=== PATIENT | female | born 1980 | race Caucasian/White ===

== ENCOUNTER 2017-12-20 20:19 | Emergency (ER) | payer OTHER ==
[2017-12-20 21:41] LABS: Bilirubin Negative (Negative); Blood, Urine Negative (Negative); Clarity CLEAR (Clear); Glucose, Urine (Dipstick) Negative (Negative); Leukocyte Negative (Negative); Nitrite Negative (Negative); Protein, Urine (Dipstick) Negative (Neg-Trace); Specific Gravity, Urine 1.005 (1.002-1.036); Urobilinogen 0.2 mg/dL (0.2-1.0)
[2017-12-20 21:52] LABS: Hemoglobin 9.7 g/dL (12.0-16.0); Mean Corpuscular HGB CONC 31.7 g/dL (32.0-36.0); Mean Corpuscular Hemoglobin 26.1 pg (27.0-31.0); Mean Corpuscular Volume 82.2 fL (78.0-98.0); Mean Platelet Volume 6.1 fL (7.4-10.4); Platelet Count 704 thou/uL (130-400); RBC Distribution Width 16.1 % (11.5-14.5); Red Blood Cell (RBC) Count 3.73 mill/uL (4.20-5.40); White Blood Cell (WBC) Count 13.7 thou/uL (4.8-10.8)
[2017-12-20 22:11] LABS: Band 1 % (5-11); Eosinophils 2 % (0-10); Lymphocytes 17 % (21-51); MDiff Complete? YES; Monocytes 7 % (0-10); Neutrophil 73 % (42-75); PLT Morphology Comment Appears Increased
[2017-12-20 22:12] LABS: ALT (SGPT) Less than 7 U/L (8-55); AST (SGOT) 10 U/L (5-34); Albumin 3.2 g/dL (3.5-5.0); Alkaline Phosphatase 140 U/L (40-150); Anion Gap 12 mmol/L (10-20); BUN (Urea Nitrogen) Less than 4 mg/dL (7.0-18.7); Bilirubin, Total 0.2 mg/dL (0.2-1.2); Calc. Creatinine Clearance 0 mL/min (70-130); Calcium 8.7 mg/dL (7.8-10.44); Carbon Dioxide 22 mmol/L (22-29); Chloride 103 mmol/L (98-107); Estimated GFR-MDRD Greater than 90; Globulin 3.9 g/dL (2.4-3.5); Glucose 92 mg/dL (70-105); Lipase 101 U/L (8-78); Potassium 4.2 mmol/L (3.5-5.1); Protein, Total 7.1 g/dL (6.0-8.3); Sodium 133 mmol/L (136-145)
--- NOTE | 2017-12-21 00:07 | PDOC.FPRHP ---
- History of Present Illness Chief Complaint: abdominal pain - Allergies/Adverse Reactions Allergies Allergy/AdvReac Type Severity Reaction Status Date / Time buspirone HCl [From BuSpar] Allergy Verified 01/05/14 00:31 lorazepam [From Ativan] Allergy Verified 08/04/14 13:52 Penicillins Allergy Verified 01/05/14 00:31 ATI Allergy Unknown Anxiety Uncoded 08/04/14 13:54 - Home Medications Medication Instructions Recorded Confirmed Type Sertraline HCl [Zoloft] 200 mg PO QAM 12/05/12 01/05/14 History Albuterol Sulfate [Albuterol 1 puff IH Q4HR PRN 01/05/14 01/05/14 History Sulfate HFA] Cyclobenzaprine HCl 1 tab PO PRN PRN 01/05/14 01/05/14 History Fluticasone/Salmeterol [Advair 1 inh IH BID 01/05/14 01/05/14 History Diskus 250/50] HYDROcodone Bit/APAP 5/325 [[place] 1 tab PO Q6HR PRN 01/05/14 01/05/14 History 5-325] Iloperidone [Fanapt] 6 mg PO BID 01/05/14 01/05/14 History Temazepam [Restoril] 15 mg PO HS 01/05/14 01/05/14 History traMADol HCl [Tramadol HCl] 50 mg PO TID PRN 01/05/14 01/05/14 History - History PMHx: Prolapsed Rectum, HTN, COPD, bipolar, depression, schizoaffective PSHx: Hernia repair x 2, colostomy, appendectomy, FHx: Social: Smokin pack per day, EtOH: socially, drugs: denies - Vital signs BP: [] HR: [] RR: [] Tmax: [] Pox: []% on [] Wt: [] FMR H&P: Results - Labs Result Diagrams: 12/20/17 21:42 12/20/17 21:42 Lab results: WBC 13.7 thou/uL (4.8-10.8) H 12/20/17 21:42 Hgb 9.7 g/dL (12.0-16.0) L 12/20/17 21:42 Hct 30.7 % (36.0-47.0) L 12/20/17 21:42 MCV 82.2 fL (78.0-98.0) 12/20/17 21:42 Plt Count 704 thou/uL (130-400) H 12/20/17 21:42 Band Neuts % (Manual) 1 % (5-11) L 12/20/17 21:42 Sodium 133 mmol/L (136-145) L 12/20/17 21:42 Potassium 4.2 mmol/L (3.5-5.1) 12/20/17 21:42 Chloride 103 mmol/L (98-107) 12/20/17 21:42 Carbon Dioxide 22 mmol/L (22-29) 12/20/17 21:42 BUN Less than 4 mg/dL (7.0-18.7) L 12/20/17 21:42 Creatinine 0.64 mg/dL (0.6-1.1) 12/20/17 21:42 Glucose 92 mg/dL (70-105) 12/20/17 21:42 Calcium 8.7 mg/dL (7.8-10.44) 12/20/17 21:42 Total Bilirubin 0.2 mg/dL (0.2-1.2) 12/20/17 21:42 AST 10 U/L (5-34) 12/20/17 21:42 ALT Less than 7 U/L (8-55) L 12/20/17 21:42 Alkaline Phosphatase 140 U/L (40-150) 12/20/17 21:42 Serum Total Protein 7.1 g/dL (6.0-8.3) 12/20/17 21:42 Albumin 3.2 g/dL (3.5-5.0) L 12/20/17 21:42 Lipase 101 U/L (8-78) H 12/20/17 21:42 Urine Ketones Negative mg/dL (Negative) 12/20/17 20:40 Urine Blood Negative (Negative) 12/20/17 20:40 Urine Nitrite Negative (Negative) 12/20/17 20:40 Ur Leukocyte Esterase Negative (Negative) 12/20/17 20:40 FMR H&P: Upper Level - Plan Date/Time: 12/21/17 Sebastián I, [], have evaluated this patient and agree with findings/plan as outlined by internet marketing strategist resident. Pertinent changes/additions are listed here.
[2017-12-21] MEDS ORDERED: Acetaminophen 325 MG TAB ONE (00:41)
== END 2017-12-21 02:30 | disposition home or self-care (01) ==
LOC: ERS 20:19
DX: S31.109A Unspecified open wound of abdominal wall, unspecified quadrant without penetration into peritoneal cavity, initial encounter (principal); Z93.3 Colostomy status; I10 Essential (primary) hypertension; J44.9 Chronic obstructive pulmonary disease, unspecified; F31.9 Bipolar disorder, unspecified; F25.9 Schizoaffective disorder, unspecified; F17.210 Nicotine dependence, cigarettes, uncomplicated
CPT/HCPCS: 36415; 80053; 81003; 83690; 85025; 99284

== ENCOUNTER 2018-01-29 17:57 | Inpatient (IN) | payer OTHER ==
[2018-01-29 19:57] LABS: #Basophils 0.1 thou/uL (0.0-0.2); #Eosinphils 0.3 thou/uL (0.0-0.7); #Neutrophils 7.8 thou/uL (1.40-6.50); %Basophils 0.4 % (0.0-1.0); %Eosinophils 2.6 % (0.0-10.0); %Lymphocytes 24.9 % (21.0-51.0); %Monocytes 7.8 % (0.0-10.0); %Neutrophils 64.2 % (42.0-75.0); Hemoglobin 9.6 g/dL (12.0-16.0); Mean Corpuscular HGB CONC 32.6 g/dL (32.0-36.0); Mean Corpuscular Hemoglobin 26.1 pg (27.0-31.0); Mean Corpuscular Volume 79.9 fL (78.0-98.0); Mean Platelet Volume 6.5 fL (7.4-10.4); Platelet Count 465 thou/uL (130-400); RBC Distribution Width 15.5 % (11.5-14.5); Red Blood Cell (RBC) Count 3.66 mill/uL (4.20-5.40); White Blood Cell (WBC) Count 12.1 thou/uL (4.8-10.8)
[2018-01-29 20:00] LABS: Bilirubin Negative (Negative); Blood, Urine Negative (Negative); Clarity CLEAR (Clear); Glucose, Urine (Dipstick) Negative (Negative); Leukocyte Trace (Negative); Nitrite Negative (Negative); Protein, Urine (Dipstick) Negative (Neg-Trace); Urobilinogen 0.2 mg/dL (0.2-1.0)
[2018-01-29] MEDS ORDERED: Haloperidol Lactate 5 MG/ML VIAL ONE (20:00)
[2018-01-29 20:02] LABS: Pathc Cast-AUWi Flag 0.14 (0-2.49)
[2018-01-29 20:12] LABS: Amphetamine Not Detected (NotDetected); Barbiturates Screen Not Detected (NotDetected); Benzodiazepine Screen Detected (NotDetected); Cocaine Metabolite Screen Not Detected (NotDetected); Medtox Control Line Valid? VALID (VALID); Medtox Reader # READER 4; Methadone Not Detected (NotDetected); Methamphetamine Not Detected (NotDetected); Opiate Screen Not Detected (NotDetected); Oxycodone Screen Not Detected (NotDetected); Phencyclidine (PCP) Not Detected (NotDetected); THC/Cannabinoid Screen Not Detected (NotDetected); Tricyclic Screen Not Detected (NotDetected)
[2018-01-29 20:13] LABS: Specific Gravity, Urine 1.002 (1.002-1.036)
[2018-01-29 20:14] LABS: Bacteria/HPF None Seen HPF (None Seen); Hyaline Casts/LPF NONE SEEN LPF (0-3 Hyaline); RBC/HPF None Seen HPF (0-3); WBC/HPF None Seen HPF (0-3)
[2018-01-29 20:23] LABS: Acetaminophen Less than 6.0 mcg/mL (10.0-30.0); Alcohol Less than 10 mg/dL (Less than 10); BHCG - Serum Negative (NEGATIVE); Pregs Control Background? CLEAR/WHITE (CLR/WHITE); Pregs Control Bar Appear? YES (CONTROL BAR); Salicylate Less than 8.0 mg/dL (15.0-30.0)
[2018-01-29 20:24] LABS: ALT (SGPT) 8 U/L (8-55); AST (SGOT) 12 U/L (5-34); Albumin 3.1 g/dL (3.5-5.0); Alkaline Phosphatase 95 U/L (40-150); Anion Gap 11 mmol/L (10-20); BUN (Urea Nitrogen) 5 mg/dL (7.0-18.7); Bilirubin, Total Less than 0.2 mg/dL (0.2-1.2); Calc. Creatinine Clearance 0 mL/min (70-130); Carbon Dioxide 29 mmol/L (22-29); Chloride 96 mmol/L (98-107); Estimated GFR-MDRD Greater than 90; Globulin 3.3 g/dL (2.4-3.5); Glucose 80 mg/dL (70-105); Potassium 3.2 mmol/L (3.5-5.1); Protein, Total 6.4 g/dL (6.0-8.3); Sodium 133 mmol/L (136-145)
--- NOTE | 2018-01-29 20:54 | PDOC.FPRHP ---
- History of Present Illness Chief Complaint: clonazepam OD History of Present Illness: 37yo F with pmh of MDD presents as transfer from [facility] for reportedly taking 20 clonazepam 0.5 tablets and for Tx of abdominal cellulitis. Pt is agitated and restrained. Limited history was able to be obtained due to mental status and difficulty understanding enunciation of speech. Pt reported active desire to hurt herself but refused to answer many other questions regarding history. Also complains of 1 month hx of worsening abdominal skin redness and associated pain. Pain 10/17 with associated f/c. redness originated at site of colostomy bag. Pt has two bags and reports hx of rectal prolapse s/p surgery. ED Course: Levaquin 750mg, ketamin 90mg x2, Haldol 5mg - Allergies/Adverse Reactions Allergies Allergy/AdvReac Type Severity Reaction Status Date / Time adhesive tape Allergy Verified 01/29/18 23:19 buspirone HCl [From BuSpar] Allergy Verified 01/29/18 23:19 lorazepam [From Ativan] Allergy Verified 01/29/18 23:19 Penicillins Allergy Verified 01/29/18 23:19 - Home Medications Medication Instructions Recorded Confirmed Type Sertraline HCl [Zoloft] 200 mg PO QAM 12/05/12 01/05/14 History Albuterol Sulfate [Albuterol 1 puff IH Q4HR PRN 01/05/14 01/29/18 History Sulfate HFA] Cyclobenzaprine HCl 1 tab PO PRN PRN 01/05/14 01/05/14 History Fluticasone/Salmeterol [Advair 1 inh IH BID 01/05/14 01/05/14 History Diskus 250/50] HYDROcodone Bit/APAP 5/325 [[place] 1 tab PO Q6HR PRN 01/05/14 01/05/14 History 5-325] Iloperidone [Fanapt] 6 mg PO BID 01/05/14 01/05/14 History Temazepam [Restoril] 15 mg PO HS 01/05/14 01/05/14 History traMADol HCl [Tramadol HCl] 50 mg PO TID PRN 01/05/14 01/29/18 History clonazePAM [Clonazepam] 0.5 mg PO BID 01/29/18 01/29/18 History - History PMHx: MDD, COPD, Rectal prolapse PSHx: Unspecified abdominal surgery resulting in 2 colostomies, 1 other unspecified surgery FHx: none reported Social: active smoker 20 pack years, denies EtOH/drugs - Review of Systems ROS unobtainable: due to mental status General: reports: fever/chills. denies: fatigue Eyes: denies: eye pain, vision changes Respiratory: reports: cough. denies: shortness of breath Cardiovascular: denies: chest pain Gastrointestinal: denies: nausea, vomiting Musculoskeletal: reports: pain Psychological: reports: depression - Vital signs BP: [114/76] HR: [99] RR: [18] Tmax: [98.6] Pox: [100]% on [RA] Wt: [45kg] - Physical Exam Constitutional: NAD, awake, alert and oriented HEENT: normocephalic and atraumatic, EOMI, grossly normal hearing -HEENT: dry and chapped lips Neck: supple, trachea midline Chest: no-tender to palpation Heart: RRR, normal S1/S2 Lungs: CTAB, no respiratory distress Abdomen: soft, bowel sounds present, other ([address]) Musculoskeletal: normal structure, normal tone -Skin: Erythema measuring approximately [id number] with surrounding petechia. cellulitis is centered around colostomy sites. Moderate tenderness to palpation, warmth to touch. -Psychiatric: poor eye contact. poor grooming and attire with feces leaking from colostomy bags. increased volume of speech with decreased rate. Thought content centered on being released from restraints. "not so good" mood. Pt refused to answer SI/ HI/AVH questions but stated desire to hurt herself. FMR H&P: Results - Labs Result Diagrams: 01/30/18 04:49 01/30/18 04:49 Lab results: WBC 12.1 thou/uL (4.8-10.8) H 01/29/18 19:30 Hgb 9.6 g/dL (12.0-16.0) L 01/29/18 19:30 Hct 29.3 % (36.0-47.0) L 01/29/18 19:30 MCV 79.9 fL (78.0-98.0) 01/29/18 19:30 Plt Count 465 thou/uL (130-400) H 01/29/18 19:30 Neutrophils % 64.2 % (42.0-75.0) 01/29/18 19:30 Sodium 133 mmol/L (136-145) L 01/29/18 19:30 Potassium 3.2 mmol/L (3.5-5.1) L 01/29/18 19:30 Chloride 96 mmol/L (98-107) L 01/29/18 19:30 Carbon Dioxide 29 mmol/L (22-29) 01/29/18 19:30 BUN 5 mg/dL (7.0-18.7) L 01/29/18 19:30 Creatinine 0.67 mg/dL (0.6-1.1) 01/29/18 19:30 Glucose 80 mg/dL (70-105) 01/29/18 19:30 Lactic Acid 1.5 mmol/L (0.5-2.2) 01/29/18 19:30 Calcium 9.0 mg/dL (7.8-10.44) 01/29/18:30 Total Bilirubin Less than 0.2 mg/dL (0.2-1.2) L 01/29/18 19:30 AST 12 U/L (5-34) 01/29/18 19:30 ALT 8 U/L (8-55) 01/29/18 19:30 Alkaline Phosphatase 95 U/L (40-150) 01/29/18 19:30 Serum Total Protein 6.4 g/dL (6.0-8.3) 01/29/18 19:30 Albumin 3.1 g/dL (3.5-5.0) L 01/29/18 19:30 Urine Ketones Negative mg/dL (Negative) 01/29/18 19:39 Urine Blood Negative (Negative) 01/29/18 19:39 Urine Nitrite Negative (Negative) 01/29/18 19:39 Ur Leukocyte Esterase Trace (Negative) H 01/29/18 19:39 Urine RBC None Seen HPF (0-3) 01/29/18 19:39 Urine WBC None Seen HPF (0-3) 01/29/18 19:39 Ur Squamous Epith Cells 4-6 HPF (0-3) H 01/29/18 19:39 Urine Bacteria None Seen HPF (None Seen) 01/29/18 19:39 FMR H&P: A/P - Problem List (1) Suicidal overdose Current Visit: No Status: Acute Code(s): T50.902A - POISONING BY UNSP DRUG/ MEDS/BIOL SUBST, SELF-HARM, INIT (2) Cellulitis Current Visit: Yes Status: Acute Code(s): L03.90 - CELLULITIS, UNSPECIFIED (3) COPD (chronic obstructive pulmonary disease) Current Visit: Yes Status: Chronic - Plan 37yo F with suicide attempt via benzo OD Depression with suicide attempt, benzodiazepine OD A- Pt is combative and agitated s/p 20 reported 0.5mg clonazepam tablets, 180mg ketamine, 5mg haldol. Airway is patent and O2 sats well on RA. Agitated P- monitor respiratory status, O2 sat continuous monitoring -continue home zoloft -hold home clonazepam -maintenance IVF until pt establishes PO Cellulitis A- Possibly secondary to contact dermatitis 2/2 chronic fecal contact from colostomy leakage. Pt is moderately tender to palpation. SIRS - P- clindamycin and rocephin -monitor vitals COPD -continue home albuterol prn hypokalemia -will replete and recheck in AM. -stable. Tobacco abuse -nicotine patch. Code status: FULL Diet: Regular FMR H&P: Upper Level - Pertinent history 37 year old female with PMH of severe major depressive disorder with suicidal ideations presents today from [facility] after an attempted suicide by klonopin overdose. Notes being suicidal for some time. She also notes hx of rectal prolapse for which she has a colostomy and complication of enterocutaneous fistula. She has redness and pain around colostomy and fistula for at least the last month. - Pertinent findings Lungs: BLL crackles, good air movement bilaterally and vague end expiratory wheeze Abd- LLQ colostomy. Mid abdominal fistula with bright erythema and yellow colored exudate. - Plan Date/Time: 01/29/182052 I, [Ida Nassar], have evaluated this patient and agree with findings/plan as outlined by international flight attendant resident. Pertinent changes/additions are listed here. 37 yr old female with suicide attempt MDD with klonopin overdose suicide attempt - s/p ketamine in ER. - she is far from sedated and is rather agitated. - likely can be cleared for MR in the AM. - will give geodon overnight for agitation - no respiratory compromise at this time abdominal wall cellulitis - concern for cellulitis vs contact dermatitis. - will start clindamycin and rocephin - need outpatient f/u for with surgery for ongoing cutaneous fistula hypokalemia -will replete and recheck in AM. -stable. COPD -will give duoneb PRN. Tobacco abuse -nicotine patch. Code status: FULL Diet: Regular Attending Addendum - Attending Addendum Date/Time: 01/30/18 8148 I personally evaluated the patient and discussed the management with Dr. Linn at time of admission last night. I agree with the History, Examination, Assessment and Plan documented above with any addition or exceptions noted below. Patient was alert and oriented to herself place and why she was at the hospital. However she was agitated, fighting her restraints at times. With a clonazepam overdose I was concerned for sedation but she had none but was disinhibited. In fact we will resort to geodon for agitation control as haldol given in the ER was not effective. We will also treat her cellulitis. No evidence of peritonitis. Dr Nassar and Temitope discussed antibiotic strategies with the pharmacist, due to her PCN allergy.
[2018-01-29] MEDS ORDERED: PROVENTIL INHALER 6.7 G (200 INHALATIONS) INH PRN (22:33)
[2018-01-29] MEDS ORDERED: Acetaminophen 325 MG TAB PO PRN (22:33)
[2018-01-29] MEDS ORDERED: Ziprasidone 20 MG VIAL IM SCH (22:35)
[2018-01-29] MEDS ORDERED: Potassium Chloride 20 MEQ TAB PO SCH (23:15)
[2018-01-29] MEDS ORDERED: Nicotine 14 MG PATCH ONE (23:25)
[2018-01-29] MEDS ORDERED: Ziprasidone 20 MG VIAL ONE (23:26)
[2018-01-29] MEDS ORDERED: Sterile Water 10 ML VIAL FS SCH (23:30)
[2018-01-29] MEDS ORDERED: Potassium Chloride 20 MEQ TAB ONE (23:33)
[2018-01-29 23:45] VITALS: BMI 17.0
[2018-01-30] MEDS ORDERED: Clindamycin/D5W 600 mg/50 ml Premix Bag ONE (00:02)
[2018-01-30] MEDS: Sodium Chloride 0.9% 1,000 ML IV SCH ×2 (00:09→15:26)
[2018-01-30] MEDS: Clindamycin/D5W 600 MG in Premix Bag 1 BAG IVPB SCH ×3 (00:10→15:28)
[2018-01-30] MEDS ORDERED: Nicotine 14 MG PATCH ONE (04:20)
[2018-01-30] MEDS ORDERED: cefTRIAXone\\ROCEPHIN 1 GM VIAL ONE (04:25)
[2018-01-30] MEDS: cefTRIAXone\\ROCEPHIN 1 GM in Sodium Chloride 0.9% 100 ML IVPB SCH (05:22)
[2018-01-30] MEDS: Nicotine 14 MG PATCH TD SCH (05:22)
[2018-01-30 05:45] LABS: #Basophils 0.1 thou/uL (0.0-0.2); #Eosinphils 0.4 thou/uL (0.0-0.7); #Lymphocytes 2.6 thou/uL (1.20-3.40); #Monocytes 0.8 thou/uL (0.11-0.59); #Neutrophils 5.9 thou/uL (1.40-6.50); %Basophils 1.2 % (0.0-1.0); %Eosinophils 3.9 % (0.0-10.0); %Lymphocytes 26.9 % (21.0-51.0); %Monocytes 8.2 % (0.0-10.0); %Neutrophils 59.9 % (42.0-75.0); Hemoglobin 9.7 g/dL (12.0-16.0); Mean Corpuscular Hemoglobin 24.8 pg (27.0-31.0); Mean Corpuscular Volume 80.1 fL (78.0-98.0); Mean Platelet Volume 6.4 fL (7.4-10.4); Platelet Count 477 thou/uL (130-400); RBC Distribution Width 15.6 % (11.5-14.5); Red Blood Cell (RBC) Count 3.89 mill/uL (4.20-5.40); White Blood Cell (WBC) Count 9.8 thou/uL (4.8-10.8)
[2018-01-30 06:12] LABS: Anion Gap 12 mmol/L (10-20); BUN (Urea Nitrogen) 4 mg/dL (7.0-18.7); Calc. Creatinine Clearance 85 mL/min (70-130); Calcium 8.8 mg/dL (7.8-10.44); Carbon Dioxide 27 mmol/L (22-29); Chloride 102 mmol/L (98-107); Estimated GFR-MDRD Greater than 90; Glucose 79 mg/dL (70-105); Potassium 3.7 mmol/L (3.5-5.1); Sodium 137 mmol/L (136-145)
--- NOTE | 2018-01-30 06:25 | PDOC.FM ---
- Subjective Subjective: NAEO. Patient endorses some nausea and decreased appetite as well as abdominal and left leg pain. Denies any chest pain or SOB. Also denies any persistent SI. Says she cannot recall why she tried to kill herself. Had had mutiple intentional OD episodes in the past. Denies any stress at home or in personal life that could have triggered this SI. Just says it was her medicine. Was requesting pain medicine for her leg and wanted to get her restraints off. - Objective MAR Reviewed: Yes Vital Signs & Weight: Vital Signs (12 hours) Temp Pulse Resp BP Pulse Ox 01/30/18 03:38 97.4 F L 88 20 124/74 98 01/30/18 01:48 99 01/29/18 23:42 97.6 F 78 16 122/80 99 01/29/18 22:45 97 01/29/18 22:30 99 01/29/18 22:25 98.0 F 91 16 131/75 98 Weight Weight 45.042 kg I&O: 01/28/18 01/29/18 01/30/18 06:59 06:59 06:59 Intake Total 760 Output Total 150 Balance 610 Result Diagrams: 01/30/18 04:49 01/30/18 04:49 <Ivonne Celeste - Last Filed: 01/30/18 08:56> - Objective Vital Signs & Weight: Vital Signs (12 hours) Temp Pulse Resp BP Pulse Ox 01/30/18 06:31 98 01/30/18 03:38 97.4 F L 88 20 124/74 98 01/30/18 01:48 99 Weight Weight 45.042 kg I&O: 01/29/18 01/30/18 01/31/18 06:59 06:59 06:59 Intake Total 760 Output Total 150 Balance 610 Result Diagrams: 01/30/18 04:49 01/30/18 04:49 <Jack Fink - Last Filed: 01/30/18 12:22> Phys Exam - Physical Examination Constitutional: NAD malnourished and unkept female appearing older than stated age HEENT: moist MMs Neck: supple, full ROM Respiratory: no wheezing, no rales coarse breath sounds in L upper lobe Cardiovascular: RRR, no significant murmur Gastrointestinal: soft, no distention, positive bowel sounds Musculoskeletal: no edema, pulses present Neurological: non-focal, normal sensation, moves all 4 limbs Deviation from normal: Patient not very open to talking and only periodically answered questions with words as opposed to head nodding Skin: normal turgor, cap refill <2 seconds Deviation from normal: ~[id number] area of bright red erythema over center of abdomen w/ ~5x2cm -: area of central erosion w/ mucopurulent vs. fecal discharge <Ivonne Celeste - Last Filed: 01/30/18 08:56> Dx/Plan (1) COPD (chronic obstructive pulmonary disease) Status: Chronic (2) Cellulitis Code(s): L03.90 - CELLULITIS, UNSPECIFIED Status: Acute (3) Bipolar 1 disorder with moderate george Status: Chronic (4) Poisoning by benzodiazepine-based tranquilizers Code(s): T42.4X4A - POISONING BY BENZODIAZEPINES, UNDETERMINED, INIT ENCNTR Status: Acute (5) Suicidal overdose Code(s): T50.902A - POISONING BY UNSP DRUG/MEDS/BIOL SUBST, SELF-HARM, INIT Status: Acute - Plan Plan: 37YOF with PMH significant for Bipolar 1 w/ depression who was admitted after a suicide attempt via benzo OD and for evaluation and treatment of abdominal wall cellulitis vs. contact dermatitis. Depression with suicide attempt, benzodiazepine OD - No respiratory support required overnight. Will continue to monitor respiratory status closely. - Will continue home zoloft but hold home clonazepam. - Will consider d/c IVFs if patient tolerates PO today. Will add PRN zofran for reported nausea. Abodminal Wall Cellulitis - Patient remained afebrile and WBC WNLs this AM. - Will continue IV clindamycin and rocephin and consider switching to PO abx regimen vs. antifungal for possible dermatitis once patient tolerates PO. - Will continue to monitor vitals and WBC w/ QD CBCs. - Will continue PO tylenol for pain. hypokalemia - Resolved as K is up to 3.7 this AM. - Will continue to monitor w/ QD BMPs. COPD - Will continue home albuterol PRN. Tobacco abuse -nicotine patch. Code status: FULL Diet: Regular IVFs: NS @ 65mL/hr Abx: IV clindamycin & Rocephin <Ivonne Celeste - Last Filed: 01/30/18 08:56> Attending Addendum - Attending Addendum Date/Time: 01/30/18 1221 I personally evaluated the patient and discussed the management with Dr. Celeste. I agree with the History, Examination, Assessment and Plan documented above with any addition or exceptions noted below. Patient here after apparent suicide attempt with benzos. She has also been very agitated which may suggest she has other substances in her system. She is currently stable. She has this erythema near her ostomy site that could be a mild cellulitis versus chronic ostomy irritation. PCT pending and Wound care on board. Will await their findings to make further decision on need to treat with IV therapy. Once this has been determined, can likely consult [facility] for placement due to her suicidal ideation. <Jack Fink R - Last Filed: 01/30/18 12:22>
[2018-01-30] MEDS: Enoxaparin Sodium 40 MG/0.4 ML SYRINGE SC SCH (11:22)
[2018-01-30 13:33] LABS: HIV (1/2) Antibody/Antigen Non-Reactive (NonReactive); HIV 1/2 INDEX 0.17 S/CO (<1.00); Hep C IgG Ab Non-Reactive (NonReactive); Hep C Index 0.23 S/CO (0-0.79)
[2018-01-30 14:06] LABS: Syphilis Antibody Nonreactive (Nonreactive); Syphilis Antibody Index 0.05 S/CO (<1.00 Non-Reactive)
[2018-01-30] MEDS ORDERED: Sterile Water 10 ML VIAL FS SCH (15:15)
[2018-01-30] MEDS ORDERED: Ziprasidone 20 MG VIAL IM SCH (15:15)
[2018-01-31] MEDS: Clindamycin/D5W 600 MG in Premix Bag 1 BAG IVPB SCH ×2 (00:38→09:43)
[2018-01-31] MEDS: Nicotine 14 MG PATCH TD SCH (06:02)
[2018-01-31] MEDS: cefTRIAXone\\ROCEPHIN 1 GM in Sodium Chloride 0.9% 100 ML IVPB SCH (06:02)
[2018-01-31] MEDS: Sodium Chloride 0.9% 1,000 ML IV SCH (06:02)
--- NOTE | 2018-01-31 06:31 | PDOC.FM ---
- Subjective Subjective: NAEO. Patient still denies any SI or HI this AM. Is tearful and complaining of pain from the restraints. Also endorses a headache and persistent pain in her left leg from her IV. Says she got tylenol #3 in the [facility] hospital and that it helped a lot. Would also like something to drink but per nurse failed a bedside swallow study. Awaiting clearance from speech. Patient stated "the nurse misunderstood" and that she "was holding the water in her mouth waiting for the pills to be placed in there." - Objective Vital Signs & Weight: Vital Signs (12 hours) Temp Pulse Resp BP Pulse Ox 01/30/18 20:00 98.7 F 77 16 125/90 100 Weight Admit Weight 45 kg Weight 45 kg I&O: 01/29/18 01/30/18 01/31/18 06:59 06:59 06:59 Intake Total 760 780 Output Total 150 Balance 610 780 Result Diagrams: 01/30/18 04:49 01/30/18 04:49 <Ivonne Celeste - Last Filed: 01/31/18 08:52> - Objective Vital Signs & Weight: Vital Signs (12 hours) Temp Pulse Resp BP Pulse Ox 01/31/18 07:55 96.8 F L 97 14 120/78 96 Weight Admit Weight 45 kg Weight 45 kg I&O: 01/30/18 01/31/18 02/01/18 06:59 06:59 06:59 Intake Total 760 780 Output Total 150 Balance 610 780 Result Diagrams: 01/30/18 04:49 01/30/18 04:49 <Jack Fink - Last Filed: 01/31/18 11:37> Phys Exam - Physical Examination Constitutional: NAD HEENT: moist MMs Neck: supple, full ROM Respiratory: no wheezing, no rales, no rhonchi Cardiovascular: RRR, no significant murmur Gastrointestinal: soft, non-tender, positive bowel sounds Abdominal wound covered with binder with new ostomy dressings in place Musculoskeletal: no edema Neurological: non-focal, normal sensation, moves all 4 limbs Psychiatric: A&O x 3 Deviation from normal: tearful at times on exam Skin: no rash, normal turgor, cap refill <2 seconds <Ivonne Celeste - Last Filed: 01/31/18 08:52> Dx/Plan (1) COPD (chronic obstructive pulmonary disease) Status: Chronic (2) Cellulitis Code(s): L03.90 - CELLULITIS, UNSPECIFIED Status: Acute (3) Bipolar 1 disorder with moderate george Status: Chronic (4) Poisoning by benzodiazepine-based tranquilizers Code(s): T42.4X4A - POISONING BY BENZODIAZEPINES, UNDETERMINED, INIT ENCNTR Status: Acute (5) Suicidal overdose Code(s): T50.902A - POISONING BY UNSP DRUG/MEDS/BIOL SUBST, SELF-HARM, INIT Status: Acute - Plan Plan: 37YOF with PMH significant for major depression who was admitted after a suicide attempt via benzo OD and for evaluation and treatment of abdominal wall cellulitis vs. contact dermatitis. Depression with suicide attempt, benzodiazepine OD - No respiratory support required since admission. Will continue to monitor closely. - Will continue home zoloft and consider restarting home clonazepam dose. - Will consult [facility] today pending clearance to tolerate PO by speech therapy. Dysphagia - Patient failed nursing bedside swallow yesterday. Awaiting speech eval to clear her for PO intake. - Will consider d/c IVFs if patient is cooperative while being unrestrained & tolerates PO. Abodminal Wall Cellulitis vs. contact dermatitis - Patient has remained afebrile & labs have normalized since admission. WC treated with barrier cream and called wound a non-pressure ulcer. - Will consider d/c abx as procal was 0.03 and patient has no signs or symptoms of infection. Will benefit most from improved wound and ostomy care. - Will continue to monitor vitals and WBC w/ QD CBCs. - Will continue PO tylenol and add PRN ibuprofen for pain. - Will continue PRN zofran for nausea. COPD - Will continue home albuterol PRN. Tobacco abuse -nicotine patch. Hypokalemia - Resolved. Code status: FULL Diet: Regular IVFs: NS @ 65mL/hr Abx: IV clindamycin & Rocephin Dispo: Likely d/c to inpatient psych late today or tomorrow pending [facility] evaluation. <Ivonne Celeste - Last Filed: 01/31/18 08:52> Attending Addendum - Attending Addendum Date/Time: 01/31/18 3894 I personally evaluated the patient and discussed the management with Dr. Celeste. I agree with the History, Examination, Assessment and Plan documented above with any addition or exceptions noted below. Patient here and does not exhibit any signs of major infection or cellulitis. Her skin changes are likely chronic from the ostomy due to poor care. She is currently A&Ox4. Will consult [facility] as medically clear for discharge. She is now on modified diet due to her poor chew function since she does not have dentures in. <Jack Fink R - Last Filed: 01/31/18 11:37>
[2018-01-31] MEDS: Enoxaparin Sodium 40 MG/0.4 ML SYRINGE SC SCH (10:32)
[2018-01-31] MEDS ORDERED: Ibuprofen 600 MG TAB PO SCH (14:30)
[2018-01-31] MEDS: traMADol HCl 50 MG TAB PO PRN (19:47)
[2018-01-31] MEDS: Ziprasidone 20 MG CAP PO PRN (20:21)
[2018-01-31] MEDS: Ibuprofen 600 MG TAB PO PRN (22:33)
--- NOTE | 2018-02-01 05:37 | PDOC.FM ---
- Subjective Subjective: Patient had a fall in the bathroom earlier this AM and had a red alfreda on her back. Was instructed not to get out of bed without assistance. Patient denies any chest pain, SOB, N/V/D or constipation. Says her abdominal pain is not well controlled with tramadol. Also endorses SI but denies having a specific plan. Says she started having theses thoughts again yesterday afternoon. - Objective MAR Reviewed: Yes Vital Signs & Weight: Vital Signs (12 hours) Temp Pulse Resp BP BP Pulse Ox 01/31/18 20:00 97.4 F L 101 H 20 122/79 98 01/31/18 17:39 96.9 F L 104 H 16 126/88 98 Weight Admit Weight 45 kg Weight 45 kg I&O: 01/30/18 01/31/18 02/01/18 06:59 06:59 06:59 Intake Total 760 780 Output Total 150 Balance 610 780 Result Diagrams: 01/30/18 04:49 01/30/18 04:49 Phys Exam - Physical Examination Constitutional: NAD HEENT: moist MMs Neck: supple, full ROM Respiratory: no wheezing, no rales, no rhonchi, clear to auscultation bilateral Cardiovascular: RRR, no significant murmur Gastrointestinal: soft, non-tender, no distention, positive bowel sounds ostomy bags in place over ostomy and fistula openings Musculoskeletal: no edema Neurological: non-focal, normal sensation, moves all 4 limbs Psychiatric: A&O x 3 Deviation from normal: depressed affect Skin: no rash, normal turgor, cap refill <2 seconds Dx/Plan (1) COPD (chronic obstructive pulmonary disease) Status: Chronic (2) Cellulitis Code(s): L03.90 - CELLULITIS, UNSPECIFIED Status: Acute (3) Bipolar 1 disorder with moderate george Status: Chronic (4) Poisoning by benzodiazepine-based tranquilizers Code(s): T42.4X4A - POISONING BY BENZODIAZEPINES, UNDETERMINED, INIT ENCNTR Status: Acute (5) Suicidal overdose Code(s): T50.902A - POISONING BY UNSP DRUG/MEDS/BIOL SUBST, SELF-HARM, INIT Status: Acute - Plan Plan: 37YOF with PMH significant for major depression who was admitted after a suicide attempt via benzo OD and for evaluation and treatment of abdominal wall cellulitis vs. contact dermatitis. Depression with suicide attempt, benzodiazepine OD - No respiratory support required since admission. Will continue to monitor closely with sitter and suicide precautions since restraints were removed yesterday. - Will continue home zoloft dose and geodon PRN and consider restarting home clonazepam dose. - Patient was recommended to be transferred to inpatient psych by [facility] yesterday. Awaiting an open bed for transfer. Abodminal Wall contact dermatitis - Patient has remained afebrile & labs have normalized since admission. WC treated with barrier cream and called wound a non-pressure ulcer. - Stopped all Abx yesterday. Patient will benefit most from improved wound and ostomy care. - Will continue PO tylenol, ibuprofen, and tramadol PRN for pain. - Will continue PRN zofran for nausea. COPD - Will continue home albuterol PRN. Tobacco abuse -nicotine patch. Hypokalemia - Resolved. Dysphagia - Resolved. Patient cleared to take PO by speech yesterday. Difficulty swallowing and chewing 2/2 patient having no teeth. - Patient tolerated a mechanical soft diet well yesterday, will continue today and advance as recommended by speech therapy. External hemorrhoid - Will initiate sitz baths and add topical hydrocortisone and/or preparation H PRN. Code status: FULL Diet: Regular IVFs: None Abx: None Dispo: Awaiting opening at inpatient psych as patient was recommended to be transferred there by [facility] yesterday.
[2018-02-01] MEDS: Nicotine 14 MG PATCH TD SCH (06:05)
[2018-02-01] MEDS: traMADol HCl 50 MG TAB PO PRN ×4 (08:13→23:29)
[2018-02-01] MEDS: Enoxaparin Sodium 40 MG/0.4 ML SYRINGE SC SCH (08:14)
[2018-02-01] MEDS: Ziprasidone 20 MG CAP PO PRN ×3 (08:14→20:25)
[2018-02-01] MEDS ORDERED: Nystatin Powder 15 GM BOT TOP PRN (09:51)
[2018-02-01] MEDS ORDERED: Preparation H Ointment 28 GM TUBE TOP PRN (11:41)
--- NOTE | 2018-02-01 11:54 | PDOC.EVN ---
Attending Addendum - Attending Addendum Date/Time: 02/01/18 4016 I personally evaluated the patient and discussed the management with Dr. Celeste. I agree with the History, Examination, Assessment and Plan documented in her progress note with any addition or exceptions noted below. Patient stable medically. Awaiting placement at inpatient psych. Continue current meds and therapy while here.
[2018-02-01] MEDS: Ibuprofen 600 MG TAB PO PRN ×2 (12:11→18:00)
[2018-02-01 16:46] LABS: Hep C PCR-Quant HCV Not Detected IU/mL (.)
[2018-02-01] MEDS ORDERED: Ziprasidone 20 MG VIAL IM PRN (20:11)
[2018-02-01] MEDS: Melatonin 3 MG TAB PO PRN (20:25)
[2018-02-01] MEDS ORDERED: Preparation H HC 1% Cream 26 GM TUBE TOP PRN (21:00)
[2018-02-02] MEDS: traMADol HCl 50 MG TAB PO PRN ×3 (06:17→16:07)
[2018-02-02] MEDS: Nicotine 14 MG PATCH TD SCH (06:18)
--- NOTE | 2018-02-02 06:22 | PDOC.FM ---
- Subjective Subjective: Patient sitting on edge of bed actively vomiting upon walking into room this AM. Vomited once and gagged a second time but was completely back to baseline by the time I left the room. Was able to walk to the bathroom to empty her ostomy bag without any issues. Reported her abdominal pain to be 7/10 in severity initally but was comfortably walking to the bathroom by end of visit. - Objective MAR Reviewed: Yes Vital Signs & Weight: Vital Signs (12 hours) Temp Pulse Resp BP Pulse Ox 02/02/18 06:02 99 02/01/18 20:00 99 02/01/18 19:46 96.5 F L 85 20 158/93 H 99 Weight Admit Weight 45 kg Weight 45 kg I&O: 01/31/18 02/01/18 02/02/18 06:59 06:59 06:59 Intake Total 780 3500 Balance 780 3500 Result Diagrams: 01/30/18 04:49 01/30/18 04:49 <Ivonne Celeste - Last Filed: 02/02/18 10:39> - Objective Vital Signs & Weight: Vital Signs (12 hours) Pulse Resp BP Pulse Ox 02/02/18 08:00 99 02/02/18 07:49 83 16 118/82 99 02/02/18 06:02 99 Weight Admit Weight 45 kg Weight 45 kg I&O: 02/01/18 02/02/18 02/03/18 06:59 06:59 06:59 Intake Total 3500 360 Balance 3500 360 Result Diagrams: 01/30/18 04:49 01/30/18 04:49 <Jack Fink - Last Filed: 02/02/18 11:12> Phys Exam - Physical Examination Constitutional: NAD HEENT: moist MMs, sclera anicteric Neck: supple, full ROM Respiratory: no wheezing, no rales, no rhonchi, clear to auscultation bilateral Cardiovascular: RRR, no significant murmur Gastrointestinal: soft, non-tender, no distention No ostomy bag over ostomy opeing only over fistula. Musculoskeletal: no edema Neurological: non-focal, normal sensation, moves all 4 limbs Psychiatric: normal affect, A&O x 3 Skin: no rash, normal turgor, cap refill <2 seconds <Ivonne Celeste - Last Filed: 02/02/18 10:39> Dx/Plan (1) COPD (chronic obstructive pulmonary disease) Status: Chronic (2) Cellulitis Code(s): L03.90 - CELLULITIS, UNSPECIFIED Status: Acute (3) Bipolar 1 disorder with moderate george Status: Chronic (4) Poisoning by benzodiazepine-based tranquilizers Code(s): T42.4X4A - POISONING BY BENZODIAZEPINES, UNDETERMINED, INIT ENCNTR Status: Acute (5) Suicidal overdose Code(s): T50.902A - POISONING BY UNSP DRUG/MEDS/BIOL SUBST, SELF-HARM, INIT Status: Acute - Plan Plan: 37YOF with PMH significant for major depression who was admitted after a suicide attempt via benzo OD and for evaluation and treatment of abdominal wall cellulitis vs. contact dermatitis. Depression with suicide attempt, benzodiazepine OD - No respiratory support required since admission. Will continue to monitor closely with sitter and suicide precautions since patient is no longer in restraints. - Will continue home zoloft dose and geodon PRN and consider restarting home clonazepam dose. - Patient was recommended to be transferred to inpatient psych by [facility] yesterday. Awaiting an open bed for transfer. Paperwork signed overnight. Abodminal Wall contact dermatitis - WC on board, will ensure patient has appropriate ostomy care supplies before transfer as it was noted that she did not have a bag over her ostomy this morning. Patient will benefit most from improved wound and ostomy care. - Will continue PO tylenol, ibuprofen, and tramadol PRN for pain. - Will continue PRN zofran for nausea. COPD - Will continue home albuterol PRN. Tobacco abuse -nicotine patch. Hypokalemia - Resolved. Dysphagia - Resolved. - Speech therapy on board and has continued to advance patient's diet as tolerated. - Patient continues to tolerate PO. External hemorrhoid - Will continue sitz baths as well as topical hydrocortisone and/or preparation H PRN. Code status: FULL Diet: Regular IVFs: None Abx: None Dispo: Awaiting opening at inpatient psych. Paperwork signed. <Ivonne Celeste - Last Filed: 02/02/18 10:39> Attending Addendum - Attending Addendum Date/Time: 02/02/18 1112 I personally evaluated the patient and discussed the management with Dr. Celeste. I agree with the History, Examination, Assessment and Plan documented above with any addition or exceptions noted below. Patient was ambulating and feeling well at the time of my exam. She is medically stable for [facility] <Jack Fink - Last Filed: 02/02/18 11:12>
[2018-02-02] MEDS: Enoxaparin Sodium 40 MG/0.4 ML SYRINGE SC SCH (07:49)
[2018-02-02] MEDS: Ziprasidone 20 MG CAP PO PRN ×2 (07:50→13:44)
[2018-02-02] MEDS: Ondansetron ODT 8 MG TAB SL PRN (11:39)
[2018-02-03] MEDS: Melatonin 3 MG TAB PO PRN ×2 (02:01→20:15)
[2018-02-03] MEDS: Ibuprofen 600 MG TAB PO PRN ×2 (02:02→12:08)
[2018-02-03] MEDS: Nicotine 14 MG PATCH TD SCH (05:05)
--- NOTE | 2018-02-03 06:22 | PDOC.FM ---
- Subjective Subjective: Ms. Velasquez is uncomfortable in bed. She reports pain around her ostomy site and her back. This pain is not new or worsening. she has no other symptoms or complaints - Objective MAR Reviewed: Yes Vital Signs & Weight: Vital Signs (12 hours) Temp Pulse Resp BP Pulse Ox 02/03/18 05:12 98.1 F 68 14 115/68 94 L 02/02/18 20:00 98 F 71 14 99/70 97 Weight Admit Weight 45 kg Weight 45 kg I&O: 02/01/18 02/02/18 02/03/18 06:59 06:59 06:59 Intake Total 3500 2400 Balance 3500 2400 Result Diagrams: 01/30/18 04:49 01/30/18 04:49 <Tera Marks - Last Filed: 02/03/18 09:29> - Objective Vital Signs & Weight: Vital Signs (12 hours) Temp Pulse Resp BP BP Pulse Ox 02/03/18 08:30 97.1 F L 85 80 H 129/85 97 02/03/18 08:00 97 02/03/18 05:12 98.1 F 68 14 115/68 94 L Weight Admit Weight 45 kg Weight 45 kg I&O: 02/02/18 02/03/18 02/04/18 06:59 06:59 06:59 Intake Total 3500 2400 500 Balance 3500 2400 500 Result Diagrams: 01/30/18 04:49 01/30/18 04:49 <Jack Fink - Last Filed: 02/03/18 10:16> Phys Exam - Physical Examination Constitutional: NAD HEENT: moist MMs Respiratory: no wheezing, no rales, no rhonchi, clear to auscultation bilateral Cardiovascular: RRR, no significant murmur, no rub Gastrointestinal: soft, non-tender, no distention Musculoskeletal: no edema, pulses present Neurological: non-focal, moves all 4 limbs Skin: no rash <Tera Marks - Last Filed: 02/03/18 09:29> Dx/Plan (1) Cellulitis Code(s): L03.90 - CELLULITIS, UNSPECIFIED Status: Acute (2) COPD (chronic obstructive pulmonary disease) Status: Chronic (3) Suicidal overdose Code(s): T50.902A - POISONING BY UNSP DRUG/MEDS/BIOL SUBST, SELF-HARM, INIT Status: Acute (4) Bipolar 1 disorder with moderate george Status: Chronic - Plan Plan: Depression with suicide attempt, benzodiazepine OD - No respiratory support required since admission. Will continue to monitor closely with sitter and suicide precautions - Will continue home zoloft dose and geodon PRN . - Patient was recommended to be transferred to inpatient psych by [facility] yesterday. Awaiting an open bed for transfer. Paperwork signed overnight. Abodminal Wall contact dermatitis - WC on board, will ensure patient has appropriate ostomy care supplies before transfer as it was noted that she did not have a bag over her ostomy this morning. Patient will benefit most from improved wound and ostomy care. - Will continue PO tylenol, ibuprofen, and tramadol PRN for pain. - Will continue PRN zofran for nausea. COPD - Will continue home albuterol PRN. Tobacco abuse -nicotine patch. Hypokalemia - Resolved. Dysphagia - Resolved. - Speech therapy on board and has continued to advance patient's diet as tolerated. - Patient continues to tolerate PO. External hemorrhoid - Will continue sitz baths as well as topical hydrocortisone and/or preparation H PRN. Code status: FULL Diet: Regular IVFs: None Abx: None Dispo: Awaiting opening at inpatient psych. Paperwork signed. <Tera Marks - Last Filed: 02/03/18 09:29> Attending Addendum - Attending Addendum Date/Time: 02/03/18 1015 I personally evaluated the patient and discussed the management with Dr. Marks. I agree with the History, Examination, Assessment and Plan documented above with any addition or exceptions noted below. Stable for discharge to inpatient psych unit. Had some agitation overnight that required restraints and Geodon. Improved this morning. <Jack Fink - Last Filed: 02/03/18 10:16>
[2018-02-03] MEDS: traMADol HCl 50 MG TAB PO PRN ×4 (08:47→20:15)
[2018-02-03] MEDS: Enoxaparin Sodium 40 MG/0.4 ML SYRINGE SC SCH (08:48)
[2018-02-03] MEDS: Ziprasidone 20 MG CAP PO PRN ×3 (08:48→20:16)
--- NOTE | 2018-02-03 11:59 | EKG ---
Test Reason : Blood Pressure : / mmHG Vent. Rate : 084 BPM Atrial Rate : 084 BPM P-R Int : 102 ms QRS Dur : 088 ms QT Int : 392 ms P-R-T Axes : 027 048 078 degrees QTc Int : 463 ms Sinus rhythm with short DC Otherwise normal ECG Confirmed by SHWETA MORA ([id number]), publications editor ASA MORGAN ([id number]) on 02/03/2018 11:59:12 AM Referred By: Confirmed By:SHWETA MORA
[2018-02-03] MEDS ORDERED: Melatonin 3 MG TAB PO SCH (23:30)
[2018-02-04] MEDS: traMADol HCl 50 MG TAB PO PRN ×6 (00:20→22:25)
[2018-02-04] MEDS: Ibuprofen 600 MG TAB PO PRN ×3 (02:12→19:33)
[2018-02-04] MEDS: Ziprasidone 20 MG CAP PO PRN ×5 (02:13→23:30)
[2018-02-04] MEDS ORDERED: Acetaminophen 650 MG/20.3 ML UDCUP PO SCH (03:00)
[2018-02-04] MEDS: Nicotine 14 MG PATCH TD SCH (06:17)
--- NOTE | 2018-02-04 06:19 | PDOC.FM ---
- Subjective Subjective: Ms. Velasquez is sleeping comfortably in bed, she has no complaints at this time. - Objective Vital Signs & Weight: Vital Signs (12 hours) Pulse Resp BP Pulse Ox 02/03/18 19:43 100 02/03/18 19:40 83 16 140/84 100 Weight Admit Weight 45 kg Weight 45 kg I&O: 02/02/18 02/03/18 02/04/18 06:59 06:59 06:59 Intake Total 3500 2400 2100 Balance 3500 2400 2100 Result Diagrams: 01/30/18 04:49 01/30/18 04:49 <Tera Marks - Last Filed: 02/04/18 09:51> - Objective Vital Signs & Weight: Vital Signs (12 hours) Temp Pulse Resp BP Pulse Ox 02/04/18 08:00 97.8 F 77 16 128/86 99 02/04/18 07:36 98.3 F 75 18 136/70 94 L Weight Admit Weight 45 kg Weight 45 kg I&O: 02/03/18 02/04/18 02/05/18 06:59 06:59 06:59 Intake Total 2400 3060 Balance 2400 3060 Result Diagrams: 01/30/18 04:49 01/30/18 04:49 <Jack Fink - Last Filed: 02/04/18 10:17> Phys Exam - Physical Examination Constitutional: NAD Respiratory: no wheezing, no rales, no rhonchi, clear to auscultation bilateral Cardiovascular: RRR, no significant murmur Gastrointestinal: non-tender, no distention <Tera Marks - Last Filed: 02/04/18 09:51> Dx/Plan (1) Cellulitis Code(s): L03.90 - CELLULITIS, UNSPECIFIED Status: Acute (2) COPD (chronic obstructive pulmonary disease) Status: Chronic (3) Suicidal overdose Code(s): T50.902A - POISONING BY UNSP DRUG/MEDS/BIOL SUBST, SELF-HARM, INIT Status: Acute (4) Bipolar 1 disorder with moderate george Status: Chronic - Plan Plan: Depression with suicide attempt, benzodiazepine OD - No respiratory support required since admission. Will continue to monitor closely with sitter and suicide precautions - Will continue home zoloft dose and geodon SERGE/PRN . - Patient was recommended to be transferred to inpatient psych by [facility] yesterday. Awaiting an open bed for transfer. Paperwork signed overnight. Abodminal Wall contact dermatitis - WC on board, will ensure patient has appropriate ostomy care supplies before transfer as it was noted that she did not have a bag over her ostomy this morning. Patient will benefit most from improved wound and ostomy care. - Will continue PO tylenol, ibuprofen, and tramadol PRN for pain. - Will continue PRN zofran for nausea. COPD - Will continue home albuterol PRN. Tobacco abuse -nicotine patch. Hypokalemia - Resolved. Dysphagia - Resolved. - Speech therapy on board and has continued to advance patient's diet as tolerated. - Patient continues to tolerate PO. External hemorrhoid - Will continue sitz baths as well as topical hydrocortisone and/or preparation H PRN. Code status: FULL Diet: Regular IVFs: None Abx: None Dispo: Awaiting opening at inpatient psych. Paperwork signed. <Tera Marks - Last Filed: 02/04/18 09:51> Attending Addendum - Attending Addendum Date/Time: 02/04/18 1016 I personally evaluated the patient and discussed the management with Dr. Marks. I agree with the History, Examination, Assessment and Plan documented above with any addition or exceptions noted below. Patient stable and awaiting acceptance to in psych facility. She is having some wound issues with her fistula site, but this is chronic and not contributing to hospitalization. Will continue wound care while here and defer further interventions or workup of this fistula to the outpatient environment. <Jack Fink - Last Filed: 02/04/18 10:17>
[2018-02-04] MEDS: Enoxaparin Sodium 40 MG/0.4 ML SYRINGE SC SCH (08:11)
[2018-02-04] MEDS: Ondansetron ODT 8 MG TAB SL PRN (17:30)
[2018-02-04] MEDS: Melatonin 3 MG TAB PO PRN (19:33)
[2018-02-04] MEDS ORDERED: Calcium Carbonate 500 MG ChewTAB PO PRN (22:20)
[2018-02-04] MEDS ORDERED: Melatonin 3 MG TAB PO SCH (22:30)
[2018-02-05] MEDS: Ibuprofen 600 MG TAB PO PRN ×3 (01:21→21:19)
[2018-02-05] MEDS: traMADol HCl 50 MG TAB PO PRN ×6 (02:31→23:31)
[2018-02-05] MEDS: Nicotine 14 MG PATCH TD SCH (04:30)
[2018-02-05] MEDS: Ziprasidone 20 MG CAP PO PRN (04:30)
--- NOTE | 2018-02-05 05:42 | PDOC.FM ---
- Subjective Subjective: Patient required an extra dose of melatonin last night for sleep. States she is normally on trazadone for sleep. Patient was up and walking around in her room on exam in NAD. States she wants her tramadol more frequently due to pain in her abdominal wound. - Objective MAR Reviewed: Yes Vital Signs & Weight: Vital Signs (12 hours) Temp Pulse Resp BP Pulse Ox 02/04/18 19:50 97.6 F 78 16 152/101 H 100 02/04/18 19:40 100 Weight Admit Weight 45 kg Weight 45 kg I&O: 02/03/18 02/04/18 02/05/18 06:59 06:59 06:59 Intake Total 2400 3060 1300 Output Total 150 Balance 2400 3060 1150 Result Diagrams: 01/30/18 04:49 01/30/18 04:49 <Ivonne Celeste - Last Filed: 02/05/18 08:38> - Objective Vital Signs & Weight: Vital Signs (12 hours) Temp Pulse Resp BP Pulse Ox 02/06/18 07:35 98.2 F 89 16 124/83 97 Weight Admit Weight 45 kg Weight 45 kg I&O: 02/05/18 02/06/18 02/07/18 06:59 06:59 06:59 Intake Total 2700 2400 Output Total 150 Balance 2550 2400 Result Diagrams: 01/30/18 04:49 01/30/18 04:49 <Sami Kim - Last Filed: 02/06/18 08:02> Phys Exam - Physical Examination Constitutional: NAD HEENT: moist MMs Neck: supple, full ROM Respiratory: no wheezing, no rales, no rhonchi, clear to auscultation bilateral Cardiovascular: RRR, no significant murmur Gastrointestinal: soft, no distention, positive bowel sounds Musculoskeletal: no edema Neurological: non-focal, normal sensation, moves all 4 limbs Psychiatric: normal affect, A&O x 3 Skin: no rash, normal turgor <Ivonne Celeste - Last Filed: 02/05/18 08:38> Dx/Plan (1) COPD (chronic obstructive pulmonary disease) Status: Chronic (2) Cellulitis Code(s): L03.90 - CELLULITIS, UNSPECIFIED Status: Acute (3) Bipolar 1 disorder with moderate george Status: Chronic (4) Poisoning by benzodiazepine-based tranquilizers Code(s): T42.4X4A - POISONING BY BENZODIAZEPINES, UNDETERMINED, INIT ENCNTR Status: Acute (5) Suicidal overdose Code(s): T50.902A - POISONING BY UNSP DRUG/MEDS/BIOL SUBST, SELF-HARM, INIT Status: Acute - Plan Plan: Depression with suicide attempt, benzodiazepine OD - No respiratory support required since admission. Will continue to monitor closely with sitter and suicide precautions. - Will continue home zoloft dose and geodon SERGE/PRN. Requesting [facility] med list today to ensure patient is getting appropriate meds. - Patient was recommended to be transferred to inpatient psych by [facility] early last week. Awaiting an open bed for transfer. Paperwork signed. Abodminal Wall contact dermatitis - WC on board, will ensure patient has appropriate ostomy care supplies before transfer as she will benefit most from improved wound and ostomy care. - Will continue PO tylenol, ibuprofen, and tramadol PRN for pain. - Will continue PRN zofran for nausea. Insomnia - Patient currently getting SERGE melatonin. States she normally takes trazadone. - Will request [facility] records for med list before starting trazadone. COPD - Will continue home albuterol PRN. Tobacco abuse - Nicotine patch. Hypokalemia - Resolved. Dysphagia - Resolved. - Patient continues to tolerate PO. - Speech therapy & dieticians on board and have continued to advance patient's diet as tolerated. Advanced to regular diet on 02/04. External hemorrhoid - Will continue sitz baths as well as topical hydrocortisone and/or preparation H PRN. Code status: FULL Diet: Regular IVFs: None Abx: None Dispo: Awaiting opening at inpatient psych. Paperwork signed. <Ivonne Celeste - Last Filed: 02/05/18 08:38> (1) Suicidal overdose Code(s): T50.902A - POISONING BY UNSP DRUG/MEDS/BIOL SUBST, SELF-HARM, INIT Status: Acute (2) Cellulitis Code(s): L03.90 - CELLULITIS, UNSPECIFIED Status: Acute (3) COPD (chronic obstructive pulmonary disease) Status: Chronic <Sami Kim - Last Filed: 02/06/18 08:02> Attending Addendum - Attending Addendum Date/Time: 02/06/18 0802 I personally evaluated the patient and discussed the management with Dr. Celeste yesterday morning. I agree with the History, Examination, Assessment and Plan documented above with any addition or exceptions noted below. <Sami Kim - Last Filed: 02/06/18 08:02>
[2018-02-05] MEDS: Ziprasidone 20 MG VIAL IM SCH (08:44)
[2018-02-05] MEDS: Enoxaparin Sodium 40 MG/0.4 ML SYRINGE SC SCH (08:44)
[2018-02-05] MEDS: Ondansetron ODT 8 MG TAB SL PRN (14:09)
[2018-02-05] MEDS: Melatonin 3 MG TAB PO PRN (21:22)
[2018-02-06] MEDS: Melatonin 3 MG TAB PO PRN (02:33)
[2018-02-06] MEDS: traMADol HCl 50 MG TAB PO PRN ×5 (03:32→19:55)
--- NOTE | 2018-02-06 06:06 | PDOC.FM ---
- Subjective Subjective: Per chart review, 2 pairs of scissors were found in patient's room earlier this AM and were confiscated. Patient initially pleasant on exam and requesting that Dr. Dhillon see her about her fistula since it is taking so long to have her transferred. Stated her abdominal wound pain was 8/10 in severity and became tearful when I tried to leave the room. Stated she could ask for her pain medicine and that we would return on rounds to check on her. Endorsed understanding. - Objective MAR Reviewed: Yes Vital Signs & Weight: Vital Signs (12 hours) Temp Pulse Resp BP Pulse Ox 02/05/18 19:48 98.7 F 57 L 20 93/52 L 93 L 02/05/18 19:40 93 L Weight Admit Weight 45 kg Weight 45 kg I&O: 02/04/18 02/05/18 02/06/18 06:59 06:59 06:59 Intake Total 3060 2700 1200 Output Total 150 Balance 3060 2550 1200 Result Diagrams: 01/30/18 04:49 01/30/18 04:49 <Ivonne Celeste - Last Filed: 02/06/18 08:41> - Objective Vital Signs & Weight: Vital Signs (12 hours) Temp Pulse Resp BP Pulse Ox 02/06/18 07:35 98.2 F 89 16 124/83 97 Weight Admit Weight 45 kg Weight 45 kg I&O: 02/05/18 02/06/18 02/07/18 06:59 06:59 06:59 Intake Total 2700 2400 Output Total 150 Balance 2550 2400 Result Diagrams: 01/30/18 04:49 01/30/18 04:49 <Sami Kim - Last Filed: 02/06/18 12:37> Phys Exam - Physical Examination Constitutional: NAD HEENT: moist MMs Neck: supple, full ROM Respiratory: no wheezing, no rales, no rhonchi, clear to auscultation bilateral Cardiovascular: RRR, no significant murmur Gastrointestinal: soft, no distention, positive bowel sounds Musculoskeletal: no edema Neurological: non-focal, normal sensation, moves all 4 limbs Psychiatric: normal affect, A&O x 3 Skin: no rash, normal turgor, cap refill <2 seconds <Ivonne Celeste - Last Filed: 02/06/18 08:41> Dx/Plan (1) Suicidal overdose Code(s): T50.902A - POISONING BY UNSP DRUG/MEDS/BIOL SUBST, SELF-HARM, INIT Status: Acute (2) Contact dermatitis Code(s): L25.9 - UNSPECIFIED CONTACT DERMATITIS, UNSPECIFIED CAUSE Status: Acute Qualifiers: Contact dermatitis type: irritant (3) Cellulitis Code(s): L03.90 - CELLULITIS, UNSPECIFIED Status: Ruled-out (4) COPD (chronic obstructive pulmonary disease) Status: Chronic (5) Bipolar 1 disorder with moderate george Status: Chronic (6) Poisoning by benzodiazepine-based tranquilizers Code(s): T42.4X4A - POISONING BY BENZODIAZEPINES, UNDETERMINED, INIT ENCNTR Status: Acute (7) Depression Code(s): F32.9 - MAJOR DEPRESSIVE DISORDER, SINGLE EPISODE, UNSPECIFIED Status : Chronic - Plan Plan: Depression with suicide attempt, benzodiazepine OD - No respiratory support required since admission. Will continue to monitor closely with sitter and suicide precautions. - Will continue home zoloft dose and geodon SERGE/PRN. Requested [facility] med list yesterday but never got a response. Will attempt to contact them again today. - Patient was recommended to be transferred to inpatient psych by [facility] early last week. Awaiting an open bed for transfer. Paperwork signed. Abodminal Wall contact dermatitis - on board, will ensure patient has appropriate ostomy care supplies before transfer as she will benefit most from improved wound and ostomy care. - Will continue topical nystatin powder and barrier cream. - Will continue PO tylenol, ibuprofen, and tramadol PRN for pain. - Will continue PRN zofran for nausea. Insomnia - Patient currently getting [facility] melatonin. States she normally takes trazadone. - Will request [facility] records records again today before starting trazadone. - Will consider adding ambien PRN is since patient reports melatonin is not working. COPD - Will continue home albuterol PRN. Tobacco abuse - Nicotine patch. Hypokalemia - Resolved. Dysphagia - Resolved. - Patient has been tolerating a regular diet well. External hemorrhoid - Will continue sitz baths as well as topical hydrocortisone and/or preparation H PRN. Code status: FULL Diet: Regular IVFs: None Abx: None Dispo: Awaiting opening at inpatient psych. Paperwork signed. <Celeste,Ivonne - Last Filed: 02/06/18 08:41> (1) Suicidal overdose Code(s): T50.902A - POISONING BY UNSP DRUG/MEDS/BIOL SUBST, SELF-HARM, INIT Status: Acute (2) Cellulitis Code(s): L03.90 - CELLULITIS, UNSPECIFIED Status: Ruled-out (3) COPD (chronic obstructive pulmonary disease) Status: Chronic <Sami Kim - Last Filed: 02/06/18 12:37> Attending Addendum - Attending Addendum Date/Time: 02/06/18 8063 I personally evaluated the patient and discussed the management with Dr. Celeste. I agree with the History, Examination, Assessment and Plan documented above with any addition or exceptions noted below. During my exam, today, Ms Velasquez was up walking around the room and in no pain. She really wants to walk around more. Awaiting psych inpt placement. <Sami Kim - Last Filed: 02/06/18 12:37>
[2018-02-06] MEDS: Nicotine 14 MG PATCH TD SCH (06:40)
[2018-02-06] MEDS: Ibuprofen 600 MG TAB PO PRN ×2 (06:41→21:17)
[2018-02-06] MEDS: Enoxaparin Sodium 40 MG/0.4 ML SYRINGE SC SCH (07:39)
[2018-02-06] MEDS: Ziprasidone 20 MG VIAL IM SCH (07:39)
[2018-02-06] MEDS: traZODone HCl 50 MG TAB PO PRN (19:56)
[2018-02-07] MEDS: Melatonin 3 MG TAB PO PRN ×2 (00:01→21:41)
[2018-02-07] MEDS: traMADol HCl 50 MG TAB PO PRN ×6 (00:02→21:25)
--- NOTE | 2018-02-07 06:13 | PDOC.FM ---
- Subjective Subjective: Patient states she feels well this AM. Was resting comfortably in bed in NAD. Says she slept better last night with addition of tramadol but is requesting a higher dose or her regular dose. Otherwise, no complaints on exam. - Objective MAR Reviewed: Yes Vital Signs & Weight: Vital Signs (12 hours) Temp Pulse Resp BP Pulse Ox 02/06/18 20:00 97.8 F 87 17 137/87 100 Weight Admit Weight 45 kg Weight 45 kg I&O: 02/05/18 02/06/18 02/07/18 06:59 06:59 06:59 Intake Total 2700 2400 1300 Output Total 150 Balance 2550 2400 1300 Result Diagrams: 01/30/18 04:49 01/30/18 04:49 <Ivonne Celeste - Last Filed: 02/07/18 09:05> - Objective Vital Signs & Weight: Vital Signs (12 hours) Temp Pulse Resp BP Pulse Ox 02/07/18 08:30 97.5 F L 96 21 H 113/74 96 02/07/18 08:16 96 Weight Admit Weight 45 kg Weight 45 kg I&O: 02/06/18 02/07/18 02/08/18 06:59 06:59 06:59 Intake Total 2400 2300 Output Total 150 200 Balance 2250 2100 Result Diagrams: 01/30/18 04:49 01/30/18 04:49 <Sami Kim - Last Filed: 02/07/18 16:03> Phys Exam - Physical Examination Constitutional: NAD HEENT: moist MMs, sclera anicteric Neck: supple, full ROM Respiratory: no wheezing, no rales, no rhonchi, clear to auscultation bilateral Cardiovascular: RRR, no significant murmur Gastrointestinal: soft, no distention, positive bowel sounds Neurological: non-focal, normal sensation, moves all 4 limbs Psychiatric: normal affect, A&O x 3 Skin: normal turgor, cap refill <2 seconds Deviation from normal: abdominal wound and ostomy covered with cotton pad and ostomy bag -: respectively <Ivonne Celeste - Last Filed: 02/07/18 09:05> Dx/Plan (1) Suicidal overdose Code(s): T50.902A - POISONING BY UNSP DRUG/MEDS/BIOL SUBST, SELF-HARM, INIT Status: Acute (2) Contact dermatitis Code(s): L25.9 - UNSPECIFIED CONTACT DERMATITIS, UNSPECIFIED CAUSE Status: Acute Qualifiers: Contact dermatitis type: irritant (3) Cellulitis Code(s): L03.90 - CELLULITIS, UNSPECIFIED Status: Ruled-out (4) COPD (chronic obstructive pulmonary disease) Status: Chronic (5) Bipolar 1 disorder with moderate george Status: Chronic (6) Poisoning by benzodiazepine-based tranquilizers Code(s): T42.4X4A - POISONING BY BENZODIAZEPINES, UNDETERMINED, INIT ENCNTR Status: Acute (7) Depression Code(s): F32.9 - MAJOR DEPRESSIVE DISORDER, SINGLE EPISODE, UNSPECIFIED Status : Chronic - Plan Plan: Depression with suicide attempt, benzodiazepine OD - No respiratory support required since admission. Will continue to monitor closely with sitter and suicide precautions. - Will continue home zoloft dose and geodon SERGE/PRN. Requested [facility] med list 2 days ago but never got a response. Will attempt to contact them again today. - Patient was recommended to be transferred to inpatient psych by [facility] early last week. Awaiting an open bed for transfer. Paperwork signed. Abodminal Wall contact dermatitis - WC on board, will ensure patient has appropriate ostomy care supplies before transfer as she will benefit most from improved wound and ostomy care. - Will continue topical nystatin powder and barrier cream. - Will continue PO tylenol, ibuprofen, and tramadol PRN for pain. - Will continue PRN zofran for nausea. Insomnia - Patient currently getting [facility] melatonin. States she normally takes trazadone. - Will continue low dose trazadone for now and try to get med list from [facility] again today before increasing her dose. COPD - Will continue home albuterol PRN. Tobacco abuse - Nicotine patch. Hypokalemia - Resolved. Dysphagia - Resolved. - Patient has been tolerating a regular diet well. External hemorrhoid - Will continue sitz baths as well as topical hydrocortisone and/or preparation H PRN. Code status: FULL Diet: Regular IVFs: None Abx: None Dispo: Anticipate discharge to inpatient psych later today or tomorrow per CM. Paperwork signed. <Ivonne Celeste - Last Filed: 02/07/18 09:05> (1) Suicidal overdose Code(s): T50.902A - POISONING BY UNSP DRUG/MEDS/BIOL SUBST, SELF-HARM, INIT Status: Acute (2) Cellulitis Code(s): L03.90 - CELLULITIS, UNSPECIFIED Status: Ruled-out (3) COPD (chronic obstructive pulmonary disease) Status: Chronic <Sami Kim - Last Filed: 02/07/18 16:03> Attending Addendum - Attending Addendum Date/Time: 02/07/18 1602 I personally evaluated the patient and discussed the management with Dr. Celeste. I agree with the History, Examination, Assessment and Plan documented above with any addition or exceptions noted below. Medically stable. Awaiting inpt psych bed. <Sami Kim - Last Filed: 02/07/18 16:03>
[2018-02-07] MEDS: Nicotine 14 MG PATCH TD SCH (06:33)
[2018-02-07] MEDS: Enoxaparin Sodium 40 MG/0.4 ML SYRINGE SC SCH (08:40)
[2018-02-07] MEDS: Ziprasidone 20 MG VIAL IM SCH (08:41)
[2018-02-07] MEDS: traZODone HCl 50 MG TAB PO PRN (20:34)
[2018-02-08] MEDS: traMADol HCl 50 MG TAB PO PRN ×6 (01:38→23:36)
[2018-02-08] MEDS: Nicotine 14 MG PATCH TD SCH (05:44)
--- NOTE | 2018-02-08 06:07 | PDOC.FM ---
- Subjective Subjective: NAEO. Patient states she feels fine this AM. Would like to resume her home psych meds and actually assisted me with getting in touch with [facility] at the time of exam. Was also requesting to be able to go outside and sit in a van with her dad when he comes to visit today. Stated she needed to stay in the hospital for her own safety and that her sitter alone would not be enough supervision. - Objective MAR Reviewed: Yes Vital Signs & Weight: Vital Signs (12 hours) Temp Pulse Resp BP Pulse Ox 02/07/18 20:10 99 02/07/18 20:06 98.1 F 80 18 132/85 99 Weight Admit Weight 45 kg Weight 45 kg I&O: 02/06/18 02/07/18 02/08/18 06:59 06:59 06:59 Intake Total 2400 2300 800 Output Total 150 200 Balance 2250 2100 800 Result Diagrams: 01/30/18 04:49 01/30/18 04:49 <Ivonne Celeste - Last Filed: 02/08/18 11:16> - Objective Vital Signs & Weight: Vital Signs (12 hours) Temp Pulse Resp BP Pulse Ox 02/08/18 08:33 98 02/08/18 08:06 96.9 F L 79 20 108/69 98 Weight Admit Weight 45 kg Weight 45 kg I&O: 02/07/18 02/08/18 02/09/18 06:59 06:59 06:59 Intake Total 2300 1550 Output Total 200 Balance 2100 1550 Result Diagrams: 01/30/18 04:49 01/30/18 04:49 <Sami Kim - Last Filed: 02/08/18 11:36> Phys Exam - Physical Examination Constitutional: NAD HEENT: moist MMs, sclera anicteric Neck: supple, full ROM Respiratory: no wheezing, no rales, no rhonchi, clear to auscultation bilateral Cardiovascular: RRR, no significant murmur Neurological: non-focal, normal sensation, moves all 4 limbs Psychiatric: normal affect, A&O x 3 Skin: normal turgor <Ivonne Celeste - Last Filed: 02/08/18 11:16> Dx/Plan (1) Suicidal overdose Code(s): T50.902A - POISONING BY UNSP DRUG/MEDS/BIOL SUBST, SELF-HARM, INIT Status: Acute (2) Contact dermatitis Code(s): L25.9 - UNSPECIFIED CONTACT DERMATITIS, UNSPECIFIED CAUSE Status: Acute Qualifiers: Contact dermatitis type: irritant (3) Cellulitis Code(s): L03.90 - CELLULITIS, UNSPECIFIED Status: Ruled-out (4) COPD (chronic obstructive pulmonary disease) Status: Chronic (5) Bipolar 1 disorder with moderate george Status: Chronic (6) Poisoning by benzodiazepine-based tranquilizers Code(s): T42.4X4A - POISONING BY BENZODIAZEPINES, UNDETERMINED, INIT ENCNTR Status: Acute (7) Depression Code(s): F32.9 - MAJOR DEPRESSIVE DISORDER, SINGLE EPISODE, UNSPECIFIED Status : Chronic - Plan Plan: Depression with suicide attempt, benzodiazepine OD - No respiratory support required since admission. Will continue to monitor closely with sitter and suicide precautions. - Will continue home zoloft dose since we finally confirmed her [facility] med today. - Patient was recommended to be transferred to inpatient psych by [facility] early last week. Awaiting an open bed for transfer. Paperwork signed. Abodminal Wall contact dermatitis - on board, will ensure patient has appropriate ostomy care supplies before transfer as she will benefit most from improved wound and ostomy care. - Will continue topical nystatin powder and barrier cream. - Will continue PO tylenol, ibuprofen, and tramadol PRN for pain. - Will continue PRN zofran for nausea. Insomnia - Will resume [facility] trazadone dosing per her records at 300mg PO HS. COPD - Will continue home albuterol PRN. Tobacco abuse - Nicotine patch. Hypokalemia - Resolved. Dysphagia - Resolved. - Patient has been tolerating a regular diet well. External hemorrhoid - Will continue sitz baths as well as topical hydrocortisone and/or preparation H PRN. Code status: FULL Diet: Regular IVFs: None Abx: None Dispo: Anticipate discharge to inpatient psych possibly today per CM. Paperwork signed. <Ivonne Celeste - Last Filed: 02/08/18 11:16> (1) Suicidal overdose Code(s): T50.902A - POISONING BY UNSP DRUG/MEDS/BIOL SUBST, SELF-HARM, INIT Status: Acute (2) Cellulitis Code(s): L03.90 - CELLULITIS, UNSPECIFIED Status: Ruled-out (3) COPD (chronic obstructive pulmonary disease) Status: Chronic <Sami Kim - Last Filed: 02/08/18 11:36> Attending Addendum - Attending Addendum Date/Time: 02/08/18 1136 I personally evaluated the patient and discussed the management with Dr. Celeste. I agree with the History, Examination, Assessment and Plan documented above with any addition or exceptions noted below. We welcome a visit with her family with supervision. <Sami Kim - Last Filed: 02/08/18 11:36>
[2018-02-08] MEDS: Ziprasidone 20 MG VIAL IM SCH (08:37)
[2018-02-08] MEDS: Enoxaparin Sodium 40 MG/0.4 ML SYRINGE SC SCH (08:38)
[2018-02-08] MEDS ORDERED: Ziprasidone 20 MG CAP PO PRN (18:04)
[2018-02-08] MEDS: Ziprasidone 20 MG VIAL IM PRN (18:11)
[2018-02-08] MEDS ORDERED: Lorazepam 2 MG/ML VIAL ONE (18:30)
[2018-02-08] MEDS ORDERED: Lorazepam 2 MG/ML VIAL SLOW IVP SCH (18:45)
[2018-02-08] MEDS ORDERED: Ziprasidone 20 MG VIAL IM SCH (18:45)
[2018-02-08] MEDS: traZODone HCl 150 MG TAB PO SCH (23:34)
[2018-02-08] MEDS: OLANZapine 5 MG TAB PO SCH (23:35)
[2018-02-08] MEDS: Melatonin 3 MG TAB PO PRN (23:40)
[2018-02-09] MEDS: Ibuprofen 600 MG TAB PO PRN (01:09)
[2018-02-09] MEDS: Nicotine 14 MG PATCH TD SCH (05:40)
[2018-02-09] MEDS: traMADol HCl 50 MG TAB PO PRN ×5 (05:41→22:43)
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
[2018-02-09] MEDS: Bupropion 150 MG XL TAB PO SCH (09:13)
[2018-02-09] MEDS: Enoxaparin Sodium 40 MG/0.4 ML SYRINGE SC SCH (09:14)
[2018-02-09] MEDS: Polyethylene Glycol 3350 17 GM Packet PO SCH (10:23)
[2018-02-09] MEDS: Docusate 100 MG CAP PO SCH ×2 (10:24→20:22)
[2018-02-09] MEDS ORDERED: Metoclopramide HCl 10 MG/2 ML VIAL IVP PRN (11:05)
[2018-02-09] MEDS: diphenhydrAMINE 25 MG CAP PO PRN ×2 (14:25→22:43)
[2018-02-09] MEDS ORDERED: Metoclopramide HCl 10 MG TAB PO PRN (17:47)
[2018-02-09] MEDS: traZODone HCl 150 MG TAB PO SCH (20:23)
[2018-02-09] MEDS: OLANZapine 5 MG TAB PO SCH (20:23)
[2018-02-09] MEDS: Melatonin 3 MG TAB PO PRN (22:43)
[2018-02-10] MEDS: traMADol HCl 50 MG TAB PO PRN ×4 (03:08→20:11)
[2018-02-10] MEDS: Nicotine 14 MG PATCH TD SCH (06:31)
[2018-02-10] MEDS ORDERED: Dicyclomine 10 MG CAP PO SCH ×2 (07:58→08:15)
[2018-02-10] MEDS: Bupropion 150 MG XL TAB PO SCH (08:38)
[2018-02-10] MEDS: Docusate 100 MG CAP PO SCH ×2 (08:40→20:12)
[2018-02-10] MEDS: Polyethylene Glycol 3350 17 GM Packet PO SCH (08:40)
[2018-02-10] MEDS: Enoxaparin Sodium 40 MG/0.4 ML SYRINGE SC SCH (08:40)
[2018-02-10] MEDS: Dicyclomine 10 MG CAP PO SCH ×4 (08:41→20:12)
[2018-02-10] MEDS: Ziprasidone 20 MG VIAL IM PRN (12:16)
[2018-02-10] MEDS ORDERED: diphenhydrAMINE 50 MG/ML VIAL IM SCH (12:45)
[2018-02-10] MEDS ORDERED: diphenhydrAMINE 50 MG/ML VIAL IVP SCH (13:50)
[2018-02-10] MEDS ORDERED: Midazolam HCl 5 mg/ml Vial ONE (14:11)
[2018-02-10] MEDS ORDERED: OLANZapine ODT 5 MG TAB SL PRN (14:15)
[2018-02-10] MEDS ORDERED: Diazepam 10 MG/2 ML SYRINGE IVP SCH (14:30)
[2018-02-10] MEDS: diphenhydrAMINE 25 MG CAP PO SCH (15:02)
[2018-02-10] MEDS: clonazePAM 1 MG TAB PO SCH (20:12)
[2018-02-10] MEDS: Temazepam 15 MG CAP PO PRN (20:19)
[2018-02-10] MEDS ORDERED: OLANZapine 5 MG TAB PO SCH (21:00)
[2018-02-10] MEDS ORDERED: OLANZapine ODT 5 MG TAB PO SCH (21:00)
[2018-02-10] MEDS ORDERED: diphenhydrAMINE 50 MG/ML VIAL IVP PRN (21:34)
[2018-02-11] MEDS: traMADol HCl 50 MG TAB PO PRN ×3 (01:56→20:50)
[2018-02-11] MEDS: diphenhydrAMINE 25 MG CAP PO SCH (01:57)
[2018-02-11 05:02] LABS: Anion Gap 10 mmol/L (10-20); BUN (Urea Nitrogen) 8 mg/dL (7.0-18.7); Calc. Creatinine Clearance 82 mL/min (70-130); Calcium 8.9 mg/dL (7.8-10.44); Carbon Dioxide 25 mmol/L (22-29); Chloride 105 mmol/L (98-107); Estimated GFR-MDRD Greater than 90; Glucose 68 mg/dL (70-105); Magnesium 1.9 mg/dL (1.6-2.6); Sodium 136 mmol/L (136-145)
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
[2018-02-11] MEDS: Nicotine 14 MG PATCH TD SCH (06:01)
[2018-02-11] MEDS: Docusate 100 MG CAP PO SCH ×3 (08:49→20:51)
[2018-02-11] MEDS: Dicyclomine 10 MG CAP PO SCH ×4 (08:49→20:51)
[2018-02-11] MEDS: Enoxaparin Sodium 40 MG/0.4 ML SYRINGE SC SCH (08:50)
[2018-02-11] MEDS: clonazePAM 1 MG TAB PO SCH ×2 (08:51→20:50)
[2018-02-11] MEDS: Polyethylene Glycol 3350 17 GM Packet PO SCH (08:52)
[2018-02-11] MEDS ORDERED: diphenhydrAMINE 25 MG CAP PO SCH (09:00)
[2018-02-11] MEDS ORDERED: diphenhydrAMINE 50 MG/ML VIAL IVP SCH (10:30)
--- NOTE | 2018-02-11 11:47 | PDOC.FM ---
- Subjective Subjective: Patient states she felt well this AM. Was not super open to talking and wanted to sleep. Was resting comfortably in bed in NAD. Only complaint was decreased ostomy output for the last 3-4 days. - Objective MAR Reviewed: Yes Vital Signs & Weight: Vital Signs (12 hours) Temp Pulse Resp BP BP Pulse Ox 02/11/18 07:52 100 02/11/18 07:35 98.6 F 61 102/63 97 02/11/18 04:08 98.2 F 62 16 102/66 96 Weight Admit Weight 45 kg Weight 45 kg I&O: 02/10/18 02/11/18 02/12/18 07:59 06:59 06:59 Intake Total Balance Result Diagrams: 01/30/18 04:49 02/11/18 03:43 <Ivonne Celeste - Last Filed: 02/11/18 11:48> - Objective Vital Signs & Weight: Vital Signs (12 hours) Temp Pulse BP BP Pulse Ox 02/11/18 11:55 97.5 F L 93 140/89 100 02/11/18 07:52 100 02/11/18 07:35 98.6 F 61 102/63 97 Weight Admit Weight 45 kg Weight 45 kg I&O: 02/10/18 02/11/18 02/12/18 07:59 06:59 06:59 Intake Total 620 Balance 620 Result Diagrams: 01/30/18 04:49 02/11/18 03:43 <Anum Medina - Last Filed: 02/11/18 18:49> Phys Exam - Physical Examination Constitutional: NAD HEENT: moist MMs Neck: supple, full ROM Respiratory: no wheezing, no rales, no rhonchi, clear to auscultation bilateral Cardiovascular: RRR, no significant murmur Gastrointestinal: non-tender, no distention Neurological: non-focal, moves all 4 limbs Psychiatric: normal affect, A&O x 3 Skin: no rash, normal turgor <Ivonne Celeste - Last Filed: 02/11/18 11:48> Dx/Plan (1) Suicidal overdose Code(s): T50.902A - POISONING BY UNSP DRUG/MEDS/BIOL SUBST, SELF-HARM, INIT Status: Acute (2) Contact dermatitis Code(s): L25.9 - UNSPECIFIED CONTACT DERMATITIS, UNSPECIFIED CAUSE Status: Acute Qualifiers: Contact dermatitis type: irritant (3) Cellulitis Code(s): L03.90 - CELLULITIS, UNSPECIFIED Status: Ruled-out (4) COPD (chronic obstructive pulmonary disease) Status: Chronic (5) Poisoning by benzodiazepine-based tranquilizers Code(s): T42.4X4A - POISONING BY BENZODIAZEPINES, UNDETERMINED, INIT ENCNTR Status: Acute (6) Depression Code(s): F32.9 - MAJOR DEPRESSIVE DISORDER, SINGLE EPISODE, UNSPECIFIED Status : Chronic (7) Borderline personality disorder in adult Code(s): F60.3 - BORDERLINE PERSONALITY DISORDER Status: Chronic (8) Schizoaffective disorder Code(s): F25.9 - SCHIZOAFFECTIVE DISORDER, UNSPECIFIED Status: Chronic (9) PTSD (post-traumatic stress disorder) Code(s): F43.10 - POST-TRAUMATIC STRESS DISORDER, UNSPECIFIED Status: Chronic - Plan Plan: Depression with PTSD and suicide attempt, benzodiazepine OD - No respiratory support required since admission. Will continue to monitor closely with sitter and suicide precautions. - Will continue home zoloft & wellbutrin dose per [facility] records. - Patient was recommended to be transferred to inpatient psych by [facility] early last week. Was rejected from only facility that was willing to accept her yesterday after being deemed to not need a higher level of acute psychiatric care. Will follow-up with CM and [facility] today to see what d/c plans will be moving forward as patient remains medically stable. Schizoaffective disorder - Will continue home zyprexa dose. Borderline Personality Disorder - Aware, will resume home psych meds. Abodminal Wall contact dermatitis - WC on board, will ensure patient has appropriate ostomy care supplies before transfer as she will benefit most from improved wound and ostomy care. - Will continue topical nystatin powder and barrier cream. - Will continue PO tylenol, ibuprofen, and tramadol PRN for pain. - Will continue PRN zofran for nausea. Constipation - Will continue bowel regimen and add bentyl for abdominal cramping. - No concern for obstruction. Insomnia - Will resume home trazadone, zyprexa, and PRN restoril dosing per [facility] records. - Will d/c melatonin as patient needs stronger medication for sleep. COPD - Will continue home albuterol PRN. Tobacco abuse - Nicotine patch. Hypokalemia - Resolved. Dysphagia - Resolved. - Patient has been tolerating a regular diet well. External hemorrhoid - Will continue sitz baths as well as topical hydrocortisone and/or preparation H PRN. Code status: FULL Diet: Regular IVFs: None Abx: None Dispo: Will follow-up w/ CM and MR today regarding d/c planning as patient was rejected from a [facility] in [place] last night. <Ivonne Celeste - Last Filed: 02/11/18 11:48> Attending Addendum - Attending Addendum Date/Time: 02/10/18 1043 I personally evaluated the patient and discussed the management with Dr. Celeste I agree with the History, Examination, Assessment and Plan documented above with any addition or exceptions noted below. 37 yo female with severe psychiatric disorder admitted for suicide attempt HD#12 Stable mood overnight. Remains cooperative at moment. VS reviewed. 1. Suicide attempt with underlying MMD, Schizoaffective d/o, borderline personality: [facility] eval q 3 days. Awaiting inpatient psych treatment. Patient currently denying SI/HI/hallucinations. 2. EC fistula: Slowing resolving. Stable. No s/sx of infection. Continue to discuss patient's state with [facility]. Medically stable/cleared. Star <Anum Medina - Last Filed: 02/11/18 18:49>
[2018-02-11] MEDS ORDERED: Polyethylene Glycol 3350 17 GM Packet PO PRN (11:52)
[2018-02-11] MEDS: diphenhydrAMINE 50 MG CAP PO SCH (12:16)
[2018-02-11] MEDS: Diazepam 5 MG TAB PO SCH ×2 (17:51→18:07)
[2018-02-11] MEDS ORDERED: Diazepam 5 MG TAB PO SCH (18:30)
[2018-02-11] MEDS: OLANZapine 5 MG TAB PO SCH (20:51)
[2018-02-11] MEDS: Temazepam 15 MG CAP PO PRN (20:53)
[2018-02-12] MEDS: diphenhydrAMINE 50 MG CAP PO SCH ×3 (00:13→23:47)
--- NOTE | 2018-02-12 05:47 | PDOC.FM ---
- Subjective Subjective: Yesterday patient required one time dose of 10mg Valium to calm down. She continues to have outbursts and is not able to calm down without medications. She was monitored overnight in IMCU due to Valium. Today, is very upset she cannot go home. She is somewhat agitated and fixates on small issues. She is not able to be calmed down or reasoned with. Will attempt [facility] today. - Objective MAR Reviewed: Yes Vital Signs & Weight: Vital Signs (12 hours) Temp Pulse Resp BP Pulse Ox 02/12/18 04:27 96.4 F L 63 16 92/60 96 02/11/18 19:15 97.5 F L 64 16 139/87 100 Weight Admit Weight 45 kg Weight 45 kg I&O: 02/10/18 02/11/18 02/12/18 07:59 06:59 06:59 Intake Total 620 Balance 620 Result Diagrams: 01/30/18 04:49 02/11/18 03:43 Phys Exam - Physical Examination Constitutional: NAD HEENT: PERRLA, moist MMs Respiratory: no wheezing, no rales, clear to auscultation bilateral Cardiovascular: RRR, no significant murmur Gastrointestinal: soft, non-tender ostomy bag in place, dressing in place over fistula, draining white/brown discharge, with some mild surrounding erythema, improved from admission Musculoskeletal: no edema Neurological: moves all 4 limbs Deviation from normal: flat affect, labile mood Dx/Plan (1) Suicidal overdose Code(s): T50.902A - POISONING BY UNSP DRUG/MEDS/BIOL SUBST, SELF-HARM, INIT Status: Acute (2) Depression Code(s): F32.9 - MAJOR DEPRESSIVE DISORDER, SINGLE EPISODE, UNSPECIFIED Status : Chronic (3) Borderline personality disorder in adult Code(s): F60.3 - BORDERLINE PERSONALITY DISORDER Status: Chronic (4) PTSD (post-traumatic stress disorder) Code(s): F43.10 - POST-TRAUMATIC STRESS DISORDER, UNSPECIFIED Status: Chronic (5) Schizoaffective disorder Code(s): F25.9 - SCHIZOAFFECTIVE DISORDER, UNSPECIFIED Status: Chronic (6) Contact dermatitis Code(s): L25.9 - UNSPECIFIED CONTACT DERMATITIS, UNSPECIFIED CAUSE Status: Acute Qualifiers: Contact dermatitis type: irritant (7) Constipation Code(s): K59.00 - CONSTIPATION, UNSPECIFIED Status: Acute (8) COPD (chronic obstructive pulmonary disease) Status: Chronic - Plan Plan: Depression with PTSD and suicide attempt, benzodiazepine OD - No respiratory support required since admission. Will continue to monitor closely with sitter and suicide precautions. - Continue to hold home zoloft & wellbutrin per recs from psychiatrist while inpatient. - Awaiting placement at either inpatient psych facility or reevaluation by [facility]. Schizoaffective disorder w/ periodic agitation and aggression - Will continue zyprexa at 20mg ODT HS. - Will continue zyprexa 5mg ODT PRN Q6H and SERGE benadryl and Klonopin BID to prevent any further aggressive episodes per recs from psych. Borderline Personality Disorder - Meds as above Abodminal Wall contact dermatitis, improving - WC on board, will ensure patient has appropriate ostomy care supplies before transfer as she will benefit most from improved wound and ostomy care- patient has been performing her own wound care during hospitalization. This should not limit her in treatment facility options. - Will continue topical nystatin powder and barrier cream. - Will continue PO tylenol, ibuprofen, and tramadol PRN for pain. - Will continue PRN zofran for nausea. Constipation - Will continue [facility] bowel regimen and bentyl QID. Insomnia - Will continue zyprexa at new dose of 20mg HS. COPD - Will continue home albuterol PRN. Tobacco abuse - Nicotine patch. External hemorrhoid - Will continue sitz baths as well as topical hydrocortisone and/or preparation H PRN. Code status: FULL Diet: Regular IVFs: None Abx: None Dispo: Will attempt to call [facility] today for reevaluation. Date of d/c unknown at this point in time.
[2018-02-12] MEDS: Nicotine 14 MG PATCH TD SCH (06:18)
[2018-02-12] MEDS: Enoxaparin Sodium 40 MG/0.4 ML SYRINGE SC SCH (08:54)
[2018-02-12] MEDS: Dicyclomine 10 MG CAP PO SCH ×4 (08:55→20:15)
[2018-02-12] MEDS: clonazePAM 1 MG TAB PO SCH ×2 (08:55→20:15)
[2018-02-12] MEDS: traMADol HCl 50 MG TAB PO PRN ×4 (08:55→23:48)
[2018-02-12] MEDS: Docusate 100 MG CAP PO SCH ×2 (08:56→20:15)
[2018-02-12] MEDS ORDERED: OLANZapine ODT 5 MG TAB PO PRN (10:58)
--- NOTE | 2018-02-12 12:00 | EKG ---
Test Reason : Blood Pressure : / mmHG Vent. Rate : 065 BPM Atrial Rate : 065 BPM P-R Int : 096 ms QRS Dur : 092 ms QT Int : 414 ms P-R-T Axes : 047 043 055 degrees QTc Int : 430 ms Sinus rhythm with short WA Otherwise normal ECG Confirmed by EPHRAIM HAAS ([id number]) on 02/12/2018 12:00:05 PM Referred By: Confirmed By:EPHRAIM HAAS
[2018-02-12] MEDS: Temazepam 15 MG CAP PO PRN (20:15)
[2018-02-12] MEDS: OLANZapine 5 MG TAB PO SCH (20:20)
[2018-02-12] MEDS ORDERED: Clopidogrel Bisulfate 75 MG TAB ONE (23:26)
[2018-02-13] MEDS: traMADol HCl 50 MG TAB PO PRN ×2 (04:23→09:07)
[2018-02-13] MEDS: Ondansetron ODT 8 MG TAB SL PRN (04:24)
--- NOTE | 2018-02-13 05:47 | PDOC.FM ---
- Subjective Subjective: Patient is doing well this morning after knowing that she will be able to go home today. She is in and out of her room and continues to fixate on items or problems. She is worried she will not get released in time but otherwise is doing well. She has a new ostomy bag in place and new dressing on her fistula site. Denies problems with diet, urination. Has not required prn agitation medications overnight. - Objective MAR Reviewed: Yes Vital Signs & Weight: Vital Signs (12 hours) Temp Pulse Resp BP Pulse Ox 02/12/18 20:00 97.7 F 79 16 120/71 97 Weight Admit Weight 45 kg Weight 45 kg I&O: 02/11/18 02/12/18 02/13/18 06:59 06:59 06:59 Intake Total 1220 500 Balance 1220 500 Result Diagrams: 01/30/18 04:49 02/11/18 03:43 Phys Exam - Physical Examination Constitutional: NAD HEENT: moist MMs no respiratory distress, equal chest rise. Cardiovascular: RRR ostomy bag clean and intact, clean dressing with minimal drainage from fistula site. Musculoskeletal: no edema Neurological: non-focal, moves all 4 limbs Psychiatric: A&O x 3 Deviation from normal: labile mood, schizoaffective behavior Dx/Plan (1) Suicidal overdose Code(s): T50.902A - POISONING BY UNSP DRUG/MEDS/BIOL SUBST, SELF-HARM, INIT Status: Acute (2) Depression Code(s): F32.9 - MAJOR DEPRESSIVE DISORDER, SINGLE EPISODE, UNSPECIFIED Status : Chronic (3) Borderline personality disorder in adult Code(s): F60.3 - BORDERLINE PERSONALITY DISORDER Status: Chronic (4) PTSD (post-traumatic stress disorder) Code(s): F43.10 - POST-TRAUMATIC STRESS DISORDER, UNSPECIFIED Status: Chronic (5) Schizoaffective disorder Code(s): F25.9 - SCHIZOAFFECTIVE DISORDER, UNSPECIFIED Status: Chronic (6) Contact dermatitis Code(s): L25.9 - UNSPECIFIED CONTACT DERMATITIS, UNSPECIFIED CAUSE Status: Acute Qualifiers: Contact dermatitis type: irritant (7) Constipation Code(s): K59.00 - CONSTIPATION, UNSPECIFIED Status: Acute (8) COPD (chronic obstructive pulmonary disease) Status: Chronic - Plan Plan: Depression with PTSD and suicide attempt, benzodiazepine OD - No respiratory support required since admission. Will continue to monitor closely with sitter and suicide precautions. - Continue to hold home zoloft & wellbutrin per recs from psychiatrist while inpatient. Restart going home. - Reevaluation yesterday by [facility] deems patient safe to d/c home with safety plan in place. Schizoaffective disorder w/ periodic agitation and aggression - Will increase to zyprexa 25mg HS based off need for additional zyprexa yesterday - Will continue zyprexa 5mg PO PRN Q6H and SERGE benadryl and Klonopin BID to prevent any further aggressive episodes per recs from psych. Borderline Personality Disorder - Meds as above Abodminal Wall contact dermatitis, improving - WC on board, will ensure patient has appropriate ostomy care supplies before transfer as she will benefit most from improved wound and ostomy care- patient has been performing her own wound care during hospitalization. - Will continue topical nystatin powder and barrier cream. - Will continue PO tylenol, ibuprofen, and tramadol PRN for pain. - Will continue PRN zofran for nausea. Constipation - Will continue [facility] bowel regimen and bentyl QID. Insomnia - Will continue zyprexa at new dose of 20mg HS. COPD - Will continue home albuterol PRN. Tobacco abuse - Nicotine patch. External hemorrhoid - Will continue sitz baths as well as topical hydrocortisone and/or preparation H PRN. Code status: FULL Diet: Regular IVFs: None Abx: None Dispo: D/c home today with HH for wound care and medication management. Safety plan discussed with patient and f/u with [facility] within 1-2 weeks.
[2018-02-13] MEDS: Nicotine 14 MG PATCH TD SCH (07:26)
[2018-02-13] MEDS: Dicyclomine 10 MG CAP PO SCH (09:07)
[2018-02-13] MEDS: clonazePAM 1 MG TAB PO SCH (09:07)
[2018-02-13] MEDS: Enoxaparin Sodium 40 MG/0.4 ML SYRINGE SC SCH (09:08)
[2018-02-13] MEDS: Docusate 100 MG CAP PO SCH (09:08)
[2018-02-13 09:15] VITALS: BP 121/73; TEMP 98.5
--- NOTE | 2018-02-13 12:16 | PRG ---
DATE OF SERVICE: 02/13/2018 Ms. Velasquez has been seen by [facility] and cleared for discharge from a psychiatric standpoint. We are aw aiting some home health issues to be resolved after which she can be discharged. This morning she is a little bit agitated about her chronic fistula drainage. Otherwise, no changes in her medical stat us. I have reviewed the note of Dr. Juana Curry and agree with her assessment and plan.
== END 2018-02-13 12:23 | disposition home health service (06) | DRG 918 ==
LOC: ERS 17:57 → T4-A 22:31 → IMCU/EMU 02-10 13:35 → T4-A 02-12 12:29
PROVIDERS: ADMIT Family Medicine; ATTEND Family Medicine
DX: T42.4X2A Poisoning by benzodiazepines, intentional self-harm, initial encounter (principal); L03.311 Cellulitis of abdominal wall; K63.2 Fistula of intestine; K94.03 Colostomy malfunction; E46 Unspecified protein-calorie malnutrition; Z68.1 Body mass index [BMI] 19.9 or less, adult; J44.9 Chronic obstructive pulmonary disease, unspecified; E87.6 Hypokalemia; R13.10 Dysphagia, unspecified; L25.9 Unspecified contact dermatitis, unspecified cause; K64.4 Residual hemorrhoidal skin tags; F31.9 Bipolar disorder, unspecified; K59.00 Constipation, unspecified; F17.210 Nicotine dependence, cigarettes, uncomplicated; F25.9 Schizoaffective disorder, unspecified; F43.10 Post-traumatic stress disorder, unspecified; F60.3 Borderline personality disorder; G47.00 Insomnia, unspecified; Z78.1 Physical restraint status
CPT/HCPCS: 36415; 51701; 80048; 80053; 80306; 80307; 81003; 81015; 83605; 83735; 84145; 84703; 85025; 86780; 86803; 87389; 87522; 87902; 93005; 93010; 94760; 96365; 96372; 96375; A4216; A4353; G8996-GN-CJ; G8997-GN-CI; J0696; J1200; J1630; J1650; J1956; J2060; J2250; J3486; J3490; J7050

== ENCOUNTER 2018-02-15 19:13 | Inpatient (IN) | payer OTHER ==
[2018-02-15] MEDS ORDERED: KETAMINE 100 MG/ML (5ML VIAL) ONE (19:18)
[2018-02-15] MEDS ORDERED: Ziprasidone 20 MG VIAL ONE (20:31)
[2018-02-15] MEDS ORDERED: Water For Inject, Bacteriostat 30 ML ONE (20:31)
[2018-02-15 21:12] LABS: #Basophils 0.1 thou/uL (0.0-0.2); #Eosinphils 0.4 thou/uL (0.0-0.7); #Lymphocytes 3.2 thou/uL (1.20-3.40); #Neutrophils 9.6 thou/uL (1.40-6.50); %Basophils 0.7 % (0.0-1.0); %Eosinophils 2.5 % (0.0-10.0); %Lymphocytes 22.6 % (21.0-51.0); %Monocytes 6.8 % (0.0-10.0); %Neutrophils 67.4 % (42.0-75.0); Hemoglobin 9.6 g/dL (12.0-16.0); Mean Corpuscular HGB CONC 31.4 g/dL (32.0-36.0); Mean Corpuscular Hemoglobin 25.7 pg (27.0-31.0); Platelet Count 396 thou/uL (130-400); RBC Distribution Width 15.2 % (11.5-14.5); Red Blood Cell (RBC) Count 3.74 mill/uL (4.20-5.40); White Blood Cell (WBC) Count 14.3 thou/uL (4.8-10.8)
[2018-02-15] MEDS ORDERED: Propofol 1,000 MG/100 ML VIAL IV ONE (21:16)
[2018-02-15 21:36] LABS: Analyzer IN Cardio ER; Base Excess (BEa) 0.2 mEq/L (-2.0 to +3.0); CO2 Tension 55.7 mmHg (35.0-45.0); Calcium, Ionized 1.17 mmol/L (1.12-1.30); Carboxyhemoglobin (COHb) 1.7 gm% (0.0-3.0); Hemoglobin (Hb) 9.6 g/dL (12.0-16.0); O2 Tension (PaO2) 65.9 mmHg (80.0-100.0); Potassium - ABG Lab 3.33 mmol/L (3.70-5.30)
[2018-02-15 21:36] LABS: ALT (SGPT) 11 U/L (8-55); AST (SGOT) 18 U/L (5-34); Acetaminophen Less than 6.0 mcg/mL (10.0-30.0); Albumin 3.7 g/dL (3.5-5.0); Alcohol Less than 10 mg/dL (Less than 10); Alkaline Phosphatase 72 U/L (40-150); Anion Gap 14 mmol/L (10-20); BUN (Urea Nitrogen) 10 mg/dL (7.0-18.7); Bilirubin, Total 0.2 mg/dL (0.2-1.2); Calc. Creatinine Clearance 0 mL/min (70-130); Calcium 9.3 mg/dL (7.8-10.44); Carbon Dioxide 22 mmol/L (22-29); Chloride 105 mmol/L (98-107); Estimated GFR-MDRD 89; Globulin 3.7 g/dL (2.4-3.5); Glucose 97 mg/dL (70-105); Potassium 4.2 mmol/L (3.5-5.1); Protein, Total 7.4 g/dL (6.0-8.3); Salicylate Less than 8.0 mg/dL (15.0-30.0); Sodium 137 mmol/L (136-145)
[2018-02-15] MEDS ORDERED: Fentanyl 100 MCG/2 ML VIAL ONE (21:53)
[2018-02-15] MEDS ORDERED: fentaNYL Citrate/PF 2,000 MCG in Sodium Chloride 0.9% 60 ML IV SCH ×2 (21:58→23:28)
[2018-02-15 22:00] LABS: Puncture Site R RADIAL
[2018-02-15 22:01] LABS: ALV-art Gradient 78.375 (0-20)
--- NOTE | 2018-02-15 22:03 | RAD ---
KUB: 02/15/18 INDICATION: Gastric catheter placement and intubation. IMPRESSION: Gastric catheter projects in the region of the gastric body. Lung bases are clear. POS: [facility]
--- NOTE | 2018-02-15 22:28 | RAD ---
CHEST ONE VIEW 02/15/18 INDICATION: History of intubation. COMPARISON: Prior exam dated 06/25/16. FINDINGS/IMPRESSION: The patient is intubated. ET tube tip is seen at the level of the thoracic inlet. There is a gastric catheter projecting below the left hemidiaphragm. There is stable bullous changes involving the right lung. No pneumothorax is evident. Osseous structures are unchanged. POS: [facility]
[2018-02-15] MEDS ORDERED: Midazolam HCl 5 mg/ml Vial ONE (22:48)
[2018-02-15] MEDS ORDERED: Propofol 1,000 MG/100 ML VIAL IV PRN (23:28)
[2018-02-15] MEDS ORDERED: Fentanyl BOLUS 250 ML IVPB PRN (23:28)
[2018-02-15] MEDS ORDERED: DISCONTINUE PREVIOUS NARCOTIC PAIN MEDICATIONS AND BENZODIAZEPINES FS SCH (23:28)
[2018-02-15] MEDS ORDERED: Lorazepam 2 MG/ML VIAL SLOW IVP PRN (23:28)
[2018-02-15] MEDS ORDERED: Propofol BOLUS 1,000 MG/100 ML VIAL IV PRN (23:28)
[2018-02-15] MEDS ORDERED: Ondansetron ODT 4 MG TAB SL PRN (23:29)
[2018-02-15] MEDS ORDERED: Ondansetron PF 4 MG/2 ML Vial IVP PRN (23:29)
[2018-02-15] MEDS ORDERED: Sodium Chloride 0.9% 1,000 ML IV SCH (23:29)
--- NOTE | 2018-02-15 23:30 | CT ---
CT OF THE BRAIN WITHOUT CONTRAST: 02/15/18 INDICATION: History of altered mental status, combativeness and suicidal. COMPARISON: Prior exam dated 08/25/17. FINDINGS: No acute infarct, hemorrhage or hydrocephalus is present. The cerebellum is slightly small but stable in size to the comparison examination. No hydrocephalus is evident. Mastoid air cells are clear. The skull is intact. IMPRESSION: No acute intracranial abnormality. POS: [facility]
[2018-02-16 00:10] VITALS: BMI 16.4
[2018-02-16] MEDS ORDERED: Ventilator Sedation Protocol 1 EACH FS SCH (00:11)
[2018-02-16] MEDS ORDERED: CCU Electrolyte Replacement 1 EACH FS SCH (00:11)
[2018-02-16] MEDS ORDERED: Ondansetron PF 4 MG/2 ML Vial IVP PRN (00:11)
[2018-02-16] MEDS ORDERED: Potassium Phosphate 12 MMOL in Sodium Chloride 0.9% 250 ML 250 ML IV PRN (00:16)
[2018-02-16] MEDS ORDERED: Magnesium Oxide 400 MG TAB PO PRN ×2 (00:16)
[2018-02-16] MEDS ORDERED: Potassium Chloride 40 MEQ in Premix Bag 1 BAG IVPB PRN (00:16)
[2018-02-16] MEDS ORDERED: Potassium Phosphate 9 MMOL in Sodium Chloride 0.9% 100 ML IVPB PRN (00:16)
[2018-02-16] MEDS ORDERED: Potassium Chloride 20 MEQ TAB PO PRN (00:16)
[2018-02-16] MEDS ORDERED: Potassium Chloride 40 MEQ in Sodium Chloride 0.9% 250 ML 250 ML IVPB PRN (00:16)
[2018-02-16] MEDS ORDERED: Magnesium 2 GM/NS 0.9% 100 ML 2 GM in Premix Bag 1 BAG IVPB PRN (00:16)
[2018-02-16] MEDS ORDERED: Potassium Phosphate 15 MMOL in Sodium Chloride 0.9% 250 ML 250 ML IV PRN (00:16)
[2018-02-16] MEDS ORDERED: CCU ELECTROLYTE REPLACEMENT PROTOCOL FS PRN (00:16)
[2018-02-16] MEDS ORDERED: fentaNYL Citrate/PF 2,000 MCG in Sodium Chloride 0.9% 60 ML IV SCH (00:17)
[2018-02-16] MEDS ORDERED: Propofol 1,000 MG/100 ML VIAL IV PRN (00:17)
[2018-02-16] MEDS ORDERED: Fentanyl BOLUS 250 ML IVPB PRN (00:17)
[2018-02-16] MEDS ORDERED: Lorazepam 2 MG/ML VIAL SLOW IVP PRN ×3 (00:17→00:33)
[2018-02-16] MEDS ORDERED: DISCONTINUE PREVIOUS NARCOTIC PAIN MEDICATIONS AND BENZODIAZEPINES FS SCH (00:17)
[2018-02-16] MEDS ORDERED: Propofol BOLUS 1,000 MG/100 ML VIAL IV PRN (00:17)
[2018-02-16] MEDS ORDERED: Morphine 2 MG/ML SYRINGE SLOW IVP PRN (00:30)
[2018-02-16] MEDS: Sodium Chloride 0.9% 1,000 ML IV SCH ×2 (00:38→12:38)
--- NOTE | 2018-02-16 01:49 | PDOC.FPRHP ---
- History of Present Illness Chief Complaint: Suicidal Ideation History of Present Illness: This is a 37 yo female who was recently discharged from the hospital following the treatment of a clonazepam overdose and cellulitis vs. contact dermatitis. She presents to the ED today via EMS following her stating a desire to harm her self. Pt. was combative on the way to the ED and continued acting in this manner upon arrival. Pt. was intubated in order to protect herself and the ER staff. Prior to intubation, her condition rendered obtaining H&P impossible. ED Course: 30 mg ketamine x2, geodon 20mg x 1, etomidate 20mg, rocuronium 60 mg, propofol 5mcg/kg/min, fentanyl 1mcg/kg/hr - Allergies/Adverse Reactions Allergies Allergy/AdvReac Type Severity Reaction Status Date / Time adhesive tape Allergy Verified 01/29/18 23:19 buspirone HCl [From BuSpar] Allergy Verified 01/29/18 23:19 Penicillins Allergy Verified 01/29/18 23:19 lorazepam [From Ativan] AdvReac Verified 02/08/18 19:10 - Home Medications Medication Instructions Recorded Confirmed Type Albuterol Sulfate [Albuterol 1 puff IH Q4HR PRN 01/05/14 02/16/18 History Sulfate HFA] Fluticasone/Salmeterol [Advair 1 inh IH BID 01/05/14 02/16/18 History Diskus 250/50] Temazepam 15 mg PO HS PRN 02/08/18 02/16/18 History BuPROPion XL [Wellbutrin XL] 150 mg PO DAILY #30 tab 02/13/18 02/16/18 Rx Gabapentin 600 mg PO BID #60 tablet 02/13/18 02/16/18 Rx OLANZapine [Olanzapine] 20 mg PO HS #30 tab 02/13/18 02/16/18 Rx Sertraline HCl 100 mg PO DAILY #30 tablet 02/13/18 02/16/18 Rx clonazePAM [Klonopin] 1 mg PO BID #60 tab 02/13/18 02/16/18 Rx traZODone HCl [Trazodone HCl] 300 mg PO HS #60 tablet 02/13/18 02/16/18 Rx - History PMHx: Depression with PTSD, Schizoaffective disorder, borderline personality disorder, abdominal wall cellulitis PSHx: Unspecified abdominal surgery resulting in 2 colostomies FHx: none reported Social: active smoker 20 pack years, denies D/A - Review of Systems ROS unobtainable: due to endotracheal tube - Vital signs BP: HR: 77 RR: 20 Tmax: 98.2 Pox: 100% on Ventilator Wt: 49.9 - Physical Exam Constitutional: other (Intubated and restrianed. Appears to have poor hygeine, room smells of feces, appears older than stated age) HEENT: normocephalic and atraumatic Neck: trachea midline, other (prominent JVD) Heart: RRR, normal S1/S2, pulses present Lungs: CTAB, good air movement Abdomen: other (Erythematous midline ulcer from prevous surgery. left lower quadrant ostomy. Feces covering large portion of abdomin,) Musculoskeletal: normal structure Skin: good turgor, capillary refill <2 seconds, other (pt. has multiple circular , erythematous lesions on left arm consistent with ring worm) FMR H&P: Results - Labs Result Diagrams: 02/16/18 04:02 02/16/18 04:02 Lab results: WBC 14.3 thou/uL (4.8-10.8) H 02/15/18 20:54 Hgb 9.6 g/dL (12.0-16.0) L 02/15/18 20:54 Hct 30.6 % (36.0-47.0) L 02/15/18 20:54 MCV 82.0 fL (78.0-98.0) 02/15/18 20:54 Plt Count 396 thou/uL (130-400) 02/15/18 20:54 Neutrophils % 67.4 % (42.0-75.0) 02/15/18 20:54 ABG pH 7.30 (7.35-7.45) L 02/15/18 21:30 ABG pCO2 55.7 mmHg (35.0-45.0) H 02/15/18 21:30 ABG pO2 65.9 mmHg (80.0-100.0) L 02/15/18 21:30 Sodium 137 mmol/L (136-145) 02/15/18 20:54 Potassium 4.2 mmol/L (3.5-5.1) 02/15/18 20:54 Chloride 105 mmol/L (98-107) 02/15/18 20:54 Carbon Dioxide 22 mmol/L (22-29) 02/15/18 20:54 BUN 10 mg/dL (7.0-18.7) 02/15/18 20:54 Creatinine 0.74 mg/dL (0.6-1.1) 02/15/18 20:54 Glucose 97 mg/dL (70-105) 02/15/18 20:54 Calcium 9.3 mg/dL (7.8-10.44) 02/15/18 20:54 Total Bilirubin 0.2 mg/dL (0.2-1.2) 02/15/18 20:54 AST 18 U/L (5-34) 02/15/18 20:54 ALT 11 U/L (8-55) 02/15/18 20:54 Alkaline Phosphatase 72 U/L (40-150) 02/15/18 20:54 Creatine Kinase 223 U/L (29-168) H 02/15/18 20:54 Serum Total Protein 7.4 g/dL (6.0-8.3) 02/15/18 20:54 Albumin 3.7 g/dL (3.5-5.0) 02/15/18 20:54 ABG pH 7.3 CO2 55..7 O2 65.9 HCO3 27 Vent settings at time Rate 12 TV 400 FIO2 30% PEEP 5 Pressure support 10 Blood drug screen Negative for acetaminophen, aspirin, and alcohol - Radiology Interpretation Chest x-ray Status: report reviewed by me (ET tub at level of thoracic inlet, there is a gastric catheter projecting below the left hemidiaphragm. THere is a stable bullous change involving the right lung. No pneumothorax) Abdominal x-ray Status: report reviewed by me (Gastric catheter prjects in the region of the gastic body) FMR H&P: A/P - Problem List (1) Suicidal ideation Current Visit: Yes Status: Acute Code(s): R45.851 - SUICIDAL IDEATIONS (2) Agitation requiring sedation protocol Current Visit: Yes Status: Acute Code(s): R45.1 - RESTLESSNESS AND AGITATION (3) Borderline personality disorder in adult Current Visit: No Status: Chronic Code(s): F60.3 - BORDERLINE PERSONALITY DISORDER (4) PTSD (post-traumatic stress disorder) Current Visit: No Status: Chronic Code(s): F43.10 - POST-TRAUMATIC STRESS DISORDER, UNSPECIFIED (5) Schizoaffective disorder Current Visit: No Status: Chronic Code(s): F25.9 - SCHIZOAFFECTIVE DISORDER , UNSPECIFIED (6) Cellulitis Current Visit: Yes Status: Ruled-out Code(s): L03.90 - CELLULITIS, UNSPECIFIED - Plan This is a 37 yo female Severe agitation requiring sedation likely 2/2 drug ingestion vs. psychotic episode -Admit to CCU. VSS prior to intubation and will likely be able to come off ventilator tomorrow. Pending UDS. BDS is negative for acetaminophen, aspirin, and alcohol. We will be able to obtain more information once pt. is able to answer questions. Suicidal ideation -Pt. has pmh of psychologic disease. Unsure of chemical suicide attempt at this time. Will consult [facility] when medically stable Respiratory acidosis -Likely transient as pt. is now satting 100 on ventilator. Ostomy 2/2 rectal prolaps in August 2017 -monitor output Tinea corporis -Treat effected area with ketoconazole Cellulitis 2/2 fecal contamination -We will provide coverage for E coli and MRSA with rocephin and clindamycin respectively Depression with PTSD -Continue home meds when pt. can tolerate PO Schizoaffective disorder -Continue home meds when pt. can tolerate PO Borderline personality disorder -Continue home meds when pt. can tolerate PO Code: full Prophylaxis: SCDs, pepcid Family: none at bedside Disposition: DC in 3-4 days FMR H&P: Upper Level - Pertinent history 37 yo female here for agitation. Patient has long history of calling 911 and coming to the ER for SI. Today she reported to 911 that she was going to hurt herself. They brought her to the ER via EMS, where she became agitated. Received ketamine 30mg x2, geodon 20mg, but was still banging her head against the rails and threatening ED staff so the decision was made to intubate. Patient was recently hospitalized 01/29-02/13/2018 for suicide attempt with 20 pills of klonipin 0.5mg. She was medically stabliized soon after admission, evaluation by [facility] recommended inpatient hospitalization at [facility]. However, after about 10 days, she was evaluated by the accepting facility and they said she was not acute enough for acceptance. Therefore, she was d/c home with close follow up. Meds on d/c included temazepam, gabapentin, olanzapine, trazadone, buproprion XL. Also during that hospitalization, she was treated for the first 2-3 days with antibiotics (rocephin, clinda), but this was stopped as it was determined that it was a chronic problem, part of her chronic abdominal history. Was treated with wound care and nystatin. Review of records reveals limited history of abdominal surgeries, seem to be done in [place] [facility] on October 09, 2017. LLQ colostomy for rectal prolapse (10/24/17 ER visit note). Also noted that patient has been banned from that [facility] for trespassing. Patient has 2 ostomy bags in LLQ abdomen. Erythema of skin around a midline incision which is healing by secondary intention. Also has an EC fistula at the top of the incision. Wound difficult to fully visualize today as she has feces mostly covering much of the incision. - Pertinent findings 119/77 HR: 85 100% on ventilator Temp: 99.7 GEN: intubated with tube 22cm at the lip PULM: CTA CARD: RRR, no mgr ABD: ostomy bag in LLQ largely filled with stool, midline incision healing by secondary intention with erythema to surrounding tissue; stool covering much of this area ABG 30 min after intubation: 7.30/55.7/65.9 Abdomen xray, chest xray, Brain CT reviewed by me. Abdomen xray shows gastric tube below left hemidiaphragm; chest xray shows ET tube in appropriate location - Plan Date/Time: 02/16/18 0146 Kobe Olmos DO, have evaluated this patient and agree with findings/plan as outlined by compensation intern resident. Pertinent changes/additions are listed here. Agitation with SI -patient has diagnoses of borderline personality disorder and schizoaffective -multiple ER visits with SI, >20 over the past year -intubated at this time; admit to CCU -attempt to wean down tomorrow -UDS pending; blood drug negative for EtOH, salicylates Rectal prolapse s/p LLQ colostomy -concern for cellulitis at this time -will start on rocephin and clinda -Wound care -day team saw patient earlier in the week on last admission so we will defer to them for stopping abx Borderline personality, schizoaffective, MDD -continue home meds
[2018-02-16] MEDS ORDERED: cefTRIAXone\\ROCEPHIN 1 GM in Sodium Chloride 0.9% 100 ML IVPB SCH (04:00)
[2018-02-16 04:12] LABS: #Basophils 0.1 thou/uL (0.0-0.2); #Eosinphils 0.3 thou/uL (0.0-0.7); #Lymphocytes 2.6 thou/uL (1.20-3.40); #Monocytes 0.6 thou/uL (0.11-0.59); %Basophils 0.9 % (0.0-1.0); %Eosinophils 3.3 % (0.0-10.0); %Lymphocytes 27.1 % (21.0-51.0); %Monocytes 6.6 % (0.0-10.0); %Neutrophils 62.1 % (42.0-75.0); Hemoglobin 8.3 g/dL (12.0-16.0); Mean Corpuscular HGB CONC 31.1 g/dL (32.0-36.0); Mean Corpuscular Hemoglobin 25.3 pg (27.0-31.0); Mean Corpuscular Volume 81.4 fL (78.0-98.0); Mean Platelet Volume 6.7 fL (7.4-10.4); Platelet Count 400 thou/uL (130-400); Red Blood Cell (RBC) Count 3.29 mill/uL (4.20-5.40); White Blood Cell (WBC) Count 9.6 thou/uL (4.8-10.8)
[2018-02-16 04:44] LABS: ALT (SGPT) 9 U/L (8-55); AST (SGOT) 18 U/L (5-34); Albumin 3.3 g/dL (3.5-5.0); Alkaline Phosphatase 60 U/L (40-150); Anion Gap 10 mmol/L (10-20); BUN (Urea Nitrogen) 9 mg/dL (7.0-18.7); Bilirubin, Total Less than 0.2 mg/dL (0.2-1.2); Calc. Creatinine Clearance 94 mL/min (70-130); Calcium 8.6 mg/dL (7.8-10.44); Carbon Dioxide 23 mmol/L (22-29); Chloride 109 mmol/L (98-107); Estimated GFR-MDRD Greater than 90; Globulin 3.1 g/dL (2.4-3.5); Glucose 95 mg/dL (70-105); Potassium 3.8 mmol/L (3.5-5.1); Protein, Total 6.4 g/dL (6.0-8.3); Sodium 138 mmol/L (136-145)
[2018-02-16] MEDS ORDERED: Clindamycin/D5W 600 MG in Premix Bag 1 BAG IVPB SCH (05:00)
[2018-02-16] MEDS ORDERED: Midazolam HCl 2 mg/2 ml Vial SLOW IVP PRN (05:17)
--- NOTE | 2018-02-16 05:29 | PDOC.FM ---
- Subjective Subjective: Patient is 37yo F returning after recent discharge for continued SI. She was cleared by [facility] at last visit with safety plan in place. She is currently intubated and sedated but easily arousable. She shakes her head yes and no appropriately and has full motor function. Moon in place with clear urine and colostomy in place with open fistula medially. It is currently difficult to communicate with her due to intubation but reports she was taking her medications after discharge. - Objective MAR Reviewed: Yes Vital Signs & Weight: Vital Signs (12 hours) Temp Pulse Resp BP Pulse Ox 02/16/18 05:21 14 02/16/18 04:22 98.5 F 02/16/18 03:57 14 02/16/18 03:27 62 02/16/18 01:30 14 02/16/18 01:19 54 L 14 02/16/18 00:51 100 02/16/18 00:42 97.8 F 02/16/18 00:25 97.8 F 57 L 14 110/76 99 Weight Admit Weight 47.6 kg Weight 47.6 kg Most Recent Monitor Data Heart Rate from ECG 71 NIBP 91/59 NIBP BP-Mean 69 Respiration from ECG 19 SpO2 100 I&O: 02/14/18 02/15/18 02/16/18 06:59 06:59 06:59 Intake Total 601.4 Output Total 340 Balance 261.4 Result Diagrams: 02/16/18 04:02 02/16/18 04:02 Phys Exam - Physical Examination intubated, sedated, arousable HEENT: PERRLA Respiratory: no wheezing, no rales, clear to auscultation bilateral Cardiovascular: RRR, no significant murmur Gastrointestinal: soft, positive bowel sounds colostomy in place in LLQ and open fistula medially with moderate output Musculoskeletal: no edema Neurological: moves all 4 limbs Deviation from normal: fungal appearing lesions along L arm and neck Dx/Plan (1) Acute respiratory failure Code(s): J96.00 - ACUTE RESPIRATORY FAILURE, UNSP W HYPOXIA OR HYPERCAPNIA Status: Acute (2) Agitation requiring sedation protocol Code(s): R45.1 - RESTLESSNESS AND AGITATION Status: Acute (3) Suicidal ideation Code(s): R45.851 - SUICIDAL IDEATIONS Status: Acute (4) Enterocutaneous fistula Code(s): K63.2 - FISTULA OF INTESTINE Status: Acute (5) Borderline personality disorder in adult Code(s): F60.3 - BORDERLINE PERSONALITY DISORDER Status: Chronic (6) COPD (chronic obstructive pulmonary disease) Status: Chronic (7) Depression Code(s): F32.9 - MAJOR DEPRESSIVE DISORDER, SINGLE EPISODE, UNSPECIFIED Status : Chronic (8) PTSD (post-traumatic stress disorder) Code(s): F43.10 - POST-TRAUMATIC STRESS DISORDER, UNSPECIFIED Status: Chronic (9) Schizoaffective disorder Code(s): F25.9 - SCHIZOAFFECTIVE DISORDER, UNSPECIFIED Status: Chronic - Plan Plan: Acute Respiratory Failure- Induced - currently intubated and minimally sedated on propofol 35mcg - SIMV, TV- 450, Ps-10, FiO2 40%, PEEP-5 - plan to extubate this morning - Pulm consulted, appreciate recs Suicidal Ideations - Will likely need inpatient hospitalization with failure of safety plan discussed 2 days prior - Consult [facility] once medically stable Multiple Psych Disorders: Schizoaffective DO, Borderline Personality DO, MDD, and PTSD - will initiate zyprexa 25mg HS and 5mg q8h prn for agitation - apparently allergic to Ativan and Haldol per family from last admission, will refrain from using these at this time - Will initiate scheduled benadryl and clonazepam - continue Trazodone at night. Rectal Prolapse s/p Repair with colostomy in place and acquired enterocutaneous Fistula: - Fistula not well taken care of at home per appearance on admission - Will request records from surgeon, likely needs to see him for reevaluation - No signs of infection at this point, okay to discontinue antibiotics - Consult wound care, consider second ostomy bag at fistula site if continues to have high output. COPD: - prn albuterol VTE PPx: SCD IVF: NS @ 100 Code Status: Full Dispo: pending medical stability and MR evaluation for inpatient psych hospitalization.
[2018-02-16] MEDS ORDERED: Clindamycin 6 MG/ML (PEDI) IVPB SCH (06:00)
[2018-02-16 06:10] LABS: Amphetamine Not Detected (NotDetected); Barbiturates Screen Not Detected (NotDetected); Benzodiazepine Screen Detected (NotDetected); Cocaine Metabolite Screen Not Detected (NotDetected); Medtox Reader # READER 1; Methadone Not Detected (NotDetected); Methamphetamine Not Detected (NotDetected); Opiate Screen Detected (NotDetected); Oxycodone Screen Not Detected (NotDetected); Phencyclidine (PCP) Not Detected (NotDetected); THC/Cannabinoid Screen Detected (NotDetected); Tricyclic Screen Not Detected (NotDetected)
[2018-02-16 06:11] LABS: Medtox Control Line Valid? VALID (VALID)
[2018-02-16] MEDS ORDERED: Famotidine/PF 20 mg/2ml Vial SLOW IVP SCH (09:00)
[2018-02-16] MEDS: Ketoconazole 2% Cream 15 gm Tube TOP SCH (10:11)
[2018-02-16] MEDS ORDERED: PROVENTIL INHALER 6.7 G (200 INHALATIONS) INH PRN (10:11)
[2018-02-16] MEDS ORDERED: clonazePAM 1 MG TAB PO SCH ×2 (11:15→21:00)
[2018-02-16] MEDS ORDERED: OLANZapine 5 MG TAB PO SCH (11:30)
--- NOTE | 2018-02-16 11:55 | CON ---
DATE OF CONSULTATION: 02/16/2018 SERVICE: Pulmonary Medicine. REASON FOR CONSULTATION: ICU patient. HISTORY OF PRESENT ILLNESS: The patient is a 37-year-old white female who presented to the hospital, combative, and with suicidal ideation. Ultimately, she was sedated heavily and required intubation to protect her airway. In the ICU this morning, she is awake, cool, calm and collected. She cannot provide any additional elements of the history because she is on mechanical ventilation. That being said, she indicates that she is breathing comfortably and did not take any medications to create her agitation yesterday. PAST MEDICAL HISTORY: 1. Major depressive disorder. 2. Post-traumatic stress disorder. 3. Schizoaffective disorder. 4. Borderline personality disorder. 5. History of abdominal wall cellulitis. PAST SURGICAL HISTORY: Abdominal surgery, requiring 2 colostomies. SOCIAL HISTORY: She has got a greater than 10-exfr-eanw history of smoking and continues to smoke a pack on a daily basis. Denies any alcohol or illicit drugs. FAMILY HISTORY: Noncontributory. REVIEW OF SYSTEMS: This cannot be obtained as the patient is currently intubated and sedated. ALLERGIES: ADHESIVE TAPE, BUSPIRONE, PENICILLIN, LORAZEPAM. MEDICATIONS: List of her inpatient medications were reviewed and heavily updated. Her psychiatric medications were restarted. PHYSICAL EXAMINATION: VITAL SIGNS: Afebrile, pulse 85, blood pressure is 117/72, respirations 17, saturation 100% on 21% FiO2 and a PEEP of 5. GENERAL: The patient is awake and alert, in no apparent distress. LUNGS: Decent air entry. There is no prolonged expiratory phase or wheezing appreciated. HEART: Normal rate, regular. ABDOMEN: Soft, nontender, nondistended. Bowel sounds are positive. MUSCULOSKELETAL: No cyanosis or clubbing. There is no pitting in the bilateral lower extremities. NEUROLOGIC: Grossly nonfocal. LABORATORY DATA: WBC 9.6, hemoglobin 8.3, platelets 400,000. Differential was normal. A pH 7.30, pCO2 of 56, pO2 of 66. This was on mechanical ventilation at that time. Basic metabolic profile and liver function studies are essentially unremarkable. TSH falls within the normal limits. CK 223. Urine drug screen is positive for cannabinoids, benzodiazepine, and opiates. Salicylate, acetaminophen and plasma alcohol level is negative. IMAGIN. Chest x-ray demonstrates endotracheal tube in good position. Enteric catheter courses below the level of the diaphragm. I do not appreciate any acute pleural parenchymal abnormalities. 2. CT of the brain demonstrates no acute intracranial abnormality. 3. Abdominal x-ray demonstrates a gastric catheter in the gastric body. Otherwise, no acute intraabdominal processes identified. ASSESSMENT: 1. Metabolic encephalopathy. 2. Respiratory failure secondary to #1. 3. Suicidal ideation. DISCUSSION AND PLAN: We will resume all of her psychiatric medications. I will put her on a spontaneous breathing trial and if she meets criteria, extubation will be considered. Pulmonary Critical Care will continue to follow in this location, but after she had the tube comes out of her throat, she will be a candidate for transition to the medical unit. She will require 1:1 sitter. Critical care time: 30 minutes. NGOZI
--- NOTE | 2018-02-16 13:35 | ADD-PRG ---
DATE OF SERVICE: 02/16/2018 Please add this as an addendum to the note of Dr. Juana Curry. Ms. Velasquez was just extubated. She had originally had been intubated because she was very agitated and was a threat to herself and ER personnel. In the event, she is awake, alert, asking for somethin g to eat. I examined her wound site and in my judgment, it is not infected merely irritated from kerline sture and maceration. She is afebrile. Her O2 sat is now 100% on room air, breathing is 17 times a minute. Her pulse rate is 80 and regular. LABORATORY DATA: Her white count is now down to 9600, hemoglobin 8.3, hematocrit 26.8 with an MCV of 81. Chemistries: Sodium 138, potassium 3.8, chloride 109, bicarbonate 23, BUN 9, creatinine 0.63. We will reconsult [facility] if she will likely need some inpatient psychiatric management. Medically stab sonja.
[2018-02-16] MEDS: diphenhydrAMINE 25 MG CAP PO SCH ×2 (14:03→20:48)
[2018-02-16] MEDS: Chloraseptic Spray 180 ml Bottle PO PRN (14:03)
[2018-02-16] MEDS: OLANZapine 5 MG TAB PO PRN (14:03)
[2018-02-16] MEDS: Ziprasidone 20 MG VIAL IM PRN ×2 (14:03→14:33)
--- NOTE | 2018-02-16 15:34 | PDOC.EVN ---
Event Note - Event Note Event Note: Resident and attending were called to bedside as patient had increased agitation and harmful behaviors including throwing food, shouting, and attempting to leave the room. Pt recieved 10mg of Geodon and with verbal coaxing layed down in bed though she was still quite agitated. Versed was considered for further sedation because of concern for self harm and harm to others with her behavior however this was not possible to safely accomplish without cardiac monitoring. Moving forward, if patient continues with behaviors that are harmful to self and /or others pt will need to be moved to ICU with plans for Precedex drip. Will continue to monitor. <Gutierrez Linn - Last Filed: 02/16/18 15:29> Attending Addendum - Attending Addendum Date/Time: 02/16/18 1658 Called to [id number]. Patient agitated, cursing at officer, demanding to leave the hospital. In spite of geodon 10 IM she remained combative and disruptive and was felt to be a danger to herself and others. Another 10 mg IM was administered. Currently she is sleeping comfortably. I have asked the nurse to call with any concerning behavior. <Trey Hayes - Last Filed: 02/16/18 16:59>
--- NOTE | 2018-02-16 16:41 | EKG ---
Test Reason : Blood Pressure : / mmHG Vent. Rate : 052 BPM Atrial Rate : 052 BPM P-R Int : 080 ms QRS Dur : 092 ms QT Int : 460 ms P-R-T Axes : 059 061 052 degrees QTc Int : 427 ms Sinus bradycardia with short DC Otherwise normal ECG When compared with ECG of 10-FEB-2018 17:19, No significant change was found Confirmed by DR. Nathaniel BESS ([id number]) on 02/16/2018 4:40:39 PM Referred By: vicente CHINCHILLA Confirmed By:DR. Nathaniel BESS
[2018-02-16] MEDS: Mometasone/Formoterol 120 PUFF INHALER INH SCH (18:48)
[2018-02-16] MEDS: traZODone HCl 50 MG TAB PO SCH (20:47)
[2018-02-16] MEDS: Gabapentin 300 MG CAP PO SCH (20:48)
[2018-02-16] MEDS: clonazePAM 1 MG TAB PO SCH (20:48)
--- NOTE | 2018-02-17 06:10 | PDOC.FM ---
- Subjective Subjective: Patient resting comfortably this morning. Yesterday had several agitation outbursts and self inflicting behaviors including banging her head against the rails. [facility] evaluated her and she is pending placement at inpatient psych facility. No acute events overngiht. - Objective MAR Reviewed: Yes Vital Signs & Weight: Vital Signs (12 hours) Temp Pulse Resp BP Pulse Ox 02/16/18 20:48 93 L 02/16/18 19:19 98.9 F 62 20 122/84 93 L 02/16/18 18:48 96 Weight Admit Weight 47.6 kg Weight 47.6 kg Most Recent Monitor Data Heart Rate from ECG 83 NIBP 117/72 NIBP BP-Mean 87 Respiration from ECG 14 SpO2 100 I&O: 02/15/18 02/16/18 02/17/18 06:59 06:59 06:59 Intake Total 716.2 360.6 Output Total 390 720 Balance 326.2 -359.4 Result Diagrams: 02/16/18 04:02 02/16/18 04:02 <Juana Curry - Last Filed: 02/17/18 07:49> - Objective Vital Signs & Weight: Vital Signs (12 hours) Pulse Ox 02/17/18 08:00 93 L Weight Admit Weight 47.6 kg Weight 47.6 kg Most Recent Monitor Data Heart Rate from ECG 83 NIBP 117/72 NIBP BP-Mean 87 Respiration from ECG 14 SpO2 100 I&O: 02/16/18 02/17/18 02/18/18 06:59 06:59 06:59 Intake Total 716.2 360.6 Output Total 390 720 Balance 326.2 -359.4 Result Diagrams: 02/17/18 07:51 02/16/18 04:02 <Trey Hayes - Last Filed: 02/17/18 11:22> Phys Exam - Physical Examination Constitutional: NAD HEENT: moist MMs equal chest rise, no respiratory distress Cardiovascular: RRR Gastrointestinal: soft Musculoskeletal: no edema <Juana Curry - Last Filed: 02/17/18 07:49> Dx/Plan (1) Acute respiratory failure Code(s): J96.00 - ACUTE RESPIRATORY FAILURE, UNSP W HYPOXIA OR HYPERCAPNIA Status: Acute (2) Agitation requiring sedation protocol Code(s): R45.1 - RESTLESSNESS AND AGITATION Status: Acute (3) Suicidal ideation Code(s): R45.851 - SUICIDAL IDEATIONS Status: Acute (4) Enterocutaneous fistula Code(s): K63.2 - FISTULA OF INTESTINE Status: Acute (5) Borderline personality disorder in adult Code(s): F60.3 - BORDERLINE PERSONALITY DISORDER Status: Chronic (6) COPD (chronic obstructive pulmonary disease) Status: Chronic (7) Depression Code(s): F32.9 - MAJOR DEPRESSIVE DISORDER, SINGLE EPISODE, UNSPECIFIED Status : Chronic (8) PTSD (post-traumatic stress disorder) Code(s): F43.10 - POST-TRAUMATIC STRESS DISORDER, UNSPECIFIED Status: Chronic (9) Schizoaffective disorder Code(s): F25.9 - SCHIZOAFFECTIVE DISORDER, UNSPECIFIED Status: Chronic - Plan Plan: Suicidal Ideations with Aggressive and Agitated Behaviors - Will likely need inpatient hospitalization with failure of safety plan discussed 2 days prior - [facility] recommends inpatient psych. Needs to be 24h past extubation to be eligible for placement at [facility] in [place]. Will call them today Multiple Psych Disorders: Schizoaffective DO, Borderline Personality DO, MDD, and PTSD - will initiate zyprexa 25mg HS and 5mg q8h prn for agitation - apparently allergic to Ativan and Haldol per family from last admission, will refrain from using these at this time - Will initiate scheduled benadryl and clonazepam - continue Trazodone at night. - prn Geodon for agitation Rectal Prolapse s/p Repair with colostomy in place and acquired enterocutaneous Fistula: - Fistula not well taken care of at home per appearance on admission, now cleaned and appropriately dressed - Will request records from surgeon, no acute problems, can follow up outpatient with him - No signs of infection at this point, okay to discontinue antibiotics - Consult wound care, consider second ostomy bag at fistula site if continues to have high output- discussed this with Dr. Jacobo, General surgery who agrees with Ostomy bag placement. COPD: - prn albuterol Induced Acute Respiratory Failure- Resolved - extubated 02/16 - no respiratory distress, satting well on RA VTE PPx: SCD IVF: SL Code Status: Full Dispo: pending placement. <Juana Curry - Last Filed: 02/17/18 07:49> Attending Addendum - Attending Addendum Date/Time: 02/17/18 1120 I personally evaluated the patient and discussed the management with Dr. Curry. I agree with and repeated the History, Examination, Assessment and Plan documented above with any addition or exceptions noted below. On rounds today patient was screaming and in restraints after attempting to stab herself with the fork that came with breakfast. She has also begged a couple of the residents to give her so much medicine that she will . She has been physically aggressive and threatening to the staff. Will proceed with pharmacologic restraint as she is a threat to herself and others. Hopeful placement today for psych. <Trey Hayes - Last Filed: 02/17/18 11:22>
[2018-02-17] MEDS: Mometasone/Formoterol 120 PUFF INHALER INH SCH ×2 (06:58→18:35)
[2018-02-17] MEDS: diphenhydrAMINE 25 MG CAP PO SCH ×3 (08:34→19:10)
[2018-02-17] MEDS: Gabapentin 300 MG CAP PO SCH ×2 (08:34→19:10)
[2018-02-17] MEDS: clonazePAM 1 MG TAB PO SCH ×2 (08:34→19:10)
[2018-02-17] MEDS: OLANZapine 5 MG TAB PO PRN (08:35)
[2018-02-17] MEDS: Ketoconazole 2% Cream 15 gm Tube TOP SCH (08:38)
[2018-02-17] MEDS: Sterile Water 10 ML VIAL IVP PRN ×3 (09:14→19:03)
[2018-02-17] MEDS: Ziprasidone 20 MG VIAL IM PRN ×3 (09:14→19:03)
--- NOTE | 2018-02-17 15:53 | PDOC.EVN ---
Event Note - Event Note Event Note: Earlier this morning during rounds around 1000, patient in soft restraints after nursing staff witnessed her trying to stab her wrist with a fork. She reports to me "Dr. Curry, just give me medicine to make me ." "I want to !" She had been given prn Zyprexa, prn Geodon, SERGE benadryl, and SERGE Klonopin. She was untied from arm restraints and nursing staff reported to me that she calmed down within 30 min and didn't require any further prns.
[2018-02-17] MEDS: traZODone HCl 50 MG TAB PO SCH (19:10)
[2018-02-17] MEDS: Nicotine 14 MG PATCH TD SCH (19:28)
[2018-02-17] MEDS ORDERED: OLANZapine 5 MG TAB PO SCH (21:00)
[2018-02-18] MEDS: Acetaminophen 325 MG TAB PO PRN (01:42)
[2018-02-18] MEDS: OLANZapine 5 MG TAB PO PRN (01:43)
[2018-02-18] MEDS: Chloraseptic Spray 180 ml Bottle PO PRN (01:57)
--- NOTE | 2018-02-18 05:55 | PDOC.FM ---
- Subjective Subjective: Patient is resting comfortably this morning. She again had bouts of agitation scattered throughout the day yesterday. She is still suicidal and a danger to herself and others at times. No acute events overnight were reported to me by nursing staff. - Objective MAR Reviewed: Yes Vital Signs & Weight: Vital Signs (12 hours) Temp Pulse Resp BP Pulse Ox 02/18/18 02:00 97.8 F 70 18 108/69 95 02/17/18 19:15 95 02/17/18 19:00 97.5 F L 65 16 120/71 95 02/17/18 18:35 95 Weight Admit Weight 47.6 kg Weight 47.6 kg Most Recent Monitor Data Heart Rate from ECG 83 NIBP 117/72 NIBP BP-Mean 87 Respiration from ECG 14 SpO2 100 I&O: 02/16/18 02/17/18 02/18/18 06:59 06:59 06:59 Intake Total 716.2 360.6 720 Output Total 390 720 Balance 326.2 -359.4 720 Result Diagrams: 02/17/18 07:51 02/16/18 04:02 <Juana Curry - Last Filed: 02/18/18 07:33> - Objective Vital Signs & Weight: Vital Signs (12 hours) Temp Pulse Resp BP Pulse Ox 02/18/18 02:00 97.8 F 70 18 108/69 95 Weight Admit Weight 47.6 kg Weight 47.6 kg Most Recent Monitor Data Heart Rate from ECG 83 NIBP 117/72 NIBP BP-Mean 87 Respiration from ECG 14 SpO2 100 I&O: 02/17/18 02/18/18 02/19/18 06:59 06:59 06:59 Intake Total 360.6 720 240 Output Total 720 Balance -359.4 720 240 Result Diagrams: 02/17/18 07:51 02/16/18 04:02 <Trey Hayes - Last Filed: 02/18/18 12:15> Phys Exam - Physical Examination Constitutional: NAD HEENT: moist MMs no respiratory distress, equal chest rise. Cardiovascular: RRR dressing in place at fistula site, colostomy bag clean and intact Neurological: moves all 4 limbs <Juana Curry - Last Filed: 02/18/18 07:33> Dx/Plan (1) Acute respiratory failure Code(s): J96.00 - ACUTE RESPIRATORY FAILURE, UNSP W HYPOXIA OR HYPERCAPNIA Status: Acute (2) Agitation requiring sedation protocol Code(s): R45.1 - RESTLESSNESS AND AGITATION Status: Acute (3) Suicidal ideation Code(s): R45.851 - SUICIDAL IDEATIONS Status: Acute (4) Enterocutaneous fistula Code(s): K63.2 - FISTULA OF INTESTINE Status: Acute (5) Borderline personality disorder in adult Code(s): F60.3 - BORDERLINE PERSONALITY DISORDER Status: Chronic (6) COPD (chronic obstructive pulmonary disease) Status: Chronic (7) Depression Code(s): F32.9 - MAJOR DEPRESSIVE DISORDER, SINGLE EPISODE, UNSPECIFIED Status : Chronic (8) PTSD (post-traumatic stress disorder) Code(s): F43.10 - POST-TRAUMATIC STRESS DISORDER, UNSPECIFIED Status: Chronic (9) Schizoaffective disorder Code(s): F25.9 - SCHIZOAFFECTIVE DISORDER, UNSPECIFIED Status: Chronic - Plan Plan: Suicidal Ideations with Aggressive and Agitated Behaviors - Needs inpatient hospitalization with failure of safety plan discussed 2 days prior - [facility] recommends inpatient psych. Records were sent to [facility] in [place], have not heard on acceptance. Will call them today Multiple Psych Disorders: Schizoaffective DO, Borderline Personality DO, MDD, and PTSD - will initiate zyprexa 25mg HS and 5mg q8h prn for agitation, required all three doses yesterday of prn zyprexa. Consider increasing zyprexa dose. - apparently allergic to Ativan and Haldol per family from last admission, will refrain from using these at this time - Will initiate scheduled benadryl and clonazepam - continue Trazodone at night. - prn Geodon for agitation Rectal Prolapse s/p Repair with colostomy in place and acquired enterocutaneous Fistula: - Fistula not well taken care of at home per appearance on admission, now cleaned and appropriately dressed - Will request records from surgeon, no acute problems, can follow up outpatient with him - No signs of infection at this point, okay to discontinue antibiotics - Consult wound care, consider second ostomy bag at fistula site if continues to have high output- discussed this with Dr. Jacobo, General surgery who agrees with Ostomy bag placement but per nursing, it will not stay fixed so we will continue to change dressings to keep the area clean. COPD: - prn albuterol Induced Acute Respiratory Failure- Resolved - extubated 02/16 - no respiratory distress, satting well on RA VTE PPx: SCD IVF: SL Code Status: Full Dispo: pending placement. <Juana Curry - Last Filed: 02/18/18 07:33> Attending Addendum - Attending Addendum Date/Time: 02/18/18 1214 I personally evaluated the patient and discussed the management with Dr. Curry. I agree with and repeated the History, Examination, Assessment and Plan documented above with any addition or exceptions noted below. She is c/o pain around her fistula site and remains quite hysterical, unchanged form yesterday. Her site is c/d/i with irritation from her self-dressing the wound with basically wet to dries. No s/s infection. She remains a threat to herself and the nursing staff. Await placement. <Trey Hayes - Last Filed: 02/18/18 12:15>
[2018-02-18] MEDS: Mometasone/Formoterol 120 PUFF INHALER INH SCH ×2 (06:54→19:06)
[2018-02-18] MEDS: diphenhydrAMINE 25 MG CAP PO SCH ×3 (08:54→19:32)
[2018-02-18] MEDS: clonazePAM 1 MG TAB PO SCH ×2 (08:54→19:33)
[2018-02-18] MEDS: Gabapentin 300 MG CAP PO SCH ×2 (08:54→19:32)
[2018-02-18] MEDS ORDERED: HYDROcodone/Acetaminophen 5/325 mg Tablet PO SCH (09:15)
[2018-02-18] MEDS: Ketoconazole 2% Cream 15 gm Tube TOP SCH (10:24)
[2018-02-18] MEDS: Ziprasidone 20 MG VIAL IM PRN ×3 (12:15→21:58)
[2018-02-18] MEDS ORDERED: Lorazepam 2 MG/ML VIAL ONE ×2 (12:24→20:51)
[2018-02-18] MEDS ORDERED: Lorazepam 2 MG/ML VIAL IM SCH ×4 (12:30→23:33)
--- NOTE | 2018-02-18 12:37 | PDOC.EVN ---
Event Note - Event Note Event Note: Patient currently agitated to the point where she is a harm to herself and nursing staff. 4 nursing staff members trying to calm her. Despite Geodon 10mg IM administration, patient continues to act out, yelling, flailing, banging on the door, and becoming aggressive with staff if they get near. Patient has hx of use of Ativan in prior hospitalization without allergy symptoms or respiratory difficulty. At this time, although there is documented allergy, the benefit outweighs the risk for IM Ativan administration. Will give 2mg Ativan IM and continue to monitor. <Juana Curry - Last Filed: 02/18/18 12:33> Attending Addendum - Attending Addendum Date/Time: 02/18/18 5737 I personally evaluated the patient and discussed the management with Dr. Curry. She has calmed after ativan. No reports of rash, shortness of breath, or other signs of allergy. I would recommend we remove it as an allergy. <Trey Hayes - Last Filed: 02/18/18 14:00>
[2018-02-18] MEDS: Nicotine 14 MG PATCH TD SCH (19:32)
[2018-02-18] MEDS: traZODone HCl 50 MG TAB PO SCH (19:32)
[2018-02-18] MEDS: Sterile Water 10 ML VIAL IVP PRN ×2 (19:58→21:58)
[2018-02-18] MEDS ORDERED: traZODone HCl 50 MG TAB PO SCH (21:00)
[2018-02-18] MEDS ORDERED: traZODone HCl 150 MG TAB PO SCH (21:00)
[2018-02-18] MEDS ORDERED: OLANZapine 5 MG TAB PO SCH (21:00)
--- NOTE | 2018-02-18 21:31 | PDOC.EVN ---
Event Note - Event Note Event Note: Note from event at 20:00 Called by nursing staff for assistance as patient could not be controlled. When arrived to bedside, patient was in soft restraints with 5 nurses at bedside. Patient yelling, flailing, scratching, saying she wanted to be intubated or to . Patient given 20 of Geodon with little improvement. Then given 2mg Ativan. Patient calmed down. Has sitter present in room.
[2018-02-18] MEDS ORDERED: Ziprasidone 20 MG VIAL IM SCH ×2 (22:15)
[2018-02-18] MEDS ORDERED: Sterile Water 10 ML VIAL FS SCH ×2 (22:15)
[2018-02-19] MEDS: Mometasone/Formoterol 120 PUFF INHALER INH SCH ×2 (06:49→19:31)
--- NOTE | 2018-02-19 08:39 | PDOC.FM ---
- Subjective Subjective: Patient is resting comfortably this morning and easily arousable but not hysterical in any way. She is in restraints and mitts at the time of my evaluation. Last night became hysterical when she was not allowed to go see her Aunt who is also in the hospital as a patient. She became violent, scratching and hitting sitter and nursing staff. She was given IM meds but did not seem to help. She was eventually restrained where she tried to bang her head on the bedrails and then suffocate herself in the pillows. Nursing staff reports she fell asleep around 0100 and has not been agitated since. - Objective MAR Reviewed: Yes Vital Signs & Weight: Vital Signs (12 hours) Pulse Resp Pulse Ox 02/19/18 06:49 78 14 96 Weight Admit Weight 47.6 kg Weight 47.6 kg Most Recent Monitor Data Heart Rate from ECG 83 NIBP 117/72 NIBP BP-Mean 87 Respiration from ECG 14 SpO2 100 I&O: 02/18/18 02/19/18 02/20/18 06:59 06:59 06:59 Intake Total 720 880 Balance 720 880 Result Diagrams: 02/17/18 07:51 02/16/18 04:02 <Juana Curry - Last Filed: 02/19/18 08:33> - Objective Vital Signs & Weight: Vital Signs (12 hours) Temp Pulse Resp BP Pulse Ox 02/19/18 10:08 98.5 F 95 18 93/64 95 02/19/18 06:49 78 14 96 Weight Admit Weight 47.6 kg Weight 47.6 kg Most Recent Monitor Data Heart Rate from ECG 83 NIBP 117/72 NIBP BP-Mean 87 Respiration from ECG 14 SpO2 100 I&O: 02/18/18 02/19/18 02/20/18 06:59 06:59 06:59 Intake Total 720 880 Balance 720 880 Result Diagrams: 02/17/18 07:51 02/16/18 04:02 <Trey Hayes - Last Filed: 02/19/18 10:58> Phys Exam - Physical Examination Constitutional: NAD sleeping Respiratory: no wheezing, no rales, clear to auscultation bilateral Cardiovascular: RRR, no significant murmur Gastrointestinal: soft, no distention fistula site with clean dressing in place, colostomy bag in place Neurological: moves all 4 limbs currently in restraints <Juana Curry - Last Filed: 02/19/18 08:33> Dx/Plan (1) Acute respiratory failure Code(s): J96.00 - ACUTE RESPIRATORY FAILURE, UNSP W HYPOXIA OR HYPERCAPNIA Status: Acute (2) Agitation requiring sedation protocol Code(s): R45.1 - RESTLESSNESS AND AGITATION Status: Acute (3) Suicidal ideation Code(s): R45.851 - SUICIDAL IDEATIONS Status: Acute (4) Enterocutaneous fistula Code(s): K63.2 - FISTULA OF INTESTINE Status: Acute (5) Borderline personality disorder in adult Code(s): F60.3 - BORDERLINE PERSONALITY DISORDER Status: Chronic (6) COPD (chronic obstructive pulmonary disease) Status: Chronic (7) Depression Code(s): F32.9 - MAJOR DEPRESSIVE DISORDER, SINGLE EPISODE, UNSPECIFIED Status : Chronic (8) PTSD (post-traumatic stress disorder) Code(s): F43.10 - POST-TRAUMATIC STRESS DISORDER, UNSPECIFIED Status: Chronic (9) Schizoaffective disorder Code(s): F25.9 - SCHIZOAFFECTIVE DISORDER, UNSPECIFIED Status: Chronic - Plan Plan: Suicidal Ideations with Aggressive and Agitated Behaviors - Needs inpatient hospitalization with failure of safety plan from prior admission - [facility] recommends inpatient psych. Records were sent to [facility] in [place], have not heard on acceptance. Discuss with CM today. Multiple Psych Disorders: Schizoaffective DO, Borderline Personality DO, MDD, and PTSD - will initiate zyprexa 25mg HS and 5mg q8h prn for agitation, required all three doses yesterday of prn zyprexa. Consider increasing zyprexa dose. - use of ativan without s/sx of allergic reaction, continue to use prn for agitation. - benadryl and clonazepam - continue Trazodone at night, increased to 300mg - consider adding Mirtazipine or wellbutrin today - prn Geodon for agitation Rectal Prolapse s/p Repair with colostomy in place and acquired enterocutaneous Fistula: - Fistula not well taken care of at home per appearance on admission, now cleaned and appropriately dressed - Will request records from surgeon, no acute problems, can follow up outpatient with him - No signs of infection at this point, okay to discontinue antibiotics - Consult wound care, consider second ostomy bag at fistula site if continues to have high output- discussed this with Dr. Jacobo, General surgery who agrees with Ostomy bag placement but per nursing, it will not stay fixed so we will continue to change dressings to keep the area clean. COPD: - prn albuterol Induced Acute Respiratory Failure- Resolved - extubated 02/16 - no respiratory distress, satting well on RA VTE PPx: SCD IVF: SL Code Status: Full Dispo: pending placement. <Juana Curry - Last Filed: 02/19/18 08:33> Attending Addendum - Attending Addendum Date/Time: 02/19/18 1059 I personally evaluated the patient and discussed the management with Dr. Curry. I agree with and repeated the History, Examination, Assessment and Plan documented above with any addition or exceptions noted below. Patient still actively saying she wants to and is asking us to kill her with medications or put a breathing tube in. She says that she is just a problem. We will continue to adjust her medications, but of course the dose is somewhat concerning. Hopefully a facility will take her. She is medically cleared. Her enterocutaneous fistula requires no specialized wound care. <Trey Hayes - Last Filed: 02/19/18 10:58>
[2018-02-19] MEDS: diphenhydrAMINE 25 MG CAP PO SCH ×2 (09:31→14:12)
[2018-02-19] MEDS: clonazePAM 1 MG TAB PO SCH ×2 (09:31→20:24)
[2018-02-19] MEDS: Ketoconazole 2% Cream 15 gm Tube TOP SCH (09:31)
[2018-02-19] MEDS: Gabapentin 300 MG CAP PO SCH ×2 (09:31→20:23)
[2018-02-19] MEDS: Acetaminophen 325 MG TAB PO PRN ×2 (09:38→15:16)
[2018-02-19] MEDS: Ziprasidone 20 MG VIAL IM PRN ×2 (10:40→18:36)
[2018-02-19] MEDS: Sterile Water 10 ML VIAL IVP PRN ×2 (10:40→18:36)
[2018-02-19] MEDS: Lorazepam 2 MG/ML VIAL IM PRN ×2 (14:48→19:10)
[2018-02-19] MEDS ORDERED: Nicotine 14 MG PATCH TD SCH (17:00)
[2018-02-19] MEDS ORDERED: Ibuprofen 600 MG TAB PO PRN (19:52)
[2018-02-19] MEDS: traZODone HCl 150 MG TAB PO SCH (20:24)
[2018-02-19] MEDS ORDERED: OLANZapine 5 MG TAB PO SCH (21:00)
[2018-02-19] MEDS ORDERED: Melatonin 3 MG TAB PO PRN (23:24)
--- NOTE | 2018-02-20 05:50 | PDOC.FM ---
- Subjective Subjective: Patient is resting in her bed this am. She reports not feeling well. She vomited x1 yesterday and reports some back pain. She reports urinary hesitation and decreased UOP. No fever/chills. She desires to go outside and smoke today. - Objective MAR Reviewed: Yes Vital Signs & Weight: Vital Signs (12 hours) Temp Pulse Resp BP Pulse Ox 02/19/18 20:00 100 02/19/18 19:53 97.9 F 96 20 135/79 100 02/19/18 19:31 95 Weight Admit Weight 47.6 kg Weight 47.6 kg Most Recent Monitor Data Heart Rate from ECG 83 NIBP 117/72 NIBP BP-Mean 87 Respiration from ECG 14 SpO2 100 I&O: 02/18/18 02/19/18 02/20/18 06:59 06:59 06:59 Intake Total 720 880 960 Balance 720 880 960 Result Diagrams: 02/17/18 07:51 02/16/18 04:02 <Juana Curry - Last Filed: 02/20/18 09:16> - Objective Vital Signs & Weight: Vital Signs (12 hours) Temp Pulse Resp BP BP Pulse Ox 02/20/18 20:00 99 02/20/18 19:44 98.0 F 98 20 148/75 H 99 02/20/18 15:14 97.3 F L 90 16 117/75 99 Weight Admit Weight 47.6 kg Weight 47.6 kg Most Recent Monitor Data Heart Rate from ECG 83 NIBP 117/72 NIBP BP-Mean 87 Respiration from ECG 14 SpO2 100 I&O: 02/19/18 02/20/18 02/21/18 06:59 06:59 06:59 Intake Total 880 2460 2080 Output Total 740 Balance 880 2460 1340 Result Diagrams: 02/20/18 12:19 02/16/18 04:02 <Trey Hayes - Last Filed: 02/20/18 21:57> Phys Exam - Physical Examination Constitutional: NAD resting Respiratory: no wheezing, no rales Cardiovascular: RRR, no significant murmur Gastrointestinal: soft, non-tender, no distention b/l CVA tenderness Musculoskeletal: no edema Neurological: moves all 4 limbs Psychiatric: normal affect <Juana Curry - Last Filed: 02/20/18 09:16> Dx/Plan (1) Acute respiratory failure Code(s): J96.00 - ACUTE RESPIRATORY FAILURE, UNSP W HYPOXIA OR HYPERCAPNIA Status: Acute (2) Agitation requiring sedation protocol Code(s): R45.1 - RESTLESSNESS AND AGITATION Status: Acute (3) Suicidal ideation Code(s): R45.851 - SUICIDAL IDEATIONS Status: Acute (4) Enterocutaneous fistula Code(s): K63.2 - FISTULA OF INTESTINE Status: Acute (5) Borderline personality disorder in adult Code(s): F60.3 - BORDERLINE PERSONALITY DISORDER Status: Chronic (6) COPD (chronic obstructive pulmonary disease) Status: Chronic (7) Depression Code(s): F32.9 - MAJOR DEPRESSIVE DISORDER, SINGLE EPISODE, UNSPECIFIED Status : Chronic (8) PTSD (post-traumatic stress disorder) Code(s): F43.10 - POST-TRAUMATIC STRESS DISORDER, UNSPECIFIED Status: Chronic (9) Schizoaffective disorder Code(s): F25.9 - SCHIZOAFFECTIVE DISORDER, UNSPECIFIED Status: Chronic (10) Nausea and vomiting Code(s): R11.2 - NAUSEA WITH VOMITING, UNSPECIFIED Status: Acute - Plan Plan: Suicidal Ideations with Aggressive and Agitated Behaviors - Needs inpatient hospitalization with failure of safety plan from prior admission - sitter in place - [facility] recommends inpatient psych. Records were sent to [facility] in [place], have not heard on acceptance. Discuss with CM today. Nausea and Vomiting - ddx includes medication side effect vs UTI vs viral illness - will get CBC. Afebrile at this point. - UA pending - prn zofran Multiple Psych Disorders: Schizoaffective DO, Borderline Personality DO, MDD, and PTSD - Continue zyprexa 40mg HS - use of ativan without s/sx of allergic reaction, continue to use prn for agitation. - benadryl and clonazepam - continue Trazodone at night 300mg - prn Geodon for agitation Rectal Prolapse s/p Repair with colostomy in place and acquired enterocutaneous Fistula: - Fistula not well taken care of at home per appearance on admission, now cleaned and appropriately dressed - Will request records from surgeon, no acute problems, can follow up outpatient with him - No signs of infection at this point, okay to discontinue antibiotics - Consult wound care, consider second ostomy bag at fistula site if continues to have high output- discussed this with Dr. Jacobo, General surgery who agrees with Ostomy bag placement but per nursing, it will not stay fixed so we will continue to change dressings to keep the area clean. COPD: - prn albuterol Induced Acute Respiratory Failure- Resolved - extubated 02/16 - no respiratory distress, satting well on RA VTE PPx: SCD IVF: SL Code Status: Full Dispo: pending placement. <Juana Curry - Last Filed: 02/20/18 09:16> Attending Addendum - Attending Addendum Date/Time: 02/20/18 2888 I personally evaluated the patient and discussed the management with Dr. Curry. I agree with and repeated the History, Examination, Assessment and Plan documented above with any addition or exceptions noted below. Please see my event note. <Trey Hayes - Last Filed: 02/20/18 21:57>
[2018-02-20] MEDS: Mometasone/Formoterol 120 PUFF INHALER INH SCH ×2 (07:32→18:45)
[2018-02-20] MEDS: Gabapentin 300 MG CAP PO SCH ×2 (08:36→20:36)
[2018-02-20] MEDS: clonazePAM 1 MG TAB PO SCH ×2 (08:36→20:36)
[2018-02-20] MEDS: Ketoconazole 2% Cream 15 gm Tube TOP SCH (08:48)
[2018-02-20] MEDS: Lorazepam 2 MG/ML VIAL IM PRN (10:09)
[2018-02-20] MEDS: Ziprasidone 20 MG VIAL IM PRN ×2 (10:09→11:20)
--- NOTE | 2018-02-20 11:27 | PDOC.EVN ---
Event Note - Event Note Event Note: Called to bedside. This morning on rounds discussed that she cannot go outside because she is such an elopement risk and she could easily run in front of a car or find other ways to harm herself. She immediately became angry and tried to leave the room and became aggressive with staff. I left the room as I had made her initially quite upset by denying her chance to go outside, and hoped she would calm down. She subsequently required 4 point restraints and mittens as she had been hitting, kicking, and scratching the staff. She had emesis x 1 amidst everything with no signs of aspiration. She was initially given geodon 10 mg IM x 1 and ativan 2 mg IM x 1 with no effect despite previously noted efficacy. We have consulted Dr. Johnson, who saw her on admission, and he recommended continued dosing of the above. We will repeat geodon 10 mg and give benadryl 50 mg IM. I feel benefits >> risks of additional administration concerning prolonged QT, respiratory depression, aspiration, or other complications. She remains cleared from a medical standpoint.
[2018-02-20] MEDS ORDERED: diphenhydrAMINE 50 MG/ML VIAL IM SCH ×2 (11:45)
[2018-02-20 12:33] LABS: #Basophils 0.1 thou/uL (0.0-0.2); #Eosinphils 0.5 thou/uL (0.0-0.7); #Lymphocytes 1.7 thou/uL (1.20-3.40); #Monocytes 0.7 thou/uL (0.11-0.59); #Neutrophils 6.5 thou/uL (1.40-6.50); %Basophils 0.9 % (0.0-1.0); %Lymphocytes 17.7 % (21.0-51.0); %Monocytes 7.2 % (0.0-10.0); %Neutrophils 69.2 % (42.0-75.0); Hemoglobin 8.6 g/dL (12.0-16.0); Mean Corpuscular HGB CONC 30.3 g/dL (32.0-36.0); Mean Corpuscular Hemoglobin 24.2 pg (27.0-31.0); Mean Corpuscular Volume 79.8 fL (78.0-98.0); Mean Platelet Volume 6.2 fL (7.4-10.4); Platelet Count 469 thou/uL (130-400); RBC Distribution Width 14.9 % (11.5-14.5); Red Blood Cell (RBC) Count 3.55 mill/uL (4.20-5.40); White Blood Cell (WBC) Count 9.4 thou/uL (4.8-10.8)
[2018-02-20] MEDS ORDERED: traMADol HCl 50 MG TAB PO SCH (15:30)
[2018-02-20 15:37] LABS: Bilirubin Negative (Negative); Blood, Urine Small (Negative); Clarity CLEAR (Clear); Glucose, Urine (Dipstick) Negative (Negative); Leukocyte Trace (Negative); Nitrite Negative (Negative); Protein, Urine (Dipstick) Negative (Neg-Trace); Specific Gravity, Urine 1.007 (1.002-1.036); Urobilinogen 0.2 mg/dL (0.2-1.0); pH, Urine 8.5 (5.0-9.0)
[2018-02-20 15:43] LABS: Bacteria/HPF 1+ HPF (None Seen); Hyaline Casts/LPF 0-3 HYALINE CAST LPF (0-3 Hyaline); Pathc Cast-AUWi Flag 0.14 (0-2.49); WBC/HPF 0-3 HPF (0-3)
[2018-02-20] MEDS ORDERED: Nicotine 21 MG PATCH TOP SCH (16:30)
[2018-02-20] MEDS ORDERED: Ondansetron ODT 4 MG TAB PO PRN (19:30)
[2018-02-20] MEDS: Divalproex Sodium DR 500 MG TAB PO SCH (20:35)
[2018-02-20] MEDS: traZODone HCl 150 MG TAB PO SCH (20:36)
[2018-02-20] MEDS ORDERED: OLANZapine 5 MG TAB PO SCH (21:00)
[2018-02-21] MEDS: Mometasone/Formoterol 120 PUFF INHALER INH SCH (06:48)
[2018-02-21] MEDS: Ketoconazole 2% Cream 15 gm Tube TOP SCH (08:56)
[2018-02-21] MEDS: Divalproex Sodium DR 500 MG TAB PO SCH (08:56)
[2018-02-21] MEDS: Gabapentin 300 MG CAP PO SCH (08:56)
[2018-02-21] MEDS: clonazePAM 1 MG TAB PO SCH (08:56)
[2018-02-21] MEDS ORDERED: Nicotine 21 MG PATCH TD SCH (09:00)
--- NOTE | 2018-02-21 10:58 | PDOC.FM ---
- Subjective Subjective: Patient still reports she wants to go outside and smoke and becomes agitated when I refuse. Patient has exhibited poor behavior including hitting, scratching, and injurying others and herself. She required 4 pt restraints yesterday chastity but has not required them since. Had prn meds yesterday morning but none in the evening or overnight. She still reports some N/V but denies abd pain, change in stool pattern from ostomy, and fever/chills. - Objective MAR Reviewed: Yes Vital Signs & Weight: Vital Signs (12 hours) Temp Pulse Resp BP Pulse Ox 02/21/18 08:50 98 02/21/18 08:00 98.2 F 72 18 99/63 98 Weight Admit Weight 47.6 kg Weight 47.6 kg Most Recent Monitor Data Heart Rate from ECG 83 NIBP 117/72 NIBP BP-Mean 87 Respiration from ECG 14 SpO2 100 I&O: 02/20/18 02/21/18 02/22/18 06:59 06:59 06:59 Intake Total 2460 2580 Output Total 740 Balance 2460 1840 Result Diagrams: 02/20/18 12:19 02/16/18 04:02 <Juana Curry - Last Filed: 02/21/18 10:56> - Objective Vital Signs & Weight: Vital Signs (12 hours) Temp Pulse Resp BP Pulse Ox 02/21/18 12:53 97.6 F 93 12 118/64 100 02/21/18 08:50 98 02/21/18 08:00 98.2 F 72 18 99/63 98 Weight Admit Weight 47.6 kg Weight 47.6 kg Most Recent Monitor Data Heart Rate from ECG 83 NIBP 117/72 NIBP BP-Mean 87 Respiration from ECG 14 SpO2 100 I&O: 02/20/18 02/21/18 02/22/18 06:59 06:59 06:59 Intake Total 2460 2580 Output Total 740 Balance 2460 1840 Result Diagrams: 02/20/18 12:19 02/16/18 04:02 <Trey Hayes - Last Filed: 02/21/18 15:30> Phys Exam - Physical Examination Constitutional: NAD Respiratory: clear to auscultation bilateral Cardiovascular: RRR, no significant murmur Gastrointestinal: soft, non-tender ostomy in place, fistula bandage intact and clean Neurological: moves all 4 limbs Deviation from normal: labile mood with aggressive outbursts, banging hands on the table and yelling at me <AntoinetteJuana - Last Filed: 02/21/18 10:56> Dx/Plan (1) Acute respiratory failure Code(s): J96.00 - ACUTE RESPIRATORY FAILURE, UNSP W HYPOXIA OR HYPERCAPNIA Status: Acute (2) Agitation requiring sedation protocol Code(s): R45.1 - RESTLESSNESS AND AGITATION Status: Acute (3) Suicidal ideation Code(s): R45.851 - SUICIDAL IDEATIONS Status: Acute (4) Enterocutaneous fistula Code(s): K63.2 - FISTULA OF INTESTINE Status: Acute (5) Borderline personality disorder in adult Code(s): F60.3 - BORDERLINE PERSONALITY DISORDER Status: Chronic (6) COPD (chronic obstructive pulmonary disease) Status: Chronic (7) Depression Code(s): F32.9 - MAJOR DEPRESSIVE DISORDER, SINGLE EPISODE, UNSPECIFIED Status : Chronic (8) PTSD (post-traumatic stress disorder) Code(s): F43.10 - POST-TRAUMATIC STRESS DISORDER, UNSPECIFIED Status: Chronic (9) Schizoaffective disorder Code(s): F25.9 - SCHIZOAFFECTIVE DISORDER, UNSPECIFIED Status: Chronic (10) Nausea and vomiting Code(s): R11.2 - NAUSEA WITH VOMITING, UNSPECIFIED Status: Acute - Plan Plan: Suicidal Ideations with Aggressive and Agitated Behaviors - Needs inpatient hospitalization with failure of safety plan from prior admission - sitter in place - [facility] recommends inpatient psych. Pending placement. Nausea and Vomiting - ddx includes medication side effect vs UTI vs viral illness - will get CBC. Afebrile at this point. - UA pending - prn zofran Multiple Psych Disorders: Schizoaffective DO, Borderline Personality DO, MDD, and PTSD - Continue zyprexa 45mg HS, added depakote - use of ativan without s/sx of allergic reaction, continue to use prn for agitation. - continue ayan clonazepam - continue Trazodone at night 300mg - prn Geodon for agitation, prn benadryl for agitation - nicotine patch in place 21mcg Rectal Prolapse s/p Repair with colostomy in place and acquired enterocutaneous Fistula: - Fistula not well taken care of at home per appearance on admission, now cleaned and appropriately dressed, patient performing her own wound care in the hospital and doing well. - No signs of infection at this point - Consult wound care, consider second ostomy bag at fistula site if continues to have high output- discussed this with Dr. Jacobo, General surgery who agrees with Ostomy bag placement but per nursing, it will not stay fixed so we will continue to change dressings to keep the area clean. COPD: - prn albuterol Induced Acute Respiratory Failure- Resolved - extubated 02/16 - no respiratory distress, satting well on RA VTE PPx: SCD IVF: SL Code Status: Full Dispo: pending placement. <Juana Curry - Last Filed: 02/21/18 10:56> Attending Addendum - Attending Addendum Date/Time: 02/21/18 1527 I personally evaluated the patient and discussed the management with Dr. Curry. I agree with and repeated the History, Examination, Assessment and Plan documented above with any addition or exceptions noted below. Patient much more cooperative this morning with the team and nursing staff. No n/v on my exam. Is having some increased ostomy output but no abdominal pain, fever, chills. See my event note. <Trey Hayes - Last Filed: 02/21/18 15:30>
[2018-02-21 12:54] VITALS: TEMP 97.6
--- NOTE | 2018-02-21 15:24 | PDOC.EVN ---
Event Note - Event Note Event Note: I met with Gutierrez De Guzman and Monique with [facility], both of whom have known Ms. Velasquez for years. They feel she is no imminent threat to herself and that the best course of action is for her to go home. Her safety plan includes being at home with her father, the mobile crisis unit meeting seeing her with regularity , and, if necessary, return to the hospital. She has a follow up appointment with [facility] tomorrow. While interviewing her to confirm this Ms. Velasquez denies any suicidal ideation or intent and has not voiced such in > 24 hours. Will plan for discharge according to [facility]'s recommendations.
[2018-02-21 16:48] VITALS: BP 127/80
== END 2018-02-21 17:46 | disposition home or self-care (01) | DRG 880 ==
LOC: ERS 19:13 → CCU 22:00 → T4-B 02-16 11:40 → T4-A 02-16 11:43
PROVIDERS: ADMIT Family Medicine; ATTEND Family Medicine
PROC: 0BH17EZ Insertion of Endotracheal Airway into Trachea, Via Natural or Artificial Opening (ICD-10-PCS; principal; 2018-02-15)
PROC: 5A1935Z Respiratory Ventilation, Less than 24 Consecutive Hours (ICD-10-PCS; 2018-02-15)
DX: R45.851 Suicidal ideations (principal); J96.00 Acute respiratory failure, unspecified whether with hypoxia or hypercapnia; G93.41 Metabolic encephalopathy; E87.2 Acidosis; K63.2 Fistula of intestine; Z78.1 Physical restraint status; F32.9 Major depressive disorder, single episode, unspecified; F43.10 Post-traumatic stress disorder, unspecified; F25.9 Schizoaffective disorder, unspecified; F60.3 Borderline personality disorder; F17.210 Nicotine dependence, cigarettes, uncomplicated; R45.1 Restlessness and agitation; B35.4 Tinea corporis; Z93.3 Colostomy status; J44.9 Chronic obstructive pulmonary disease, unspecified; Z88.0 Allergy status to penicillin; Z88.8 Allergy status to other drugs, medicaments and biological substances
CPT/HCPCS: 31500; 36415; 70450; 71045; 74018; 80053; 80306; 80307; 81003; 81015; 82550; 82805; 84443; 85014; 85018; 85025; 87086; 93005; 93010; 94002; 94003; 94664; 96365; 96366; 96372; 96375; A4216; J0696; J1200; J2060; J2250; J2405; J2704; J3010; J3486; J3490; J7050; Q0162; S0028

== ENCOUNTER 2018-02-24 15:27 | Emergency (ER) | payer OTHER ==
[2018-02-24 15:57] LABS: #Basophils 0.1 thou/uL (0.0-0.2); #Eosinphils 0.6 thou/uL (0.0-0.7); #Lymphocytes 2.5 thou/uL (1.20-3.40); #Monocytes 0.7 thou/uL (0.11-0.59); %Basophils 0.7 % (0.0-1.0); %Eosinophils 5.4 % (0.0-10.0); %Lymphocytes 20.9 % (21.0-51.0); %Monocytes 5.5 % (0.0-10.0); %Neutrophils 67.6 % (42.0-75.0); Hemoglobin 9.2 g/dL (12.0-16.0); Mean Corpuscular HGB CONC 31.3 g/dL (32.0-36.0); Mean Corpuscular Hemoglobin 24.5 pg (27.0-31.0); Mean Corpuscular Volume 78.2 fL (78.0-98.0); Mean Platelet Volume 5.9 fL (7.4-10.4); Platelet Count 546 thou/uL (130-400); RBC Distribution Width 14.9 % (11.5-14.5); Red Blood Cell (RBC) Count 3.76 mill/uL (4.20-5.40); White Blood Cell (WBC) Count 11.9 thou/uL (4.8-10.8)
[2018-02-24 16:05] LABS: BHCG - Serum Negative (NEGATIVE); Pregs Control Background? CLEAR/WHITE (CLR/WHITE); Pregs Control Bar Appear? YES (CONTROL BAR)
[2018-02-24 16:12] LABS: Bilirubin Negative (Negative); Blood, Urine Negative (Negative); Clarity CLEAR (Clear); Glucose, Urine (Dipstick) Negative (Negative); Leukocyte Negative (Negative); Nitrite Negative (Negative); Protein, Urine (Dipstick) Negative (Neg-Trace); Specific Gravity, Urine 1.004 (1.002-1.036); Urobilinogen 0.2 mg/dL (0.2-1.0); pH, Urine 6.5 (5.0-9.0)
[2018-02-24 16:21] LABS: Amphetamine Not Detected (NotDetected); Barbiturates Screen Not Detected (NotDetected); Benzodiazepine Screen Detected (NotDetected); Cocaine Metabolite Screen Not Detected (NotDetected); Medtox Control Line Valid? VALID (VALID); Medtox Reader # READER 1; Methadone Not Detected (NotDetected); Methamphetamine Not Detected (NotDetected); Opiate Screen Not Detected (NotDetected); Oxycodone Screen Not Detected (NotDetected); Phencyclidine (PCP) Not Detected (NotDetected); THC/Cannabinoid Screen Not Detected (NotDetected); Tricyclic Screen Not Detected (NotDetected)
[2018-02-24 16:35] LABS: Albumin 3.8 g/dL (3.5-5.0)
[2018-02-24 16:36] LABS: Calcium 9.1 mg/dL (7.8-10.44); Chloride 99 mmol/L (98-107); Sodium 133 mmol/L (136-145)
[2018-02-24 16:37] LABS: Glucose 90 mg/dL (70-105)
[2018-02-24 16:38] LABS: Carbon Dioxide 24 mmol/L (22-29); Globulin 3.5 g/dL (2.4-3.5); Protein, Total 7.3 g/dL (6.0-8.3)
[2018-02-24 16:39] LABS: Bilirubin, Total 0.3 mg/dL (0.2-1.2)
[2018-02-24 16:40] LABS: Alcohol Less than 10 mg/dL (Less than 10); Alkaline Phosphatase 67 U/L (40-150)
[2018-02-24 16:41] LABS: Calc. Creatinine Clearance 0 mL/min (70-130); Estimated GFR-MDRD Greater than 90
[2018-02-24 16:42] LABS: AST (SGOT) 17 U/L (5-34); BUN (Urea Nitrogen) 6 mg/dL (7.0-18.7)
[2018-02-24 16:43] LABS: ALT (SGPT) 13 U/L (8-55); Salicylate Less than 8.0 mg/dL (15.0-30.0)
[2018-02-24 16:44] LABS: Acetaminophen Less than 6.0 mcg/mL (10.0-30.0)
[2018-02-24 16:46] LABS: Anion Gap 14 mmol/L (10-20)
[2018-02-24] MEDS ORDERED: ALPRAZolam 0.5 MG TAB ONE (17:15)
== END 2018-02-24 17:20 | disposition home or self-care (01) ==
LOC: ERS 15:27
DX: F41.9 Anxiety disorder, unspecified (principal); J44.9 Chronic obstructive pulmonary disease, unspecified; F25.9 Schizoaffective disorder, unspecified; F31.9 Bipolar disorder, unspecified; Z79.899 Other long term (current) drug therapy
CPT/HCPCS: 36415; 80053; 80306; 80307; 81003; 84443; 84703; 85025; 93005

== ENCOUNTER 2018-02-27 16:05 | Emergency (ER) | payer OTHER ==
[2018-02-27 16:37] LABS: Bilirubin Negative (Negative); Blood, Urine Negative (Negative); Clarity CLEAR (Clear); Glucose, Urine (Dipstick) Negative (Negative); Leukocyte Negative (Negative); Nitrite Negative (Negative); Protein, Urine (Dipstick) Negative (Neg-Trace); Urobilinogen 0.2 mg/dL (0.2-1.0); pH, Urine 6.5 (5.0-9.0)
[2018-02-27 16:38] LABS: Specific Gravity, Urine 1.003 (1.002-1.036)
[2018-02-27 17:05] LABS: Pregnancy Test - Urine (BHCG) Negative (Negative); Pregu Control Background? CLEAR/WHITE (CLR/WHITE); Pregu Control Bar Appear? YES (CONTROL BAR); Specific Gravity 1.003 (1.002-1.036)
[2018-02-27] MEDS ORDERED: Haloperidol Lactate 5 MG/ML VIAL ONE (17:09)
[2018-02-27 17:16] LABS: #Basophils 0.1 thou/uL (0.0-0.2); #Eosinphils 0.2 thou/uL (0.0-0.7); #Lymphocytes 2.5 thou/uL (1.20-3.40); #Monocytes 0.9 thou/uL (0.11-0.59); %Basophils 0.6 % (0.0-1.0); %Eosinophils 1.6 % (0.0-10.0); %Lymphocytes 21.4 % (21.0-51.0); %Monocytes 7.6 % (0.0-10.0); %Neutrophils 68.9 % (42.0-75.0); Hemoglobin 9.8 g/dL (12.0-16.0); Mean Corpuscular HGB CONC 30.2 g/dL (32.0-36.0); Mean Corpuscular Hemoglobin 23.7 pg (27.0-31.0); Mean Corpuscular Volume 78.5 fL (78.0-98.0); Mean Platelet Volume 6.2 fL (7.4-10.4); Platelet Count 611 thou/uL (130-400); RBC Distribution Width 14.9 % (11.5-14.5); Red Blood Cell (RBC) Count 4.12 mill/uL (4.20-5.40); White Blood Cell (WBC) Count 11.6 thou/uL (4.8-10.8)
[2018-02-27 17:24] LABS: Amphetamine Not Detected (NotDetected); Barbiturates Screen Not Detected (NotDetected); Benzodiazepine Screen Detected (NotDetected); Cocaine Metabolite Screen Not Detected (NotDetected); Medtox Control Line Valid? VALID (VALID); Medtox Reader # READER 1; Methadone Not Detected (NotDetected); Methamphetamine Not Detected (NotDetected); Opiate Screen Not Detected (NotDetected); Oxycodone Screen Not Detected (NotDetected); Phencyclidine (PCP) Not Detected (NotDetected); THC/Cannabinoid Screen Not Detected (NotDetected); Tricyclic Screen Not Detected (NotDetected)
[2018-02-27 17:41] LABS: ALT (SGPT) 14 U/L (8-55); AST (SGOT) 17 U/L (5-34); Albumin 4.1 g/dL (3.5-5.0); Alkaline Phosphatase 78 U/L (40-150); Anion Gap 15 mmol/L (10-20); BUN (Urea Nitrogen) 4 mg/dL (7.0-18.7); Bilirubin, Total 0.2 mg/dL (0.2-1.2); Calc. Creatinine Clearance 0 mL/min (70-130); Carbon Dioxide 22 mmol/L (22-29); Chloride 99 mmol/L (98-107); Estimated GFR-MDRD 87; Glucose 89 mg/dL (70-105); Potassium 3.9 mmol/L (3.5-5.1); Protein, Total 8.1 g/dL (6.0-8.3); Sodium 132 mmol/L (136-145)
[2018-02-27 17:42] LABS: Acetaminophen Less than 6.0 mcg/mL (10.0-30.0); Alcohol Less than 10 mg/dL (Less than 10); Salicylate Less than 8.0 mg/dL (15.0-30.0)
== END 2018-02-27 19:22 | disposition home or self-care (01) ==
LOC: ERS 16:05
DX: R10.9 Unspecified abdominal pain (principal); F32.9 Major depressive disorder, single episode, unspecified; J44.9 Chronic obstructive pulmonary disease, unspecified; F41.9 Anxiety disorder, unspecified; F25.9 Schizoaffective disorder, unspecified; F17.210 Nicotine dependence, cigarettes, uncomplicated; Z79.899 Other long term (current) drug therapy
CPT/HCPCS: 36415; 80053; 80306; 80307; 81003; 81025; 85025; 99406; J1630

== ENCOUNTER 2018-03-04 15:36 | Emergency (ER) | payer OTHER | END 2018-03-04 17:46 | disposition left against medical advice (07) | LOC: ERS 15:36 | DX: Z53.21 Procedure and treatment not carried out due to patient leaving prior to being seen by health care provider (principal) ==

== ENCOUNTER 2018-07-16 16:41 | Inpatient (IN) | payer OTHER ==
[~2018-07-16 16:41] MED LIST: ISOVUE-370 76%-LOCM 1 ML ONE
[2018-07-16 17:24] LABS: #Basophils 0.1 thou/uL (0.0-0.2); #Eosinphils 0.1 thou/uL (0.0-0.7); #Lymphocytes 2.7 thou/uL (1.20-3.40); #Monocytes 0.7 thou/uL (0.11-0.59); #Neutrophils 9.8 thou/uL (1.40-6.50); %Lymphocytes 20.1 % (21.0-51.0); %Monocytes 4.9 % (0.0-10.0); %Neutrophils 73.1 % (42.0-75.0); Hemoglobin 8.7 g/dL (12.0-16.0); Mean Corpuscular HGB CONC 30.3 g/dL (32.0-36.0); Mean Corpuscular Hemoglobin 20.2 pg (27.0-31.0); Mean Corpuscular Volume 66.7 fL (78.0-98.0); Mean Platelet Volume 7.3 fL (7.4-10.4); Platelet Count 511 thou/uL (130-400); RBC Distribution Width 15.7 % (11.5-14.5); Red Blood Cell (RBC) Count 4.29 mill/uL (4.20-5.40); White Blood Cell (WBC) Count 13.5 thou/uL (4.8-10.8)
--- NOTE | 2018-07-16 17:35 | RAD ---
PA AND LATERAL VIEWS OF THE CHEST: HISTORY: Cough, chest pain, fever, weakness and headache COMPARISON: 07/07/2018. FINDINGS: There has been interval resolution of the nodular density in the left infrahilar lung. Bullous change s in the right upper lobe are again seen. No focal areas of consolidation, pneumothoraces or pleural effusions are identified. No acute osseous abnormalities are seen. IMPRESSION: No acute process.
[2018-07-16 17:45] LABS: Bilirubin Negative (Negative); Blood, Urine Negative (Negative); Clarity CLOUDY (Clear); Glucose, Urine (Dipstick) Negative (Negative); Leukocyte Negative (Negative); Nitrite Negative (Negative); Protein, Urine (Dipstick) Negative (Neg-Trace); Specific Gravity, Urine 1.004 (1.002-1.036); Urobilinogen 0.2 mg/dL (0.2-1.0)
[2018-07-16 17:47] LABS: Anisocytosis SLIGHT = 6-15 cells (100X) (0-5/hpf); Hypochromia SLIGHT = 6-15 cells (100X) (0-5/hpf); MDiff Complete? YES; Microcytosis SLIGHT = 6-15 cells (100X) (0-5/hpf); Ovalocytes SLIGHT = 2-5 cells (100X) (0-1/hpf); Platelet Morphology Comment Appears Increased; Polychromasia SLIGHT = 2-3 cells (100X) (0-2/hpf)
[2018-07-16 17:48] LABS: Pregnancy Test - Urine (BHCG) Negative (Negative); Pregu Control Background? CLEAR/WHITE (CLR/WHITE); Pregu Control Bar Appear? YES (CONTROL BAR); Specific Gravity 1.004 (1.002-1.036)
[2018-07-16 17:56] LABS: ALT (SGPT) 10 U/L (8-55); AST (SGOT) 12 U/L (5-34); Albumin 3.8 g/dL (3.5-5.0); Alkaline Phosphatase 77 U/L (40-150); Anion Gap 13 mmol/L (10-20); BUN (Urea Nitrogen) 7 mg/dL (7.0-18.7); Bilirubin, Total 0.3 mg/dL (0.2-1.2); CK (CPK) 32 U/L (29-168); Calc. Creatinine Clearance 0 mL/min (70-130); Calcium 8.8 mg/dL (7.8-10.44); Carbon Dioxide 29 mmol/L (22-29); Chloride 89 mmol/L (98-107); Estimated GFR-MDRD Greater than 90; Globulin 3.1 g/dL (2.4-3.5); Glucose 93 mg/dL (70-105); Lipase 27 U/L (8-78); Potassium 3.2 mmol/L (3.5-5.1); Protein, Total 6.9 g/dL (6.0-8.3); Sodium 128 mmol/L (136-145)
[2018-07-16 18:22] LABS: BHCG - Serum Negative (NEGATIVE); Pregs Control Background? CLEAR/WHITE (CLR/WHITE); Pregs Control Bar Appear? YES (CONTROL BAR)
[2018-07-16] MEDS ORDERED: Famotidine/PF 20 mg/2ml Vial ONE (19:55)
[2018-07-16] MEDS ORDERED: traMADol HCl 50 MG TAB ONE (19:55)
[2018-07-16] MEDS ORDERED: methylPREDNISolone Sod Succ/PF 125 MG/2 ML VIAL ONE (19:55)
[2018-07-16] MEDS ORDERED: diphenhydrAMINE 50 MG/ML VIAL ONE (19:55)
--- NOTE | 2018-07-16 21:24 | CT ---
CT ABDOMEN AND PELVIS WITH CONTRAST: History: Aerotherma and purulent drainage. Comparison: CT abdomen and pelvis, 11-09-17. FINDINGS: Lung bases are clear. No pericardial effusion. There is an open abdominal wound in the ventral midline. This appears to be superficial to abdominal mesh. There is an ostomy left lower quadrant of the abdomen containing contrast, with contrast within the ostomy bag. There is suture of the rectal sigmoid junction with extensive edema or the rectum. The aortic contour is non-aneurysmal. Mild atherosclerotic plaque. No hydronephrosis. Liver is mildly enlarged. The spleen is mildly enlarged. Pancreas is unremarkable. Small pulmonary nodule, 4 mm, in the right middle lobe. There are emphysematous changes of the lungs. No acute osseous abnormality. There is a focal area of small bowel with small bowel intussuception on axial image 49. No evidence for obstruction. Urinary bladder is thickened. There is a calculus of the intrapolar left kidney measuring 3 x 4 mm with some peripheral cortical sc arring. Multiple surgical clips in the pelvis. No deep abscess is appreciated. IMPRESSION: 1. Ventral abdominal wound without a deep abscess appreciated. 2. No evidence of bowel obstruction. There is contrast seen in the ostomy. 3. The gastric antrum abuts the wound and there may be a small sinus tract extending from the gastric antrum to the anterior abdominal wall. 4. Multifocal proximal small bowel thickening along with small bowel/small bowel intussusception axia l image 49 and 50. POS: HOME
[2018-07-16] MEDS ORDERED: metroNIDAZOLE 500 MG/100 ML BAG ONE (22:35)
[2018-07-16] MEDS ORDERED: Loratadine 10 MG TAB PO PRN (23:07)
[2018-07-16] MEDS ORDERED: Artificial Tears 18 DROP/0.9 ML EA EYE PRN (23:07)
[2018-07-16] MEDS ORDERED: Acetaminophen 325 MG TAB PO PRN (23:07)
[2018-07-16] MEDS ORDERED: hydrALAZINE 20 MG/ML VIAL SLOW IVP PRN (23:07)
[2018-07-16] MEDS ORDERED: Senokot S 8.6-50 MG TAB PO PRN (23:07)
[2018-07-16] MEDS ORDERED: Sodium Chloride 0.65% Nasal 44 ML BOT EA NARE PRN (23:07)
[2018-07-16] MEDS ORDERED: Ondansetron PF 4 MG/2 ML Vial IVP PRN (23:07)
[2018-07-16] MEDS ORDERED: Ondansetron ODT 4 MG TAB PO PRN (23:07)
[2018-07-16] MEDS ORDERED: Bisacodyl 10 MG SUPP PR PRN (23:07)
[2018-07-16] MEDS ORDERED: Zolpidem Tartrate 5 MG TAB PO PRN (23:07)
[2018-07-16] MEDS ORDERED: Loperamide HCl 2 MG CAP PO PRN (23:07)
[2018-07-16] MEDS ORDERED: Cepastat Lozenges 1 LOZ PO PRN (23:07)
[2018-07-16] MEDS ORDERED: Eucerin (Mineral Oil/Petrolatum,White) 30 gm Jar TOP PRN (23:07)
[2018-07-16] MEDS ORDERED: Calcium Carbonate 500 MG ChewTAB PO PRN (23:07)
[2018-07-16] MEDS ORDERED: Diabetic Tussin 200 MG/10 ML UDCUP PO PRN (23:07)
--- NOTE | 2018-07-17 00:14 | HP ---
PRIMARY CARE PHYSICIAN: Kavya Lynne MD REASON FOR ADMISSION: Generalized weakness, dehydration, abdominal wall cellulitis. HISTORY OF PRESENT ILLNESS: A 37-year-old female who has underlying psychiatric problems including major depression, posttraumatic stress disorder, and schizoaffective disorder. She has colostomy which was draining and because of that she was having abdominal wall maceration. She was having abdominal wall discomfort. For last the 4 days, she was experiencing generalized weakness. She was not able to get out of bed because of weakness. She was eating okay. She did not have any diarrhea. She did not have any fever, chills, but her main complaint was overall generalized weakness. In the emergency room, the patient had CT abdomen and pelvis, which showed ventral abdominal wound without any deep abscess. There was no evidence of bowel obstruction. There was mild small bowel intussusception on radiology report. Her chest x-ray was unremarkable. Routine blood test showed hyponatremia, hypokalemia, and leukocytosis. In the emergency room, the patient was suspected for abdominal wall infection and she received vancomycin and Flagyl. She also received IV fluid, Solu-Medrol, Benadryl, tramadol, and Pepcid. PAST MEDICAL HISTORY: History of abdominal wall cellulitis, history of colostomy. The patient has abnormal electrolytes in the past with hyponatremia. She has history of primary polydipsia. She has asthma/COPD. She has tobacco abuse disorder. PAST PSYCHIATRIC HISTORY: Major depressive disorder, posttraumatic stress disorder, borderline personality disorder, schizoaffective disorder, multiple psychiatric admission. PAST SURGICAL HISTORY: Colostomy, abdominal surgery, appendicectomy, hernia repair, history of rectal prolapse, required surgery at [facility]. SOCIAL HISTORY: The patient is living with her father. She smokes about one pack per day. She denies any alcohol or other illicit drug abuse. FAMILY HISTORY: No family history of coronary artery disease, stroke, or cancer. REVIEW OF SYSTEMS: CONSTITUTIONAL: Negative for weight loss or gain, ability to conduct usual activities. SKIN: Negative for rash, itching. EYES: Negative for double vision, pain. ENT/MOUTH: Negative for nose bleeding, neck stiffness, pain, tenderness. CARDIOVASCULAR: Negative for palpitations, dyspnea on exertion, orthopnea. RESPIRATORY: Negative for shortness of breath, wheezing, cough, hemoptysis, fever or night sweats. GASTROINTESTINAL: Negative for poor appetite, abdominal pain, heartburn, nausea, vomiting, constipation, or diarrhea. GENITOURINARY: Negative for urgency, frequency, dysuria, nocturia. MUSCULOSKELETAL: Negative for pain, swelling. NEUROLOGIC/PSYCHIATRIC: Negative for anxiety, depression. ALLERGY/IMMUNOLOGIC: Negative for skin rash, bleeding tendency. Please see my HPI for pertinent positives and negatives. All other review of systems reviewed and negative except as mentioned in HPI. ALLERGIES: ADHESIVE TAPE, BUSPIRONE, PENICILLIN, LORAZEPAM. CURRENT HOME MEDICATIONS: The patient did not bring her medication, so unable to verify her home medication, but based on our previous hospital record, 1. She is on trazodone 300 mg at bedtime. 2. Zyprexa 40 mg at bedtime. 3. Gabapentin 600 mg p.o. b.i.d. 4. Depakote DR 500 mg p.o. b.i.d. 5. Clonazepam 1 mg p.o. b.i.d. EMERGENCY ROOM COURSE: The patient received vancomycin, Flagyl, tramadol, Benadryl, Pepcid, Solu-Medrol, and IV fluid. PHYSICAL EXAMINATION: VITAL SIGNS: Currently, blood pressure 104/64, pulse 72, respiratory rate 18, temperature 98.4, saturation 96% on room air. Weight 49.9 kg. GENERAL: The patient is currently alert, awake, chronically ill. HEENT: Head, normocephalic, atraumatic. Eyes, pupils round, reactive to light. Extraocular muscle intact. ENT, oropharynx is within normal limits. Dry mucous membrane. No oral lesion. No pharyngeal erythema. No exudate. NECK: Supple. No JVD. No thyromegaly. No carotid bruit. LUNGS: Clear to auscultation without any rhonchi or rales. CARDIAC: S1, S2 regular. No murmur. No gallop. No rub. ABDOMEN: Abdominal wound has a large area of erythema with purulent drainage around osteotomy site. No peritoneal sign. No guarding. No rigidity. No rebound. No suprapubic tenderness. BACK: Unremarkable. No CVA tenderness. EXTREMITIES: Upper extremities, passive movement of all joints is normal. Lower extremities, no edema. Good distal pulsation. SKIN: No skin rash other than cellulitis of abdominal wound. NEUROLOGIC: Nonfocal examination. SIGNIFICANT LABS: Influenza A and B negative. WBC 13.5, hemoglobin 8.7, MCV 66.7, platelet 511. BMP; sodium 128, potassium 3.2, chloride 89, carbon dioxide 29, BUN 7, creatinine 0.58, glucose 93, calcium 8.8. LFT; AST 12, ALT is 10, alkaline phosphatase 77, albumin 3.8, lipase 27. Lactic acid 1.1. Cardiac enzyme negative. BNP 38.4. test negative. Urinalysis normal. ASSESSMENT/PLAN: 1. Abdominal wall cellulitis. The patient has colostomy and surrounding wall of abdomen is macerated and is draining. At this point, we are suspecting early infection there with leukocytosis. We will start levofloxacin as well as vancomycin empirically and will follow up on culture result. Wound care team will be consulted. CT abdomen did not appreciate any deep abscess. 2. Abnormal electrolytes with hyponatremia and hypokalemia. We will check phosphorus and magnesium tomorrow. We will replace NS with KCl at 125 mL/h and we will repeat labs tomorrow. 3. Microcytic anemia. We will check iron study tomorrow and we will preferably give her iron infusion tomorrow depending upon her ferritin level. The patient will need nutritional support. 4. Moderate protein-calorie malnutrition. The patient will need Ensure supplement t.i.d. 5. Generalized weakness, likely multifactorial etiology including anemia, infection, and dehydration. 6. Volume depletion. The patient will be given IV fluid with electrolyte replacement and we will repeat labs tomorrow. 7. Chronic obstructive pulmonary disease/asthma. We will continue DuoNeb q.6 hourly p.r.n. basis. 8. Tobacco abuse disorder. Smoking cessation counseling given and we will provide nicotine patch. 9. Psychiatric problem. The patient has multiple psychiatric problems including major depression disorder, posttraumatic stress disorder, schizoaffective disorder, and borderline personality disorder. After verification of her home dosage, we will start psychiatric medication tomorrow. 10. Deep venous thrombosis prophylaxis, Lovenox 30 mg subcu daily. 11. Gastrointestinal prophylaxis, Pepcid 20 mg p.o. b.i.d. 12. Code status. The patient is full code. The patient's father is surrogate decision maker. DISPOSITION PLAN: Based on clinical course. We are expecting the patient's stay in hospital more than 2 midnights. Plan of care discussed with the patient in detail. Job ID: [id number]
[2018-07-17] MEDS ORDERED: Levofloxacin 500 mg/D5W 100 ml Premix Bag ONE (00:58)
[2018-07-17 03:48] LABS: #Monocytes 0.1 thou/uL (0.11-0.59); #Neutrophils 9.8 thou/uL (1.40-6.50); %Lymphocytes 9.4 % (21.0-51.0); %Monocytes 0.5 % (0.0-10.0); %Neutrophils 90.1 % (42.0-75.0); Hemoglobin 8.6 g/dL (12.0-16.0); Mean Corpuscular HGB CONC 29.9 g/dL (32.0-36.0); Mean Corpuscular Hemoglobin 20.2 pg (27.0-31.0); Mean Corpuscular Volume 67.4 fL (78.0-98.0); Mean Platelet Volume 7.3 fL (7.4-10.4); Platelet Count 469 thou/uL (130-400); RBC Distribution Width 15.8 % (11.5-14.5); Red Blood Cell (RBC) Count 4.28 mill/uL (4.20-5.40); White Blood Cell (WBC) Count 10.9 thou/uL (4.8-10.8)
[2018-07-17 04:01] LABS: ALT (SGPT) 11 U/L (8-55); AST (SGOT) 10 U/L (5-34); Albumin 3.5 g/dL (3.5-5.0); Alkaline Phosphatase 75 U/L (40-150); Anion Gap 12 mmol/L (10-20); BUN (Urea Nitrogen) 7 mg/dL (7.0-18.7); Bilirubin, Total 0.2 mg/dL (0.2-1.2); Calc. Creatinine Clearance 0 mL/min (70-130); Carbon Dioxide 27 mmol/L (22-29); Chloride 98 mmol/L (98-107); Estimated GFR-MDRD Greater than 90; Globulin 3.5 g/dL (2.4-3.5); Glucose 145 mg/dL (70-105); Iron 12 ug/dL (50-170); Iron Binding Capacity, Total 481 mcg/dL (265-497); Potassium 3.4 mmol/L (3.5-5.1); Sodium 134 mmol/L (136-145)
[2018-07-17] MEDS: Vancomycin HCl 1 GM in Premix Bag 1 BAG IVPB SCH ×2 (08:33→19:53)
[2018-07-17] MEDS ORDERED: Enoxaparin Sodium 30 MG/0.3 ML SYRINGE ONE (08:53)
[2018-07-17] MEDS ORDERED: Famotidine 20 MG TAB ONE (08:53)
[2018-07-17] MEDS: Famotidine 20 MG TAB PO SCH ×2 (09:59→19:51)
[2018-07-17] MEDS: Nicotine 21 MG PATCH TD SCH (09:59)
[2018-07-17] MEDS: NS 0.9% w/ 20 MEQ KCL 1,000 ML/1,000 ML BAG IV SCH ×4 (09:59→19:21)
[2018-07-17] MEDS: Enoxaparin Sodium 30 MG/0.3 ML SYRINGE SC SCH (09:59)
[2018-07-17] MEDS: Saccharomyces boulardii 250 MG CAP PO SCH (10:00)
[2018-07-17] MEDS ORDERED: HYDROcodone/Acetaminophen 5/325 mg Tablet ONE (11:06)
[2018-07-17] MEDS: HYDROcodone/Acetaminophen 5/325 mg Tablet PO PRN ×2 (11:07→19:51)
[2018-07-17] MEDS ORDERED: Potassium Chloride 20 MEQ TAB PO SCH (18:45)
[2018-07-17] MEDS ORDERED: Iron, Sodium Ferric Gluconate 250 MG in Sodium Chloride 0.9% 100 ML IVPB SCH (19:00)
--- NOTE | 2018-07-17 19:00 | PDOC.PN ---
- Subjective Encounter Start Date: 07/17/18 Encounter Start Time: 18:57 Subjective: complaining of abdominal pain and itching. -: No fever. - Objective Resuscitation Status - Order Detail: 07/16/18 23:03 Resuscitation Status Routine Resuscitation Status: FULL: Full Resuscitation Result Diagrams: 07/17/18 03:24 07/17/18 03:24 Phys Exam - Physical Examination chronically ill looking female in no distress. afebrile HEENT: moist MMs Neck: supple Respiratory: no wheezing, no rhonchi fair air entry bilaterally with no obvious crackles or rhonchi Cardiovascular: RRR left flank colostomy noted Paraumbilical fistula with drainage, skin excoration and erythema noted Musculoskeletal: no edema, pulses present Neurological: non-focal, moves all 4 limbs Psychiatric: A&O x 3 Dx/Plan (1) Abdominal wall cellulitis Code(s): L03.311 - CELLULITIS OF ABDOMINAL WALL Status: Acute (2) Hypokalemia Code(s): E87.6 - HYPOKALEMIA Status: Acute (3) Colostomy and enterostomy complications Code(s): [id number] - Status: Acute (4) Gram-positive bacteremia Code(s): R78.81 - BACTEREMIA Status: Acute (5) Enterocutaneous fistula Code(s): K63.2 - FISTULA OF INTESTINE Status: Acute (6) COPD (chronic obstructive pulmonary disease) Status: Chronic (7) Depression Code(s): F32.9 - MAJOR DEPRESSIVE DISORDER, SINGLE EPISODE, UNSPECIFIED Status : Chronic (8) PTSD (post-traumatic stress disorder) Code(s): F43.10 - POST-TRAUMATIC STRESS DISORDER, UNSPECIFIED Status: Chronic (9) Schizoaffective disorder Code(s): F25.9 - SCHIZOAFFECTIVE DISORDER, UNSPECIFIED Status: Chronic - Plan Replete serum potassium -: Continue vancomycin and levaquin -: Follow blood culture. -: Wound and otomy care. -: Restart antipsychotic and psychiatric medications. * .
[2018-07-17] MEDS: traZODone HCl 150 MG TAB PO SCH (19:51)
[2018-07-17] MEDS: OLANZapine 5 MG TAB PO SCH (19:52)
[2018-07-17 22:04] VITALS: BMI 17.9
[2018-07-18 06:29] LABS: Hemoglobin 7.6 g/dL (12.0-16.0); Mean Corpuscular HGB CONC 29.6 g/dL (32.0-36.0); Mean Corpuscular Hemoglobin 20.4 pg (27.0-31.0); Mean Corpuscular Volume 68.8 fL (78.0-98.0); Mean Platelet Volume 7.3 fL (7.4-10.4); Platelet Count 347 thou/uL (130-400); RBC Distribution Width 15.8 % (11.5-14.5); Red Blood Cell (RBC) Count 3.74 mill/uL (4.20-5.40); White Blood Cell (WBC) Count 8.3 thou/uL (4.8-10.8)
[2018-07-18 06:30] LABS: #Basophils 0.1 thou/uL (0.0-0.2); #Eosinphils 0.1 thou/uL (0.0-0.7); #Lymphocytes 2.4 thou/uL (1.20-3.40); #Monocytes 0.3 thou/uL (0.11-0.59); #Neutrophils 5.4 thou/uL (1.40-6.50); %Basophils 0.7 % (0.0-1.0); %Eosinophils 1.1 % (0.0-10.0); %Lymphocytes 29.4 % (21.0-51.0); %Neutrophils 64.9 % (42.0-75.0)
[2018-07-18 06:38] LABS: Anion Gap 11 mmol/L (10-20); BUN (Urea Nitrogen) 11 mg/dL (7.0-18.7); Calc. Creatinine Clearance 87 mL/min (70-130); Calcium 8.7 mg/dL (7.8-10.44); Carbon Dioxide 26 mmol/L (22-29); Chloride 105 mmol/L (98-107); Estimated GFR-MDRD Greater than 90; Glucose 78 mg/dL (70-105); Potassium 4.2 mmol/L (3.5-5.1); Sodium 138 mmol/L (136-145)
[2018-07-18 06:56] LABS: Hypochromia SLIGHT = 6-15 cells (100X) (0-5/hpf); Lymphocytes 17 % (21-51); MDiff Complete? YES; Microcytosis SLIGHT = 6-15 cells (100X) (0-5/hpf); Monocytes 2 % (0-10); Neutrophil 81 % (42-75); Platelet Morphology Comment Appears Adequate
[2018-07-18 07:43] LABS: Vancomycin, Trough 4.1 ug/mL
[2018-07-18] MEDS: Vancomycin HCl 1 GM in Premix Bag 1 BAG IVPB SCH ×2 (08:40→16:30)
[2018-07-18] MEDS: NS 0.9% w/ 20 MEQ KCL 1,000 ML/1,000 ML BAG IV SCH ×3 (08:40→20:47)
[2018-07-18] MEDS: HYDROcodone/Acetaminophen 5/325 mg Tablet PO PRN ×3 (08:44→18:28)
[2018-07-18] MEDS: Saccharomyces boulardii 250 MG CAP PO SCH (08:45)
[2018-07-18] MEDS: Famotidine 20 MG TAB PO SCH ×2 (08:45→20:39)
[2018-07-18] MEDS: Nicotine 21 MG PATCH TD SCH (08:46)
[2018-07-18] MEDS ORDERED: Iron, Sodium Ferric Gluconate 250 MG in Sodium Chloride 0.9% 100 ML IVPB SCH (09:00)
[2018-07-18] MEDS: Enoxaparin Sodium 30 MG/0.3 ML SYRINGE SC SCH (09:21)
--- NOTE | 2018-07-18 18:29 | PDOC.PN ---
- Subjective Encounter Start Date: 07/18/18 Encounter Start Time: 18:27 Subjective: No new problem -: afebrile. - Objective Resuscitation Status - Order Detail: 07/16/18 23:03 Resuscitation Status Routine Resuscitation Status: FULL: Full Resuscitation Vital Signs & Weight: Vital Signs (12 hours) Temp Pulse Resp BP Pulse Ox 07/18/18 17:19 98.5 F 81 16 124/83 96 07/18/18 12:06 99.2 F 75 20 122/72 96 07/18/18 12:04 99.2 F 75 20 122/72 96 07/18/18 12:02 99.2 F 75 20 122/72 96 07/18/18 08:00 97.7 F 76 20 102/62 97 Weight Admit Weight 108 lb 0.424 oz Weight 108 lb 0.424 oz Result Diagrams: 07/18/18 05:53 07/18/18 05:53 Phys Exam - Physical Examination Constitutional: NAD chronically ill looking HEENT: moist MMs Neck: no JVD, supple Respiratory: no rales fair air entry bilaterally Cardiovascular: RRR, no significant murmur Gastrointestinal: soft colostomy and enterocutaneous fistula noted. abdominal wall excoriation and erythema noted Musculoskeletal: no edema Neurological: moves all 4 limbs Psychiatric: A&O x 3 Dx/Plan (1) Abdominal wall cellulitis Code(s): L03.311 - CELLULITIS OF ABDOMINAL WALL Status: Acute (2) Hypokalemia Code(s): E87.6 - HYPOKALEMIA Status: Acute (3) Colostomy and enterostomy complications Code(s): [id number] - Status: Acute (4) Gram-positive bacteremia Code(s): R78.81 - BACTEREMIA Status: Acute (5) Enterocutaneous fistula Code(s): K63.2 - FISTULA OF INTESTINE Status: Acute (6) COPD (chronic obstructive pulmonary disease) Status: Chronic (7) Depression Code(s): F32.9 - MAJOR DEPRESSIVE DISORDER, SINGLE EPISODE, UNSPECIFIED Status : Chronic (8) PTSD (post-traumatic stress disorder) Code(s): F43.10 - POST-TRAUMATIC STRESS DISORDER, UNSPECIFIED Status: Chronic (9) Schizoaffective disorder Code(s): F25.9 - SCHIZOAFFECTIVE DISORDER, UNSPECIFIED Status: Chronic (10) Infection due to alpha-hemolytic Streptococcus Code(s): A49.1 - STREPTOCOCCAL INFECTION, UNSPECIFIED SITE Status: Acute - Plan Continue current antibiotics. -: Restart psychaitric medications. -: continue wound care -: Await final blood culture result. * .
[2018-07-18] MEDS: traZODone HCl 150 MG TAB PO SCH (20:39)
[2018-07-18] MEDS: OLANZapine 5 MG TAB PO SCH (20:39)
[2018-07-19] MEDS: Vancomycin HCl 1 GM in Premix Bag 1 BAG IVPB SCH ×2 (00:12→09:00)
[2018-07-19] MEDS: HYDROcodone/Acetaminophen 5/325 mg Tablet PO PRN ×2 (02:00→09:01)
[2018-07-19] MEDS: NS 0.9% w/ 20 MEQ KCL 1,000 ML/1,000 ML BAG IV SCH ×2 (05:16→14:56)
[2018-07-19] MEDS ORDERED: Bupropion 150 MG XL TAB PO SCH (09:00)
[2018-07-19] MEDS: Saccharomyces boulardii 250 MG CAP PO SCH (09:00)
[2018-07-19] MEDS: Famotidine 20 MG TAB PO SCH (09:00)
[2018-07-19] MEDS: Nicotine 21 MG PATCH TD SCH (09:01)
[2018-07-19] MEDS: Enoxaparin Sodium 30 MG/0.3 ML SYRINGE SC SCH (09:01)
[2018-07-19 09:03] LABS: Vancomycin, Trough 24.8 ug/mL
--- NOTE | 2018-07-19 15:04 | DIS ---
DATE OF ADMISSION: 07/16/2018 DATE OF DISCHARGE: 07/19/2018 DISCHARGE DIAGNOSES: 1. Abdominal wall cellulitis. 2. Hypokalemia. 3. Colostomy and enterostomy complications. 4. Positive blood culture with alpha-hemolytic Streptococcus. 5. Enterocutaneous fistula. 6. Chronic obstructive pulmonary disease. 7. Depression. 8. Posttraumatic stress disorder. 9. Schizoaffective disorder. 10. Physical deconditioning. 11. Hyponatremia. 12. Dehydration, present on admission. HOSPITAL COURSE: A 37-year-old female with multiple psychiatric problems as well as rectal prolapse, status post colostomy, which was rather complicated with enterocutaneous fistula and chronic abdominal wound, admitted due to generalized weakness and ill feeling. She also reported abdominal pain. On presentation, the patient was found to have hyponatremia, hypokalemia, and leukocytosis as well as increased redness of the abdominal ulcer suggestive of abdominal wall cellulitis. The patient was started on broad-spectrum antibiotic therapy with IV vancomycin and levofloxacin. She also was treated with IV fluid, and electrolyte derangements were corrected. Blood culture collected on presentation grew 1/2 bottles alpha-hemolytic Strep while wound culture grew Staphylococcus. The patient was still getting IV antibiotic when she reported that she would like to be discharged, to follow up, to meet up that appointment and does not want to miss that appointment. She had remained afebrile and hemodynamically stable at this point; hence, she was discharged to home, on oral levofloxacin. She was actually advised to follow up with PCP within 7 days of discharge. Of note, the redness in the abdominal wall has improved significantly. PHYSICAL EXAMINATION: VITAL SIGNS: Temperature 98.6, pulse 81, respiratory rate 16, SpO2 of 95% on room air, and blood pressure is 124/74. GENERAL: Young female in no obvious distress. Afebrile. Anicteric. Acyanotic. CARDIOVASCULAR: Regular rhythm and rate with normal heart sounds one and two. RESPIRATORY: Good air entry bilaterally with no obvious crackle or rhonchi. GI: Left flank colostomy as well as supraumbilical enterocutaneous fistula noted. Regressing erythema around chronic wound and the paraumbilical wound noted. Bowel sound is normoactive. Abdomen is nontender. EXTREMITIES: Grossly normal looking atraumatic with no edema or erythema. NEUROLOGIC: Conscious and alert, oriented x3 with appropriate mental status. The patient is ambulant. CONDITION AT DISCHARGE: Improved. FOLLOWUP: 1. Advised to follow up with PCP within 7 days of discharge. 2. The patient also is to follow up with the psychiatric physician. DISCHARGE MEDICATIONS: 1. Ibuprofen 800 mg p.o. q.8 p.r.n. for pain. 2. Ondansetron 4 mg q.8 p.r.n. for nausea and vomiting. 3. Fluticasone-salmeterol (Advair) 1 inhalation b.i.d. 4. Seroquel 25 mg p.o. b.i.d. for anxiety. 5. Bupropion 150 mg p.o. daily. 6. Levofloxacin 750 mg daily for 7 days. 7. Olanzapine 40 mg p.o. daily at bedtime. 8. Florastor 250 mg p.o. daily for 10 days. 9. Zoloft 200 mg p.o. daily. 10. Trazodone 300 mg p.o. daily at bedtime. TIME SPENT: This discharge took more than 35 minutes. Job ID: [id number]
[2018-07-19 15:50] VITALS: BP 120/72; TEMP 98.4
[2018-07-19] MEDS ORDERED: Vancomycin HCl 750 MG in Sodium Chloride 0.9% 250 ML 250 ML IVPB SCH (17:00)
--- NOTE | 2018-07-21 14:35 | EKG ---
Test Reason : Blood Pressure : / mmHG Vent. Rate : 091 BPM Atrial Rate : 091 BPM P-R Int : 102 ms QRS Dur : 084 ms QT Int : 370 ms P-R-T Axes : 047 038 077 degrees QTc Int : 455 ms Sinus rhythm with short MA Possible Inferior infarct , age undetermined Abnormal ECG Confirmed by SHWETA MORA ([id number]), website/blog editor ASA MORGAN ([id number]) on 07/21/2018 2:35:32 PM Referred By: Confirmed By:SHWETA MORA
== END 2018-07-19 16:02 | disposition home or self-care (01) | DRG 603 ==
LOC: ERS 16:41 → ERHOLD 21:44 → T4-A 07-17 19:08
PROVIDERS: ADMIT Internal Medicine; ATTEND Internal Medicine
DX: L03.311 Cellulitis of abdominal wall (principal); K63.2 Fistula of intestine; B95.61 Methicillin susceptible Staphylococcus aureus infection as the cause of diseases classified elsewhere; B96.20 Unspecified Escherichia coli [E. coli] as the cause of diseases classified elsewhere; E87.6 Hypokalemia; J44.9 Chronic obstructive pulmonary disease, unspecified; F32.9 Major depressive disorder, single episode, unspecified; F43.10 Post-traumatic stress disorder, unspecified; F25.9 Schizoaffective disorder, unspecified; Z93.3 Colostomy status; E86.0 Dehydration
CPT/HCPCS: 36415; 71046; 74177; 80048; 80053; 80202; 81003; 81025; 82550; 82728; 83540; 83550; 83605; 83690; 83735; 83880; 84100; 84484; 84703; 85025; 87040; 87070; 87077; 87149; 87186; 87205; 87804; 93005; J1200; J1650; J1956; J2916; J2930; J3370; J7050; Q0162; Q9966; S0028

== ENCOUNTER 2018-08-01 02:13 | Inpatient (IN) | payer OTHER ==
[2018-08-01 02:39] LABS: Bilirubin Negative (Negative); Blood, Urine Negative (Negative); Clarity CLEAR (Clear); Glucose, Urine (Dipstick) Negative (Negative); Leukocyte Negative (Negative); Nitrite Negative (Negative); Protein, Urine (Dipstick) Negative (Neg-Trace); Urobilinogen 0.2 mg/dL (0.2-1.0)
[2018-08-01 02:42] LABS: Specific Gravity, Urine 1.003 (1.002-1.036)
[2018-08-01] MEDS ORDERED: Potassium Chloride 40 MEQ in Sodium Chloride 0.9% 250 ML 250 ML IVPB SCH (02:45)
[2018-08-01 02:47] LABS: Cocaine Metabolite Screen Not Detected (NotDetected); Medtox Reader # READER 1; Phencyclidine (PCP) Not Detected (NotDetected); THC/Cannabinoid Screen Detected (NotDetected)
[2018-08-01 02:48] LABS: Amphetamine Not Detected (NotDetected); Barbiturates Screen Not Detected (NotDetected); Benzodiazepine Screen Not Detected (NotDetected); Medtox Control Line Valid? VALID (VALID); Methadone Not Detected (NotDetected); Methamphetamine Not Detected (NotDetected); Opiate Screen Detected (NotDetected); Oxycodone Screen Not Detected (NotDetected); Tricyclic Screen Not Detected (NotDetected)
[2018-08-01 02:51] LABS: #Basophils 0.1 thou/uL (0.0-0.2); #Eosinphils 0.1 thou/uL (0.0-0.7); #Lymphocytes 2.6 thou/uL (1.20-3.40); #Monocytes 0.5 thou/uL (0.11-0.59); #Neutrophils 4.2 thou/uL (1.40-6.50); %Basophils 1.2 % (0.0-1.0); %Monocytes 6.8 % (0.0-10.0); Hemoglobin 9.7 g/dL (12.0-16.0); Mean Corpuscular Hemoglobin 21.9 pg (27.0-31.0); Mean Corpuscular Volume 70.8 fL (78.0-98.0); Mean Platelet Volume 8.1 fL (7.4-10.4); Platelet Count 360 thou/uL (130-400); RBC Distribution Width 21.9 % (11.5-14.5); Red Blood Cell (RBC) Count 4.42 mill/uL (4.20-5.40); White Blood Cell (WBC) Count 7.5 thou/uL (4.8-10.8)
[2018-08-01 03:10] LABS: Acetaminophen Less than 6.0 mcg/mL (10.0-30.0); Alcohol Less than 10 mg/dL (Less than 10); Salicylate Less than 8.0 mg/dL (15.0-30.0)
[2018-08-01 03:11] LABS: ALT (SGPT) 8 U/L (8-55); AST (SGOT) 15 U/L (5-34); Albumin 3.7 g/dL (3.5-5.0); Alkaline Phosphatase 83 U/L (40-150); BUN (Urea Nitrogen) 5 mg/dL (7.0-18.7); Bilirubin, Total 0.3 mg/dL (0.2-1.2); Calc. Creatinine Clearance 0 mL/min (70-130); Calcium 9.4 mg/dL (7.8-10.44); Estimated GFR-MDRD Greater than 90; Globulin 3.2 g/dL (2.4-3.5); Glucose 95 mg/dL (70-105); Magnesium 2.3 mg/dL (1.6-2.6); Protein, Total 6.9 g/dL (6.0-8.3)
[2018-08-01] MEDS ORDERED: Magnesium 2 GM/50 ML BAG (IN WATER) ONE (03:11)
[2018-08-01 03:22] LABS: Anion Gap 15 mmol/L (10-20); Carbon Dioxide 38 mmol/L (22-29); Chloride 79 mmol/L (98-107); Sodium 130 mmol/L (136-145)
[2018-08-01 03:23] LABS: Potassium 2.3 mmol/L (3.5-5.1)
[2018-08-01] MEDS ORDERED: Fentanyl 100 MCG/2 ML VIAL ONE (04:29)
[2018-08-01] MEDS ORDERED: Ondansetron ODT 4 MG TAB SL PRN (05:28)
[2018-08-01] MEDS ORDERED: Acetaminophen 325 MG TAB PO PRN (05:28)
[2018-08-01] MEDS ORDERED: Ondansetron PF 4 MG/2 ML Vial IVP PRN (05:28)
[2018-08-01] MEDS ORDERED: Lactated Ringer's 1,000 ML IV SCH (05:30)
[2018-08-01 06:19] VITALS: BMI 16.2
[2018-08-01 07:07] LABS: BUN (Urea Nitrogen) 4 mg/dL (7.0-18.7); Calc. Creatinine Clearance 90 mL/min (70-130); Calcium 9.2 mg/dL (7.8-10.44); Estimated GFR-MDRD Greater than 90; Glucose 85 mg/dL (70-105)
[2018-08-01 07:20] LABS: Chloride 86 mmol/L (98-107); Sodium 133 mmol/L (136-145)
[2018-08-01 07:23] LABS: Anion Gap 12 mmol/L (10-20); Carbon Dioxide 38 mmol/L (22-29)
[2018-08-01 07:26] LABS: Potassium 2.6 mmol/L (3.5-5.1)
--- NOTE | 2018-08-01 07:42 | RAD ---
EXAM: CHEST ONE VIEW HISTORY: Hypokalemia. COMPARISON: 06/27/2018 FINDINGS: The cardiac silhouette and pulmonary vasculature is within normal limits. The lungs are hyperexpanded . There is suggestion of bullous emphysema changes in the upper lung zones with linear areas of scarring in the right upper lobe. No consolidation or pleural fluid is seen. The osseous structures a re intact. IMPRESSION: 1. No acute cardiopulmonary process. 2. Chronic lung changes.
[2018-08-01] MEDS ORDERED: CCU Electrolyte Replacement 1 EACH IVPB SCH (08:25)
[2018-08-01] MEDS ORDERED: Ibuprofen 600 MG TAB PO PRN (08:29)
[2018-08-01] MEDS ORDERED: Potassium Phosphate 9 MMOL in Sodium Chloride 0.9% 100 ML IVPB PRN (08:30)
[2018-08-01] MEDS ORDERED: Magnesium 2 GM/50 ML 2 GM in Premix Bag 1 BAG IVPB PRN (08:30)
[2018-08-01] MEDS ORDERED: Potassium Phosphate 12 MMOL in Sodium Chloride 0.9% 250 ML 250 ML IV PRN (08:30)
[2018-08-01] MEDS ORDERED: PHOS-NAK 1 PKT PACK PO PRN ×2 (08:30)
[2018-08-01] MEDS ORDERED: Potassium Chloride 40 MEQ in Sodium Chloride 0.9% 250 ML 250 ML IVPB PRN (08:30)
[2018-08-01] MEDS ORDERED: Magnesium Oxide 400 MG TAB PO PRN ×2 (08:30)
[2018-08-01] MEDS ORDERED: Potassium Chloride 20 MEQ TAB PO PRN (08:30)
[2018-08-01] MEDS ORDERED: Potassium Phosphate 15 MMOL in Sodium Chloride 0.9% 250 ML 250 ML IV PRN (08:30)
[2018-08-01] MEDS ORDERED: CCU ELECTROLYTE REPLACEMENT PROTOCOL FS PRN (08:30)
[2018-08-01] MEDS ORDERED: Morphine 2 MG/ML SYRINGE SLOW IVP PRN (08:44)
[2018-08-01] MEDS: Potassium Chloride 40 MEQ in Premix Bag 1 BAG IVPB PRN ×2 (08:49→14:47)
[2018-08-01] MEDS ORDERED: Albuterol Sulfate 1.25 MG/3 ML NEB NEB PRN (08:58)
[2018-08-01] MEDS ORDERED: Vancomycin HCl 1 GM in Sodium Chloride 0.9% 250 ML 250 ML IVPB SCH (09:00)
[2018-08-01] MEDS: NS 0.9% w/ 40 MEQ KCL 1,000 ML IV SCH ×3 (09:16→20:23)
[2018-08-01] MEDS: Vancomycin HCl 750 MG in Sodium Chloride 0.9% 250 ML 250 ML IVPB SCH ×2 (09:16→21:00)
--- NOTE | 2018-08-01 09:51 | RAD ---
PORTABLE CHEST 1 VIEW: DATE: 08/01/2018. TIME: 3:29 a.m. HISTORY: Line placement. FINDINGS: There has been interval placement of a right internal jugular central line with tip in the projection of the SVC since earlier exam of 2:29 a.m. No pneumothoraces are seen. The exam is otherwise stabl e. POS: OFF
[2018-08-01] MEDS: traMADol HCl 50 MG TAB PO PRN ×2 (10:12→17:31)
[2018-08-01] MEDS: Saccharomyces boulardii 250 MG CAP PO SCH (10:14)
[2018-08-01] MEDS: Enoxaparin Sodium 40 MG/0.4 ML SYRINGE SC SCH (10:17)
[2018-08-01] MEDS: Bupropion 150 MG XL TAB PO SCH (10:17)
--- NOTE | 2018-08-01 13:47 | CON ---
DATE OF CONSULTATION: REASON FOR CONSULTATION: Hypokalemia. HISTORY OF PRESENTING ILLNESS: This is a 38-year-old female, who presented to the hospital this morning, had hypokalemia. The patient had 3-day history of nausea and vomiting and a potassium of 2.2. The patient was given IV potassium. The patient denies any diarrhea. The patient has colostomy. PAST MEDICAL HISTORY: Significant for prolapsed rectum, hyponatremia, polydipsia, colostomy, history of fistula, and hernia repair. SOCIAL HISTORY: No alcohol or drug use. FAMILY HISTORY: Negative for ESRD. ALLERGIES: REVIEWED. HOME MEDICATIONS: List reviewed. REVIEW OF SYSTEMS: A 15-point review of system was performed negative except as noted above. GENERAL: HEAD: NECK: No swelling or lumps. NOSE: No epistaxis or discharge. EYES: No diplopia or pain. RESPIRATORY: CARDIOVASCULAR: GASTROINTESTINAL: /DUST SAMPLER: MUSCULOSKELETAL: No joint pain. NEUROPSYCHIATIC SYSTEMS: No suicidal ideation. No ideation. SKIN: Denies any rash or ulcer. CONSTITUTIONAL: No fever or chills. Home medication list reviewed and hospital medication list reviewed. LABORATORY DATA: Labs show bicarb is 38 and potassium is 2.6, hypokalemia most likely because of chronic nausea and vomiting with metabolic alkalosis. We will recommend hydration as well. PHYSICAL EXAMINATION: CONSTITUTIONAL: The patient is awake and alert. VITAL SIGNS: Pulse 71, breathing 16, blood pressure 103/61. GENERAL APPEARANCE AND MENTAL STATUS: Fair. HEAD/NECK: Normocephalic. Atraumatic. EYES: EOMI. No deformity. EARS: Clear. No ulcers. NOSE: Intact. No lesions. MOUTH: Clear. No discharge. THROAT: Clear. No exudate. LUNGS: Clear. No crackles. CARDIAC: S1, S2. No rub. ABDOMEN: Benign. Bowel sounds positive. GENITALIA/RECTUM: Moon absent. BACK/EXTREMITIES: Edema 0+. NEUROLOGICAL: Alert and motor intact. SKIN: LYMPHATICS: ASSESSMENT/RECOMMENDATION: Chronic kidney disease stage 1 stable. Hypokalemia, most likely because of vomiting and metabolic alkalosis. Because of that, I would recommend potassium replacement and hydration. Medication based on GFR appropriate. No indication for dialysis. I would recommend checking magnesium as well. Job ID: [id number]
[2018-08-01 14:15] LABS: Anion Gap 10 mmol/L (10-20); Anion Gap 9 mmol/L (10-20); BUN (Urea Nitrogen) 4 mg/dL (7.0-18.7); Calc. Creatinine Clearance 85 mL/min (70-130); Calcium 8.8 mg/dL (7.8-10.44); Calcium 8.9 mg/dL (7.8-10.44); Carbon Dioxide 35 mmol/L (22-29); Chloride 93 mmol/L (98-107); Estimated GFR-MDRD Greater than 90; Glucose 113 mg/dL (70-105); Glucose 114 mg/dL (70-105); Potassium 3.1 mmol/L (3.5-5.1); Sodium 134 mmol/L (136-145); Sodium 135 mmol/L (136-145)
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
[2018-08-01] MEDS: traZODone HCl 150 MG TAB PO SCH (20:23)
[2018-08-01] MEDS ORDERED: OLANZAPINE PO SCH (21:00)
[2018-08-01] MEDS ORDERED: OLANZAPINE 40 MG PO SCH (21:00)
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
[2018-08-02 06:26] LABS: Anion Gap 8 mmol/L (10-20); BUN (Urea Nitrogen) 7 mg/dL (7.0-18.7); Calc. Creatinine Clearance 82 mL/min (70-130); Calcium 8.7 mg/dL (7.8-10.44); Carbon Dioxide 27 mmol/L (22-29); Chloride 106 mmol/L (98-107); Estimated GFR-MDRD Greater than 90; Glucose 80 mg/dL (70-105); Magnesium 1.8 mg/dL (1.6-2.6); Potassium 4.2 mmol/L (3.5-5.1); Sodium 137 mmol/L (136-145)
[2018-08-02] MEDS: Saccharomyces boulardii 250 MG CAP PO SCH (08:51)
[2018-08-02] MEDS: Enoxaparin Sodium 40 MG/0.4 ML SYRINGE SC SCH (08:51)
[2018-08-02] MEDS: NS 0.9% w/ 40 MEQ KCL 1,000 ML IV SCH ×2 (08:52→22:17)
[2018-08-02] MEDS: Bupropion 150 MG XL TAB PO SCH (10:28)
[2018-08-02] MEDS: Vancomycin HCl 750 MG in Sodium Chloride 0.9% 250 ML 250 ML IVPB SCH ×3 (10:29→22:22)
--- NOTE | 2018-08-02 12:11 | PRG ---
DATE OF SERVICE: 08/02/2018 SUBJECTIVE: A 38-year-old female being seen for acute kidney injury and hypokalemia. The patient denied nausea, vomiting, or chest pain. OBJECTIVE: CONSTITUTIONAL: The patient is awake and alert. VITAL SIGNS: Afebrile. Pulse 76, breathing 16, and blood pressure 107/73. GENERAL APPEARANCE AND MENTAL STATUS: Fair. HEAD/NECK: Normocephalic. Atraumatic. EYES: EOMI. No deformity. EARS: Clear. No ulcers. NOSE: Intact. No lesions. MOUTH: Clear. No discharge. THROAT: Clear. No exudate. LUNGS: Clear. No crackles. CARDIAC: S1, S2. No rub. ABDOMEN: Benign. Bowel sounds positive. GENITALIA/RECTUM: Moon absent. BACK/EXTREMITIES: Edema 0+. NEUROLOGICAL: Alert and motor intact. SKIN: LYMPHATICS: LABORATORY DATA: Reviewed. ASSESSMENT AND PLAN: 1. Acute kidney injury . 2. Hypertension, stable. 3. Anemia, stable. 4. Hypokalemia, resolved. I will sign off. Please reconsult as needed. Job ID: [id number]
--- NOTE | 2018-08-02 15:29 | PDOC.PN ---
- Subjective Encounter Start Date: 08/02/18 Encounter Start Time: 15:27 Subjective: Admitted due to multiple electrolyte derangement including severe hypokalem -: Feeling better. - Objective Vital Signs & Weight: Vital Signs (12 hours) Temp Pulse Resp BP Pulse Ox 08/02/18 08:45 92 L 08/02/18 08:00 98.7 F 76 18 107/73 92 L 08/02/18 07:13 93 L 08/02/18 04:32 98.3 F 73 18 108/70 93 L Weight Admit Weight 100 lb Weight 100 lb 8.493 oz Most Recent Monitor Data Heart Rate from ECG 75 NIBP 124/82 NIBP BP-Mean 96 Respiration from ECG 22 SpO2 96 I&O: 08/01/18 08/02/18 08/03/18 06:59 06:59 06:59 Intake Total 3980 360 Output Total 675 2030 Balance -675 1950 360 Result Diagrams: 08/01/18 02:44 08/02/18 05:35 Phys Exam - Physical Examination Constitutional: NAD HEENT: PERRLA, moist MMs Neck: supple Respiratory: no wheezing, no rales, no rhonchi, clear to auscultation bilateral Cardiovascular: RRR Gastrointestinal: soft, no distention, positive bowel sounds colostomy and enterocutaneous fistula noted. Musculoskeletal: no edema, pulses present Neurological: non-focal, moves all 4 limbs awake and conversational Psychiatric: A&O x 3 Dx/Plan (1) Enterocutaneous fistula Code(s): K63.2 - FISTULA OF INTESTINE Status: Acute (2) Hypokalemia Code(s): E87.6 - HYPOKALEMIA Status: Acute (3) Dehydration Code(s): E86.0 - DEHYDRATION Status: Acute (4) Colostomy and enterostomy complications Code(s): FMC9126 - Status: Acute (5) Depression Code(s): F32.9 - MAJOR DEPRESSIVE DISORDER, SINGLE EPISODE, UNSPECIFIED Status : Chronic (6) PTSD (post-traumatic stress disorder) Code(s): F43.10 - POST-TRAUMATIC STRESS DISORDER, UNSPECIFIED Status: Chronic (7) Schizoaffective disorder Code(s): F25.9 - SCHIZOAFFECTIVE DISORDER, UNSPECIFIED Status: Chronic - Plan Continue IVF -: DC Central line and gilliam cath. -: Recheck CBC and BMP in the am. -: Diet as tolerated. -: ostomy care to continue. * .
[2018-08-02] MEDS: traMADol HCl 50 MG TAB PO PRN (16:26)
[2018-08-02] MEDS: traZODone HCl 150 MG TAB PO SCH (20:08)
[2018-08-02 21:51] LABS: Vancomycin, Trough 7.6 ug/mL
[2018-08-03] MEDS: traMADol HCl 50 MG TAB PO PRN (02:31)
[2018-08-03] MEDS: Vancomycin HCl 750 MG in Sodium Chloride 0.9% 250 ML 250 ML IVPB SCH ×2 (05:18→13:14)
[2018-08-03] MEDS: Enoxaparin Sodium 40 MG/0.4 ML SYRINGE SC SCH (09:33)
[2018-08-03] MEDS: Bupropion 150 MG XL TAB PO SCH (09:33)
[2018-08-03] MEDS: Saccharomyces boulardii 250 MG CAP PO SCH (09:35)
[2018-08-03] MEDS: NS 0.9% w/ 40 MEQ KCL 1,000 ML IV SCH (11:23)
--- NOTE | 2018-08-03 11:34 | PQF ---
CAROLYN CÁRDENAS OBI MADHU Elena [id number] CLINICAL DOCUMENTATION IMPROVEMENT CLARIFICATION FORM: ICD-10 Updated PLEASE DO AN ADDENDUM TO THE PROGRESS NOTE WITH ANY DOCUMENTATION UPDATES OR ADDITIONS AND CARRY THROUGH TO DC SUMMARY. THANK YOU. Date: 08/03/2018 ATTN: DR. Elena MORTON Please exercise your independent, professional judgment in responding to the clarification form. Clinical indicators are provided on the bottom of this form for your review. Please check appropriate box(s): [ ] Protein Calorie Malnutrition: [ ] Mild [ ] Moderate [ ] Severe [ ] Other Malnutrition (please specify) __ [ ] Cachexia [ ] Other diagnosis [ ] Unable to determine In addition, please specify: Present on Admission (POA): [ ] Yes [ ] No [ ] Unable to determine CLINICAL INDICATORS - SIGNS / SYMPTOMS / LABS 08/01 NUTRITION ASSESSMENT DIAGNOSIS: UNDERWEIGHT EVIDENCED BY BMI 16.2 RISK: DRUG ABUSE PTSD DEPRESSION NON HEALING WOUNDS TREATMENTS: NUTRITIONAL ASSESSMENT ENSURE ENLIVE BID NARINDER BID TO PROMOTE HEALING Moderate Malnutrition (in acute illness) Energy Intake: <75% of estimated energy requirement for > 7 days Weight Loss: 1-2%/1 week; 5%/ 1 month; 7.5%/3 months Other: mild body fat loss; mild muscle mass loss; mild fluid accumulation; Severe Malnutrition (in acute illness) Energy Intake: < 50% of estimated energy requirement for > 5 days Weight Loss: >1-2%/1 week; >5%/1 month; >7.5%/3 months Other: moderate body fat loss; moderate muscle mass loss; moderate- severe fluid accumulation; measurably reduced contaminated land consultant strength Moderate Malnutrition (in chronic illness) Energy Intake: <75% of estimated energy requirement for >1 month Weight Loss: 5%/1 month; 7.5%/3 months; 10%/6 months; 20%/1 year Other: mild body fat loss; mild muscle mass loss; mild fluid accumulation Severe Malnutrition (in chronic illness) Energy Intake: <75% of estimated energy requirement for >1 month Weight Loss: >5%/1 month; >7.5%/3 months; >10%/6 months; >20%/1 year Other: severe body fat loss; severe muscle mass loss; severe fluid accumulation ; measurably reduced contaminated land consultant strength THANK YOU! JOSE (This form is maintained as a part of the permanent medical record) 2014 [employer]. All Rights Reserved LUIS [email or web address] [phone] MTDD
[2018-08-03] MEDS: Ondansetron ODT 4 MG TAB PO PRN ×2 (13:18→20:11)
[2018-08-03] MEDS ORDERED: Benzonatate 100 MG CAP PO PRN (14:11)
--- NOTE | 2018-08-03 14:13 | PDOC.PN ---
- Subjective Encounter Start Date: 08/03/18 Encounter Start Time: 14:11 Subjective: complaining of nausea. -: Denied fever, sob or chills. tolerating oral intake. - Objective Vital Signs & Weight: Vital Signs (12 hours) Temp Pulse Resp BP Pulse Ox 08/03/18 09:30 93 L 08/03/18 07:56 98.4 F 71 20 98/65 93 L Weight Admit Weight 100 lb Weight 100 lb 8.493 oz Most Recent Monitor Data Heart Rate from ECG 75 NIBP 124/82 NIBP BP-Mean 96 Respiration from ECG 22 SpO2 96 I&O: 08/02/18 08/03/18 08/04/18 06:59 06:59 06:59 Intake Total 3980 2505 Output Total 2029 2850 Balance 1950 -345 Result Diagrams: 08/01/18 02:44 08/02/18 05:35 Phys Exam - Physical Examination Constitutional: NAD HEENT: PERRLA, moist MMs Neck: supple Respiratory: no wheezing, no rhonchi good air entry with some transmitted sound Cardiovascular: RRR Gastrointestinal: soft, no distention, positive bowel sounds ileostomy and enterocutaneous fistula noted Musculoskeletal: no edema, pulses present Neurological: non-focal, moves all 4 limbs Psychiatric: A&O x 3 Deviation from normal: excoriation on the anterior abdomen noted with minimal or no erythema Dx/Plan (1) Hypokalemia Code(s): E87.6 - HYPOKALEMIA Status: Acute (2) Enterocutaneous fistula Code(s): K63.2 - FISTULA OF INTESTINE Status: Acute (3) Dehydration Code(s): E86.0 - DEHYDRATION Status: Acute (4) Colostomy and enterostomy complications Code(s): DTO0963 - Status: Acute (5) Depression Code(s): F32.9 - MAJOR DEPRESSIVE DISORDER, SINGLE EPISODE, UNSPECIFIED Status : Chronic (6) PTSD (post-traumatic stress disorder) Code(s): F43.10 - POST-TRAUMATIC STRESS DISORDER, UNSPECIFIED Status: Chronic (7) Schizoaffective disorder Code(s): F25.9 - SCHIZOAFFECTIVE DISORDER, UNSPECIFIED Status: Chronic (8) Iron deficiency anemia Code(s): D50.9 - IRON DEFICIENCY ANEMIA, UNSPECIFIED Status: Acute (9) Contact dermatitis Code(s): L25.9 - UNSPECIFIED CONTACT DERMATITIS, UNSPECIFIED CAUSE Status: Acute Qualifiers: Contact dermatitis type: irritant - Plan DC antibiotics in the absence of obvious infection. blood Cx negative -: DC IVF. [place] oral intake advised -: Give IV replacement -: Get repeat CBC, BMP and mag. For discharge tomorrow if stable. -: Start antiemetics. * .
[2018-08-03] MEDS ORDERED: Nicotine 21 MG PATCH TD SCH (17:00)
[2018-08-03] MEDS ORDERED: hydrOXYzine 25 MG TAB PO PRN (17:18)
[2018-08-03 18:43] LABS: Amphetamine Not Detected (NotDetected); Barbiturates Screen Not Detected (NotDetected); Benzodiazepine Screen Not Detected (NotDetected); Cocaine Metabolite Screen Not Detected (NotDetected); Medtox Control Line Valid? VALID (VALID); Medtox Reader # READER 1; Methadone Not Detected (NotDetected); Methamphetamine Not Detected (NotDetected); Opiate Screen Not Detected (NotDetected); Oxycodone Screen Not Detected (NotDetected); Phencyclidine (PCP) Not Detected (NotDetected); THC/Cannabinoid Screen Not Detected (NotDetected); Tricyclic Screen Not Detected (NotDetected)
[2018-08-03] MEDS: traZODone HCl 150 MG TAB PO SCH (20:43)
[2018-08-03] MEDS: Iron, Sodium Ferric Gluconate 250 MG in Sodium Chloride 0.9% 100 ML IVPB SCH (20:45)
[2018-08-03] MEDS ORDERED: OLANZapine 5 MG TAB PO SCH (20:45)
[2018-08-04] MEDS: traMADol HCl 50 MG TAB PO PRN (04:52)
[2018-08-04 06:59] LABS: Anion Gap 12 mmol/L (10-20); BUN (Urea Nitrogen) 6 mg/dL (7.0-18.7); Calc. Creatinine Clearance 78 mL/min (70-130); Calcium 9.8 mg/dL (7.8-10.44); Carbon Dioxide 28 mmol/L (22-29); Chloride 98 mmol/L (98-107); Estimated GFR-MDRD Greater than 90; Glucose 76 mg/dL (70-105); Magnesium 1.8 mg/dL (1.6-2.6); Sodium 134 mmol/L (136-145)
[2018-08-04 07:56] LABS: #Basophils 0.1 thou/uL (0.0-0.2); #Eosinphils 0.2 thou/uL (0.0-0.7); #Lymphocytes 2.6 thou/uL (1.20-3.40); #Monocytes 0.5 thou/uL (0.11-0.59); #Neutrophils 4.1 thou/uL (1.40-6.50); %Basophils 1.1 % (0.0-1.0); %Eosinophils 3.3 % (0.0-10.0); %Lymphocytes 34.2 % (21.0-51.0); %Monocytes 6.6 % (0.0-10.0); %Neutrophils 54.9 % (42.0-75.0); Anisocytosis SLIGHT = 6-15 cells (100X) (0-5/hpf); Hemoglobin 10.2 g/dL (12.0-16.0); Hypochromia SLIGHT = 6-15 cells (100X) (0-5/hpf); MDiff Complete? YES; Mean Corpuscular HGB CONC 29.9 g/dL (32.0-36.0); Mean Corpuscular Volume 73.7 fL (78.0-98.0); Ovalocytes SLIGHT = 2-5 cells (100X) (0-1/hpf); Platelet Count 366 thou/uL (130-400); RBC Distribution Width 22.5 % (11.5-14.5); Red Blood Cell (RBC) Count 4.65 mill/uL (4.20-5.40); White Blood Cell (WBC) Count 7.5 thou/uL (4.8-10.8)
[2018-08-04 08:47] VITALS: BP 99/62; TEMP 98.2
[2018-08-04] MEDS: Saccharomyces boulardii 250 MG CAP PO SCH (09:35)
[2018-08-04] MEDS: Bupropion 150 MG XL TAB PO SCH (09:35)
[2018-08-04] MEDS: Iron, Sodium Ferric Gluconate 250 MG in Sodium Chloride 0.9% 100 ML IVPB SCH (09:35)
[2018-08-04] MEDS: Enoxaparin Sodium 40 MG/0.4 ML SYRINGE SC SCH (09:36)
[2018-08-04] MEDS ORDERED: OLANZapine 5 MG TAB PO SCH (21:00)
== END 2018-08-04 14:45 | disposition home or self-care (01) | DRG 641 ==
LOC: ERS 02:13 → CCU 05:29 → T4-B 16:19
PROVIDERS: ADMIT Hospitalist; ATTEND Hospitalist
DX: E87.6 Hypokalemia (principal); K63.2 Fistula of intestine; N17.9 Acute kidney failure, unspecified; L03.311 Cellulitis of abdominal wall; E87.1 Hypo-osmolality and hyponatremia; E87.3 Alkalosis; F31.9 Bipolar disorder, unspecified; J45.909 Unspecified asthma, uncomplicated; F17.200 Nicotine dependence, unspecified, uncomplicated; N18.1 Chronic kidney disease, stage 1; D64.9 Anemia, unspecified; E86.0 Dehydration; F32.9 Major depressive disorder, single episode, unspecified; F43.10 Post-traumatic stress disorder, unspecified; F25.9 Schizoaffective disorder, unspecified; L25.9 Unspecified contact dermatitis, unspecified cause; Z93.3 Colostomy status
CPT/HCPCS: 36415; 71045; 80048; 80053; 80202; 80306; 80307; 81003; 83735; 85025; 87040; 93005; J1650; J1956; J2916; J3010; J3370; J3475; J3480; J3490; J7050; Q0162

== ENCOUNTER 2018-09-04 20:54 | Inpatient (IN) | payer OTHER ==
[2018-09-04] MEDS ORDERED: Ondansetron PF 4 MG/2 ML Vial ONE (22:33)
[2018-09-04 22:52] LABS: BUN (Urea Nitrogen) 10 mg/dL (7.0-18.7); Calc. Creatinine Clearance 0 mL/min (70-130); Calcium 9.5 mg/dL (7.8-10.44); Carbon Dioxide 28 mmol/L (22-29); Chloride 86 mmol/L (98-107); Estimated GFR-MDRD Greater than 90; Glucose 91 mg/dL (70-105); Sodium 128 mmol/L (136-145)
[2018-09-04 22:54] LABS: Anion Gap 17 mmol/L (10-20); Potassium 2.8 mmol/L (3.5-5.1)
[2018-09-04 23:29] VITALS: BMI 16.5
[2018-09-04] MEDS ORDERED: Ondansetron ODT 4 MG TAB SL PRN (23:32)
[2018-09-04] MEDS ORDERED: Acetaminophen 325 MG TAB PO PRN (23:32)
[2018-09-04] MEDS ORDERED: Ondansetron PF 4 MG/2 ML Vial IVP PRN (23:32)
[2018-09-05] MEDS: Sodium Chloride 0.9% 1,000 ML IV SCH ×2 (00:11→09:05)
[2018-09-05] MEDS ORDERED: Potassium Chloride 20 MEQ TAB PO SCH ×3 (03:00→12:00)
--- NOTE | 2018-09-05 03:36 | HP ---
PRIMARY CARE DOCTOR: Out of town physician. CODE STATUS: Full code. TIME OF EVALUATION: 10:20 p.m. CHIEF COMPLAINT: Abdominal pain. HISTORY OF PRESENT ILLNESS: This is a 38-year-old female patient with past medical history of prolapsed rectum, hypertension, hyponatremia, hypocalcemia, polydipsia, exploratory surgery with colostomy, history of stomach that was resolved by surgery, came to the hospital after having nausea and vomiting for 4 days with no clear triggers, no alleviating factors. The patient states she is very dehydrated and presented with severe hypokalemia, alkalosis, hyponatremia. For that reason, she was sent to the hospital. The patient is still having diffuse abdominal pain that is dull in nature, reported as 7/10. REVIEW OF SYSTEMS: CONSTITUTIONAL: No fever, chills, or generalized weakness. RESPIRATORY: The patient has no cough, sputum production, or shortness of breath. CARDIOVASCULAR: No chest pain or palpitation. GASTROINTESTINAL: The patient has nausea, vomiting. No diarrhea. The patient has abdominal pain, 10/10 as described in the HPI. BATTERY TESTER FIELD: No dizziness, headache, or feeling lightheaded. GENITOURINARY: No burning on urination. EXTREMITIES: No leg swelling. All other systems were reviewed and negative except for the findings mentioned above. PAST MEDICAL HISTORY: As mentioned in the HPI. PAST SURGICAL HISTORY: The patient has multiple GI surgeries with colon resection, incisional hernia repairs, history of colostomy. PSYCHIATRIC HISTORY: Bipolar disorder, depression, schizoaffective disorder, multiple psych admissions. SOCIAL HISTORY: No drugs. The patient smokes cigarettes on a daily basis, one pack per day. No alcohol. Former drug user. Abuser of benzodiazepines, marijuana, methamphetamines, and opiates. Drinks socially. KNOWN ALLERGIES: BuSpar and penicillin. REPORTED MEDICATIONS: Sertraline, Seroquel, bupropion, pantoprazole, Zyprexa, Restoril. PHYSICAL EXAMINATION: VITAL SIGNS: On presentation, heart rate 75, respiratory rate was 24, temperature 98.4. Pain was 7/10. Oxygen saturation was 95% on room air. The blood pressure was 96/57. GENERAL APPEARANCE: The patient has an appearance of being a chronically ill patient, alert, oriented, in mild distress due to pain. HEENT: Eyes, normal conjunctivae. Moist oral mucosa. Anicteric. No JVD. RESPIRATORY: Bilateral air entry. No rales. No wheezes. Symmetric expansion. CARDIOVASCULAR: Normal rate, regular rhythm. No murmurs. No gallop. No edema. ABDOMEN: Soft, tender. Colostomy bag with some solid stools; as per patient, has been there for couple of 2 to 3 days. SKIN: Warm, intact. No pallor. No rash. No redness. Peripheral pulses are present. Capillary refill seems to be intact. NEURO: No evidence of any new focal weakness. Cranial nerves seem to be intact. PSYCH: The patient is in good mood. No anxiety. Optimal judgment. LABORATORY DATA: Abdomen and pelvis CT was done. The patient had stable abdomen and pelvic CT. There is a midline upper abdominal postoperative open wound, stable colostomy as well as stable Mary's pouch, stable thickening of the rectum finding may be due to neoplastic or infectious inflammatory process. Labs were reviewed. The patient has pulmonary hyperinflation with emphysematous changes, particularly prominent in the right upper lobe region. Labs were reviewed. The patient has a sodium of 128, potassium 2.8, chloride 86, carbon dioxide 28, anion gap 17, BUN 10, creatinine 0.68, GFR greater than 90, glucose 91, calcium 9.5. Beta-natriuretic peptide 36.5. Hematology; white count 9.7, hemoglobin 12, MCV 77 with platelet count 250. Chemistry was done, the patient has a sodium of 128; serum potassium was 1.8; after initial 70 mEq, was 2.8; chloride 86; carbon dioxide 28; BUN 10; creatinine 0.6; glucose 91. ASSESSMENT AND PLAN: The patient will be placed in the hospital with following medical problems: 1. Severe dehydration due to nausea and vomiting for the past 3 to 4 days. We will hydrate the patient. We will monitor. 2. Severe hypokalemia. The patient's potassium has been replaced, the last one was 2.8. We will continue replacement. Magnesium was normal. 3. Intractable abdominal pain. The patient needs opioid medication for optimal control. This may place the patient at high risk of complication from treatment. CT abdomen did not show any specific significant acute pathology. She does have multiple chronic surgical changes. We will monitor, we will treat symptomatically. 4. History of multiple psych disorders, reconcile home medications. The patient seems to be stable at this point from these problems. 5. Deep venous thrombosis prophylaxis. Job ID: [id number]
[2018-09-05 05:03] LABS: Anion Gap 11 mmol/L (10-20); BUN (Urea Nitrogen) 8 mg/dL (7.0-18.7); Calc. Creatinine Clearance 88 mL/min (70-130); Carbon Dioxide 34 mmol/L (22-29); Chloride 89 mmol/L (98-107); Estimated GFR-MDRD Greater than 90; Glucose 83 mg/dL (70-105); Sodium 132 mmol/L (136-145)
[2018-09-05 05:11] LABS: Potassium 2.4 mmol/L (3.5-5.1)
[2018-09-05 05:50] LABS: #Basophils 0.1 thou/uL (0.0-0.2); #Eosinphils 0.1 thou/uL (0.0-0.7); #Lymphocytes 2.1 thou/uL (1.20-3.40); #Monocytes 0.6 thou/uL (0.11-0.59); %Basophils 0.8 % (0.0-1.0); %Lymphocytes 26.8 % (21.0-51.0); %Monocytes 7.5 % (0.0-10.0); %Neutrophils 63.8 % (42.0-75.0); Anisocytosis MODERATE=16-30 cells (100X) (0-5/hpf); Hemoglobin 11.6 g/dL (12.0-16.0); MDiff Complete? YES; Mean Corpuscular HGB CONC 32.3 g/dL (32.0-36.0); Mean Corpuscular Hemoglobin 26.3 pg (27.0-31.0); Mean Corpuscular Volume 81.2 fL (78.0-98.0); Mean Platelet Volume 7.6 fL (7.4-10.4); Platelet Count 313 thou/uL (130-400); RBC Distribution Width 23.1 % (11.5-14.5); Red Blood Cell (RBC) Count 4.42 mill/uL (4.20-5.40); White Blood Cell (WBC) Count 7.9 thou/uL (4.8-10.8)
[2018-09-05 06:03] LABS: Anion Gap 12 mmol/L (10-20); BUN (Urea Nitrogen) 8 mg/dL (7.0-18.7); Calc. Creatinine Clearance 89 mL/min (70-130); Carbon Dioxide 33 mmol/L (22-29); Chloride 90 mmol/L (98-107); Estimated GFR-MDRD Greater than 90; Glucose 87 mg/dL (70-105); Sodium 132 mmol/L (136-145)
[2018-09-05 06:07] LABS: Potassium 2.7 mmol/L (3.5-5.1)
[2018-09-05] MEDS: Potassium Chloride 20 MEQ TAB PO SCH ×2 (06:16→11:48)
[2018-09-05] MEDS: Enoxaparin Sodium 40 MG/0.4 ML SYRINGE SC SCH (09:34)
[2018-09-05] MEDS: Bupropion 150 MG XL TAB PO SCH (09:34)
[2018-09-05 11:56] LABS: Anion Gap 15 mmol/L (10-20); BUN (Urea Nitrogen) 7 mg/dL (7.0-18.7); Calc. Creatinine Clearance 72 mL/min (70-130); Calcium 9.7 mg/dL (7.8-10.44); Carbon Dioxide 26 mmol/L (22-29); Chloride 94 mmol/L (98-107); Estimated GFR-MDRD 82; Glucose 205 mg/dL (70-105); Potassium 3.8 mmol/L (3.5-5.1); Sodium 131 mmol/L (136-145)
[2018-09-05] MEDS: Morphine 2 MG/ML SYRINGE SLOW IVP PRN ×2 (13:38→20:18)
[2018-09-05 16:56] LABS: Hemoglobin 11.3 g/dL (12.0-16.0)
--- NOTE | 2018-09-05 17:07 | PDOC.PN ---
- Subjective Encounter Start Date: 09/05/18 Encounter Start Time: 09:40 Pt seen for followup re: hypokalemia. Pt reports black output in ostomy bag. - Objective Resuscitation Status - Order Detail: 09/05/18 02:35 Resuscitation Status Routine Resuscitation Status: FULL: Full Resuscitation Vital Signs & Weight: Vital Signs (12 hours) Temp Pulse Resp BP BP Pulse Ox 09/05/18 16:19 98.0 F 84 13 125/68 98 09/05/18 11:59 97.5 F L 82 14 112/69 100 09/05/18 08:00 97 09/05/18 07:52 99.0 F 72 14 111/68 97 Weight Admit Weight 102 lb 8 oz Weight 102 lb 8 oz I&O: 09/04/18 09/05/18 09/06/18 06:59 06:59 06:59 Intake Total 1050 Output Total 400 Balance 650 Result Diagrams: 09/05/18 16:10 09/05/18 11:02 Phys Exam - Physical Examination appears malnourished HEENT: moist MMs, sclera anicteric, oral pharynx no lesions, 2+ tonsils Neck: no nodes, no JVD, supple, full ROM Respiratory: clear to auscultation bilateral Cardiovascular: RRR, no rub S1, S2 Gastrointestinal: soft, positive bowel sounds mild epigastric tenderness, no guarding or rigidity; ostomy x 2 Neurological: moves all 4 limbs Psychiatric: normal affect, A&O x 3 Dx/Plan (1) Hypokalemia Code(s): E87.6 - HYPOKALEMIA Status: Acute Comment: replace potassium and recheck (2) UGIB (upper gastrointestinal bleed) Code(s): K92.2 - GASTROINTESTINAL HEMORRHAGE, UNSPECIFIED Status: Acute Comment: consult GI for opinion and help with management (3) Severe protein-calorie malnutrition Code(s): E43 - UNSPECIFIED SEVERE PROTEIN-CALORIE MALNUTRITION Status: Chronic Comment: appreciate dietitian input (4) COPD (chronic obstructive pulmonary disease) Status: Chronic Comment: stable (5) Depression Code(s): F32.9 - MAJOR DEPRESSIVE DISORDER, SINGLE EPISODE, UNSPECIFIED Status : Chronic Comment: moderate, stable - Plan * . Review of Systems - Review of Systems Constitutional: negative: fever, chills, sweats, weakness, malaise Cardiovascular: negative: chest pain, palpitations, orthopnea, paroxysmal nocturnal dyspnea, edema, light headedness Gastrointestinal: Nausea, Abdominal Pain, Melena. negative: Vomiting, Diarrhea , Constipation, Hematochezia Genitourinary: negative: Dysuria, Frequency, Incontinence, Hematuria, Retention Musculoskeletal: negative: Neck Pain, Shoulder Pain, Arm Pain, Back Pain, Hand Pain, Leg Pain, Foot Pain - Medications/Allergies Allergies/Adverse Reactions: Allergies Allergy/AdvReac Type Severity Reaction Status Date / Time buspirone [From BuSpar] Allergy Verified 08/01/18 07:55 lorazepam Allergy Verified 08/01/18 07:55 Penicillins Allergy Verified 08/01/18 07:53 Medications: Current Medications Bupropion HCl (Wellbutrin Xl) 150 mg PO DAILY [facility] Last Admin: 09/05/18 09:34 Dose: 150 mg Enoxaparin Sodium (Lovenox) 40 mg SC 0900 [facility] Last Admin: 09/05/18 09:34 Dose: Not Given Morphine Sulfate (Morphine) 2 mg SLOW IVP Q4H PRN PRN Reason: Severe Pain (7-10) Last Admin: 09/05/18 13:38 Dose: 2 mg Olanzapine (Zyprexa) 20 mg PO HS [facility] Pantoprazole Sodium (Protonix) 40 mg PO DAILY [facility] Last Admin: 09/05/18 09:33 Dose: 40 mg Quetiapine Fumarate (Seroquel) 200 mg PO BID [facility] Last Admin: 09/05/18 09:34 Dose: 200 mg Sertraline HCl (Zoloft) 200 mg PO QAM [facility] Last Admin: 09/05/18 09:33 Dose: 200 mg Sodium Chloride (Flush - Normal Saline) 10 ml IVF Q12HR [facility] Last Admin: 09/05/18 09:35 Dose: 10 ml Sodium Chloride (Flush - Normal Saline) 10 ml IVF PRN PRN PRN Reason: Saline Flush Temazepam (Restoril) 30 mg PO HS [facility]
[2018-09-05] MEDS: Pantoprazole 40 MG VIAL IVP SCH (20:17)
[2018-09-05] MEDS ORDERED: Temazepam 15 MG CAP PO SCH (21:00)
[2018-09-05] MEDS ORDERED: OLANZapine 5 MG TAB PO SCH (21:00)
[2018-09-05 21:18] LABS: Hemoglobin 10.9 g/dL (12.0-16.0)
--- NOTE | 2018-09-06 02:05 | CON ---
DATE OF CONSULTATION: REASON FOR CONSULTATION: Hemoccult-positive stool. HISTORY OF PRESENT ILLNESS: I have been asked to see Ms. Velasquez by her physician, Dr. Veloz today for heme-positive stool. She is a 38-year-old, who has been in this hospital multiple times over the last several years and also at [facility] in [place]. She came in yesterday for complaints of abdominal pain. She had gone to the ER in [place] for several days of nausea and vomiting, and there, was found to have some hypokalemia, little bit of hyponatremia and sent here for further evaluation. In talking with her, she states that occasionally this happens when she gets more constipated and she has difficulty moving her bowels more recently. She has had multiple surgeries in the past. She has a colostomy in left lower quadrant for complications related to surgery for rectal prolapse, and then, she has also had ostomy bag on her upper mid abdomen which she states is where a midline incision ruptured and fistulized to her stomach. The patient denies any overt pain right now, but I asked the nurse if she could have a little bit of morphine when I was leaving the room. The patient had a CAT scan of the abdomen and pelvis yesterday in the emergency room in [place], this is without any oral or IV contrast and essentially shows a midline upper abdominal postoperative wound and a colostomy with Mary pouch, but no other overt abnormalities were seen. Apparently, the stool hemoccult was ordered as the patient reported her stool was dark and requested that to be done. In talking with her, she has not had any melena. Her stool has been dark green. She does get irritation around her ostomy at times and the stool I have confirmed with the nurse was taken from the ostomy bag. She has no rectal stool output. Presently, she has had no signs of bleeding, is not vomiting, is tolerating a diet. PAST MEDICAL HISTORY: Bipolar disorder, depression, schizoaffective disorder, multiple prior psychiatric admissions, asthma, polydipsia, abdominal wall cellulitis, and previous notes have documented manipulative behavior. Enterocutaneous fistula as noted above. PAST SURGICAL HISTORY: Sigmoid colostomy with Mary pouch. Multiple other abdominal surgeries performed in [place], [place]. She states they stated they will not see her there as she often manipulates her wounds. History of appendectomy, history of herniorrhaphy. SOCIAL HISTORY: Smokes a pack a day. Denies drinking or using drugs. Although, previous drug screens were positive for opiates and marijuana on admission. Her last drug screen on 08/03/2018 was negative on admission. MEDICATIONS: Medications at home; 1. Temazepam. 2. Zoloft. 3. Seroquel. 4. Protonix. 5. Zyprexa. 6. Wellbutrin. Medications here; 1. Wellbutrin. 2. Lovenox. 3. Morphine. 4. Zyprexa. 5. Protonix. 6. Seroquel. 7. Zoloft. 8. Temazepam. REVIEW OF SYSTEMS: She notes chronic constipation. She states she cannot afford laxatives because they do not own prescriptions. PHYSICAL EXAMINATION: GENERAL: She is awake, alert, and oriented to person, place, and time. She is in no distress. The room has odor of tobacco smoke. She is resting comfortably in bed. She has a food tray, which she is eating part of. VITAL SIGNS: Temperature is 98, pulse 84, blood pressure 125/68. LUNGS: Clear. HEART: Regular rate and rhythm. ABDOMEN: Soft. There is an enterocutaneous fistula in the midline abdomen and the scar, which has an ostomy bag on it. She has a formed ostomy in left lower quadrant with some erythematous mucosa of the bowel that proceeds from the ostomy, there is not any large hernia there. There is no blood in the sac. There is no melena. Bowel sounds are positive. There is no rebound. There is no guarding. EXTREMITIES: No clubbing, cyanosis, or edema. LABORATORY DATA: Hemoglobin is 11.3 when they rechecked at 1600 hours, it is 11.6 this morning, it was 12.1 yesterday, it was 9.7 on 08/01/2018; platelets are 311. Sodium 131, potassium 3.8, BUN and creatinine are 7 and 0.7. Liver function tests yesterday were normal. Lipase was normal. Troponin was normal. Previous serologies in 01/2018 were negative for HIV. Hepatitis C not detected 01/2018. IMAGING STUDIES: CT scan films reviewed. ASSESSMENT: 1. Reported heme-positive stool. This is likely related to her slight erythematous mucosa at her ostomy. There is no signs of overt GI hemorrhage. 2. Chronic constipation, likely related to her antipsychotic medications. 3. Hypokalemia and hyponatremia, likely related to vomiting, possibly this is related to her constipation. 4. Previous history of midline enterocutaneous fistula, operated at [facility], would defer treatment to that facility. 5. History of chronic left lower quadrant ostomy. There are no signs of obstruction by CAT scan. I think she has some constipation issues related to medications, she should be on a laxative daily. 6. At this point in time with no further GI intervention recommended, would wean narcotic pain medications, advance her diet and try to get her out of the hospital as soon as feasible. We will follow from a distance. If I can be of any further assistance in her care, please do not hesitate to contact me. Job ID: [id number]
[2018-09-06] MEDS: Morphine 2 MG/ML SYRINGE SLOW IVP PRN (03:31)
[2018-09-06 07:38] VITALS: TEMP 97.7
[2018-09-06] MEDS: Bupropion 150 MG XL TAB PO SCH (09:18)
[2018-09-06] MEDS: Enoxaparin Sodium 40 MG/0.4 ML SYRINGE SC SCH (09:18)
[2018-09-06] MEDS: Pantoprazole 40 MG VIAL IVP SCH (09:18)
[2018-09-06 09:24] LABS: Hemoglobin 12.2 g/dL (12.0-16.0); Mean Corpuscular HGB CONC 31.9 g/dL (32.0-36.0); Mean Corpuscular Hemoglobin 26.1 pg (27.0-31.0); Mean Platelet Volume 7.7 fL (7.4-10.4); Platelet Count 294 thou/uL (130-400); RBC Distribution Width 23.3 % (11.5-14.5); Red Blood Cell (RBC) Count 4.69 mill/uL (4.20-5.40); White Blood Cell (WBC) Count 6.2 thou/uL (4.8-10.8)
[2018-09-06 09:25] LABS: #Eosinphils 0.1 thou/uL (0.0-0.7); #Lymphocytes 1.7 thou/uL (1.20-3.40); #Monocytes 0.4 thou/uL (0.11-0.59); #Neutrophils 3.9 thou/uL (1.40-6.50); %Basophils 0.6 % (0.0-1.0); %Eosinophils 1.6 % (0.0-10.0); %Lymphocytes 27.9 % (21.0-51.0); %Monocytes 6.2 % (0.0-10.0); %Neutrophils 63.6 % (42.0-75.0)
[2018-09-06 09:37] LABS: Anion Gap 10 mmol/L (10-20); BUN (Urea Nitrogen) 6 mg/dL (7.0-18.7); Calc. Creatinine Clearance 86 mL/min (70-130); Calcium 9.4 mg/dL (7.8-10.44); Carbon Dioxide 31 mmol/L (22-29); Chloride 99 mmol/L (98-107); Estimated GFR-MDRD Greater than 90; Glucose 82 mg/dL (70-105); Potassium 3.7 mmol/L (3.5-5.1); Sodium 136 mmol/L (136-145)
[2018-09-06 10:11] LABS: Anisocytosis SLIGHT = 6-15 cells (100X) (0-5/hpf); MDiff Complete? YES; Platelet Morphology Comment Appears Adequate; Polychromasia SLIGHT = 2-3 cells (100X) (0-2/hpf)
[2018-09-06] MEDS ORDERED: Acetaminophen/Codeine 30-300mg Tablet PO SCH (10:30)
[2018-09-06 12:34] VITALS: BP 96/61
--- NOTE | 2018-09-07 04:31 | DIS ---
DATE OF ADMISSION: 09/04/2018 DATE OF DISCHARGE: 09/06/2018 PRIMARY CARE PROVIDER: Anatoly Bunn MD DISCHARGE DIAGNOSES: 1. Hypokalemia, severe. 2. Hyponatremia. 3. Chronic constipation. CONSULTATIONS DURING THIS HOSPITALIZATION: Gastroenterology, Raul Hanson MD CONDITION OF PATIENT ON THE DAY OF DISCHARGE: Stable. I assessed Ms. Velasquez on the day of discharge. She denies any chest pain or shortness of breath. Vital signs are stable. S1 and S2 are heard, regular. Lungs are clear to auscultation bilaterally. DISCHARGE MEDICATIONS: No change was made to her pre-admission home medications as dictated by Dr. Hansen in his history and physical note dated September 05, 2018. HOSPITAL COURSE: Ms. Velasquez is a pleasant 38-year-old lady, who was admitted to [facility] on September 04, 2018, for severe hypokalemia as well as hyponatremia in the context of nausea and vomiting. Electrolytes were replaced. She was seen by Gastroenterology Service for suspected bleeding into her ostomy. Hemoglobin was stable. GI Service felt that she did not have an active GI bleed. She is being discharged home in a stable condition. On the day of discharge, she has sodium 136, potassium 3.7, creatinine 0.66, white count 6200, hemoglobin 12.2, and platelet count 294,000. Many thanks for allowing me to participate in your patient's care. Please feel free to contact me with any questions or concerns. DISCHARGE DESTINATION: Home. TIME SPENT: Total amount of time spent coordinating this discharge: 32 minutes. Job ID: [id number]
== END 2018-09-06 15:13 | disposition home or self-care (01) | DRG 640 ==
LOC: ERS 20:54 → 2NO 23:12
PROVIDERS: ADMIT Hospitalist; ATTEND Hospitalist
DX: E87.6 Hypokalemia (principal); E43 Unspecified severe protein-calorie malnutrition; K92.2 Gastrointestinal hemorrhage, unspecified; Z68.1 Body mass index [BMI] 19.9 or less, adult; I10 Essential (primary) hypertension; E87.1 Hypo-osmolality and hyponatremia; E86.0 Dehydration; F25.9 Schizoaffective disorder, unspecified; J44.9 Chronic obstructive pulmonary disease, unspecified; F32.9 Major depressive disorder, single episode, unspecified; K59.03 Drug induced constipation; T43.505A Adverse effect of unspecified antipsychotics and neuroleptics, initial encounter; F17.210 Nicotine dependence, cigarettes, uncomplicated; Z90.49 Acquired absence of other specified parts of digestive tract; Z88.0 Allergy status to penicillin; Z88.8 Allergy status to other drugs, medicaments and biological substances; Z93.3 Colostomy status
CPT/HCPCS: 36415; 80048; 82274; 83880; 85025; 96361; 96374; C9113; J1650; J2270; J2405

== ENCOUNTER 2018-09-14 16:33 | Inpatient (IN) | payer OTHER ==
[2018-09-14] MEDS ORDERED: Acetaminophen 500 MG TAB ONE (18:32)
[2018-09-14] MEDS ORDERED: Potassium Chloride 20 MEQ TAB ONE (18:32)
--- NOTE | 2018-09-14 18:33 | PDOC.FPRHP ---
- History of Present Illness Chief Complaint: N/V History of Present Illness: The patient is a 38YOF with a PMH significant for bipolar and schizoaffective disorder and rectal prolapse w/ a LLQ ostomy in place who was transferred from the [facility] ER after presenting there per the recommendations of her advanced manufacturing engineer, Dr. Kearney, after bloodwork obtained there today revealed that both her Na and K were extremely low. Per the patient, her only symptoms have been nausea and vomiting that began today. She reports normal ostomy output and denies any fever/chills. She does endorses some abdominal but has a h/o manipulative behavior by reporting pain to get narcotics. ED Course: [facility]- kcl in Normal saline @ 125 ml/hr, 4mg IV zofran, 15mg toradol IV Sturgeon's- 40mEq PO KCl & 1g Tylenol - Allergies/Adverse Reactions Allergies Allergy/AdvReac Type Severity Reaction Status Date / Time buspirone [From BuSpar] Allergy Verified 09/14/18 21:10 Penicillins Allergy Verified 09/14/18 21:10 - Home Medications Medication Instructions Recorded Confirmed Type QUEtiapine Fumarate [SEROquel] 200 mg PO BID 07/18/18 09/14/18 History BuPROPion XL [Wellbutrin XL] 150 mg PO DAILY tab 07/19/18 09/14/18 Rx OLANZapine [Zyprexa] 20 mg PO HS 08/03/18 09/14/18 History Pantoprazole [Protonix] 40 mg PO DAILY 09/04/18 09/14/18 History Sertraline HCl [Zoloft] 200 mg PO DAILY 09/04/18 09/14/18 History Temazepam 30 mg PO HS 09/04/18 09/14/18 History Albuterol Sulfate [Proventil Hfa] 2 puff INH Q4H PRN 09/14/18 09/14/18 History Fluticasone Propionate [Flonase 2 spray EA NARE DAILY 09/14/18 09/14/18 History Nasal [place]] - History PMHx: bipolar disorder, schizoaffective disorder, asthma, HTN, h/o recurrent rectal prolapse requiring ostomy placement PSHx: tonsillectomy, incisional hernia repear & adhesionolysis, laprascopic rectosigmoid resection w/ colorectal anastamosis for recurrent rectal prolapse FHx: non-contributory Social: Smoked 1ppd for many years. Former meth, MJ & opiate misuse. Drinks socially. - Review of Systems General: reports: weight/appetite/sleep changes. denies: fever/chills Eyes: denies: vision changes ENT: denies: nasal congestion, rhinorrhea Respiratory: denies: cough, shortness of breath Cardiovascular: denies: chest pain, palpitation Gastrointestinal: reports: nausea, vomiting, abdominal pain. denies: diarrhea, constipation Genitourinary: denies: incontinence, dysuria Skin: denies: rashes Musculoskeletal: reports: pain (left arm pain from IV) Neurological: denies: syncope Psychological: reports: depression. denies: anxiety - Vital signs BP: 123/71 HR: 82 RR: 22 Tmax: 98.9F Pox: 96% on RA Wt: 48 kg - Physical Exam Constitutional: NAD, awake, alert and oriented, other (thin and not well- developed but not ill-appearing) HEENT: normocephalic and atraumatic, grossly normal vision, grossly normal hearing, MMM, other Neck: supple Lungs: no respiratory distress Abdomen: other (ostomy in place in LLQ) Musculoskeletal: normal structure, ROM grossly normal Neurological: no focal deficit, CN II-XII intact (grossly) Skin: good turgor, capillary refill <2 seconds, no jaundice Heme/Lymphatic: no unusual bruising or bleeding, no purpura, no petechia Psychiatric: normal mood and affect, intact recent and remote memory, other FMR H&P: Results - Labs Result Diagrams: 09/15/18 00:06 - EKG Interpretation EKG: NSR with prolonged QT of .507 - Radiology Interpretation Other Status: report reviewed by me (abdominal x-ray showed no acute process or evidence of obstruction) FMR H&P: A/P - Problem List (1) Metabolic alkalosis Current Visit: Yes Status: Acute Code(s): E87.3 - ALKALOSIS (2) Hyponatremia Current Visit: Yes Status: Acute Code(s): E87.1 - HYPO-OSMOLALITY AND HYPONATREMIA (3) Colostomy and enterostomy complications Current Visit: No Status: Acute Code(s): [id number] - (4) Hypokalemia Current Visit: No Status: Acute Code(s): E87.6 - HYPOKALEMIA (5) Nausea and vomiting Current Visit: No Status: Acute Code(s): R11.2 - NAUSEA WITH VOMITING, UNSPECIFIED (6) COPD (chronic obstructive pulmonary disease) Current Visit: No Status: Chronic Comment: stable (7) Schizoaffective disorder Current Visit: No Status: Chronic Code(s): F25.9 - SCHIZOAFFECTIVE DISORDER , UNSPECIFIED (8) HTN (hypertension) Current Visit: Yes Status: Acute Code(s): I10 - ESSENTIAL (PRIMARY) HYPERTENSION - Plan 38YOF w/ a PMH significant for bipolar & schizoaffective disorder with an ostomy placement s/p complications from rectal prolapse who was transferred from the [facility] ED after presenting there per the recs of her advanced manufacturing engineer to obtain bloodwork & was found to be profoundly hyponatremic & hypokalemic. Hypochloremic Hypokalemic Contraction Alkalosis 2/2 GI losses - The patient presented with N/V and was found to have profound alkalosis with a HCO3 of 39 & Cl & K levels of 75 and 2.2. s/p 40mEq PO K and KCl in NS @ 125mL /hr started in [facility]. Will continue NS w/ 40mEq of KCl @ 100mL/hr and repeat BMPs Q2Hrs until K stable at 3 or greater. - Will give PRN reglan and benadryl for N/V as zofran CI in setting of prolonged QT. Moderate Hyponatremia - Na of 127 on presentation and has been this low in the past. Patient alert & oriented on exam but will continue NS @ 100mL/hr & monitor w/ Q2H BMPs. - Will consider ordering urine studies to evaluate for other potential etiologies although GI losses are the most likely cause. Bipolar disorder - Will rec meds in the AM but will resume meds from most recent discharge in the meantime. Schizoaffective disorder - See plan above for bipolar disorder. Asthma/COPD - Will resume home meds from most recent discharge. h/o ostomy placement following rectal prolapse - Will continue routine ostomy care. FMR H&P: Upper Level - Pertinent history 38F frequently admitted to hospital with an extensive psych history presents to outside ED after recommendations from her advanced manufacturing engineer. Outside bloodwork revealed severe hypokalemia and hyponatremia. This has been a chronic issue for her and requires hospitalization for IV repletion. She endorses being nauseous and vomiting for one day. Emesis is NB/NB. She denies any increased output from her ostomy. She is eating dinner in ED room at time of examination. She denies any fever/chills, new skin rashes, headache. - Pertinent findings 123/71 mmHg 82bpm 22RR 98.9F 96% on RA Gen: in no acute distress; A&Ox3 CV: RRR; no murmurs Pulm: CTA-B Abd: mild TTP of epigastric region; colostomy in LLQ Ext: no cyanosis or edema Na: 127 K: 2.2 Chl: 75 CO2: 39 Ma.8 EKG: QTC .507, otherwise normal Abd XR: normal; no sign of SBO - Plan Date/Time: 09/14/181832 I, Scott Gamble, have evaluated this patient and agree with findings/plan as outlined by corporate legal intern resident. Pertinent changes/additions are listed here. Hypokalemic contraction alkalosis 2/2 vomiting: patient has been given PO and IV KCl. EKG with QT prolongation. Patient only complaints is mild epigastric pain. We will continue to give PO KCl and check BMP's q2h until in the normal range. Metabolic derangements consistent with contraction alkalosis. Will continue @ 100 ml/hr and ensure modest rise in sodium with BMPs. Hold all QT prolonging agents.
[2018-09-14 18:58] LABS: BUN (Urea Nitrogen) 5 mg/dL (7.0-18.7); Calc. Creatinine Clearance 0 mL/min (70-130); Calcium 9.6 mg/dL (7.8-10.44); Estimated GFR-MDRD Greater than 90; Glucose 94 mg/dL (70-105)
[2018-09-14] MEDS ORDERED: traMADol HCl 50 MG TAB PO SCH (19:00)
[2018-09-14 19:07] LABS: Anion Gap 20 mmol/L (10-20); Carbon Dioxide 33 mmol/L (22-29); Chloride 77 mmol/L (98-107); Sodium 127 mmol/L (136-145)
[2018-09-14 19:11] LABS: Potassium 2.5 mmol/L (3.5-5.1)
[2018-09-14] MEDS ORDERED: Albuterol Sulfate 2.5 mg/3 ml Neb NEB PRN (20:40)
[2018-09-14] MEDS ORDERED: Ondansetron ODT 4 MG TAB PO PRN (20:40)
[2018-09-14 21:15] VITALS: BMI 16.3
[2018-09-14 21:25] LABS: BUN (Urea Nitrogen) 8 mg/dL (7.0-18.7); Calc. Creatinine Clearance 71 mL/min (70-130); Calcium 10.1 mg/dL (7.8-10.44); Estimated GFR-MDRD 82; Glucose 101 mg/dL (70-105)
[2018-09-14 21:34] LABS: Anion Gap 20 mmol/L (10-20); Carbon Dioxide 35 mmol/L (22-29); Chloride 76 mmol/L (98-107); Sodium 129 mmol/L (136-145)
[2018-09-14 21:36] LABS: Potassium 2.4 mmol/L (3.5-5.1)
[2018-09-14] MEDS ORDERED: Ibuprofen 800 MG TAB PO PRN (21:39)
[2018-09-14] MEDS ORDERED: Metoclopramide HCl 10 MG/2 ML VIAL IVP PRN (21:58)
[2018-09-14] MEDS ORDERED: Temazepam 15 MG CAP PO SCH (22:00)
[2018-09-14] MEDS ORDERED: Magnesium 2 GM/50 ML 1 GM in Premix Bag 1 BAG IVPB SCH (22:00)
[2018-09-14] MEDS ORDERED: NS 0.9% w/ 40 MEQ KCL 1,000 ML IV SCH ×2 (22:00→23:40)
[2018-09-14] MEDS ORDERED: Nicotine 21 MG PATCH TD SCH (22:00)
[2018-09-14] MEDS ORDERED: OLANZapine 5 MG TAB PO SCH (22:00)
[2018-09-14] MEDS ORDERED: diphenhydrAMINE 50 MG/ML VIAL IVP PRN (22:01)
[2018-09-14 22:57] LABS: Phosphorus 3.9 mg/dL (2.3-4.7)
[2018-09-14 23:58] LABS: Anion Gap 22 mmol/L (10-20); BUN (Urea Nitrogen) 8 mg/dL (7.0-18.7); Calc. Creatinine Clearance 70 mL/min (70-130); Carbon Dioxide 32 mmol/L (22-29); Chloride 78 mmol/L (98-107); Estimated GFR-MDRD 81; Glucose 95 mg/dL (70-105); Sodium 129 mmol/L (136-145)
[2018-09-15 00:01] LABS: Potassium 2.6 mmol/L (3.5-5.1)
[2018-09-15] MEDS ORDERED: Potassium Chloride 20 MEQ TAB PO SCH ×2 (00:15→08:00)
[2018-09-15 00:33] LABS: BUN (Urea Nitrogen) 7 mg/dL (7.0-18.7); Calc. Creatinine Clearance 77 mL/min (70-130); Calcium 9.9 mg/dL (7.8-10.44); Estimated GFR-MDRD 90; Glucose 111 mg/dL (70-105)
[2018-09-15 00:43] LABS: Anion Gap 23 mmol/L (10-20); Carbon Dioxide 30 mmol/L (22-29); Chloride 79 mmol/L (98-107); Sodium 130 mmol/L (136-145)
[2018-09-15 00:45] LABS: Potassium 2.2 mmol/L (3.5-5.1)
[2018-09-15 05:48] LABS: Anion Gap 13 mmol/L (10-20); BUN (Urea Nitrogen) 7 mg/dL (7.0-18.7); Calc. Creatinine Clearance 83 mL/min (70-130); Calcium 9.4 mg/dL (7.8-10.44); Carbon Dioxide 34 mmol/L (22-29); Chloride 87 mmol/L (98-107); Estimated GFR-MDRD Greater than 90; Glucose 91 mg/dL (70-105); Magnesium 2.3 mg/dL (1.6-2.6); Potassium 3.2 mmol/L (3.5-5.1); Sodium 131 mmol/L (136-145)
[2018-09-15] MEDS: Sodium Chloride 0.9% 1,000 ML IV SCH ×2 (06:34→15:12)
--- NOTE | 2018-09-15 06:55 | PDOC.FM ---
- Subjective Subjective: No overnight events. Reports she is tired. Endorses nausea, no vomiting. - Objective MAR Reviewed: Yes Vital Signs & Weight: Vital Signs (12 hours) Temp Pulse Resp BP Pulse Ox 09/15/18 03:40 97.7 F 68 17 95/60 94 L 09/14/18 20:45 97.6 F 91 18 112/66 94 L Weight Weight 45.87 kg Result Diagrams: 09/15/18 04:43 Phys Exam - Physical Examination Constitutional: NAD dry MM Neck: supple Respiratory: no wheezing, clear to auscultation bilateral Cardiovascular: RRR, no significant murmur Gastrointestinal: soft, non-tender ostomy present Musculoskeletal: pulses present Neurological: moves all 4 limbs Psychiatric: normal affect Skin: normal turgor Dx/Plan (1) HTN (hypertension) Code(s): I10 - ESSENTIAL (PRIMARY) HYPERTENSION Status: Acute (2) Hyponatremia Code(s): E87.1 - HYPO-OSMOLALITY AND HYPONATREMIA Status: Acute (3) Metabolic alkalosis Code(s): E87.3 - ALKALOSIS Status: Acute (4) Abdominal wall cellulitis Code(s): L03.311 - CELLULITIS OF ABDOMINAL WALL Status: Acute (5) Colostomy and enterostomy complications Code(s): EXQ6078 - Status: Acute (6) Hypokalemia Code(s): E87.6 - HYPOKALEMIA Status: Acute (7) Iron deficiency anemia Code(s): D50.9 - IRON DEFICIENCY ANEMIA, UNSPECIFIED Status: Acute (8) Nausea and vomiting Code(s): R11.2 - NAUSEA WITH VOMITING, UNSPECIFIED Status: Acute (9) Schizoaffective disorder Code(s): F25.9 - SCHIZOAFFECTIVE DISORDER, UNSPECIFIED Status: Chronic - Plan Plan: Hypochloremic Hypokalemic Contraction Alkalosis 2/2 GI losses - Pt with symptoms of N/V - Initial HCO3 39, Cl 75, K 2.2 - PRN reglan & benadryl for N/V. Monitor as pt has prolonged QT. Hypokalemia - 2.2-> 3.2 - BMP in 2 hrs - Continue to replace with PO KCl Hyponatremia - Na 127-> 131 - Urine studies pending Bipolar disorder - Continue home meds Schizoaffective disorder - Continue home meds Asthma/COPD - Continue home meds h/o ostomy placement following rectal prolapse - Continue routine ostomy care
[2018-09-15] MEDS: Bupropion 150 MG XL TAB PO SCH (09:32)
[2018-09-15 11:29] LABS: Anion Gap 16 mmol/L (10-20); BUN (Urea Nitrogen) 7 mg/dL (7.0-18.7); Calc. Creatinine Clearance 73 mL/min (70-130); Calcium 9.9 mg/dL (7.8-10.44); Carbon Dioxide 31 mmol/L (22-29); Chloride 91 mmol/L (98-107); Estimated GFR-MDRD 85; Glucose 106 mg/dL (70-105); Potassium 3.5 mmol/L (3.5-5.1); Sodium 134 mmol/L (136-145)
[2018-09-15 11:53] LABS: Amphetamine Not Detected (NotDetected); Barbiturates Screen Not Detected (NotDetected); Benzodiazepine Screen Detected (NotDetected); Cocaine Metabolite Screen Not Detected (NotDetected); Medtox Control Line Valid? VALID (VALID); Medtox Reader # READER 4; Methadone Not Detected (NotDetected); Methamphetamine Not Detected (NotDetected); Opiate Screen Not Detected (NotDetected); Oxycodone Screen Not Detected (NotDetected); Phencyclidine (PCP) Not Detected (NotDetected); THC/Cannabinoid Screen Detected (NotDetected); Tricyclic Screen Detected (NotDetected)
[2018-09-15] MEDS: Acetaminophen 500 MG TAB PO PRN (15:09)
[2018-09-15] MEDS ORDERED: OLANZapine 5 MG TAB PO SCH (21:00)
[2018-09-15] MEDS ORDERED: Temazepam 15 MG CAP PO SCH (21:00)
[2018-09-16] MEDS: Acetaminophen 500 MG TAB PO PRN (03:55)
[2018-09-16] MEDS: Sodium Chloride 0.9% 1,000 ML IV SCH (05:19)
--- NOTE | 2018-09-16 06:37 | PDOC.FM ---
- Subjective Subjective: Had nausea and vomiting overnight. Able to tolerate PO. Had episode of leakage from ostomy resulting in skin irritation. - Objective MAR Reviewed: Yes Vital Signs & Weight: Vital Signs (12 hours) Temp Pulse Resp BP Pulse Ox 09/16/18 04:00 97.9 F 74 18 110/74 99 09/15/18 20:00 97.9 F 82 14 116/61 95 Weight Admit Weight 45.858 kg Weight 48.444 kg I&O: 09/14/18 09/15/18 09/16/18 06:59 06:59 06:59 Intake Total 1000 1540 Balance 1000 1540 Result Diagrams: 09/16/18 06:42 Phys Exam - Physical Examination Constitutional: NAD HEENT: moist MMs Neck: supple Respiratory: no wheezing, clear to auscultation bilateral Cardiovascular: RRR, no significant murmur Gastrointestinal: soft, non-tender, positive bowel sounds ostomy with irritation to skin inferior Musculoskeletal: no edema normal gait Neurological: moves all 4 limbs Psychiatric: A&O x 3 Skin: normal turgor Dx/Plan (1) HTN (hypertension) Code(s): I10 - ESSENTIAL (PRIMARY) HYPERTENSION Status: Acute (2) Hyponatremia Code(s): E87.1 - HYPO-OSMOLALITY AND HYPONATREMIA Status: Acute (3) Metabolic alkalosis Code(s): E87.3 - ALKALOSIS Status: Acute (4) Abdominal wall cellulitis Code(s): L03.311 - CELLULITIS OF ABDOMINAL WALL Status: Acute (5) Colostomy and enterostomy complications Code(s): [id number] - Status: Acute (6) Hypokalemia Code(s): E87.6 - HYPOKALEMIA Status: Acute (7) Iron deficiency anemia Code(s): D50.9 - IRON DEFICIENCY ANEMIA, UNSPECIFIED Status: Acute (8) Nausea and vomiting Code(s): R11.2 - NAUSEA WITH VOMITING, UNSPECIFIED Status: Acute (9) Schizoaffective disorder Code(s): F25.9 - SCHIZOAFFECTIVE DISORDER, UNSPECIFIED Status: Chronic - Plan Plan: Hypochloremic Hypokalemic Contraction Alkalosis 2/2 GI losses - Pt with symptoms of N/V - Initial HCO3 39, Cl 75, K 2.2 - PRN reglan & benadryl for n/v - Improving, d/c fluids Hypokalemia, resolved - Continue to replace with PO KCl Hyponatremia - Na 127-> 134 - Urine studies Bipolar disorder - Continue home meds Schizoaffective disorder - Continue home meds Asthma/COPD - Continue home meds h/o ostomy placement following rectal prolapse - Continue routine ostomy care Cannabis Use - UDS positive
[2018-09-16 07:40] LABS: Anion Gap 13 mmol/L (10-20); BUN (Urea Nitrogen) 9 mg/dL (7.0-18.7); Calc. Creatinine Clearance 84 mL/min (70-130); Calcium 9.1 mg/dL (7.8-10.44); Carbon Dioxide 30 mmol/L (22-29); Chloride 93 mmol/L (98-107); Estimated GFR-MDRD Greater than 90; Glucose 90 mg/dL (70-105); Magnesium 1.6 mg/dL (1.6-2.6); Potassium 3.3 mmol/L (3.5-5.1); Sodium 133 mmol/L (136-145)
[2018-09-16] MEDS: Bupropion 150 MG XL TAB PO SCH (08:51)
[2018-09-16] MEDS: Potassium Chloride 20 MEQ TAB PO SCH ×2 (08:51→18:08)
[2018-09-16] MEDS ORDERED: Magnesium Oxide 400 MG TAB PO SCH (09:00)
[2018-09-16] MEDS ORDERED: Metoclopramide 10 MG/10 ML UDCUP PO PRN (10:04)
[2018-09-16] MEDS ORDERED: Ondansetron ODT 4 MG TAB SL SCH (18:00)
--- NOTE | 2018-09-16 18:51 | PDOC.EVN ---
Event Note - Event Note Event Note: Residents paged for pt not wanting to leave hospital although she was discharged this morning. Pt reports wanting to stay due to her nausea and vomiting. Pts labs have normalized and she is stable for discharge home. She has called the charge nurse multiple times. Concerns started after pt found out she was being discharged. Initially requested to stay due to her family member being admitted to a room down the velasquez. Nursing staff have witness pt attempt to self induce vomiting. She has been leaving the facility frequently to go outside to smoke. No witnessed episodes of emesis. Discussed risks of taking antiemetic medications with the multiple antipsychotics she is taking. Pt verbalized understanding. Will give one time dose of Zofran.
[2018-09-16 19:48] VITALS: BP 100/62; TEMP 97.8
--- NOTE | 2018-09-16 20:32 | DIS ---
DATE OF ADMISSION: 09/14/2018 DATE OF DISCHARGE: 09/16/2018 RESIDENT: Maryuri Barahona MD, PGY-1. ADMITTING ATTENDING: Evin Shaffer MD. DISCHARGE ATTENDING: Evin Shaffer MD CONSULT: None. PROCEDURES: None. PRIMARY DIAGNOSIS: Hypochloremic hypokalemic contraction alkalosis secondary to GI losses. SECONDARY DIAGNOSES: 1. Hypokalemia, resolved. 2. Hyponatremia, improving. 3. Bipolar disorder. 4. Schizoaffective disorder. 5. Asthma/chronic obstructive pulmonary disease. 6. History of ostomy placement following rectal prolapse. 7. Cannabis use. DISCHARGE MEDICATIONS: 1. Wellbutrin 150 mg daily. 2. Ibuprofen 800 mg q.8 hours p.r.n. 3. Zyprexa 20 mg at bedtime. 4. Protonix 40 mg daily. 5. Potassium chloride 40 mEq b.i.d. 6. Quetiapine 200 mg b.i.d. 7. Sertraline 200 mg daily. 8. Restoril 30 mg at bedtime. 9. Proventil 2 puffs q.4 hours p.r.n. 10. EpiPen. 11. Flonase 2 sprays each naris daily. HISTORY OF PRESENT ILLNESS/HOSPITAL COURSE: Ms. Velasquez is a 38-year-old female who is well known to our service with past medical history of bipolar and schizoaffective disorder, ostomy secondary to rectal prolapse, who was transferred from [place] [facility] at the recommendation of her concrete buildings assembler, Dr. Kearney for found to have hypokalemia and hyponatremia on lab work. The patient had nausea and vomiting of 1-day duration and reported normal ostomy output. She received a total of 80 mEq potassium chloride IV and 40 mEq b.i.d., as well as maintenance normal saline. Nausea was controlled with Reglan. Initial potassium at outside hospital 2.2, here it was 2.5, 2.6, 2.2, 3.2, and 3.5 at discharge. Sodium 127, 129, 130, 131, 134. Her urine osmolality 256, urine sodium 59. UDS was positive for cannabis. She was instructed to follow up closely at our clinic for lab work as well as supplementing potassium daily. Her magnesium was initially 2.3, but on day of discharge 1.6, this was replaced. Her chronic medical problems of bipolar disorder, schizoaffective disorder, asthma, COPD were managed with home medications. She did have some leakage of her ostomy on the day of discharge, resulting in skin irritation. Barrier cream was applied. This needs to be watched closely and she will also need to follow up in our clinic for this. DISPOSITION: Stable. DISCHARGE INSTRUCTIONS: 1. Location: Home. 2. Diet: Regular. 3. Activity: No restrictions. 4. Follow up with Dr. Deluca at [facility] within 3 days. Job ID: [id number]
--- NOTE | 2018-09-17 13:56 | HP ---
ADDENDUM: Please see the history and physical done by Dr. Celeste for which I agree and also the progress note from Dr. Barahona for which I agree. The patient was seen, evaluated, discussed, and examined with the residents by bedside. HISTORY OF PRESENT ILLNESS: A 38-year-old female, who has had multiple admit for hyponatremia and hypokalemia. Thought to be from ostomy drainage. 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 She was sent to the emergency room because of really low sodium and potassium. Vomited once, but is not doing too poorly otherwise. She has an extremely complicated psychiatric history including schizoaffective disorder and bipolar, but denied potomania or anything that extreme. Initial sodium was 127 and potassium was 3.2 and is now improved with IV fluids overnight. Past medical history, past surgical history, family history, medications, social history, review of systems all per the history and physical for which I have reviewed and agree with. PHYSICAL EXAMINATION: GENERAL: No apparent distress. Pleasant affect. VITAL SIGNS: Fine. HEENT: Moist mucosa. Conjunctivae, not pale. CHEST: Clear. CARDIOVASCULAR: Regular rate and rhythm. ABDOMEN: Benign. EXTREMITIES: Show no edema. ASSESSMENT/PLAN: 1. Hypokalemia. Plan is to continue IV replacement and then eventually p.o. replacement as an outpatient as it sounds like this may be a chronic problem. 2. Hyponatremia. Talked about fluid restriction to 1.5 L a day and we will follow sodium and potassium really closely as an outpatient and she needs to follow up fairly quickly so we can monitor these things, but may be able to be discharged today. Job ID: [id number]
--- NOTE | 2018-09-17 14:17 | PRG ---
DATE OF SERVICE: 09/16/2018 ADDENDUM: Please see note from Dr. Barahona for which I agree. The patient is seen, evaluated, discussed, and examined with the residents by bedside. Generally speaking, she is doing better from an electrolyte standpoint. Potassium is up to 3.3. Sodium 133, is still a little bit low, but certainly not extreme. Still having a lot of leakage from the top enterocutaneous fistula ostomy site. Underneath it, skin is somewhat burned and irritated. It sounds like this has been a problem for her on previous hospitalizations as well. But everything else is fairly stable and likely can be discharged on potassium. There is some question whether she can actually get a ride home or not, this may not happen until tomorrow. Also, I am going to recommend fluid restricting her. Job ID: [id number]
== END 2018-09-16 21:17 | disposition home or self-care (01) | DRG 394 ==
LOC: ERS 16:33 → 2NO 18:14
PROVIDERS: ADMIT Family Medicine; ATTEND Family Medicine
DX: K94.09 Other complications of colostomy (principal); E87.1 Hypo-osmolality and hyponatremia; L03.311 Cellulitis of abdominal wall; E87.2 Acidosis; Y83.9 Surgical procedure, unspecified as the cause of abnormal reaction of the patient, or of later complication, without mention of misadventure at the time of the procedure; F25.0 Schizoaffective disorder, bipolar type; F17.210 Nicotine dependence, cigarettes, uncomplicated; E87.6 Hypokalemia; J44.9 Chronic obstructive pulmonary disease, unspecified; I10 Essential (primary) hypertension; D50.9 Iron deficiency anemia, unspecified; F12.90 Cannabis use, unspecified, uncomplicated; Z88.8 Allergy status to other drugs, medicaments and biological substances; Z88.0 Allergy status to penicillin; Z79.51 Long term (current) use of inhaled steroids; Z79.899 Other long term (current) drug therapy
CPT/HCPCS: 36415; 80048; 80306; 83735; 83930; 83935; 84100; 84300; 93005; J1200; J3475; J3480; J8597; Q0162

== ENCOUNTER 2018-10-17 13:29 | Inpatient (IN) | payer OTHER ==
[2018-10-17] MEDS ORDERED: Acetaminophen 500 MG TAB ONE (14:35)
[2018-10-17 14:44] LABS: Acetaminophen Less than 6.0 mcg/mL (10.0-30.0); Alcohol Less than 10 mg/dL (Less than 10); Salicylate Less than 8.0 mg/dL (15.0-30.0)
[2018-10-17] MEDS ORDERED: Acetaminophen 1,000 MG in Premix Bag 1 BAG IVPB SCH (14:45)
[2018-10-17 14:52] LABS: Amphetamine Not Detected (NotDetected); Barbiturates Screen Not Detected (NotDetected); Benzodiazepine Screen Not Detected (NotDetected); Cocaine Metabolite Screen Not Detected (NotDetected); Medtox Control Line Valid? VALID (VALID); Medtox Reader # READER 4; Methadone Not Detected (NotDetected); Methamphetamine Not Detected (NotDetected); Opiate Screen Not Detected (NotDetected); Oxycodone Screen Not Detected (NotDetected); Phencyclidine (PCP) Not Detected (NotDetected); THC/Cannabinoid Screen Not Detected (NotDetected); Tricyclic Screen Detected (NotDetected)
[2018-10-17] MEDS ORDERED: Dextrose 5% in Water 1,000 ML IV PRN (16:25)
[2018-10-17] MEDS ORDERED: Labetalol HCl 100 MG/20 ML VIAL SLOW IVP PRN (16:25)
[2018-10-17] MEDS ORDERED: niCARdipine 25 MG in Sodium Chloride 0.9% 250 ML 240 ML IVPB PRN (16:25)
[2018-10-17] MEDS ORDERED: Dextrose 50% Abboject 50 ML SYRINGE SLOW IVP PRN (16:25)
[2018-10-17] MEDS ORDERED: Ondansetron ODT 4 MG TAB PO PRN (16:25)
[2018-10-17] MEDS ORDERED: Acetaminophen 500 MG TAB PO PRN (16:31)
[2018-10-17] MEDS ORDERED: Albuterol Sulfate 1.25 MG/3 ML NEB NEB PRN (16:34)
[2018-10-17] MEDS ORDERED: NS 0.9% w/ 40 MEQ KCL 1,000 ML IV SCH (17:00)
--- NOTE | 2018-10-17 17:34 | RAD ---
TWO VIEWS LEFT ANKLE: 10/17/18 COMPARISON: None. HISTORY: Left ankle trauma with pain. FINDINGS: Two views of the left ankle shows no evidence of acute fracture or dislocation. No degenerative zaman es are seen. Mild anterior soft tissue swelling is seen. IMPRESSION: No evidence of acute osseous abnormality. POS: C
--- NOTE | 2018-10-17 17:51 | HP ---
CHIEF COMPLAINT: Unable to move left side. PRIMARY CARE PROVIDER: Unknown. HISTORY OF PRESENT ILLNESS: This is a 38-year-old female with history of GI surgeries and hospitalizations for electrolyte disorders, schizoaffective disorder, and bipolar disorder, who presents to the emergency room with a complaint of feeling weak and difficulty with moving her left side. The patient reports waking up with a headache this morning on the right side of her head, states that this is not new. She has been having headaches for 3 days. She reports around 8:45 this morning that she was having difficulty moving her left side. She was able to walk some to get to the emergency room, where she was evaluated and presentation concerning for stroke and she received tPA, and was sent here by [email or web address]. The patient reports vision changes on the left side with blurring of her vision, nausea with the helicopter ride, trauma to her left ankle yesterday, but denies any precipitating or relieving factors. She also denies any prior history and states other than headaches, she has been feeling well. She denies any difficulty speaking or swallowing, denies any fevers or chills, denies any abdominal pain or difficulty with urination. In the emergency room in [place], the patient received tPA. In the emergency room here, 1 g of Tylenol. ALLERGIES: 1. BUSPAR. 2. PENICILLINS. 3. ADHESIVE TAPE. 4. WASPS, FOR WHICH SHE CARRIES AN EPIPEN. PAST MEDICAL HISTORY: 1. Hospitalizations for hyponatremia, hypokalemia, and dehydration secondary to abdominal pain associated with multiple GI surgeries. 2. Bipolar disorder. 3. Schizoaffective disorder. 4. History of asthma/COPD. 5. Cannabis use. 6. Nicotine use. 7. History of hypoglycemia PAST SURGICAL HISTORY: For multiple GI surgeries that include colon resection and hernia repairs and history of ostomy placement as well as another drainage site that the patient reports is from her stomach. FAMILY HISTORY: Significant for diabetes, heart problems, and depression. SOCIAL HISTORY: The patient lives with her dad, Michele, who is her surrogate decision maker. She uses one pack of tobacco per day. Smokes marijuana, she states monthly. Uses alcohol monthly. REVIEW OF SYSTEMS: Positive for vision changes as noted above, nausea that has since resolved, headache on the right side of her head, and left ankle pain. Negative for fevers, chills, chest pain, nausea, vomiting, or abdominal pain. All remaining review of systems are reviewed and negative. CURRENT MEDICATIONS: Reconciled with the list from her last hospitalization, which occurred last month. 1. Wellbutrin 150 mg daily. 2. Zyprexa 20 mg at bedtime. 3. Protonix 40 mg daily. 4. Potassium chloride 40 mEq b.i.d. 5. Quetiapine 200 mg b.i.d. 6. Sertraline 200 mg daily. 7. Proventil inhaler two puffs every 4 hours as needed. 8. EpiPen. 9. Trazodone 300 mg at bedtime. PHYSICAL EXAMINATION: VITAL SIGNS: Her blood pressure is 106/60, pulse 76, and respirations 17. GENERAL: She is a cachectic appearing female, in no apparent distress. Able to speak in full sentences. HEENT: Her pupils are equal and round. Her oral mucosa is pink, appears slightly dry. Her extraocular movements, she is unable to move her left eye past midline laterally. NECK: Supple and nontender. LYMPHATICS: No palpable cervical or supraclavicular lymphadenopathy. LUNGS: Clear to auscultation bilateral. No audible wheezing, rhonchi, or rales. HEART: Normal S1 and S2. Regular rate and rhythm. No significant murmur. ABDOMEN: Soft with present bowel sounds. The drainage from the two ostomy and the other site is brown and liquid and her ostomy site is pink. EXTREMITIES: Thin. There is an area of trauma to the anterior left ankle with abrasions, mild edema surrounding it. VASCULAR: 2+ dorsalis pedis pulses bilateral. NEURO: Extraocular movements, unable to move the left eye laterally past the midline. No visible facial droop. Left side, she can barely move her fingers, able to slightly raise her left arm using her shoulder, barely able to wiggle her toes and able to move her left leg [id number] at short distance. Right side, no visible deficits. Strength appears 5/5. PSYCH: Tired appearing, linear/logical/goal directed thought process, alert & oriented x 4. LABORATORY DATA: Reviewed. Her toxicology screen is positive for tricyclics, negative for alcohol, Tylenol, and salicylates. Her CBC; 8.9, 12.5, 38.8, and 350. Her coags today, INR is 1.0. Renal panel; 131, 3.5, 90, 31, 5, and 0.76 with a blood sugar of 86. Liver function tests; AST 13, ALT 8, alkaline phosphatase 85, albumin 3.4, and total protein 6.8. CT scan of her head and neck with and without contrast, no significant stenosis or occlusion, partial visualization of pulmonary emphysema, greater on the right, which contained several bulla and mild bilateral mastoid opacification. CT noncontrast, no acute abnormality. IMPRESSION: 1. New neurologic left-sided deficits concerning for stroke in this young patient, now status post tPA. 2. Bipolar disorder and schizoaffective disorder. 3. Cachexia 4. Left ankle trauma. 5. Headache. 6. Tobacco abuse. 7. Cannabis abuse. 8. History of hypoglycemia. 9. History of asthma and chronic obstructive pulmonary disease, appears stable. PLAN: 1. Admission to the ICU with post tPA protocol, which includes a CT scan in the morning. 2. Stroke Team and Neurology consults, we will order an MRI with a request for sedation by anesthesia per the patient's request, echocardiogram, monitoring on telemetry. 3. Continuing selective home medications, which include Zyprexa, Wellbutrin, and quetiapine. Holding the sertraline for now as this can affect the platelets and the patient did receive tPA. 4. We will continue the Protonix, potassium replacement, and monitor her renal function. Check mag and phosphate levels in the morning. 5. P.R.N. albuterol. 6. Because of the contrast study, we will run some IV fluids, and check blood sugars three times daily with hypoglycemia protocol. 7. Nicotine replacement by the patient request. 8. Left ankle x-ray. 9. We will order some Trion p.r.n. for headache as the patient reports that Tylenol did not change. 10. check HCG. Consult erp programmer on nutrition supplementation. 10. DVT prophylaxis. The patient received tPA. This will need to be re- evaluated after 24 hours. 11. GI prophylaxis. The patient is on Protonix. We will continue that. 12. Code status is full. Surrogate decision maker is the patient's father as noted above. The patient is at high risk given age, comorbidities, and current presentation. Reviewed the plan of care with the patient, no questions or further needs at end of evaluation. Job ID: [id number] [facility]
[2018-10-17] MEDS: Communication Order-Pharmacy FS SCH (19:40)
[2018-10-17] MEDS: Potassium Chloride 20 MEQ TAB PO SCH (19:44)
[2018-10-17] MEDS: OLANZapine 5 MG TAB PO SCH (19:45)
[2018-10-17] MEDS: HYDROcodone/Acetaminophen 5/325 mg Tablet PO PRN (19:56)
[2018-10-17] MEDS: Nicotine 21 MG PATCH TD SCH (19:57)
[2018-10-17 20:06] VITALS: BMI 17.2
[2018-10-17] MEDS: traZODone HCl 150 MG TAB PO SCH (20:55)
--- NOTE | 2018-10-18 07:48 | CT ---
CT OF HEAD NONCONTRAST: INDICATION: History of stroke, TPA administration followup. COMPARISON: Reference is made to exam of previous day. FINDINGS: Ventricular system is stable in size. There is no intracranial hemorrhage or mass effect. Stable be nign-appearing asymmetry of the lateral ventricles. IMPRESSION: No interval acute intracranial hemorrhage or mass effect. POS: HERMILO
[2018-10-18] MEDS: Potassium Chloride 20 MEQ TAB PO SCH ×2 (08:09→17:22)
[2018-10-18] MEDS: HYDROcodone/Acetaminophen 5/325 mg Tablet PO PRN ×3 (08:10→20:54)
[2018-10-18] MEDS: Bupropion 150 MG XL TAB PO SCH (08:11)
[2018-10-18] MEDS ORDERED: Lorazepam 2 MG/ML VIAL SLOW IVP SCH ×3 (08:30→13:30)
[2018-10-18] MEDS ORDERED: Midazolam HCl 2 mg/2 ml Vial ONE (09:23)
[2018-10-18] MEDS ORDERED: Fentanyl 100 MCG/2 ML VIAL ONE (09:23)
[2018-10-18] MEDS ORDERED: Lidocaine 1% w/Epinephrine 1:100K 20 ML VIAL ONE (09:24)
[2018-10-18] MEDS ORDERED: Sodium Chloride 0.65% Nasal 44 ML BOT EA NARE PRN ×2 (11:01→11:16)
[2018-10-18] MEDS ORDERED: Bisacodyl 10 MG SUPP PR PRN ×2 (11:01→11:12)
[2018-10-18] MEDS ORDERED: Temazepam 15 MG CAP PO PRN ×2 (11:01→11:16)
[2018-10-18] MEDS ORDERED: Cepastat Lozenges 1 LOZ PO PRN ×2 (11:01→11:13)
[2018-10-18] MEDS ORDERED: Loratadine 10 MG TAB PO PRN ×2 (11:01→11:16)
[2018-10-18] MEDS ORDERED: hydrALAZINE 20 MG/ML VIAL SLOW IVP PRN ×2 (11:01→11:16)
[2018-10-18] MEDS ORDERED: Diabetic Tussin 200 MG/10 ML UDCUP PO PRN ×2 (11:01→11:15)
[2018-10-18] MEDS ORDERED: Loperamide HCl 2 MG CAP PO PRN ×2 (11:01→11:16)
[2018-10-18] MEDS ORDERED: Senokot S 8.6-50 MG TAB PO PRN ×2 (11:01→21:00)
[2018-10-18] MEDS ORDERED: PROVENTIL INHALER 6.7 G (200 INHALATIONS) INH PRN ×2 (11:01→11:12)
[2018-10-18] MEDS ORDERED: EPINEPHRINE 0.3 MG IJ PRN (11:01)
[2018-10-18] MEDS ORDERED: Ondansetron PF 4 MG/2 ML Vial IVP PRN ×2 (11:01→11:16)
--- NOTE | 2018-10-18 11:04 | PDOC.PN ---
- Subjective Encounter Start Date: 10/18/18 Encounter Start Time: 10:00 -: old records requested/rev Patient seen and examined. pt has left side weakness. No overnight events - Objective Resuscitation Status - Order Detail: 10/17/18 16:25 Resuscitation Status Routine Resuscitation Status: FULL: Full Resuscitation MAR Reviewed: Yes Vital Signs & Weight: Vital Signs (12 hours) Temp Pulse Ox 10/18/18 08:00 98 10/18/18 07:00 98.6 F 10/18/18 06:00 98.7 F 10/18/18 03:00 98.1 F Weight Weight 106 lb 7.732 oz Most Recent Monitor Data Heart Rate from ECG 73 NIBP 112/68 NIBP BP-Mean 82 Respiration from ECG 30 SpO2 99 I&O: 10/17/18 10/18/18 10/19/18 06:59 06:59 06:59 Intake Total 1253 1280 Output Total 1330 645 Balance -77 635 Additional Labs: Accuchecks 10/18/18 10/17/18 10/17/18 03:14 23:37 20:48 POC Glucose 80 104 98 Phys Exam - Physical Examination Constitutional: NAD HEENT: moist MMs, sclera anicteric Neck: no JVD, supple Respiratory: no wheezing, no rales, no rhonchi Cardiovascular: RRR, no significant murmur, no rub Gastrointestinal: soft, non-tender, no distention, positive bowel sounds Musculoskeletal: no edema, pulses present left side weakness Lymphatic: no nodes Psychiatric: normal affect Skin: no rash, normal turgor Dx/Plan (1) HTN (hypertension) Code(s): I10 - ESSENTIAL (PRIMARY) HYPERTENSION Status: Chronic (2) COPD (chronic obstructive pulmonary disease) Status: Chronic Comment: stable (3) Depression Code(s): F32.9 - MAJOR DEPRESSIVE DISORDER, SINGLE EPISODE, UNSPECIFIED Status : Chronic Comment: moderate, stable (4) PTSD (post-traumatic stress disorder) Code(s): F43.10 - POST-TRAUMATIC STRESS DISORDER, UNSPECIFIED Status: Chronic (5) Schizoaffective disorder Code(s): F25.9 - SCHIZOAFFECTIVE DISORDER, UNSPECIFIED Status: Chronic (6) Severe protein-calorie malnutrition Code(s): E43 - UNSPECIFIED SEVERE PROTEIN-CALORIE MALNUTRITION Status: Chronic Comment: - Plan cont current plan of care, PT/OT, speech therapy * medication reviewed as below * symptomatic treatment * MRI and echo today * lorazepam before MRI * Neuro consulted * will monitor post TPA in CCU. * transfer to stroke later today Review of Systems - Review of Systems ENT: negative: Ear Pain, Ear Discharge, Nose Pain, Nose Discharge, Nose Congestion, Mouth Pain, Mouth Swelling, Throat Pain, Throat Swelling, Other Respiratory: negative: Cough, Dry, Shortness of Breath, Hemoptysis, SOB with Excertion, Pleuritic Pain, Sputum, Wheezing Cardiovascular: negative: chest pain, palpitations, orthopnea, paroxysmal nocturnal dyspnea, edema, light headedness, other Gastrointestinal: negative: Nausea, Vomiting, Abdominal Pain, Diarrhea, Constipation, Melena, Hematochezia, Other Genitourinary: negative: Dysuria, Frequency, Incontinence, Hematuria, Retention , Other Musculoskeletal: negative: Neck Pain, Shoulder Pain, Arm Pain, Back Pain, Hand Pain, Leg Pain, Foot Pain, Other Skin: negative: Rash, Lesions, Piotr, Bruising, Other Neurological: Weakness. negative: Numbness, Incoordination, Change in Speech, Confusion, Seizures, Other - Medications/Allergies Allergies/Adverse Reactions: Allergies Allergy/AdvReac Type Severity Reaction Status Date / Time buspirone [From BuSpar] Allergy Verified 10/17/18 19:25 Penicillins Allergy Verified 10/17/18 19:25 Medications: Current Medications Acetaminophen (Tylenol) 500 mg PO Q4H PRN PRN Reason: Headache/Fever or Pain Hydrocodone Bitart/Acetaminophen ([place] 5/325) 1 tab PO Q4H PRN PRN Reason: Moderate Pain (4-6) Last Admin: 10/18/18 08:10 Dose: 1 tab Albuterol Sulfate (Albuterol Sulfate) 1.25 mg NEB [id number] PRN PRN Reason: Wheezing Albuterol Sulfate (Proventil Hfa) 2 puff INH Q4H PRN PRN Reason: SOB &/or Wheezing Bisacodyl (Dulcolax) 10 mg AL DAILYPRN PRN PRN Reason: Constipation Bupropion HCl (Wellbutrin Xl) 150 mg PO DAILY SERGE Last Admin: 10/18/18 08:11 Dose: 150 mg Dextrose/Water (Dextrose 50%) 25 gm SLOW IVP PRN PRN PRN Reason: Hypoglycemia Fluticasone Propionate (Flonase Nasal Leon) gm NASAL DAILY [facility] Glucagon (Glucagon) 1 mg IM PRN PRN PRN Reason: Hypoglycemia Guaifenesin (Robitussin Sf) 200 mg PO Q4H PRN PRN Reason: Cough Hydralazine HCl (Apresoline) 10 mg SLOW IVP Q4H PRN PRN Reason: SBP > 180 and HR < 70 Dextrose/Water (D5w) 1,000 mls @ 0 mls/hr IV .Q0M PRN PRN Reason: Hypoglycemia Nicardipine HCl 25 mg/ Sodium (Chloride) 250 mls @ 0 mls/hr IVPB INF PRN; Protocol PRN Reason: SBP > 180 or DBP > 105 Labetalol HCl (Normodyne) 10 mg SLOW IVP Q2H PRN PRN Reason: SBP > 180 or DBP > 105 Loperamide HCl (Imodium) 2 mg PO PRN PRN PRN Reason: Diarrhea/Loose Stools Loratadine (Claritin) 10 mg PO DAILYPRN PRN PRN Reason: Sinus Symptoms Magnesium Oxide (Magnesium Oxide) 400 mg PO DAILY [facility] Miscellaneous Information (Communication Order-Pharmacy) 1 each FS NOW [facility] Stop: 10/18/18 16:26 Last Admin: 10/17/18 19:40 Dose: 1 each Miscellaneous Medication (Pharmacy To Dose) 1 each PO ONE PRN PRN Reason: Pharmacy to dose Stop: 10/18/18 16:40 Nicotine (Nicoderm Patch) 21 mg TD [facility] Last Admin: 10/17/18 19:57 Dose: 21 mg Non-Formulary Medication (Epinephrine [Epipen 2-Doug]) 0.3 mg IJ ONE PRN PRN Reason: Allergies Olanzapine (Zyprexa) 20 mg PO HS [facility] Last Admin: 10/17/18 19:45 Dose: 20 mg Ondansetron HCl (Zofran Odt) 4 mg PO Q6H PRN PRN Reason: Nausea/Vomiting Ondansetron HCl (Zofran) 4 mg IVP Q6H PRN PRN Reason: Nausea/Vomiting Pantoprazole Sodium (Protonix) 40 mg PO DAILY [facility] Last Admin: 10/18/18 08:11 Dose: 40 mg Potassium Chloride (K-Dur) 40 meq PO BID-[facility] Last Admin: 10/18/18 08:09 Dose: 40 meq Quetiapine Fumarate (Seroquel) 200 mg PO BID [facility] Last Admin: 10/18/18 08:11 Dose: 200 mg Senna/Docusate Sodium (Senokot S) 2 tab PO BID PRN PRN Reason: Constipation Sertraline HCl (Zoloft) 200 mg PO DAILY [facility] Sodium Chloride ([place] Nasal Leon 0.65%) 0 ml EA NARE QIDPRN PRN PRN Reason: Nasal Congestion Temazepam (Restoril) 15 mg PO HSPRN PRN PRN Reason: Insomnia Throat Lozenges (Cepastat Lozenges) 1 alfred PO Q2H PRN PRN Reason: Sore Throat Trazodone HCl (Desyrel) 300 mg PO [facility] Last Admin: 10/17/18 20:55 Dose: 300 mg
[2018-10-18 11:11] LABS: Pregnancy Test - Urine (BHCG) Negative (Negative); Pregu Control Background? CLEAR/WHITE (CLR/WHITE); Pregu Control Bar Appear? YES (CONTROL BAR)
[2018-10-18 14:01] LABS: #Basophils 0.1 thou/uL (0.0-0.2); #Eosinphils 0.2 thou/uL (0.0-0.7); #Lymphocytes 2.4 thou/uL (1.20-3.40); #Monocytes 0.6 thou/uL (0.11-0.59); #Neutrophils 8.2 thou/uL (1.40-6.50); %Basophils 0.7 % (0.0-1.0); %Eosinophils 1.6 % (0.0-10.0); %Lymphocytes 20.8 % (21.0-51.0); %Monocytes 4.8 % (0.0-10.0); %Neutrophils 72.1 % (42.0-75.0); Mean Corpuscular Hemoglobin 27.6 pg (27.0-31.0); Mean Corpuscular Volume 86.3 fL (78.0-98.0); Mean Platelet Volume 7.3 fL (7.4-10.4); Platelet Count 357 thou/uL (130-400); RBC Distribution Width 17.5 % (11.5-14.5); Red Blood Cell (RBC) Count 4.35 mill/uL (4.20-5.40); White Blood Cell (WBC) Count 11.3 thou/uL (4.8-10.8)
[2018-10-18 14:22] LABS: Anion Gap 12 mmol/L (10-20); BUN (Urea Nitrogen) 8 mg/dL (7.0-18.7); Calc. Creatinine Clearance 78 mL/min (70-130); Calcium 9.4 mg/dL (7.8-10.44); Carbon Dioxide 26 mmol/L (22-29); Cardiac Risk 4.8 (Less than 4.5); Chloride 99 mmol/L (98-107); Cholesterol 173 mg/dl (< 200 Desired); Estimated GFR-MDRD 86; Glucose 100 mg/dL (70-105); HDL Cholesterol 36 mg/dL (>60 Neg Risk); LDL Cholesterol, Calculated 98 mg/dL; Magnesium 1.6 mg/dL (1.6-2.6); Phosphorus 4.3 mg/dL (2.3-4.7); Potassium 5.2 mmol/L (3.5-5.1); Sodium 132 mmol/L (136-145); Triglycerides 197 mg/dL (Less than 150)
[2018-10-18 15:55] VITALS: BP 116/74
[2018-10-18] MEDS: Communication Order-Pharmacy FS SCH (16:27)
--- NOTE | 2018-10-18 16:28 | MRI ---
MRI OF THE BRAIN WITHOUT CONTRAST: COMPARISON: None. HISTORY: Stroke versus TIA. Left-sided weakness. COMPARISON: CT brain 10/18/2018. TECHNIQUE: Multiplanar, multisequence MR images were obtained in the brain without contrast. FINDINGS: The brain demonstrates normal signal intensity on all obtained sequences. No restricted diffusion is seen to suggest an acute infarction. There is no evidence of hydrocephalus, intracranial hemorrhage , or extraaxial fluid collection. The expected flow voids are present. The corpus callosum, pituitary, and craniocervical junction are unremarkable. The calvarium and overlying soft tissues are unremarkable. The paranasal sinuses are well aerated. There may be a small amount of fluid in the right mastoid air cells. IMPRESSION: No evidence of acute intracranial abnormality. POS: C
[2018-10-18] MEDS: OLANZapine 5 MG TAB PO SCH (20:40)
[2018-10-18] MEDS: traZODone HCl 150 MG TAB PO SCH (20:41)
[2018-10-18] MEDS: Nicotine 21 MG PATCH TD SCH (20:41)
--- NOTE | 2018-10-18 23:32 | CON ---
DATE OF CONSULTATION: 10/18/2018 CONSULTING PHYSICIAN: Hospitalist Service. IMPRESSION: 1. Psychogenic paresis. 2. Psychiatric disorder. PLAN: The patient can be discharged home for outpatient psychiatric followup. HISTORY OF PRESENT ILLNESS: Ms. Velasquez is a 38-year-old white female who presented to [facility] with complaints of left-sided weakness. There was no associated slurred speech or facial droop. Her CT scans were negative. She refused to admit that her symptoms were due to psychological issues. TPA was administered. Fortunately, there were no ill consequences of the treatment. She was transferred here for management. She had a followup CT this morning, which did not show any evidence of bleed. She had an MRI of the brain done this afternoon, which fails to reveal any acute neurologic issues. She otherwise has no other past history. ALLERGIES: BUSPIRONE, PENICILLIN. SOCIAL HISTORY: Unremarkable. FAMILY HISTORY: Unremarkable. REVIEW OF SYSTEMS: The patient was limitedly cooperative due to sedation. PHYSICAL EXAMINATION: GENERAL: She is a thin woman who appears much older than her stated age. VITAL SIGNS: Blood pressure 104/71, pulse 67, respirations 23. HEENT: Pupils equal. Conjunctivae clear. She has no dentition. NECK: No lymphadenopathy. NEUROLOGIC: She is a bit drowsy, but would awaken. Her speech was fluent and clear. There was no facial asymmetry. She is using the left hand to rub her eyes upon awakening. She earlier was able to stand independently. There have been some inconsistent efforts documented by the nursing staff. IMAGING: Reviewed. 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 I do not have anything to add to her care. Job ID: [id number]
--- NOTE | 2018-10-18 23:49 | CON ---
DATE OF CONSULTATION: 10/18/2018 HISTORY OF PRESENT ILLNESS: Ms. Velasquez is a 38-year-old female who received tPA for left-sided weakness/paresis. Since she has been admitted to [facility] Int[facility], the nurses have noticed a variable and inconsistent use of her left side. She had a head CT that was unremarkable. She did receive tPA prior to admission. Unfortunately, Ms. Velasquez has a history of mental illness which might explain her current symptoms. She has had an MRI done this afternoon. She was evaluated by me this morning. The MRI shows no evidence of thrombotic or ischemic event in her brain. She actually flew in on [employer]. She says she is going to need to go somewhere for rehab to get her left side working again. That is her only complaint. PAST MEDICAL HISTORY: Remarkable for, 1. Hyponatremia in the past. 2. History of multiple abdominal surgeries in the past. 3. History of schizoaffective disorder and bipolar illness. 4. History of asthma. 5. Reported history of chronic obstructive pulmonary disease, but I doubt she has that given that she is only 38 years of age. 6. History of an enterocutaneous fistula. 7. History of a colostomy. 8. History of depression. 9. History of manipulative behavior pattern documented multiple times in the past with admissions. There was one event where she stapled her arm. When she is in the hospital when she fell, she would not get the pain medicine she needed. 10. History of abdominal wall cellulitis this year. 11. History of polydipsia. 12. History of tobacco use. 13. History of marijuana use. 14. History of multiple abdominal procedures performed in [place]. 15. History of an appendectomy. 16. History of herniorrhaphy. SOCIAL HISTORY: She uses marijuana and smokes cigarettes. FAMILY HISTORY: Negative for lung disease in early age. REVIEW OF SYSTEMS: A 10-point review of systems completed, otherwise negative. PHYSICAL EXAMINATION: GENERAL: She is in no distress. She converses in complete sentences. VITAL SIGNS: Heart rate in the 60s, respiratory rates in the teens. She is afebrile. Blood pressure 116/74. She is on room air. HEENT: Pupils react. Sclerae anicteric. NECK: Supple. No lymphadenopathy. LUNGS: Clear. HEART: Regular rhythm. ABDOMEN: Nontender. EXTREMITIES: Without clubbing, cyanosis, or edema. I cannot get really good consistent exam out of her from the left side standpoint. LABORATORY DATA: MRI imaging today shows no evidence of a thrombotic event. IMPRESSION: We are dealing more with a conversion disorder than anything else. I would be extremely unusual for her to have at 38 years of age a thrombotic cerebrovascular accident that only partially responded to tPA that left her with no imaging abnormalities. I really do believe this most likely is conversion disorder. She can be transferred out of the Critical Care Unit. This is a 70 minute consult, with greater than 50% of time spent on unit coordinating care. Job ID: [id number] MTDD
[2018-10-19] MEDS: Bupropion 150 MG XL TAB PO SCH (07:57)
[2018-10-19 08:18] LABS: #Basophils 0.1 thou/uL (0.0-0.2); #Eosinphils 0.2 thou/uL (0.0-0.7); #Lymphocytes 1.8 thou/uL (1.20-3.40); #Monocytes 0.5 thou/uL (0.11-0.59); #Neutrophils 7.8 thou/uL (1.40-6.50); %Basophils 0.6 % (0.0-1.0); %Lymphocytes 17.1 % (21.0-51.0); %Monocytes 4.5 % (0.0-10.0); %Neutrophils 75.9 % (42.0-75.0); Hemoglobin 12.6 g/dL (12.0-16.0); Mean Corpuscular HGB CONC 31.6 g/dL (32.0-36.0); Mean Corpuscular Hemoglobin 27.2 pg (27.0-31.0); Mean Corpuscular Volume 86.2 fL (78.0-98.0); Mean Platelet Volume 6.9 fL (7.4-10.4); Platelet Count 334 thou/uL (130-400); RBC Distribution Width 17.6 % (11.5-14.5); Red Blood Cell (RBC) Count 4.65 mill/uL (4.20-5.40); White Blood Cell (WBC) Count 10.3 thou/uL (4.8-10.8)
[2018-10-19 08:34] LABS: Anion Gap 11 mmol/L (10-20); BUN (Urea Nitrogen) 8 mg/dL (7.0-18.7); Calc. Creatinine Clearance 79 mL/min (70-130); Calcium 9.5 mg/dL (7.8-10.44); Carbon Dioxide 25 mmol/L (22-29); Chloride 103 mmol/L (98-107); Estimated GFR-MDRD 87; Glucose 83 mg/dL (70-105); Potassium 4.6 mmol/L (3.5-5.1); Sodium 134 mmol/L (136-145)
[2018-10-19 08:50] VITALS: TEMP 97.5
[2018-10-19] MEDS ORDERED: Magnesium Oxide 400 MG TAB PO SCH ×2 (09:00)
[2018-10-19] MEDS ORDERED: Fluticasone Propionate Nasal Spray 16 gm Bottle NASAL SCH ×2 (09:00)
[2018-10-19] MEDS: Potassium Chloride 20 MEQ TAB PO SCH (09:38)
--- NOTE | 2018-10-19 10:02 | PRG ---
DATE OF SERVICE: 10/19/2018 SUBJECTIVE: Bre Velasquez says her left side is getting better. She was complaining of pain in her left arm while she was getting blood drawn from her left arm. Yesterday, when she could not get the nurse's attention, she walked out into the hallway carrying in her Moon. Her MRI as mentioned showed no evidence of a thrombotic CVA, although she continues to intermittently use her left side to a variable degree. I am convinced this is conversion disorder and it is very consistent with past behavior. OBJECTIVE: VITAL SIGNS: Her vital signs remained stable. She is afebrile, heart rate is 92 to 109, respiratory rate is in the 20s, oximetry is 97% to 99%. She continuously asks for pain medicine. LUNGS: Clear. HEART: Regular rhythm. ABDOMEN: Soft and nontender. DIAGNOSTIC STUDIES: White count 10.3, hemoglobin 12.6, and platelets 334. Sodium 134, potassium 4.6, chloride 103, bicarb 25, BUN 8, and creatinine 0.75. IMPRESSION AND PLAN: Conversion disorder with attention seeking behavior. In my opinion, she is a candidate for discharge. She should not be kept in the hospital any longer. She likes being in the hospital and constantly requests narcotics and actually has become manipulative in the past when she did not get what she wanted. She actually stapled her arm multiple times when she could not get what she wanted from the nursing staff. She needs to go home. She is medically stable. Job ID: [id number]
--- NOTE | 2018-10-19 11:00 | PDOC.PN ---
- Subjective Encounter Start Date: 10/19/18 Encounter Start Time: 10:30 Patient seen and examined. No new complaints. No overnight events - Objective Resuscitation Status - Order Detail: 10/17/18 16:25 Resuscitation Status Routine Resuscitation Status: FULL: Full Resuscitation MAR Reviewed: Yes Vital Signs & Weight: Vital Signs (12 hours) Temp Pulse Ox 10/19/18 08:00 97.5 F L 95 10/19/18 04:00 98.3 F 10/19/18 00:00 98.0 F Weight Admit Weight 106 lb Weight 106 lb 7.732 oz Most Recent Monitor Data Heart Rate from ECG 109 NIBP 93/64 NIBP BP-Mean 73 Respiration from ECG 25 SpO2 99 I&O: 10/18/18 10/19/18 10/20/18 06:59 06:59 06:59 Intake Total 1253 2810 300 Output Total 1330 4080 200 Balance -77 -1270 100 Result Diagrams: 10/19/18 07:43 10/19/18 07:43 Additional Labs: Accuchecks 10/18/18 12:33 POC Glucose 99 Phys Exam - Physical Examination Constitutional: NAD HEENT: PERRLA, moist MMs, sclera anicteric Neck: no JVD, supple Respiratory: no wheezing, no rales, no rhonchi Cardiovascular: RRR, no significant murmur, no rub Gastrointestinal: soft, non-tender, no distention, positive bowel sounds Musculoskeletal: no edema, pulses present Neurological: moves all 4 limbs Lymphatic: no nodes Psychiatric: normal affect Skin: no rash, normal turgor Dx/Plan (1) HTN (hypertension) Code(s): I10 - ESSENTIAL (PRIMARY) HYPERTENSION Status: Chronic (2) COPD (chronic obstructive pulmonary disease) Status: Chronic Comment: stable (3) Depression Code(s): F32.9 - MAJOR DEPRESSIVE DISORDER, SINGLE EPISODE, UNSPECIFIED Status : Chronic Comment: moderate, stable (4) PTSD (post-traumatic stress disorder) Code(s): F43.10 - POST-TRAUMATIC STRESS DISORDER, UNSPECIFIED Status: Chronic (5) Schizoaffective disorder Code(s): F25.9 - SCHIZOAFFECTIVE DISORDER, UNSPECIFIED Status: Chronic (6) Severe protein-calorie malnutrition Code(s): E43 - UNSPECIFIED SEVERE PROTEIN-CALORIE MALNUTRITION Status: Chronic Comment: (7) Left-sided weakness Code(s): R53.1 - WEAKNESS Status: Acute Comment: due to conversion disorder (8) Received intravenous tissue plasminogen activator (tPA) in emergency department Code(s): Z92.82 - S/P ADMN TPA IN DIFF FAC W/N LAST 24 HR BEF ADM TO CRNT FAC Status: Acute (9) Borderline personality disorder in adult Code(s): F60.3 - BORDERLINE PERSONALITY DISORDER Status: Chronic - Plan cont current plan of care, social staff worker * medication reviewed as below * symptomatic treatment * see discharge khai. Review of Systems - Review of Systems ENT: negative: Ear Pain, Ear Discharge, Nose Pain, Nose Discharge, Nose Congestion, Mouth Pain, Mouth Swelling, Throat Pain, Throat Swelling, Other Respiratory: negative: Cough, Dry, Shortness of Breath, Hemoptysis, SOB with Excertion, Pleuritic Pain, Sputum, Wheezing Cardiovascular: negative: chest pain, palpitations, orthopnea, paroxysmal nocturnal dyspnea, edema, light headedness, other Gastrointestinal: negative: Nausea, Vomiting, Abdominal Pain, Diarrhea, Constipation, Melena, Hematochezia, Other Genitourinary: negative: Dysuria, Frequency, Incontinence, Hematuria, Retention , Other Musculoskeletal: negative: Neck Pain, Shoulder Pain, Arm Pain, Back Pain, Hand Pain, Leg Pain, Foot Pain, Other Skin: negative: Rash, Lesions, Piotr, Bruising, Other Neurological: negative: Weakness, Numbness, Incoordination, Change in Speech, Confusion, Seizures, Other - Medications/Allergies Allergies/Adverse Reactions: Allergies Allergy/AdvReac Type Severity Reaction Status Date / Time buspirone [From BuSpar] Allergy Verified 10/17/18 19:25 Penicillins Allergy Verified 10/17/18 19:25
--- NOTE | 2018-10-19 11:49 | DIS ---
DATE OF ADMISSION: 10/17/2018 DATE OF DISCHARGE: 10/19/2018 PRIMARY CARE PHYSICIAN: Cici Rouse. DISCHARGE DISPOSITION: Home. PRIMARY DISCHARGE DIAGNOSIS: Left-sided weakness due to conversion disorder. SECONDARY DISCHARGE DIAGNOSES: 1. Borderline personality disorder. 2. Chronic obstructive pulmonary disease/asthma. 3. Depression. 4. Hypertension. 5. Posttraumatic stress disorder. 6. Schizoaffective disorder. 7. Severe protein-calorie malnutrition. 8. Enterocutaneous fistula. 9. Colostomy status. 10. Chronic pain disorder. PRIMARY PROCEDURE/OPERATION: None. RADIOLOGICAL INVESTIGATION: Ankle x-ray, CT brain, MRI brain, echocardiography. SIGNIFICANT LABORATORY DATA: Hemoglobin 12.6. Creatinine 0.75. Urine drug screen positive for tricyclic. DISCHARGE MEDICATIONS: The patient will continue all her previous medication. No change in medication. 1. Proventil HFA 2 puffs q.4 hourly p.r.n. 2. Flonase nasal spray daily. 3. Zyprexa 20 mg at bedtime. 4. Protonix 40 mg daily. 5. Seroquel 200 mg b.i.d. 6. Zoloft 200 mg daily. 7. Trazodone 300 mg p.o. daily. 8. Wellbutrin XL 150 mg daily. 9. Magnesium oxide 400 mg daily. 10. Potassium chloride 40 mEq p.o. b.i.d. CONTRAINDICATION: None. CODE STATUS: Full code. INPATIENT ASSEMBLER WATCH TRAIN: Neurology and Pulmonology were following while in hospital. TEST RESULTS PENDING ON DISCHARGE: None. ALLERGY: Buspirone, penicillin. DISCHARGE PLAN: Posthospital, the patient will follow up with primary care physician in 1 or 2 weeks. HOSPITAL COURSE: A 38-year-old female with above-mentioned medical problem, who was admitted by Dr. Amanda Lai. Please see her H and P for further details. This patient was evaluated in the emergency room. She was having left-sided weakness. She received tPA for considering stroke. This patient has underlying conversion disorder. Neurology also agreed with conversion disorder. This patient had a repeat CT brain that was negative for any intracranial bleed. MRI brain was completely unremarkable. Echocardiography was also normal. This patient was manipulating her weakness. She was able to lift entire left lower extremity without any problem intermittently. We diagnosed her problem as a conversion disorder. This patient has chronic pain seeking behavior and she was stable while in hospital. Pulmonary cleared her for discharge. Neurology also cleared her for discharge. The patient is seen and examined at bedside today. Please see my progress note from today for more detail. The patient is medically stable for discharge today. Job ID: [id number]
== END 2018-10-19 10:19 | disposition home or self-care (01) | DRG 880 ==
LOC: ERS 13:29 → CCU 18:37
PROVIDERS: ADMIT Family Medicine; ATTEND Family Medicine
DX: F44.4 Conversion disorder with motor symptom or deficit (principal); E43 Unspecified severe protein-calorie malnutrition; K63.2 Fistula of intestine; Z68.1 Body mass index [BMI] 19.9 or less, adult; J44.9 Chronic obstructive pulmonary disease, unspecified; F17.210 Nicotine dependence, cigarettes, uncomplicated; F31.9 Bipolar disorder, unspecified; F25.9 Schizoaffective disorder, unspecified; I10 Essential (primary) hypertension; F43.10 Post-traumatic stress disorder, unspecified; F60.3 Borderline personality disorder; G89.4 Chronic pain syndrome; Z92.82 Status post administration of tPA (rtPA) in a different facility within the last 24 hours prior to admission to current facility; Z93.3 Colostomy status; Z88.0 Allergy status to penicillin; Z88.8 Allergy status to other drugs, medicaments and biological substances; Z65.8 Other specified problems related to psychosocial circumstances
CPT/HCPCS: 36415; 36416; 70450; 70551; 80048; 80061; 80306; 80307; 81025; 83735; 84100; 85025; 93306; J0131; J2001; J2060; J2250; J3010; J3480; Q0162

== ENCOUNTER 2019-02-22 16:36 | Emergency (ER) | payer OTHER ==
[2019-02-22 17:40] LABS: Base Excess-Venous 6.2 mmol/L (-2.0 to 3.0); Bicarbonate (HCO3v) 28.5 mmol/L (22.0-28.0); CO2 Tension (PvCO2) 32.4 mmHg (40.0-50.0); Calcium, Ionized 1.01 mmol/L (See Comments:); Chloride 96 mmol/L (98-107); Glucose 89 mg/dL (70-105); Hemoglobin - Calc 11.2 g/dL (12.0-16.0); Potassium 2.9 mmol/L (3.5-5.1); Sodium 135 mmol/L (138-145); T. Carbon Dioxide 29.5 mmol/L (22.0-28.0); vO2 Saturation-calc 99.3 % (60.0-85.0)
[2019-02-22] MEDS ORDERED: Acetaminophen/Codeine 30-300mg Tablet ONE (18:47)
== END 2019-02-22 19:30 | disposition home or self-care (01) ==
LOC: ERS 16:36
DX: E87.6 Hypokalemia (principal); K62.3 Rectal prolapse; I10 Essential (primary) hypertension; J44.9 Chronic obstructive pulmonary disease, unspecified; F31.9 Bipolar disorder, unspecified; F25.9 Schizoaffective disorder, unspecified; F17.210 Nicotine dependence, cigarettes, uncomplicated
CPT/HCPCS: 82330; 82803; 83605; 99283

== ENCOUNTER 2019-03-01 20:07 | Observation (INO) | payer OTHER ==
[2019-03-01 21:07] LABS: #Basophils 0.1 thou/uL (0.0-0.2); #Eosinphils 0.1 thou/uL (0.0-0.7); #Lymphocytes 2.6 thou/uL (1.20-3.40); #Monocytes 0.5 thou/uL (0.11-0.59); #Neutrophils 5.5 thou/uL (1.40-6.50); %Basophils 1.1 % (0.0-1.0); %Eosinophils 1.2 % (0.0-10.0); %Lymphocytes 29.4 % (21.0-51.0); %Monocytes 5.7 % (0.0-10.0); %Neutrophils 62.7 % (42.0-75.0); Hemoglobin 9.5 g/dL (12.0-16.0); Mean Corpuscular HGB CONC 33.1 g/dL (32.0-36.0); Mean Corpuscular Hemoglobin 29.7 pg (27.0-31.0); Mean Corpuscular Volume 89.8 fL (78.0-98.0); Platelet Count 422 thou/uL (130-400); RBC Distribution Width 13.6 % (11.5-14.5); Red Blood Cell (RBC) Count 3.18 mill/uL (4.20-5.40); White Blood Cell (WBC) Count 8.8 thou/uL (4.8-10.8)
[2019-03-01] MEDS ORDERED: Pantoprazole 80 MG, Admixture Fee 1 EACH in Sodium Chloride 0.9% 100 ML IVPB SCH (21:15)
[2019-03-01] MEDS ORDERED: Morphine 2 MG/ML SYRINGE ONE (21:40)
--- NOTE | 2019-03-01 22:07 | PDOC.FPRHP ---
- History of Present Illness Chief Complaint: rectal bleeding History of Present Illness: Ms. Velasquez is a 38yoF who presents to the ED for rectal bleeding and significant rectal pain. She has been to the ED several times for this same complaint, most recently on 02/25. She has a colostomy (2/2 rectal prolapse) and a rectal stump. The bleeding she is having is per rectum, she denies blood in her ostomy bag. She also complains of feeling weak and dizzy. These symptoms have been bothering her for the past week and worsening in the last couple of days. She has noted increased ostomy output. ED Course: [place]: Protonix 80mg, [place] 5-325 and NaCl 500mL Miguel: Protonix drip and 2mg morphine - Allergies/Adverse Reactions Allergies Allergy/AdvReac Type Severity Reaction Status Date / Time buspirone [From BuSpar] Allergy Verified 03/02/19 00:24 Penicillins Allergy Verified 03/02/19 00:24 - Home Medications Medication Instructions Recorded Confirmed Type BuPROPion XL [Wellbutrin XL] 150 mg PO DAILY tab 07/19/18 03/02/19 Rx OLANZapine [Zyprexa] 20 mg PO HS 08/03/18 03/02/19 History Sertraline HCl [Zoloft] 200 mg PO DAILY 09/04/18 03/02/19 History Albuterol Sulfate [Proventil Hfa] 2 puff INH Q6H PRN 09/14/18 03/02/19 History Fluticasone Propionate [Flonase 2 spray EA NARE BID 09/14/18 03/02/19 History Nasal [place]] EPINEPHrine [EpiPen 2-Doug] 0.3 mg IJ ONE PRN #1 auto.injct 09/16/18 03/02/19 Rx QUEtiapine Fumarate [SEROquel] 200 mg PO BID 10/17/18 03/02/19 History traZODone HCl 300 mg PO HS 10/17/18 03/02/19 History Budesonide-Formoterol [Symbicort 2 puff INH BID 03/02/19 03/02/19 History 160-4.5] Nitrofurantoin Monohyd/M-Cryst 100 mg PO 03/02/19 History [Macrobid 100 mg Capsule] Omeprazole 40 mg PO DAILY 03/02/19 03/02/19 History QUEtiapine Fumarate [SEROquel] 25 mg PO DAILY 03/02/19 03/02/19 History - History PMHx: Rectal prolapse, resulted in colostomy w/ rectal stump Bipolar disorder COPD PSHx: 2018 - diverting colostomy ([employer]) 2013 - DARSHANA w/ mesh repair of incisional hernia (mesh from umbilicus to pubis ) 2012 - Incisional hernia repair Appendectomy FHx: Father: heart disease Social: Reports current tobacco (1ppdxmany years), marijuana, and alcohol use. 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 - Review of Systems General: reports: fatigue. denies: fever/chills, weight/appetite/sleep changes , night sweats Eyes: denies: eye pain, vision changes ENT: reports: other (epistaxis - from scabs). denies: nasal congestion, rhinorrhea Respiratory: denies: cough, congestion Cardiovascular: denies: chest pain, palpitation, edema Gastrointestinal: reports: nausea, vomiting, abdominal pain, GI bleeding. denies: diarrhea, constipation Genitourinary: denies: incontinence, dysuria Skin: reports: lesions (chronic skin breakdown around ostomy, sacral wound). denies: rashes Musculoskeletal: denies: pain, tenderness, stiffness Neurological: reports: weakness. denies: numbness, syncope Psychological: reports: other. denies: anxiety, depression - Vital signs 03/02/19 03:38 Temperature 97.7 F Pulse Rate 78 Blood Pressure 111/60 [Semi-Fowlers] Respiratory 14 Rate O2 Sat by Pulse 98 Oximetry Oxygen Delivery Room Air Method - Physical Exam Constitutional: NAD -Constitutional: cachectic HEENT: normocephalic and atraumatic, PERRLA, EOMI, conjunctiva clear, grossly normal vision, grossly normal hearing, MMM -HEENT: Dried blood at the nares, scabs present on nasal mucosa Neck: supple, trachea midline Heart: RRR, normal S1/S2, no murmurs/rubs/gallops Lungs: no respiratory distress, good air movement -Lungs: diffuse wheezing throughout Abdomen: soft -Abdomen: 2 ostomy bags present, clear fluid in each. No blood. 1 bag for ostomy and 1 bag for gastric fistula. Chronic skin breakdown present around the ostomy site. Rectal exam: external hemorrhoid present, no gross blood in rectal vault. No palpable internal hemorrhoids. Musculoskeletal: normal tone, ROM grossly normal Neurological: no focal deficit Skin: good turgor -Skin: Several areas of skin breakdown - on abdomen and sacrum Heme/Lymphatic: no purpura, no petechia Psychiatric: intact recent and remote memory -Psychiatric: Flat affect, slow speech. FMR H&P: Results - Labs Result Diagrams: 03/02/19 06:06 03/02/19 06:06 Lab results: WBC 8.8 thou/uL (4.8-10.8) 03/01/19 20:44 Hgb 9.5 g/dL (12.0-16.0) L 03/01/19 20:44 Hct 28.6 % (36.0-47.0) L 03/01/19 20:44 MCV 89.8 fL (78.0-98.0) 03/01/19 20:44 Plt Count 422 thou/uL (130-400) H 03/01/19 20:44 Neutrophils % 62.7 % (42.0-75.0) 03/01/19 20:44 - Radiology Interpretation CT scan - abdomen Status: report reviewed by me (CT FROM 02/23 "Rectal mucosal thickening with evidence of perirectal edema. Definite abscess not appreciated. Correlate for proctitis. Multiple suture chains identified. LLQ ostomy. Large presacral, perirectal lymph nodes noted.") FMR H&P: A/P - Plan Proctitis, suspected - CT report reviewed from 02/23 ER visit. - NAHID significant for non-thrombosed external hemorrhoid and significant internal tenderness. No gross rectal bleeding present at time of exam. - Mesalamine and Flagyl - Will consider GI consult and further imaging in the morning. Lower GI bleeding - Upon exam, no bleeding noted. Prior ER note states there was gross bleeding. - H&H slightly decreased over the course of the last 7-10 days. However vital signs stable and no signs of gross bleeding. Will recheck in AM. Ostomy 2/2 recurrent rectal prolapse - Ostomy present since November of 2017 upon review of records. H/o 2 incisional hernia repars near her umbilicus in the past. H/o abdominal wall cellulitis. - Will consult wound care for management Mild hyponatremia - 135 on admission - Repeat in AM Disposition/LOS: Dispo: stable, observation. likely LOS <48hours Code: Full VTE: SCDs FMR H&P: Upper Level - Pertinent history 38 yo female presents via transfer due to lower GI bleeding. Patient reports bleeding from rectal stump. She denies bleeding from her ostomy pouch. She reports overall weakness and rectal pain during this time as well. Upon chart review patient has had multiple ED visits with CT scan showing inflammation on 02/23/19. Please see internal controls analyst note above for further information. - Plan Date/Time: 03/01/19 6783 I, Femi Arambula MD, have evaluated this patient and agree with findings/ plan as outlined by internal controls analyst resident. Pertinent changes/additions are listed here. 1. Proctitis - Unknown etiology - Previous CT shows inflammatory/infectious changes - Will treat with topical mesalamine AR - Will start Metronidazole at this time as well - Consider further imaging vs consultation in AM 2. Lower GI bleeding - No sign of bleeding at rectal stump on exam - Outside ED documented clots and juan blood - H&H and vital signs stable, recheck in AM 3. Previous Ostomy - Long standing fistula present - Consider further extension of fistula in abdomen - Wound Care consultation 4. Mild hyponatremia - 135 on admission - Repeat in AM PCP: Dr. Rouse @ [facility] CODE STATUS: FULL CODE Disposition: Stable, admit to Medical Observation for further evaluation. Addendum - Attending - Attending Attestation Date/Time: 03/02/19 5345 I personally evaluated the patient and discussed the management with Dr. Poole/ Ralf. I agree with the History, Examination, Assessment and Plan documented above with any addition or exceptions noted below. Patient here with history of rectal stump and complaints of pain and rectal bleeding. There is no communication between her rectum and the upper GI tract. She has previous CT evidence suggestive of proctitis. She will start treatment for that at this time. Trend H/H to ensure no continued blood loss. Hopefully she will not require hospitalization for long.
[2019-03-01] MEDS ORDERED: Acetaminophen 325 MG TAB PO PRN (23:10)
[2019-03-02 01:05] VITALS: BMI 15.7
[2019-03-02] MEDS: Lactated Ringer's 1,000 ML IV SCH ×2 (01:21→10:51)
[2019-03-02] MEDS ORDERED: traZODone HCl 150 MG TAB PO SCH ×2 (01:45→21:00)
[2019-03-02] MEDS ORDERED: OLANZapine 5 MG TAB PO SCH ×2 (01:45→21:00)
[2019-03-02] MEDS ORDERED: Mometasone/Formoterol 120 PUFF INHALER INH SCH ×3 (02:00→18:30)
[2019-03-02] MEDS ORDERED: Mesalamine 1000 MG Suppository PR SCH ×2 (02:30→21:00)
[2019-03-02] MEDS: Ondansetron PF 4 MG/2 ML Vial IVP PRN ×2 (03:41→12:46)
[2019-03-02] MEDS: metroNIDAZOLE 500 MG in Premix Bag 1 BAG IVPB SCH ×2 (05:32→14:18)
--- NOTE | 2019-03-02 06:14 | PDOC.FM ---
- Subjective Subjective: Ms. Velasquez said that she had belly pain and a headache this morning. Denies further bleeding. She then rolled over in bed and said she wanted to sleep and not talk anymore. - Objective MAR Reviewed: Yes Vital Signs & Weight: Vital Signs (12 hours) Temp Pulse Resp BP Pulse Ox 03/02/19 03:38 97.7 F 78 14 111/60 98 03/02/19 01:48 73 12 100 03/02/19 00:04 97.6 F 75 16 112/64 98 Weight Weight 44.225 kg I&O: 02/28/19 03/01/19 03/02/19 06:59 06:59 06:59 Intake Total 546 Balance 546 Result Diagrams: 03/02/19 06:06 03/02/19 06:06 Phys Exam - Physical Examination Constitutional: NAD Respiratory: no wheezing, clear to auscultation bilateral (anteriorly, exam limited) Cardiovascular: RRR Gastrointestinal: soft, positive bowel sounds (ostomy bags in place. normal stool seen in colostomy) Musculoskeletal: no edema Neurological: non-focal Skin: normal turgor Dx/Plan (1) Proctitis Code(s): K62.89 - OTHER SPECIFIED DISEASES OF ANUS AND RECTUM Status: Acute (2) COPD (chronic obstructive pulmonary disease) Status: Chronic (3) HTN (hypertension) Code(s): I10 - ESSENTIAL (PRIMARY) HYPERTENSION Status: Chronic - Plan Plan: Proctitis, suspected - CT report reviewed from 02/23 ER visit. - Continue Mesalamine and Flagyl (03/01) Lower GI bleeding, reported but none seen - Upon exam, no bleeding noted. Prior ER note states there was gross bleeding. - H&H slightly decreased over the course of the last 7-10 days. However vital signs stable and no signs of gross bleeding. Stable this am. Ostomy 2/2 recurrent rectal prolapse - Ostomy present since November of 2017 upon review of records. H/o 2 incisional hernia repars near her umbilicus in the past. H/o abdominal wall cellulitis. - Will consult wound care for management Untreated UTI reported by patient - was sent rx of macrobid but never picked it up - UA this am Mild hyponatremia, resolved - 135 on admission Dispo: in observation, pending UA. Continue treatment for proctitis at this time Code: Full VTE: SCDs Addendum - Attending - Attending Attestation Date/Time: 03/02/19 8910 I personally evaluated the patient and discussed the management with Dr. Mancera. I agree with the History, Examination, Assessment and Plan documented above with any addition or exceptions noted below. Please see H/P for today's addendum.
[2019-03-02 06:29] LABS: #Basophils 0.1 thou/uL (0.0-0.2); #Eosinphils 0.2 thou/uL (0.0-0.7); #Lymphocytes 2.5 thou/uL (1.20-3.40); #Monocytes 0.5 thou/uL (0.11-0.59); #Neutrophils 3.9 thou/uL (1.40-6.50); %Basophils 1.3 % (0.0-1.0); %Eosinophils 2.5 % (0.0-10.0); %Lymphocytes 34.6 % (21.0-51.0); %Monocytes 7.3 % (0.0-10.0); %Neutrophils 54.4 % (42.0-75.0); Hemoglobin 9.6 g/dL (12.0-16.0); Mean Corpuscular HGB CONC 33.2 g/dL (32.0-36.0); Mean Corpuscular Hemoglobin 29.8 pg (27.0-31.0); Mean Corpuscular Volume 89.5 fL (78.0-98.0); Platelet Count 381 thou/uL (130-400); RBC Distribution Width 13.6 % (11.5-14.5); Red Blood Cell (RBC) Count 3.22 mill/uL (4.20-5.40); White Blood Cell (WBC) Count 7.1 thou/uL (4.8-10.8)
[2019-03-02 06:50] LABS: Anion Gap 9 mmol/L (10-20); BUN (Urea Nitrogen) 6 mg/dL (7.0-18.7); Calc. Creatinine Clearance 86 mL/min (70-130); Calcium 8.3 mg/dL (7.8-10.44); Carbon Dioxide 26 mmol/L (22-29); Chloride 106 mmol/L (98-107); Estimated GFR-MDRD Greater than 90; Glucose 74 mg/dL (70-105); Potassium 5.2 mmol/L (3.5-5.1); Sodium 136 mmol/L (136-145)
[2019-03-02] MEDS ORDERED: Bupropion 150 MG XL TAB PO SCH (09:00)
[2019-03-02 11:25] VITALS: BP 108/71; TEMP 98.1
[2019-03-02 12:32] LABS: Bacteria/HPF None Seen HPF (None Seen); Bilirubin Negative (Negative); Blood, Urine Negative (Negative); Clarity Clear (Clear); Glucose, Urine (Dipstick) Normal (Negative); Leukocyte Negative Leu/uL (Negative); Nitrite Negative (Negative); Protein, Urine (Dipstick) Negative (Neg-Trace); Squamous Epithelial 0-3 HPF (0-3); Urobilinogen Normal mg/dL (Less than 2); WBC/HPF 0-3 HPF (0-3)
[2019-03-02 16:39] LABS: #Basophils 0.1 thou/uL (0.0-0.2); #Eosinphils 0.2 thou/uL (0.0-0.7); #Lymphocytes 3.6 thou/uL (1.20-3.40); #Monocytes 0.7 thou/uL (0.11-0.59); #Neutrophils 8.2 thou/uL (1.40-6.50); %Basophils 0.8 % (0.0-1.0); %Eosinophils 1.3 % (0.0-10.0); %Lymphocytes 28.1 % (21.0-51.0); %Monocytes 5.3 % (0.0-10.0); %Neutrophils 64.5 % (42.0-75.0); Hemoglobin 11.2 g/dL (12.0-16.0); Mean Corpuscular HGB CONC 32.6 g/dL (32.0-36.0); Mean Corpuscular Hemoglobin 29.5 pg (27.0-31.0); Mean Corpuscular Volume 90.2 fL (78.0-98.0); Platelet Count 593 thou/uL (130-400); RBC Distribution Width 13.5 % (11.5-14.5); White Blood Cell (WBC) Count 12.7 thou/uL (4.8-10.8)
--- NOTE | 2019-03-05 12:11 | DIS ---
DATE OF ADMISSION: 03/01/2019 DATE OF DISCHARGE: 03/02/2019 RESIDENT: Yasmin Mancera DO ADMITTING ATTENDING: Jack Fink MD DISCHARGE ATTENDING: Jack Fink MD PROCEDURES: None. MEDICATIONS: 1. Bupropion XL 150 mg p.o. daily. 2. Olanzapine 20 mg p.o. h.s. 3. Sertraline 200 mg p.o. daily. 4. Fluticasone spray 2 sprays each naris b.i.d. 5. Proventil HFA 2 puffs inhaled q.6 hours p.r.n. 6. EpiPen pack. 7. Seroquel 200 mg p.o. b.i.d. 8. Trazodone 300 mg p.o. h.s. 9. Omeprazole 40 mg p.o. daily. 10. Macrobid 100 mg p.o. 11. Symbicort 2 puffs inhaled b.i.d. 12. Metronidazole 500 mg p.o. q.8 hours #21. PRIMARY DIAGNOSES: 1. Proctitis. 2. Mild hyponatremia. 3. Reported untreated urinary tract infection. SECONDARY DIAGNOSES: Rectal prolapse with colostomy with rectal stump, bipolar disorder, chronic obstructive pulmonary disease, tobacco abuse. HISTORY OF PRESENT ILLNESS: A 38-year-old female presented to the emergency department for rectal bleeding and rectal pain. She had been in the ED several times for same complaint and most recently, only a few days prior. She has a history of colostomy secondary to rectal prolapse and rectal stump in addition to another fistula with bag. Digital rectal exam performed showed nonthrombosed external hemorrhoid and significant internal hemorrhoids. No gross rectal bleeding present at time of exam. Throughout hospitalization, there was no sign of gross bleeding per rectum and her hemoglobin remained stable. I do not suspect acute lower GI bleed. The patient was started on Flagyl and with discharge, discharge medications to complete the course for treatment of proctitis. Otherwise, the patient was back at baseline and able to take smoke breaks outside prior to discharge. 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 Repeat UA here was negative for any signs of infection. A prior CT scan from 02/23/2019 from an emergency department visit showed rectal mucosal thickening with evidence of perirectal edema. Abscess not appreciated. Correlate for proctitis. Multiple suture change identified. Left lower quadrant ostomy. Large presacral perirectal lymph nodes noted. DISPOSITION: Stable and discharged home. DIET: Renal. ACTIVITY: As tolerated. FOLLOWUP: Follow up with primary care physician in [address] Rouse at [facility]. Job ID: [id number]
== END 2019-03-02 16:43 | disposition home or self-care (01) ==
LOC: ERS 20:07 → 2SW 22:21
PROVIDERS: ADMIT Student in an Organized Health Care Education/Training Program; ATTEND Student in an Organized Health Care Education/Training Program
DX: K62.5 Hemorrhage of anus and rectum (principal); K62.89 Other specified diseases of anus and rectum; E87.1 Hypo-osmolality and hyponatremia; F17.210 Nicotine dependence, cigarettes, uncomplicated; K64.4 Residual hemorrhoidal skin tags; K64.8 Other hemorrhoids; N39.0 Urinary tract infection, site not specified; J44.9 Chronic obstructive pulmonary disease, unspecified; F15.11 Other stimulant abuse, in remission; F11.11 Opioid abuse, in remission; F31.9 Bipolar disorder, unspecified; Z79.51 Long term (current) use of inhaled steroids; Z79.899 Other long term (current) drug therapy; Z88.0 Allergy status to penicillin; Z88.8 Allergy status to other drugs, medicaments and biological substances; Z93.3 Colostomy status; Z90.49 Acquired absence of other specified parts of digestive tract
CPT/HCPCS: 36415; 36416; 51701; 80048; 81001; 85025; 87086; 96361; 96365; 96366; 96375; 96376; C9113; G0378; J2270; J2405; J3490

== ENCOUNTER 2019-03-07 01:16 | Inpatient (IN) | payer OTHER ==
--- NOTE | 2019-03-07 03:46 | PDOC.FPRHP ---
- History of Present Illness Chief Complaint: bright red blood per rectum History of Present Illness: Ms. Velasquez is a 38yoF who presents to the ED for rectal bleeding and significant rectal pain. She has been to the ED several times for this same complaint, most recently on 03/02. 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 The bleeding she is having is per rectum, she denies blood in her ostomy bag. She also complains of feeling weak and dizzy. These symptoms have been bothering her for the past several weeks and worsening in the last couple of days. She states that she did obtain the antibiotics that she was discharged with. She had an appt with her general surgeon, but states that "he canceled it" and told her to schedule an appt with a healthcare administration intern. - Allergies/Adverse Reactions Allergies Allergy/AdvReac Type Severity Reaction Status Date / Time buspirone [From BuSpar] Allergy Verified 03/02/19 00:24 Penicillins Allergy Verified 03/02/19 00:24 - Home Medications Medication Instructions Recorded Confirmed Type BuPROPion XL [Wellbutrin XL] 150 mg PO DAILY tab 07/19/18 03/07/19 Rx OLANZapine [Zyprexa] 20 mg PO HS 08/03/18 03/07/19 History Sertraline HCl [Zoloft] 200 mg PO DAILY 09/04/18 03/07/19 History Albuterol Sulfate [Proventil Hfa] 2 puff INH Q6H PRN 09/14/18 03/07/19 History Fluticasone Propionate [Flonase 2 spray EA NARE BID 09/14/18 03/07/19 History Nasal [place]] EPINEPHrine [EpiPen 2-Doug] 0.3 mg IJ ONE PRN #1 auto.injct 09/16/18 03/07/19 Rx QUEtiapine Fumarate [SEROquel] 200 mg PO BID 10/17/18 03/07/19 History traZODone HCl 300 mg PO HS 10/17/18 03/07/19 History Budesonide-Formoterol [Symbicort 2 puff INH BID 03/02/19 03/07/19 History 160-4.5] Metronidazole [metroNIDAZOLE] 500 mg PO Q8HR #21 tab 03/02/19 03/07/19 Rx Nitrofurantoin Monohyd/M-Cryst 100 mg PO Q12HR 03/02/19 03/07/19 History [Macrobid 100 mg Capsule] Omeprazole 40 mg PO DAILY 03/02/19 03/07/19 History QUEtiapine Fumarate [SEROquel] 25 mg PO DAILY 03/02/19 03/07/19 History - History PMHx: Rectal prolapse, resulted in colostomy w/ rectal stump Bipolar disorder COPD PSHx: 2018 - diverting colostomy ([employer]) 2013 - DARSHANA w/ mesh repair of incisional hernia (mesh from umbilicus to pubis ) 2012 - Incisional hernia repair Appendectomy FHx: Father: heart disease Social: Reports current tobacco (1ppdxmany years), marijuana, and alcohol use. 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 - Review of Systems General: reports: fever/chills, weight/appetite/sleep changes, fatigue. denies : night sweats Eyes: denies: eye pain, vision changes ENT: denies: nasal congestion, rhinorrhea Respiratory: denies: cough, congestion, shortness of breath Cardiovascular: denies: chest pain, palpitation, edema Gastrointestinal: reports: abdominal pain, GI bleeding. denies: nausea, vomiting, diarrhea, constipation Genitourinary: denies: incontinence, dysuria, polyuria Skin: denies: rashes, lesions Musculoskeletal: denies: pain, tenderness, swelling Neurological: denies: numbness, seizure, weakness Psychological: reports: anxiety, depression - Vital signs 03/07/19 03:43 Temperature 98.5 F Pulse Rate 101 H Blood Pressure 114/65 [Semi-Fowlers] Respiratory 18 Rate O2 Sat by Pulse 96 Oximetry Oxygen Delivery Room Air Method - Physical Exam Constitutional: NAD, awake, alert and oriented -Constitutional: cachectic HEENT: normocephalic and atraumatic, PERRLA, conjunctiva clear, grossly normal vision, grossly normal hearing -HEENT: Dried blood in the nares, chronic scabs. Bilateral dark circles around eyes. Neck: supple, trachea midline Heart: RRR, normal S1/S2, no murmurs/rubs/gallops Lungs: CTAB, no respiratory distress, good air movement Abdomen: soft, non-tender, bowel sounds present -Abdomen: 2 ostomy bags present. Chronic skin breakdown/irritation in between the two Musculoskeletal: ROM grossly normal -Musculoskeletal: atrophied Neurological: no focal deficit, CN II-XII intact Skin: no rash/lesions, good turgor, capillary refill <2 seconds Heme/Lymphatic: no purpura, no petechia Psychiatric: intact recent and remote memory -Psychiatric: Flat, odd affect FMR H&P: Results - Labs Result Diagrams: 03/07/19 07:24 03/07/19 04:53 Lab results: Laboratory Tests 03/06/19 03/06/19 03/07/19 00:19 00:19 00:19 WBC 14.1 H RBC 2.89 L Hgb 8.2 L Hct 26.2 L MCV 90.5 MCH 28.4 MCHC 31.4 L RDW 14.0 Plt Count 524 H MPV 5.1 L PT 13.2 INR 1.0 APTT 26.5 Sodium 129 L Potassium 3.4 L Chloride 95 L Carbon Dioxide 24 Anion Gap 13 BUN Less than 4 L Creatinine 0.67 Estimated GFR (MDRD) Greater than 90 Glucose 92 Calcium 7.9 FMR H&P: A/P - Plan Proctitis, suspected - CT report reviewed from 02/23 ER visit. - No gross rectal bleeding present at time of exam. - Rocephin (previously tolerated in the past, despite PCN allergy) and Flagyl - Will likely consult GI and consider further imaging in the morning. Lower GI bleeding - Upon exam, no bleeding noted. ER physician earlier this evening noted a small amount of bright red blood per rectum. - H&H decreased from 11.2 to 8.2 from 03/02 to 03/06. However vital signs stable and no signs of gross bleeding. Will recheck in AM. Ostomy 2/2 recurrent rectal prolapse - Ostomy present since November of 2017 upon review of records. H/o 2 incisional hernia repars near her umbilicus in the past. H/o abdominal wall cellulitis. - consulted wound care for evaluation and treatment Chronic hyponatremia - 129 on admission - NS @ 100mL / hour - Repeat later today Bipolar disorder - Restart home meds COPD - recommend smoking cessation - Disposition/LOS: Dispo: stable, observation. likely LOS <48hours Code: Full VTE: SCDs FMR H&P: Upper Level - Plan Date/Time: 03/07/19 0346 PCP: Renny tenorio HPI: This is a 38 year female who presents with bright red blood per rectal pouch She has been using fathers preparation H and denies any instrumentation or rectal intercourse. She admits non-compliance with treatment and missing multiple f/u appointments. She a colostomy 2/2 rectal prolapse and rectal stump. Additionally, she as a second fistula site. Last visit she was noted to have multiple internal hemorrhoids on NAHID. CT scan on 02/23/19 showed proctitis. Patient has been non- compliant multiple times with treatment for this. Upon arrival to [facility] patient allowed nursing to take her vitals and then promptly went outside for smoke break. REVIEW OF SYSTEMS: Gen: no fever, chills, or sweats Neuro: denies headache Eyes: no visual changes ENT: no hearing changes, no sore throat, no congestion Resp: denies cough, SOB Card: denies murmurs, rubs, gallups GI: see hpi Heme: no easy bruising/bleeding, no blood thinners Skin: no rash, no erythema PHYSICAL EXAMINATION: General: NAD, alert and oriented x3 HEENT: PERRLA, EOMI, normal sclera, oropharynx without erythema or exudate Neck: Supple. Full ROM. Heart/Cardiovascular System: RRR, Cap refill < 3 seconds, no rub, no murmur Lungs/Respiratory System: CTA-B, no resp distress Abdomen/Gastro-Intestinal System: 2 old abdominal wound, unchanged per provider who had cared for her last visit, ostomy sites x2 without erythema, induration, or blood, nontender to palpation Extremities: Warm extremities. No cyanosis or edema Neuro: No gross deficits appreciated. CN 2-12 grossly intact Psychiatry: Awake, Alert and cooperative with exam Skin: No lesions, rashes, or ulcers Musculoskeletal: Full ROM A/P: Proctitis, suspected - CT report from 02/23 ER visit suggestive of proctitis - flagyl, rocephin Lower GI Bleed, suspect Hemorrhoids - NAHID in ED noted small amount of gross blood, internal and external hemorrhoids - Hgb down to 8.2 from 11 last admit - Gen Surg consult in AM - iron studies Ostomy 2/2 recurrent rectal prolapse - Ostomy present since November of 2017 upon review of records. Previously had incisional hernia repairs near her umbilicus. H/o abdominal wall cellulitis. - wound care Chronic, hyponatrmia - 128, NS at 100ml/hr , trend Bipolar Disorder -Noted on records, expedited [facility] visit may be beneficial Fluids: NS Code status: full PPx: scd Dispo: frequent bounceback, CM consult to assist with preventing bounceback. Addendum - Attending - Attending Attestation Date/Time: 03/07/19 1002 I personally evaluated the patient and discussed the management with Dr. Poole/ Petra. I agree with the History, Examination, Assessment and Plan documented above with any addition or exceptions noted below. Patient here with recurrent rectal stump bleeding. She denies self induced trauma. Will start on Rocephin/Flagyl for proctitis. Consult GI. Trend H/H.
[2019-03-07 03:49] VITALS: BMI 15.6
[2019-03-07] MEDS ORDERED: Ondansetron ODT 4 MG TAB PO PRN (03:53)
[2019-03-07] MEDS ORDERED: Ondansetron PF 4 MG/2 ML Vial IVP PRN (03:56)
[2019-03-07] MEDS ORDERED: Acetaminophen 325 MG TAB PO PRN (03:56)
[2019-03-07] MEDS ORDERED: Ondansetron ODT 4 MG TAB SL PRN (03:56)
[2019-03-07] MEDS ORDERED: Sodium Chloride 0.9% (PF) 10 ML VIAL FS PRN (04:01)
[2019-03-07] MEDS ORDERED: HYDROcodone/Acetaminophen 5/325 mg Tablet PO SCH (04:45)
[2019-03-07] MEDS: Sodium Chloride 0.9% 1,000 ML IV SCH ×2 (05:06→22:38)
[2019-03-07] MEDS: cefTRIAXone\\ROCEPHIN 1 GM in Sodium Chloride 0.9% 100 ML IVPB SCH (05:09)
[2019-03-07 05:17] LABS: #Basophils 0.1 thou/uL (0.0-0.2); #Eosinphils 0.1 thou/uL (0.0-0.7); #Lymphocytes 2.5 thou/uL (1.20-3.40); #Monocytes 0.8 thou/uL (0.11-0.59); #Neutrophils 6.9 thou/uL (1.40-6.50); %Basophils 0.8 % (0.0-1.0); %Eosinophils 1.1 % (0.0-10.0); %Lymphocytes 24.2 % (21.0-51.0); %Monocytes 7.2 % (0.0-10.0); %Neutrophils 66.7 % (42.0-75.0); Hemoglobin 7.5 g/dL (12.0-16.0); Mean Corpuscular HGB CONC 33.5 g/dL (32.0-36.0); Mean Corpuscular Hemoglobin 29.7 pg (27.0-31.0); Mean Corpuscular Volume 88.7 fL (78.0-98.0); Mean Platelet Volume 5.6 fL (7.4-10.4); Platelet Count 476 thou/uL (130-400); RBC Distribution Width 13.4 % (11.5-14.5); Red Blood Cell (RBC) Count 2.51 mill/uL (4.20-5.40); White Blood Cell (WBC) Count 10.4 thou/uL (4.8-10.8)
[2019-03-07 05:39] LABS: Anion Gap 8 mmol/L (10-20); BUN (Urea Nitrogen) 4 mg/dL (7.0-18.7); Calc. Creatinine Clearance 87 mL/min (70-130); Calcium 7.6 mg/dL (7.8-10.44); Carbon Dioxide 26 mmol/L (22-29); Chloride 104 mmol/L (98-107); Estimated GFR-MDRD Greater than 90; Glucose 87 mg/dL (70-105); Iron 17 ug/dL (50-170); Iron Binding Capacity, Total 224 mcg/dL (265-497); Potassium 3.4 mmol/L (3.5-5.1); Sodium 135 mmol/L (136-145)
[2019-03-07] MEDS ORDERED: metroNIDAZOLE 500 MG in Premix Bag 1 BAG IVPB SCH (06:00)
[2019-03-07] MEDS: metroNIDAZOLE 500 MG in Premix Bag 1 BAG IVPB SCH ×3 (06:02→22:40)
[2019-03-07 06:03] LABS: Ferritin 41.85 ng/mL (10-291)
[2019-03-07 07:46] LABS: Hemoglobin 8.5 g/dL (12.0-16.0)
[2019-03-07] MEDS ORDERED: Potassium Chloride 40 MEQ in Sodium Chloride 0.9% 250 ML 250 ML IVPB SCH (08:45)
[2019-03-07] MEDS: Bupropion 150 MG XL TAB PO SCH (09:50)
[2019-03-07] MEDS: Pantoprazole 40 MG VIAL IVP SCH (09:51)
[2019-03-07] MEDS: Hydrocortisone Acetate 25 MG Suppository PR SCH ×2 (12:58→20:40)
[2019-03-07 12:59] LABS: Hemoglobin 8.7 g/dL (12.0-16.0)
--- NOTE | 2019-03-07 13:22 | PRG ---
DATE OF SERVICE: 03/07/2019 I have been asked to see Ms. Velasquez regard to rectal bleeding. She has been hospitalized multiple times recently, has been attributable to hemorrhoids. The residents were concerned she is anemic, but this is not new. I have seen her this past August and familiar with her. She has had chronic pain, is on chronic narcotics without complications. She has had previous surgery at [facility] and [place], these are all in my H and P. I came by to see her and she is not here. The residents asked me if we can perform a sigmoidoscopy. She keeps coming back for bleeding. They feel that she has internal hemorrhoids. I have then started her on rectal suppositories of steroid. We will plan for a flexible sigmoidoscopy tomorrow morning. I have placed on the schedule. Unfortunately, I cannot perform a full H and P with her, I talked about that today because she has not been in the room, I have come by twice. We will discuss the procedure with her in the morning. The residents informed me that Job ID: [id number]
[2019-03-07 16:21] LABS: Hemoglobin 7.7 g/dL (12.0-16.0)
[2019-03-07 17:31] LABS: Amphetamine Not Detected (NotDetected); Barbiturates Screen Not Detected (NotDetected); Benzodiazepine Screen Not Detected (NotDetected); Cocaine Metabolite Screen Not Detected (NotDetected); Medtox Control Line Valid? VALID (VALID); Medtox Reader # READER 1; Methadone Not Detected (NotDetected); Methamphetamine Not Detected (NotDetected); Opiate Screen Detected (NotDetected); Oxycodone Screen Not Detected (NotDetected); Phencyclidine (PCP) Not Detected (NotDetected); THC/Cannabinoid Screen Detected (NotDetected); Tricyclic Screen Detected (NotDetected)
[2019-03-07] MEDS ORDERED: Lorazepam 2 MG/ML VIAL SLOW IVP SCH (19:45)
[2019-03-07 20:29] LABS: Hemoglobin 8.4 g/dL (12.0-16.0)
[2019-03-07] MEDS: OLANZapine 5 MG TAB PO SCH (20:39)
[2019-03-07] MEDS: traZODone HCl 150 MG TAB PO SCH (20:39)
[2019-03-08] MEDS: Sodium Chloride 0.9% 1,000 ML IV SCH ×2 (01:45→10:18)
[2019-03-08 05:19] LABS: #Basophils 0.1 thou/uL (0.0-0.2); #Eosinphils 0.3 thou/uL (0.0-0.7); #Lymphocytes 2.7 thou/uL (1.20-3.40); #Monocytes 0.8 thou/uL (0.11-0.59); #Neutrophils 5.6 thou/uL (1.40-6.50); %Basophils 1.3 % (0.0-1.0); %Eosinophils 3.2 % (0.0-10.0); %Lymphocytes 28.4 % (21.0-51.0); %Monocytes 8.1 % (0.0-10.0); Hemoglobin 8.1 g/dL (12.0-16.0); Mean Corpuscular HGB CONC 32.3 g/dL (32.0-36.0); Mean Corpuscular Hemoglobin 28.9 pg (27.0-31.0); Mean Corpuscular Volume 89.4 fL (78.0-98.0); Mean Platelet Volume 5.8 fL (7.4-10.4); Platelet Count 537 thou/uL (130-400); RBC Distribution Width 13.8 % (11.5-14.5); White Blood Cell (WBC) Count 9.4 thou/uL (4.8-10.8)
[2019-03-08] MEDS: cefTRIAXone\\ROCEPHIN 1 GM in Sodium Chloride 0.9% 100 ML IVPB SCH (05:30)
[2019-03-08] MEDS: metroNIDAZOLE 500 MG in Premix Bag 1 BAG IVPB SCH ×3 (05:30→20:45)
[2019-03-08 05:41] LABS: Anion Gap 7 mmol/L (10-20); BUN (Urea Nitrogen) 7 mg/dL (7.0-18.7); Calc. Creatinine Clearance 79 mL/min (70-130); Calcium 8.2 mg/dL (7.8-10.44); Carbon Dioxide 29 mmol/L (22-29); Chloride 106 mmol/L (98-107); Estimated GFR-MDRD Greater than 90; Glucose 88 mg/dL (70-105); Potassium 4.3 mmol/L (3.5-5.1); Sodium 138 mmol/L (136-145)
--- NOTE | 2019-03-08 08:55 | PDOC.FM ---
- Subjective Subjective: Patient asleep this AM. She would not wake up much to communicate with me this morning. No significant overnight events reported by nursing staff. Does not appear that patient had significant amount of rectal bleeding overnight. - Objective MAR Reviewed: Yes Vital Signs & Weight: Vital Signs (12 hours) Temp Pulse Resp BP Pulse Ox 03/08/19 03:27 97.9 F 88 18 94/60 92 L Weight Weight 43.998 kg I&O: 03/07/19 03/08/19 03/09/19 06:59 06:59 06:59 Intake Total 800 Output Total 800 Balance 0 Result Diagrams: 03/08/19 04:50 03/08/19 04:50 EKG Reviewed by me: No Radiology Reviewed by me: No Phys Exam - Physical Examination Constitutional: NAD Asleep and would not wake up long enough to have a conversation HEENT: moist MMs Cardiovascular: RRR, no significant murmur Gastrointestinal: soft, no distention Musculoskeletal: no edema, pulses present Neurological: non-focal, moves all 4 limbs Skin: no rash, cap refill <2 seconds Dx/Plan (1) Rectal bleeding Code(s): K62.5 - HEMORRHAGE OF ANUS AND RECTUM Status: Acute (2) Colostomy in place Code(s): Z93.3 - COLOSTOMY STATUS Status: Acute (3) Proctitis Code(s): K62.89 - OTHER SPECIFIED DISEASES OF ANUS AND RECTUM Status: Acute (4) HTN (hypertension) Code(s): I10 - ESSENTIAL (PRIMARY) HYPERTENSION Status: Chronic (5) Schizoaffective disorder Code(s): F25.9 - SCHIZOAFFECTIVE DISORDER, UNSPECIFIED Status: Chronic (6) Severe protein-calorie malnutrition Code(s): E43 - UNSPECIFIED SEVERE PROTEIN-CALORIE MALNUTRITION Status: Chronic - Plan Plan: Lower GI bleed, suspect internal hemorrhoids - Patient with several rectal exams with palpable internal hemorrhoids - Hg dropped from 11.2 --> 7.5 from 03/02 to 03/07 - While patient does have chronic anemia, concern for bleed given drop in Hg and reported amount of bleeding in patient's diaper/pamper - GI consulted; appreciate recs - Plan for flexible sigmoidoscopy today - Iron studies show mixed picture. Iron deficiency anemia with possible ACD. Proctitis, suspected - CT report from 02/23 ER visit suggestive of proctitis - Continue rocephin and flagyl; patient should only have had 3 days left of outpatient antibiotics Ostomy 2/2 recurrent rectal prolapse - Ostomy present since November of 2017 upon review of records. Previously had incisional hernia repairs near her umbilicus. H/o abdominal wall cellulitis. - Wound care consulted Hypovolemic hyponatremia - Na 128 --> 138 - Will d/c NS Bipolar Disorder - Noted on records, expedited MR visit may be beneficial Code status: full PPx: SCD's Dispo: Stable. Plan for flexible sigmoidoscopy today. Will await GI recs. Addendum - Attending - Attending Attestation Date/Time: 03/08/19 0902 I personally evaluated the patient and discussed the management with Dr. Joyce. I agree with the History, Examination, Assessment and Plan documented above with any addition or exceptions noted below. Patient stable and blood counts stable. Continues on treatment for proctitis/ pouchitis. GI on board and plans for flex sig today. Further recs and mgmt per that result.
[2019-03-08] MEDS ORDERED: Promethazine HCl 25 MG/ML VIAL SLOW IVP PRN (09:29)
[2019-03-08] MEDS ORDERED: Promethazine HCl 25 MG/ML VIAL IM PRN (09:29)
[2019-03-08] MEDS ORDERED: Ondansetron HCl/PF 4 MG/2 ML Vial IVP PRN (09:29)
[2019-03-08] MEDS: Pantoprazole 40 MG VIAL IVP SCH (10:17)
[2019-03-08] MEDS ORDERED: Lidocaine 1% PF 5 ML VIAL ONE (10:21)
[2019-03-08] MEDS ORDERED: PROPOFOL 200 MG/20 ML VIAL ONE (10:21)
[2019-03-08] MEDS: Ferrous Sulfate 325 MG TAB PO SCH (10:26)
[2019-03-08] MEDS: Bupropion 150 MG XL TAB PO SCH (10:27)
--- NOTE | 2019-03-08 11:04 | OP ---
DATE OF PROCEDURE: 03/08/2019 PREPROCEDURE DIAGNOSES: 1. Persistent rectal bleeding with multiple emergency room visits and anemia, multifactorial, but definitely probably some component of related gastrointestinal loss. 2. Previous sigmoid colostomy and Mary's pouch with secondary complications related to a surgery for rectal prolapse. POSTPROCEDURE DIAGNOSES: 1. Complete lack of rectal tone. 2. Nodular mucosa with ulceration and visible vessel in the rectum just above the dentate line. Multiple biopsies were obtained from the mucosa. Hemoclip was used to set visible vessel. 3. No real sign of diversion proctitis or colitis above this. 4. 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 Differential diagnoses include infection and neoplasia, but seem less likely. Solitary rectal ulcer syndrome can arise from repetitive prolapse, straining or from chronic irritation. She does have a history of manipulating wounds in the past to the point of infection. RECOMMENDATIONS: 1. Monitor H and H. 2. Check RPR. 3. Anusol suppositories q.12 hours. 4. Await biopsies. 5. If symptoms are not resolved, consider removal of Mary's pouch per General Surgery. ANESTHESIA: TIVA. PROCEDURE IN DETAIL: The patient was informed of the risks, benefits, and possible complications of endoscopy including perforation, reaction to medication, and aspiration. Informed consent was obtained. The patient was brought to the endoscopy suite, where she was sedated in a gradual fashion. Once she was comfortable, rectal exam was performed. There was no rectal tone whatsoever. The endoscope was advanced to the anal canal and the mucosa appeared fairly normal proximally in the pouch, which is about 10 to 15 cm long, but distally is somewhat nodular. There was a linear ulcer with visible vessel. This was clipped and likely the source of her bleeding. The mucosa around this area was all biopsied to rule out malignancy or infection. Attempts at retroflexion were unsuccessful as the rectum really would not hold air to insufflate and to look at retroflexed view. No evidence of perianal disease was found or fistulas or fissures. The scope was removed. The patient tolerated the procedure well. No complications. Job ID: [id number]
[2019-03-08] MEDS: Hydrocortisone Acetate 25 MG Suppository PR SCH ×2 (11:10→20:23)
--- NOTE | 2019-03-08 12:24 | PDOC.BPN ---
- Brief Progress Note Went to speak w/ pt after getting paged about wanting to leave AMA. Pt is wanting to leave because she says her pain has not been controlled since she has been here. Pt reports her pain is all in her rectum. Describes as throbbing, constant, and pressure. Rates severity of 8.5/10. Tylenol has not brought the pain down, nor have the suppositories. Asked pt what pain medication usually helps her. She says she does not know. Is adamant Tylenol does not help. Offered Toradol. Says that does not work either. Informed those were our only options for her because of her previous history of opiate abuse and opiates in her UDS at this hospital stay. She denied opiate use and began crying. Pt became distressed and said she wants to be discharged and does not want to leave AMA. Informed pt discharge is not our medical advice at this time. Offered pt spiritual care/counseling; said she "didn't care" so placed the referral. Continue prn Tylenol and scheduled anusol suppositories, which per GI should be helping w/ rectal pain.
[2019-03-08] MEDS: Acetaminophen 325 MG TAB PO PRN (14:27)
[2019-03-08] MEDS ORDERED: Ketorolac Tromethamine 30 MG/ML VIAL IVP SCH (15:45)
[2019-03-08] MEDS ORDERED: Haloperidol Lactate 5 MG/ML VIAL SLOW IVP SCH (15:45)
[2019-03-08 17:52] LABS: Hemoglobin 7.9 g/dL (12.0-16.0)
[2019-03-08] MEDS: traZODone HCl 150 MG TAB PO SCH (20:22)
[2019-03-08] MEDS: OLANZapine 5 MG TAB PO SCH (20:23)
[2019-03-08] MEDS ORDERED: HYDROcodone/Acetaminophen 5/325 mg Tablet PO SCH (20:45)
[2019-03-09 00:31] LABS: Hemoglobin 7.4 g/dL (12.0-16.0)
[2019-03-09] MEDS: metroNIDAZOLE 500 MG in Premix Bag 1 BAG IVPB SCH ×2 (05:36→13:20)
[2019-03-09] MEDS: cefTRIAXone\\ROCEPHIN 1 GM in Sodium Chloride 0.9% 100 ML IVPB SCH (05:36)
--- NOTE | 2019-03-09 06:22 | PDOC.FM ---
- Subjective Subjective: 38 yo female seen at bedside this AM. Patient would like to have her ostomy reversed. She reports pain in her bottom, but no bloody output at this time. She does note black stool in her ostomy bag. No other complaints. - Objective Vital Signs & Weight: Vital Signs (12 hours) Temp Pulse Resp BP Pulse Ox 03/09/19 00:05 99.0 F 94 18 99/64 94 L Weight Admit Weight 43.998 kg Weight 43.998 kg I&O: 03/07/19 03/08/19 03/09/19 06:59 06:59 06:59 Intake Total 800 3840 Output Total 800 603 Balance 0 3237 Result Diagrams: 03/09/19 06:48 03/08/19 04:50 Phys Exam - Physical Examination Constitutional: NAD Appears much older than stated age Respiratory: no wheezing, clear to auscultation bilateral Cardiovascular: RRR, no significant murmur Gastrointestinal: soft, positive bowel sounds ostomy in place. Fistula present Musculoskeletal: no edema, pulses present Neurological: non-focal, moves all 4 limbs Lymphatic: no nodes Psychiatric: normal affect Skin: no rash, cap refill <2 seconds Dx/Plan (1) Colostomy in place Code(s): Z93.3 - COLOSTOMY STATUS Status: Acute (2) Rectal bleeding Code(s): K62.5 - HEMORRHAGE OF ANUS AND RECTUM Status: Acute (3) Proctitis Code(s): K62.89 - OTHER SPECIFIED DISEASES OF ANUS AND RECTUM Status: Acute - Plan Plan: Lower GI bleed, suspect internal hemorrhoids - Patient with several rectal exams with palpable internal hemorrhoids - Hgb 7.8 this AM - s/p clipping procedure with Dr. Hanson - GI consulted; appreciate recs Proctitis, suspected - CT report from 02/23 ER visit suggestive of proctitis - Continue rocephin and flagyl Ostomy 2/2 recurrent rectal prolapse - Ostomy present since November of 2017 upon review of records. - Wound care consulted - Patient desires general surgery consultation Code status: full PPx: SCD's Dispo: Stable. Patient may be ready for discharge later today depending on surgery consultation Addendum - Attending - Attending Attestation Date/Time: 03/09/19 1226 I personally evaluated the patient and discussed the management with Dr. Arambula. I agree with the History, Examination, Assessment and Plan documented above with any addition or exceptions noted below.
[2019-03-09 07:22] LABS: Hemoglobin 7.8 g/dL (12.0-16.0)
[2019-03-09 08:01] LABS: Syphilis Antibody Nonreactive (Nonreactive); Syphilis Antibody Index 0.06 S/CO (<1.00 Non-Reactive)
[2019-03-09] MEDS: Ferrous Sulfate 325 MG TAB PO SCH (08:30)
[2019-03-09] MEDS: Bupropion 150 MG XL TAB PO SCH (08:30)
[2019-03-09] MEDS: Pantoprazole 40 MG VIAL IVP SCH (08:32)
[2019-03-09] MEDS: Hydrocortisone Acetate 25 MG Suppository PR SCH (08:33)
[2019-03-09] MEDS ORDERED: PROPOFOL 200 MG/20 ML VIAL ONE (10:31)
[2019-03-09] MEDS ORDERED: EPINEPHrine 1 MG/10 ML Abboject SYRINGE ONE (10:31)
--- NOTE | 2019-03-09 11:11 | PRG ---
DATE OF SERVICE: 03/09/2019 SUBJECTIVE: Ms. Velasquez yesterday evening, nurse reports, was in the bathroom. She came and she had blood on her hands and she had started bleeding again. She denies any rectal manipulation. She had significant bleeding on and off overnight, then stopped. She has had a little bit of bleeding today. OBJECTIVE: VITAL SIGNS: Pulse 102, temperature is 98, respirations 16, blood pressure is stable. ABDOMEN: Soft, nontender. LABORATORY DATA: Hemoglobin 7.8. 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 Biopsies are pending. A clip was placed on visible vessel last night. Yesterday, it came off last night. I suspect she has been manipulating that. She has a history of manipulating her wounds. PLAN: Plan will be flexible sigmoidoscopy today. Job ID: [id number]
[2019-03-09] MEDS ORDERED: Morphine 2 MG/ML SYRINGE SLOW IVP SCH (12:30)
[2019-03-09] MEDS ORDERED: Ondansetron HCl/PF 4 MG/2 ML Vial IVP PRN (15:42)
[2019-03-09] MEDS ORDERED: Morphine Sulfate 2 MG/ML SYRINGE SLOW IVP PRN (15:42)
[2019-03-09] MEDS ORDERED: Promethazine HCl 25 MG/ML VIAL SLOW IVP PRN (15:42)
[2019-03-09] MEDS ORDERED: PACU-Morphine 4MG/ML VIAL SLOW IVP PRN (15:42)
[2019-03-09] MEDS ORDERED: Promethazine HCl 25 MG/ML VIAL IM PRN (15:42)
[2019-03-09] MEDS ORDERED: Morphine 2 MG/ML SYRINGE ONE (15:44)
[2019-03-09] MEDS ORDERED: Ketorolac Tromethamine 30 MG/ML VIAL IVP SCH (17:00)
--- NOTE | 2019-03-09 17:12 | OP ---
DATE OF PROCEDURE: 03/09/2019 PREPROCEDURE DIAGNOSES: 1. Recurrent rectal bleeding. 2. A clip that was placed in the visible vessel yesterday has come off. There has been reports that she was manipulating her rectum. POSTPROCEDURE DIAGNOSIS: Ulcer, 1 cm, in the rectal vault, concerning for malignancy versus solitary rectal syndrome for recurrent prolapse or manipulation by the patient. No active bleeding. PROCEDURE PERFORMED: Injection of 1:10,000 epinephrine 4 mL and then a 10-Indonesian heater probe cautery of visible vessels. PROCEDURE IN DETAIL: After the patient was informed of the risks, benefits, and possible complications of endoscopy including perforation, bleeding, reaction to medication, and aspiration, informed consent was obtained. The patient was brought to endoscopy suite, where she was sedated in gradual fashion. Once she was comfortable, rectal exam was performed, revealing a firm ulcer in the rectal vault. Again, endoscope was advanced into the anal canal. The proximal Mary's pouch was normal. There was no rectal tone. The ulcer noted to the previous endoscopy had erosion. This area was once again seen. It was not rebiopsied as it was biopsied aggressively yesterday. Injection of 1:10,000 epinephrine was performed at the base of the ulcer where there was visible vessel. This was cauterized with 10-Indonesian heater probe. There was no bleeding at the termination of procedure. The scope was removed. The patient tolerated the procedure well. There were no complications. RECOMMENDATIONS: 1. We will stop all suppository medications. 2. I have strongly recommended the patient not to manipulate her rectum. 3. If the biopsies come back to show malignancy, she will need a resection. Job ID: [id number]
[2019-03-09] MEDS: OLANZapine 5 MG TAB PO SCH (19:55)
[2019-03-09] MEDS: traZODone HCl 150 MG TAB PO SCH (19:56)
[2019-03-09] MEDS: Acetaminophen 325 MG TAB PO PRN (19:57)
[2019-03-10] MEDS: Acetaminophen 325 MG TAB PO PRN (04:03)
[2019-03-10 05:24] LABS: Hemoglobin 7.1 g/dL (12.0-16.0)
--- NOTE | 2019-03-10 06:19 | PDOC.FM ---
- Subjective Subjective: 38 yo female seen at bedside this AM. Patient reports she is ready to go home. She notes that her pain is well controlled and she has had very minimal to no bleeding following her procedure yesterday. She reports she can see her PCP before Monday this week. Nursing staff report that she has been up walking with no problem and frequently goes outside to smoke. - Objective Vital Signs & Weight: Vital Signs (12 hours) Temp Pulse Resp BP Pulse Ox 03/10/19 04:34 98.6 F 82 16 106/70 96 03/10/19 00:06 98.4 F 79 16 105/67 94 L Weight Admit Weight 43.998 kg Weight 43.998 kg I&O: 03/08/19 03/09/19 03/10/19 06:59 06:59 06:59 Intake Total 800 3840 1590 Output Total 800 603 450 Balance 0 3237 1140 Result Diagrams: 03/10/19 04:50 03/08/19 04:50 Phys Exam - Physical Examination Constitutional: NAD Respiratory: no wheezing, clear to auscultation bilateral Cardiovascular: RRR, no significant murmur Gastrointestinal: soft, positive bowel sounds ostomy in place and fistula present. Musculoskeletal: no edema, pulses present Neurological: non-focal, moves all 4 limbs Psychiatric: A&O x 3 Deviation from normal: multiple areas of picking present most obvious Dx/Plan (1) Colostomy in place Code(s): Z93.3 - COLOSTOMY STATUS Status: Acute (2) Rectal bleeding Code(s): K62.5 - HEMORRHAGE OF ANUS AND RECTUM Status: Acute (3) Proctitis Code(s): K62.89 - OTHER SPECIFIED DISEASES OF ANUS AND RECTUM Status: Acute - Plan Plan: Lower GI bleed, suspect internal hemorrhoids - Patient with several rectal exams with palpable internal hemorrhoids - Hgb 7.1 this AM - s/p clipping procedure with Dr. Hanson. Clip has since come off due to manipulation by patient - s/p flexible sigmoidoscopy with injection and cautery - 1 cm ulceration with biopsies taken. If malignant will need resection. - GI consulted; appreciate recs Proctitis, suspected - CT report from 02/23 ER visit suggestive of proctitis - Continue rocephin and flagyl Ostomy 2/2 recurrent rectal prolapse - Ostomy present since November of 2017 upon review of records. - Wound care consulted - Patient desires general surgery consultation. Deemed not surgical candidate at this time. Code status: full PPx: SCD's Dispo: Stable. Will coordinate with GI for discharge today vs awaiting biopsy results. Addendum - Attending - Attending Attestation Date/Time: 03/10/19 8864 I personally evaluated the patient and discussed the management with the team. I agree with the History, Examination, Assessment and Plan documented above with any addition or exceptions noted below. I saw her and examined her on the 4th floor at the nursing station (her bed is on T3). She is actively manipulating the wounds on her nose and is wearing a stained robe with some evidence of old blood on it. Discussed with jericho SANTOS for dc. Follow up pathology.
[2019-03-10] MEDS ORDERED: Ketorolac Tromethamine 30 MG/ML VIAL IVP SCH (07:30)
[2019-03-10] MEDS: Bupropion 150 MG XL TAB PO SCH (08:26)
[2019-03-10 08:27] VITALS: BP 131/86; TEMP 98.3
[2019-03-10] MEDS: Pantoprazole 40 MG VIAL IVP SCH (08:27)
[2019-03-10] MEDS: Ferrous Sulfate 325 MG TAB PO SCH (08:27)
--- NOTE | 2019-03-10 18:46 | DIS ---
DATE OF ADMISSION: 03/07/2019 DATE OF DISCHARGE: 03/10/2019 RESIDENT: Femi Arambula MD ADMITTING ATTENDING: Jack Fink MD DISCHARGE ATTENDING: Trey Hayes MD. CONSULTATIONS: 1. Gastroenterology, Dr. Hanson. 2. Wound care evaluation and treatment. 3. OT evaluation and treatment. 4. Case Management. PROCEDURES: 1. On 03/08/2019, the patient underwent a flexible sigmoidoscopy with Dr. Raul Hanson due to persistent rectal bleeding that showed complete lack of rectal tone, nodular mucosa with ulceration and visible vessel in the rectum just above the dentate line. Multiple biopsies taken of the mucosa with a alberto-clip to the said visible vessel. Had no sign of diversion proctitis or colitis. He does suspect this is solitary rectal ulcer syndrome. 2. On 03/09/2019, the patient underwent a repeat flexible sigmoidoscopy due to persistent bleeding. She had an injection of epinephrine and a 10-Barbadian heater probe cautery of visible vessels in the rectum. PRIMARY DIAGNOSES: 1. Solitary rectal ulcer syndrome. 2. Rectal bleeding. 3. Proctitis. 4. Previous colostomy. DISCHARGE MEDICATIONS: 1. Bupropion XL 150 mg p.o. daily. 2. Zyprexa 20 mg p.o. at bedtime. 3. Zoloft 200 mg p.o. daily. 4. Flonase nasal spray two sprays each naris b.i.d. 5. Proventil HFA two puffs inhaled q.6 hours p.r.n. 6. EpiPen 0.3 mg injected one p.r.n. 7. Seroquel 200 mg p.o. b.i.d. 8. Trazodone 300 mg p.o. at bedtime. 9. Omeprazole 40 mg p.o. daily. 10. Macrobid 100 mg q.12 hours. 11. Symbicort two puffs inhaled b.i.d. 12. Acetaminophen 650 mg p.o. q.4 hours. 13. Ferrous sulfate 325 mg p.o. q.a.m. with meals. DISCONTINUE MEDICATIONS: Metronidazole 500 mg p.o. q.8 hours. HISTORY OF PRESENT ILLNESS/HOSPITAL COURSE: The patient is a 38-year-old female , presents to the ED for rectal bleeding and significant rectal pain. She has been to the ED several times with same complaints, most recently on 03/02. She had a colostomy secondary to rectal prolapse and a rectal stump. 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 The patient reports the bleeding is in the rectum. She denies any blood in her ostomy bag. She also complains of feeling weak and dizzy. Symptoms have been bothering her for the past several weeks and worse for the last couple of days. The patient states that she did obtain the antibiotics that she was previously prescribed on discharge and she had an appointment with her general surgeon, but she canceled it and said that she needs to schedule with a raw stock machine loader. During this hospitalization, the patient did have some notable lab values of a hemoglobin on day of admission 7.5 with previous baseline somewhere near 11 to 12. The patient did have some slight hyponatremia at 135 that resolved with IV fluids. She also did have some evidence of iron deficiency with a total iron of 17, a TIBC 224, a ferritin of 41.85. The patient remained afebrile with normotensive vital signs. She did become slightly tachycardic at times, mostly due to her bleeding. Of note, this patient did have a UDS that showed positive for urine opiates, tricyclics, and cannabinoids. During this hospitalization as well, the patient is found to have frequent manipulations of her rectum, we believe that is the etiology of her rectal symptoms. She has been found to be digging in there and we believe her manipulation has dislodged the previous clip that was put in place by Dr. Hanson during her first procedure. She is counseled extensively about discontinuing the manipulation activity as well as her skin picking behaviors. She otherwise reported good improvement of her symptoms and was ready for discharge on 03/10/2019. DISPOSITION: Stable. DISCHARGE INSTRUCTIONS: 1. Location to be discharged home in the care of herself. 2. Diet will be as tolerated with no restrictions. 3. Activity will be as tolerated with refraining from any rectal manipulation or any other manipulation to her rectal pouch. 4. Followup will be with Dr. Hanson, her raw stock machine loader in the next 7 to 10 days as well as her primary care physician, at [facility] on [facility] in [place], [place]. Job ID: [id number] MTDD
--- NOTE | 2019-03-11 08:09 | CON ---
DATE OF CONSULTATION: 03/08/2019 REASON FOR CONSULTATION: Rectal bleeding. HISTORY OF PRESENT ILLNESS: Ms. Velasquez is a 38-year-old female who has been in this hospital multiple times. She has been to the ER 15 times since December 13, who at this time came in for rectal bleeding, which has been majority of her visits. She does not follow up with her PCP. She states she has rectal bleeding with drops of red blood in the stool. She was found to have internal and external hemorrhoids on rectal exam. She states she has been put on no medicine for this. She has been using some topical Preparation H at home. She has had a history of previous colon resection and ostomy after complications of a surgery for rectal prolapse at [facility] several years ago. The residents asked me to see her to perform a sigmoidoscopy to determine the source for her bleeding. PAST MEDICAL HISTORY: Unchanged since my consult on 09/06/2018. Essentially, she has bipolar and schizoaffective disorder, multiple prior psychiatric admissions, polydipsia, history of abdominal wall cellulitis and surgery. 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 PAST SURGICAL HISTORY: Sigmoid colectomy; Mary pouch; multiple other abdominal surgeries performed in [place], [place] secondary to hernias and infections; previous appendectomy; and herniorrhaphy. SOCIAL HISTORY: Smokes daily. Does not drink or use drugs, although she has had positive marijuana in her drug screen. MEDICATIONS: At home: 1. Bupropion. 2. Zyprexa. 3. Zoloft. 4. Proventil. 5. Flonase. 6. Seroquel. 7. Trazodone. 8. Symbicort. 9. Metronidazole. 10. Omeprazole. REVIEW OF SYSTEMS: Chronic abdominal pain which is unchanged. She states she is off narcotics now. PHYSICAL EXAMINATION: GENERAL: She is afebrile. She is thin. She asked to have her rectum taken out. I explained that, that is not really possible. ABDOMEN: Soft and nontender. Multiple scars are noted. RECTAL: Not performed. She is going to have a flexible sigmoidoscopy VITAL SIGNS: Temperature is 97, pulse anywhere from 88 to 111, O2 room saturations 92%, respirations 18, blood pressures 108 to 94 over 62 to 60. LABORATORY DATA: Hemoglobin was 8.2 on admission, usually ranged between 10 and 11. Sodium 138, potassium 4.3, BUN and creatinine are 29 and 7. Iron 17, TIBC 224, saturation 41%. ASSESSMENT: Rectal bleeding with previous Mary pouch. Differential diagnosis would include hemorrhoids and diversion proctitis. PLAN: Sigmoidoscopy. Job ID: [id number]
== END 2019-03-10 11:55 | disposition home or self-care (01) | DRG 394 ==
LOC: OBSVTOIN 03:36 → INTOOBSV 03:36 → SURG A 03:36
PROVIDERS: ADMIT Student in an Organized Health Care Education/Training Program; ATTEND Student in an Organized Health Care Education/Training Program
PROC: 0W3P8ZZ Control Bleeding in Gastrointestinal Tract, Via Natural or Artificial Opening Endoscopic (ICD-10-PCS; principal; 2019-03-08)
PROC: 3E0G8GC Introduction of Other Therapeutic Substance into Upper GI, Via Natural or Artificial Opening Endoscopic (ICD-10-PCS; 2019-03-08)
PROC: 0DBP8ZX Excision of Rectum, Via Natural or Artificial Opening Endoscopic, Diagnostic (ICD-10-PCS; 2019-03-08)
PROC: 0DBP8ZX Excision of Rectum, Via Natural or Artificial Opening Endoscopic, Diagnostic (ICD-10-PCS; 2019-03-09)
PROC: 0W3P8ZZ Control Bleeding in Gastrointestinal Tract, Via Natural or Artificial Opening Endoscopic (ICD-10-PCS; 2019-03-09)
DX: K62.6 Ulcer of anus and rectum (principal); E87.1 Hypo-osmolality and hyponatremia; F31.9 Bipolar disorder, unspecified; J44.9 Chronic obstructive pulmonary disease, unspecified; F17.200 Nicotine dependence, unspecified, uncomplicated; E86.1 Hypovolemia; E61.1 Iron deficiency; F42.4 Excoriation (skin-picking) disorder; K62.89 Other specified diseases of anus and rectum; Z88.0 Allergy status to penicillin; Z88.8 Allergy status to other drugs, medicaments and biological substances; Z79.899 Other long term (current) drug therapy; Z79.51 Long term (current) use of inhaled steroids; Z90.49 Acquired absence of other specified parts of digestive tract; Z93.3 Colostomy status
CPT/HCPCS: 36415; 36416; 80048; 80306; 82607; 82728; 82746; 83540; 83550; 85014; 85018; 85025; 86780; 88305; J0171; J0696; J1630; J1885; J2001; J2060; J2270; J2704; J3480; J3490; J7050; Q0162

== ENCOUNTER 2019-04-15 14:42 | Inpatient (IN) | payer OTHER ==
[2019-04-15] MEDS ORDERED: Ketamine 50 MG/ML (10ML VIAL) ONE (14:55)
[2019-04-15] MEDS ORDERED: Lidocaine 1% (PF) 30 ML VIAL ONE (14:55)
[2019-04-15] MEDS ORDERED: CEFAZOLIN 1 GM VIAL ONE (14:56)
[2019-04-15] MEDS ORDERED: Ketorolac Tromethamine 30 MG/ML VIAL ONE (15:30)
[2019-04-15] MEDS ORDERED: Dextrose 5% in Water 1,000 ML IV PRN (16:04)
[2019-04-15] MEDS ORDERED: hydrALAZINE 20 MG/ML VIAL SLOW IVP PRN (16:04)
[2019-04-15] MEDS ORDERED: Ondansetron PF 4 MG/2 ML Vial IVP PRN (16:04)
[2019-04-15] MEDS ORDERED: Dextrose 50% Abboject 50 ML SYRINGE SLOW IVP PRN (16:04)
[2019-04-15] MEDS ORDERED: traMADol HCl 50 MG TAB PO PRN (16:07)
[2019-04-15 16:10] LABS: Hemoglobin 7.7 g/dL (12.0-16.0); Mean Corpuscular HGB CONC 31.8 g/dL (32.0-36.0); Mean Corpuscular Hemoglobin 24.8 pg (27.0-31.0); Mean Corpuscular Volume 78.1 fL (78.0-98.0); Mean Platelet Volume 7.7 fL (7.4-10.4); Platelet Count 286 thou/uL (130-400); RBC Distribution Width 17.3 % (11.5-14.5); Red Blood Cell (RBC) Count 3.09 mill/uL (4.20-5.40); White Blood Cell (WBC) Count 15.3 thou/uL (4.8-10.8)
[2019-04-15 16:17] LABS: ALT (SGPT) 17 U/L (8-55); AST (SGOT) 13 U/L (5-34); Alkaline Phosphatase 175 U/L (40-110); Anion Gap 11 mmol/L (10-20); BUN (Urea Nitrogen) 6 mg/dL (7.0-18.7); Bilirubin, Total 0.2 mg/dL (0.2-1.2); Calc. Creatinine Clearance 0 mL/min (70-130); Calcium 8.4 mg/dL (7.8-10.44); Carbon Dioxide 35 mmol/L (22-29); Chloride 89 mmol/L (98-107); Estimated GFR-MDRD Greater than 90; Globulin 3.8 g/dL (2.4-3.5); Glucose 111 mg/dL (70-105); Protein, Total 6.8 g/dL (6.0-8.3); Sodium 132 mmol/L (136-145)
--- NOTE | 2019-04-15 16:19 | RAD ---
PORTABLE CHEST: HISTORY: Chest tube placement. COMPARISON: Film from earlier today. FINDINGS: Right chest tube is in place. The right pneumothorax is again seen but is smaller in size, indicating some re-expansion of the right lung. Small right pneumothorax remains along the periphery of the rig ht chest. There is a tiny amount of subcutaneous emphysema. The left lung remains clear. Old left rib fracture is again noted. IMPRESSION: Right chest tube is in place. The right pneumothorax has decreased in size but does persist. POS: [facility]
[2019-04-15 16:21] LABS: Potassium 2.7 mmol/L (3.5-5.1)
[2019-04-15 16:29] LABS: Band 20 % (5-11); Lymphocytes 7 % (21-51); MDiff Complete? YES; Metamyelocyte 1 % (0-0); Monocytes 2 % (0-10); Neutrophil 69 % (42-75)
[2019-04-15] MEDS ORDERED: traMADol HCl 50 MG TAB ONE (16:30)
[2019-04-15] MEDS ORDERED: Potassium Chloride 20 MEQ/100 ML PREMIX BAG IVPB SCH (16:45)
[2019-04-15 17:45] LABS: Magnesium 1.7 mg/dL (1.6-2.6); Phosphorus 3.4 mg/dL (2.3-4.7)
[2019-04-15] MEDS: Gabapentin 300 MG CAP PO SCH (20:29)
[2019-04-15] MEDS: traMADol HCl 50 MG TAB PO PRN (20:29)
[2019-04-15] MEDS: Cyclobenzaprine 10 MG TAB PO PRN (20:29)
[2019-04-15] MEDS: Senokot S 8.6-50 MG TAB PO SCH (20:30)
[2019-04-15] MEDS ORDERED: PROVENTIL INHALER 6.7 G (200 INHALATIONS) INH PRN (21:45)
[2019-04-15] MEDS: Nicotine 14 MG PATCH TD SCH (22:05)
[2019-04-15] MEDS ORDERED: OLANZapine 5 MG TAB PO SCH (22:30)
[2019-04-15] MEDS ORDERED: traZODone HCl 150 MG TAB PO SCH (22:30)
[2019-04-15] MEDS: Ketorolac Tromethamine 30 MG/ML VIAL IVP SCH (23:32)
[2019-04-15] MEDS: Acetaminophen 500 MG TAB PO SCH (23:32)
--- NOTE | 2019-04-15 23:37 | PRG ---
DATE OF SERVICE: 04/15/2019 SUBJECTIVE: The patient was seen on the surgical floor during the evening rounds. The patient is currently resting comfortably on her left side, in no acute distress. The patient has a chest tube in place to suction with no air leak. OBJECTIVE: VITAL SIGNS: Stable, afebrile. GENERAL: Middle-aged female, frail-appearing, resting comfortably. RESPIRATORY: Equal chest rise and fall, chest tube to suction. ASSESSMENT: 1. Status post fall on April 10 with delayed presentation. 2. Right pneumothorax. 3. Right pulmonary effusion. 4. Hypokalemia. 5. Anemia, likely secondary to recent gastrointestinal bleed one month ago. 6. History of rectal prolapse, gastric fistula with ostomy, gastrointestinal bleed, bipolar, chronic obstructive pulmonary disease, and proctitis. PLAN: We will continue right chest tube to suction. Continue supportive care and pain regimen. We will replace electrolytes as needed. We will recheck BMP and CBC in the morning. The patient did receive 1 unit of packed red blood cells in the ER earlier. We will place a nicotine patch as the patient is a heavy smoker. We will restart the patient's psych medications and sleep medications. We will obtain urinalysis as the patient states she was diagnosed with urinary tract infection and did not customer support executive her prescription, which was Macrobid. Job ID: [id number]
[2019-04-16] MEDS: Acetaminophen 500 MG TAB PO SCH ×5 (00:10→23:30)
[2019-04-16] MEDS: Ketorolac Tromethamine 30 MG/ML VIAL IVP SCH ×5 (00:10→23:29)
[2019-04-16 05:51] LABS: Anion Gap 15 mmol/L (10-20); BUN (Urea Nitrogen) 8 mg/dL (7.0-18.7); Calc. Creatinine Clearance 99 mL/min (70-130); Calcium 8.6 mg/dL (7.8-10.44); Carbon Dioxide 33 mmol/L (22-29); Chloride 94 mmol/L (98-107); Estimated GFR-MDRD Greater than 90; Glucose 96 mg/dL (70-105); Magnesium 2.2 mg/dL (1.6-2.6); Phosphorus 3.9 mg/dL (2.3-4.7); Sodium 139 mmol/L (136-145)
[2019-04-16 06:06] LABS: Band 4 % (5-11); Hemoglobin 8.6 g/dL (12.0-16.0); Lymphocytes 16 % (21-51); MDiff Complete? YES; Mean Corpuscular HGB CONC 32.3 g/dL (32.0-36.0); Mean Corpuscular Hemoglobin 26.3 pg (27.0-31.0); Mean Corpuscular Volume 81.5 fL (78.0-98.0); Mean Platelet Volume 7.4 fL (7.4-10.4); Monocytes 2 % (0-10); Neutrophil 78 % (42-75); Platelet Count 306 thou/uL (130-400); RBC Distribution Width 17.6 % (11.5-14.5); Red Blood Cell (RBC) Count 3.25 mill/uL (4.20-5.40); White Blood Cell (WBC) Count 11.9 thou/uL (4.8-10.8)
[2019-04-16] MEDS: Mometasone/Formoterol 120 PUFF INHALER INH SCH ×2 (06:55→19:32)
--- NOTE | 2019-04-16 08:09 | RAD ---
Frontal radiograph chest: 04/16/2019 COMPARISON: 04/15/2019 HISTORY: Evaluate right-sided chest tube FINDINGS: A stable right chest tube is present. There is a right-sided pneumothorax with a small apic al component and a small component within the right costophrenic angle region. The right-sided pneumothorax has decreased in volume slightly when compared to the prior exam. No left-sided pneumoth orax. There is prominent upper lobe emphysematous changes, right greater than left. No focal consolidation or alveolar edema. IMPRESSION: Small residual pneumothorax on the right. Stable right chest tube. Severe emphysematous c hanges, especially in the right upper lobe region.
[2019-04-16] MEDS ORDERED: Potassium Chloride 20 MEQ in Premix Bag 1 BAG IVPB SCH (08:15)
[2019-04-16] MEDS: Ferrous Sulfate 325 MG TAB PO SCH (08:51)
[2019-04-16] MEDS: Ascorbic Acid 500 mg Chewable Tablet PO SCH ×2 (09:15→21:22)
[2019-04-16] MEDS: Gabapentin 300 MG CAP PO SCH ×3 (09:16→21:22)
[2019-04-16] MEDS: Senokot S 8.6-50 MG TAB PO SCH ×2 (09:16→21:25)
[2019-04-16] MEDS: Potassium Chloride 20 MEQ TAB PO SCH (09:16)
[2019-04-16] MEDS: Bupropion 150 MG XL TAB PO SCH (09:16)
[2019-04-16] MEDS: Polyethylene Glycol 3350 17 GM Packet PO SCH (09:17)
[2019-04-16] MEDS: traMADol HCl 50 MG TAB PO PRN ×3 (09:30→21:24)
[2019-04-16] MEDS: Fluticasone Propionate Nasal Spray 16 gm Bottle NASAL SCH ×2 (09:31→21:25)
[2019-04-16] MEDS ORDERED: Potassium Chloride 10 MEQ in Sodium Chloride 0.9% 250 ML 250 ML IVPB SCH (10:00)
[2019-04-16] MEDS: Cyclobenzaprine 10 MG TAB PO PRN ×2 (10:25→21:24)
[2019-04-16 13:08] LABS: Bacteria/HPF 4+ HPF (None Seen); Bilirubin Negative (Negative); Blood, Urine Negative (Negative); Clarity Clear (Clear); Glucose, Urine (Dipstick) Normal (Negative); Leukocyte Negative Leu/uL (Negative); Nitrite Negative (Negative); Protein, Urine (Dipstick) 20 mg/dL (Neg-Trace); RBC/HPF 0-3 HPF (0-3); Urobilinogen Normal mg/dL (Less than 2); WBC/HPF 0-3 HPF (0-3)
[2019-04-16 13:29] LABS: Urine Culture Reflex No No
--- NOTE | 2019-04-16 15:56 | HP ---
HISTORY OF PRESENT ILLNESS: This is a 38-year-old woman, who was transferred from [place] [facility]. The patient presented complaining of shortness of breath and pleuritic chest pain, worsened with deep inspiration. The patient apparently fell down six days prior to presentation. She landed on her right side at the time. She suffered no head trauma. Workup in [place] included CT scan of the chest, which is remarkable for moderate-size right pneumothorax with pleural effusion. At the time of my evaluation, she is awake and alert. She reports her pain at 7/10. She denies any fevers or chills. She denies any abdominal pain. PAST MEDICAL HISTORY: Pertinent for COPD, chronic hyponatremia, rectal prolapse, and bipolar disorder. PAST SURGICAL HISTORY: Pertinent for multiple endoscopies, previous exploratory laparotomy with end colostomy to treat rectal prolapse, and incisional herniorrhaphy x2. SOCIAL HISTORY: The patient smokes one pack of cigarettes per day equivalent of over 20 pack years. She smokes marijuana occasionally and indulges in ethanol consumption, quantity unknown. She is a previous opioid and methamphetamine abuser. FAMILY HISTORY: Family history is notable for father with heart disease. PREHOSPITALIZATION MEDICATIONS: Includes; 1. Acetaminophen 650 mg p.o. q.4 hours p.r.n. 2. Albuterol inhalation p.r.n. 3. Symbicort inhalation two puffs twice daily. 4. Wellbutrin XL 150 mg p.o. daily. 5. Ferrous sulfate 325 mg p.o. daily. 6. Omeprazole 40 mg p.o. daily. 7. Quetiapine 50 mg p.o. at bedtime, she also takes quetiapine 200 mg p.o. b.i.d. 8. Sertraline 200 mg p.o. daily. 9. Trazodone 200 mg p.o. at bedtime. ALLERGIES: TO BUSPIRONE AND PENICILLIN. REVIEW OF SYSTEMS: Ten-point review of systems essentially unremarkable except as stated in past medical history and chief complaint. PHYSICAL EXAMINATION: GENERAL: Reveals a 38-year-old normally developed woman, who is otherwise coherent, interactive, appears stated age. She is alert and appears to be in no acute distress at time of my evaluation. VITAL SIGNS: Included blood pressure 110/70, pulse 87, respiratory rate is 18, temperature 97.9 degrees Fahrenheit, and oxygen saturation 93% on 4 L by nasal cannula oxygen. HEENT: She has a healing superficial abrasions to forehead. Otherwise, remainder of the head reveals normocephalic. Pupils are equal, round, and reactive to light and accommodation. HEART: Reveals regular rate and rhythm. No murmurs or gallops auscultated. LUNGS: Reveals diminished right-sided breath sounds, otherwise breathing regular and unlabored. ABDOMEN: Soft, nontender, and nondistended. Colostomy is in place and productive of stool and gas. She has no palpable hepatosplenomegaly present. NEUROLOGIC: Reveals no focal deficits present. IMAGING DATA: I have personally reviewed the accompanying CT scan of the chest, which is remarkable for moderate-size right pneumothorax. There is also moderate amount of right pleural effusion present. LABORATORY DATA: Laboratory findings include a CBC with 15,300 white blood cells, hemoglobin and hematocrit 7.7 and 24.1 respectively. Platelet count 286,000. Metabolic profile; sodium 132, potassium 2.7, chloride is 89, bicarb is 35, BUN is 6, creatinine 0.67, glucose is 111, and AST and ALT 13 and 17 respectively. Magnesium 1.7 and phosphorus 3.4. IMPRESSION: 1. Post injury #6 status post ground level fall. 2. Right traumatic pneumothorax. 3. Right pleural effusion. 4. Acute hyponatremia. 5. Acute hypokalemia. 6. Acute hypomagnesemia. 7. History of bipolar disorder. PLAN: 1. Correct abnormal electrolytes. 2. Place a thoracostomy tube to decompress the right pneumothorax. 3. Initiate prophylaxis against VTE. 4. Above findings and plan discussed with the patient, who indicates understanding of information given. I have answered her questions. Job ID: [id number]
[2019-04-16 16:08] VITALS: BMI 17.4
--- NOTE | 2019-04-16 16:40 | OP ---
DATE OF PROCEDURE: 04/15/2019 PREOPERATIVE DIAGNOSES: 1. Status post ground-level fall. 2. Right traumatic pneumothorax. 3. Right pleural effusion. POSTOPERATIVE DIAGNOSES: 1. Status post ground-level fall. 2. Right traumatic pneumothorax. 3. Right pleural effusion. PROCEDURE PERFORMED: Placement of 28-Burundian right thoracostomy tube. INDICATIONS FOR PROCEDURE: A 38-year-old woman fell 6 days prior to presentation. She has developed traumatic right pneumothorax associated with dyspnea and pleuritic chest pain. Clinical examination was consistent with the aforementioned findings. This required tube placement. DESCRIPTION OF PROCEDURE: After informed consent was obtained from the patient, she was placed in supine position. The right chest wall was sterilely prepped and draped in the usual fashion. The skin in the 6th intercostal space and right anterior axillary line was anesthetized with 1% lidocaine plain. This was after monitored anesthesia care was provided by Dr. Zavaleta. Using a 15 scalpel, a small transverse incision was made in the area anesthetized. I then used a hemostat to bluntly enter the pleural cavity through this incision. A 28-Burundian thoracostomy tube was then introduced into the pleural cavity and advanced superiorly and posteriorly. The tube was connected to Pleur-evac, which was placed to suction. Serous fluid was evacuated. Tube was secured to anterior chest wall using 0 silk suture. Sterile dressings were applied. The patient tolerated the procedure without any apparent complication and remained hemodynamically stable following completion of procedure. Job ID: [id number]
--- NOTE | 2019-04-16 16:56 | RAD ---
EXAM: XR Chest 1 View Portable PROVIDED CLINICAL HISTORY: Pneumothorax COMPARISON: 04/16/2019 7:57 AM FINDINGS: Cardiac and mediastinal silhouette is unchanged in appearance. Right pneumothorax is redemonstrated, similar to prior. Right-sided chest tube is again noted in place. Extensive subcutaneous emphysema is demonstrated. No evidence for pleural fluid. No focal consolidation is evident. IMPRESSION: Conspicuous subcutaneous emphysema. Stable right pneumothorax.
[2019-04-16] MEDS: Morphine 4 MG/ML VIAL SLOW IVP PRN ×2 (17:14→23:29)
[2019-04-16] MEDS: traZODone HCl 150 MG TAB PO SCH (21:23)
[2019-04-16] MEDS: Enoxaparin Sodium 40 MG/0.4 ML SYRINGE SC SCH (21:24)
[2019-04-16] MEDS: Nicotine 14 MG PATCH TD SCH (21:24)
[2019-04-16] MEDS: OLANZapine 5 MG TAB PO SCH (21:28)
--- NOTE | 2019-04-17 00:30 | PRG ---
DATE OF SERVICE: 04/16/2019 SUBJECTIVE: Ms. Velasquez is a 38-year-old female, status post ground level fall. She sustained right pneumothorax and right subcutaneous emphysema with a history of psychiatric including bipolar, PTSD and depression. The patient developed worsening of subcutaneous emphysema. Subcutaneous emphysema is expanded to right face and left face and left and right arm and upper abdominal wall. Chest tube is put back to continuous suction and pain is controlled with morphine p.r.n. q.4 hours. OBJECTIVE: GENERAL: Currently, the patient is lying down in bed comfortable with no acute respiratory distress. General crepitus and subcutaneous emphysema expand on the way to right face and right hand. Pain with palpation. Chest tube is in place. VITAL SIGNS: Show temperature 99.5, heart rate 99, respiratory rate 16, O2 saturation 93% on room air, and blood pressure 103/65. CHEST: Show crepitus worsening bilateral LUNGS: Breath sounds present. HEART: Regular rate and rhythm. ABDOMEN: Soft nondistended. EXTREMITIES: Neurovascularly intact x4. NEUROLOGIC: No focal neurology deficits. DIAGNOSTIC STUDIES: X-ray show worsening of pneumothorax of the right side. Chest tube is in place and subcutaneous emphysema again worse. Chest x-ray reading show stable right pneumothorax and chest tube in place. Conspicuous subcutaneous emphysema. ASSESSMENT: 1. Status post ground level fall. 2. Right traumatic pneumothorax. 3. Right pleural effusion, improved. 4. Worsening of right chest subcutaneous emphysema. PLAN: Continue pain control. Continue chest tube put back on continuous suction. Eliminate physical activity. Initiate pharmacological DVT prophylaxis with Lovenox. Encourage using spirometry. Continue pain control. The patient was seen and examined with Dr. Jacobo on round this morning. Job ID: [id number] MTDD
[2019-04-17] MEDS: Morphine 4 MG/ML VIAL SLOW IVP PRN (03:52)
[2019-04-17] MEDS: Acetaminophen 500 MG TAB PO SCH ×4 (05:12→23:08)
[2019-04-17] MEDS: Ketorolac Tromethamine 30 MG/ML VIAL IVP SCH ×4 (05:13→23:09)
--- NOTE | 2019-04-17 07:40 | RAD ---
Chest one view HISTORY: Pneumothorax. Follow-up. COMPARISON: 04/16/2019. FINDINGS: Cardiac silhouette is midline. Pulmonary vasculature are unremarkable. Extensive chest wall gas is similar in appearance to the previous study. Pneumothorax at the right la teral base similar in appearance to the prior study. It is not as well-visualized at the right apex. Right thoracostomy tube remains in place. Old left rib fractures. IMPRESSION: Right pneumothorax and other findings are overall stable.
[2019-04-17] MEDS: Mometasone/Formoterol 120 PUFF INHALER INH SCH ×2 (07:55→18:41)
[2019-04-17] MEDS: Gabapentin 300 MG CAP PO SCH ×3 (08:11→21:34)
[2019-04-17] MEDS: Polyethylene Glycol 3350 17 GM Packet PO SCH (08:11)
[2019-04-17] MEDS: Ferrous Sulfate 325 MG TAB PO SCH (08:11)
[2019-04-17] MEDS: Potassium Chloride 20 MEQ TAB PO SCH ×2 (08:11→16:34)
[2019-04-17] MEDS: Bupropion 150 MG XL TAB PO SCH (08:11)
[2019-04-17] MEDS: Senokot S 8.6-50 MG TAB PO SCH ×2 (08:12→21:35)
[2019-04-17] MEDS: Fluticasone Propionate Nasal Spray 16 gm Bottle NASAL SCH ×2 (08:12→21:36)
[2019-04-17] MEDS: Ascorbic Acid 500 mg Chewable Tablet PO SCH ×2 (08:12→21:34)
[2019-04-17 08:20] LABS: BUN (Urea Nitrogen) 12 mg/dL (7.0-18.7); Calc. Creatinine Clearance 85 mL/min (70-130); Estimated GFR-MDRD Greater than 90; Glucose 82 mg/dL (70-105); Phosphorus 4.3 mg/dL (2.3-4.7)
[2019-04-17 08:29] LABS: Anion Gap 17 mmol/L (10-20); Carbon Dioxide 40 mmol/L (22-29); Chloride 81 mmol/L (98-107); Sodium 135 mmol/L (136-145)
[2019-04-17] MEDS ORDERED: Sodium Phosphate 30 MMOL in Sodium Chloride 0.9% 250 ML 250 ML IVPB SCH (08:45)
[2019-04-17] MEDS ORDERED: Potassium Chloride 40 MEQ in Sodium Chloride 0.9% 250 ML 250 ML IVPB SCH (08:45)
[2019-04-17] MEDS ORDERED: Lidocaine 1% (PF) 30 ML VIAL ONE (10:50)
[2019-04-17] MEDS ORDERED: Lorazepam 2 MG/ML VIAL SLOW IVP SCH (12:00)
--- NOTE | 2019-04-17 15:24 | OP ---
DATE OF PROCEDURE: 04/17/2019 PREOPERATIVE DIAGNOSES: 1. Persistent residual right pneumothorax with increasing subcutaneous emphysema. 2. Status post right tube thoracostomy. 3. Status post fall with traumatic right pneumothorax. POSTOPERATIVE DIAGNOSES: 1. Persistent residual right pneumothorax with increasing subcutaneous emphysema. 2. Status post right tube thoracostomy. 3. Status post fall with traumatic right pneumothorax. INDICATIONS FOR PROCEDURE: A 38-year-old woman, who suffered a fall 6 days prior to admission, sustaining a right traumatic pneumothorax, which required tube thoracostomy on admission. Followup chest x-ray reveals residual right-sided pneumothorax, albeit improved over admission. However, the subcutaneous emphysema has been increasing on the right side. Decision was made to place the second chest tube. DESCRIPTION OF PROCEDURE: Informed consent was obtained from the patient, who was placed in supine position. The right chest wall was widely sterilely prepped and draped in usual fashion. The skin in the 7th intercostal space right posterior axillary line was anesthetized with 1% lidocaine. A 1-cm transverse incision was made here using 15 scalpel. Right pleural cavity was bluntly entered using hemostats. A 24-Wolof chest tube was introduced into the pleural cavity and advanced superiorly and posteriorly. The tube was secured to anterior chest wall using 0 silk suture. Tube was connected to Pleur-evac, which was placed to wall suction. Sterile dressings were applied. The patient tolerated this procedure without any apparent complication and remains hemodynamically stable following completion of the procedure. Job ID: [id number]
[2019-04-17] MEDS: traMADol HCl 50 MG TAB PO PRN (16:34)
[2019-04-17] MEDS: traZODone HCl 150 MG TAB PO SCH (21:33)
[2019-04-17] MEDS: OLANZapine 5 MG TAB PO SCH (21:35)
[2019-04-17] MEDS: Enoxaparin Sodium 40 MG/0.4 ML SYRINGE SC SCH (21:36)
[2019-04-17] MEDS: Nicotine 14 MG PATCH TD SCH (21:59)
[2019-04-17] MEDS ORDERED: Morphine 2 MG/ML SYRINGE SLOW IVP PRN (22:11)
[2019-04-18] MEDS: Ketorolac Tromethamine 30 MG/ML VIAL IVP SCH ×3 (05:13→16:38)
[2019-04-18] MEDS: Acetaminophen 500 MG TAB PO SCH ×4 (05:13→22:48)
[2019-04-18 06:13] LABS: #Basophils 0.1 thou/uL (0.0-0.2); #Eosinphils 0.1 thou/uL (0.0-0.7); #Lymphocytes 1.6 thou/uL (1.20-3.40); #Monocytes 0.3 thou/uL (0.11-0.59); %Basophils 0.4 % (0.0-1.0); %Eosinophils 0.5 % (0.0-10.0); %Lymphocytes 8.8 % (21.0-51.0); %Monocytes 1.7 % (0.0-10.0); %Neutrophils 88.6 % (42.0-75.0); Hemoglobin 10.7 g/dL (12.0-16.0); Mean Corpuscular HGB CONC 31.1 g/dL (32.0-36.0); Mean Corpuscular Hemoglobin 25.2 pg (27.0-31.0); Mean Corpuscular Volume 81.1 fL (78.0-98.0); Mean Platelet Volume 8.2 fL (7.4-10.4); Platelet Count 376 thou/uL (130-400); RBC Distribution Width 18.7 % (11.5-14.5); Red Blood Cell (RBC) Count 4.26 mill/uL (4.20-5.40)
[2019-04-18 06:58] LABS: BUN (Urea Nitrogen) 17 mg/dL (7.0-18.7); Calc. Creatinine Clearance 78 mL/min (70-130); Calcium 9.1 mg/dL (7.8-10.44); Estimated GFR-MDRD 85; Glucose 79 mg/dL (70-105)
[2019-04-18 07:10] LABS: Anion Gap 18 mmol/L (10-20); Chloride 75 mmol/L (98-107); Potassium 3.2 mmol/L (3.5-5.1); Sodium 133 mmol/L (136-145)
[2019-04-18] MEDS: Mometasone/Formoterol 120 PUFF INHALER INH SCH ×2 (07:22→19:10)
[2019-04-18 07:41] LABS: Carbon Dioxide 43 mmol/L (22-29)
[2019-04-18] MEDS ORDERED: Potassium Chloride 40 MEQ in Sodium Chloride 0.9% 250 ML 250 ML IVPB SCH (08:00)
[2019-04-18] MEDS ORDERED: Sodium Chloride 0.9% 500 ML IV ONE (08:30)
--- NOTE | 2019-04-18 08:32 | PRG ---
DATE OF SERVICE: 04/17/2019 SUBJECTIVE: Ms. Velasquez is a 38-year-old female, status post ground level fall and sustained right pneumothorax and right subcutaneous emphysema. The patient's subcutaneous emphysema got worse yesterday and present with persistent residual of right pneumothorax. The patient experienced pain accompanied with worsening of subcutaneous emphysema; however, vital signs have been stable and chest tube with suction is a working well. OBJECTIVE: GENERAL: The patient is lying down in bed, comfortable with no acute respiratory distress. In general, subcutaneous emphysema seemed to be stable since yesterday, pain to palpation, chest tube in place. VITAL SIGNS: This morning show temperature 98.3, heart rate 100, O2 saturation 98% on 3 L, respiratory rate 18, and blood pressure 105/72. CHEST: Crepitus, generalized prominent are on the right side. LUNGS: Breath sounds present. HEART: Regular rate and rhythm. ABDOMEN: Soft, nondistended. EXTREMITIES: Thin. NEUROVASCULAR: Intact x4. DIAGNOSTIC STUDIES: X-ray show there is a pocket of pneumothorax of the right lower lobe. ASSESSMENT: 1. Status post ground level fall. 2. Right traumatic pneumothorax, persistent with the first chest tube. 3. Right pleural effusion, improved, worsening of right chest subcutaneous emphysema. PLAN: Continue supportive care. Continue pain control. Continue DVT prophylaxis. Dr. Jacobo put on the second chest tube for pocket pneumothorax of the right lower lung. Post thoracic ostomy, the patient doing good. Pain is well controlled and she tolerated with her regular diet. We will check an x-ray tomorrow. Job ID: [id number] [facility]
[2019-04-18 08:33] LABS: Magnesium 1.9 mg/dL (1.6-2.6); Phosphorus 5.2 mg/dL (2.3-4.7)
[2019-04-18 08:39] LABS: Actual Bicarbonate (HCO3a) 47.3 mEq/L (22-28); Base Excess (BEa) 22.3 mEq/L (-2.0 to +3.0); CO2 Tension 55.5 mmHg (35.0-45.0); Calcium, Ionized 1.02 mmol/L (1.12-1.30); Carboxyhemoglobin (COHb) 1.4 gm% (0.0-3.0); Potassium - ABG Lab 2.75 mmol/L (3.70-5.30)
[2019-04-18 08:40] LABS: Puncture Site LB; pH, Arterial 7.55 (7.35-7.45)
[2019-04-18] MEDS ORDERED: cefTRIAXone\\ROCEPHIN 1 GM in Sodium Chloride 0.9% 100 ML IVPB SCH (09:00)
[2019-04-18] MEDS: Bupropion 150 MG XL TAB PO SCH (09:30)
[2019-04-18] MEDS: Senokot S 8.6-50 MG TAB PO SCH ×2 (09:30→21:12)
[2019-04-18] MEDS: Gabapentin 300 MG CAP PO SCH ×3 (09:30→21:11)
--- NOTE | 2019-04-18 09:43 | RAD ---
CHEST 1 VIEW: HISTORY: Pneumothorax. COMPARISON: Radiograph of prior day. FINDINGS: Two right-side thoracostomy tubes in relatively similar location. Extensive subcutaneous emphysema. There are developing opacities along the right lung base. Right side pneumothorax is slightly improv ing. IMPRESSION: 1. Slight interval improvement of right side pneumothorax. 2. Round opacities in the right lung base may reflect hemorrhage, edema, and less likely pulmonary c ontusion. Reexpansion of pulmonary edema is felt most likely. POS: CET
[2019-04-18] MEDS: Fluticasone Propionate Nasal Spray 16 gm Bottle NASAL SCH ×2 (11:55→21:12)
[2019-04-18] MEDS: traMADol HCl 50 MG TAB PO PRN (11:58)
[2019-04-18] MEDS: Ascorbic Acid 500 mg Chewable Tablet PO SCH ×2 (11:58→21:11)
[2019-04-18] MEDS: Potassium Chloride 20 MEQ TAB PO SCH ×2 (11:59→16:38)
[2019-04-18] MEDS: Polyethylene Glycol 3350 17 GM Packet PO SCH (11:59)
[2019-04-18] MEDS ORDERED: Sodium Chloride 0.9% 1,000 ML IV SCH (14:00)
--- NOTE | 2019-04-18 15:38 | PRG ---
DATE OF SERVICE: 04/18/2019 SUBJECTIVE: Ms. Velasquez is a 38-year-old female status post fall with multiple right-sided rib fractures, right pneumothorax with retained pneumothorax, second chest tube placed yesterday with resolution of the pneumothorax, however, worsening shortness of air overnight requiring oxygen. She does have psych history in the past. She is noted to be hypercapnic this morning. Repeat chest x-ray shows chest tube in good place, no pneumothorax, possible right lower infiltrate. The patient has had an ABG ordered and completed today shows a hypercapnic respiratory alkalosis with hypoxemia, pO2 of 54, pCO2 of 55, pH is 7.55, and a bicarb of 47. She also had a serum chloride of 75. We have ordered BiPAP therapy, neb treatments, oxygen to maintain SpO2 greater than 92%, additional 500 mL of fluid. Later in the day, I was called to the bedside once again, and the patient has no air leak on either chest tube. She is urinating, but she is now tachycardic. She felt hot to the touch. Her temperature is now 100.7. We had already started her on ceftriaxone for community associated pneumonia. We have resumed the BiPAP therapy, ordered an EKG and a CTA chest to rule out pulmonary embolus, given her infiltrate on chest x- ray and temperature, less likely PE but needs to be ruled out. The patient is anxious. She does have some respiratory distress. She is able to be woken up and redirected. She is actually on the phone with her father and tearful at times. OBJECTIVE: VITAL SIGNS: From earlier this morning; blood pressure is 120/62, heart rate is 70, respiratory rate is 20. She is saturating 95% on nasal cannula of 2 and temperature of 98.5. Repeat temperature is 100.7 and blood pressure of 101/63, and a heart rate of 112. GENERAL: This is a 38-year-old female, who is sitting up, generally anxious. HEENT: Normocephalic, atraumatic. Trachea is midline. RESPIRATORY: She has subcutaneous emphysema that is grossly improved from yesterday, but does have crackles noted. She has lung sounds in all lung gomez. She has two chest tubes noted to the right chest. CARDIAC: Tachycardic, regular rhythm. No edema is noted. ABDOMEN: Soft and nontender. Pelvis is stable. MUSCULOSKELETAL: Moves extremities well. PSYCH: Anxious. NEURO: Alert and oriented. LABORATORY DATA: From today, sodium of 133, potassium 3.2, chloride is 75, CO2 is 43, creatinine is 0.77 with a BUN of 17, glucose is 85. Blood gas; pH is 7.55, pCO2 is 55.5, pO2 is 54 with a bicarb of 47. Ionized calcium is 1.02. White blood cell count is 18.0, platelets of 376, hemoglobin and hematocrit are 10.7 and 34.6 respectively. ASSESSMENT: 1. Status post ground level fall. 2. Right pneumothorax, status post 2 chest tube placements, resolving. 3. Right pleural effusion, improved. 4. Acute hypoxemic respiratory failure requiring noninvasive positive pressure ventilation. 5. Possible early pneumonia. 6. Concern for developing septicemia. 7. History of polysubstance abuse. 8. Psychiatric disorder. PLAN: 1. Continue BiPAP therapy. 2. Additional 1 L of fluid now. 3. Repeat EKG now. 4. CTA chest to rule out PE and evaluate for pulmonary infiltrates. 5. Ceftriaxone to continue. 6. We will get a sputum culture. 7. Transfer to [facility]. 8. FiO2 to maintain SpO2 greater than 92%. Currently BiPAP settings are 12/5 with a backup rate of 16, FiO2 of 0.40, minute ventilation is at 12 L and respiratory rate of 24. The patient appears to be more calm. 9. Electrolyte replacement protocol. 10. Continue pain management as needed. 11. Continue all other supportive care. The patient was seen and evaluated by Dr. Kwadwo Jacobo. I have coordinated care with the bedside RN, respiratory therapy. This plan can be updated as needed. Job ID: [id number] MTDD
[2019-04-18] MEDS: Ferrous Sulfate 325 MG TAB PO SCH (16:35)
[2019-04-18 17:07] LABS: BHCG - Serum Negative (NEGATIVE); Pregs Control Background? CLEAR/WHITE (CLR/WHITE); Pregs Control Bar Appear? YES (CONTROL BAR)
[2019-04-18] MEDS: Budesonide 0.5 MG/2 ML NEB INH SCH (19:11)
[2019-04-18] MEDS: traZODone HCl 150 MG TAB PO SCH (21:10)
[2019-04-18] MEDS: OLANZapine 5 MG TAB PO SCH (21:11)
[2019-04-18] MEDS: Enoxaparin Sodium 40 MG/0.4 ML SYRINGE SC SCH (21:12)
[2019-04-18] MEDS: Nicotine 14 MG PATCH TD SCH (21:13)
[2019-04-18] MEDS ORDERED: Sodium Chloride 0.9% 500 ML IV SCH (23:00)
--- NOTE | 2019-04-18 23:40 | PDOC.GSPN ---
Surgery Progress Note: Subj - Subjective Narrative: On/off bipap Febrile state noted, tachycardia. Worsening fever. ++ liquid stool output on apap- change to 650 mg q 4 hours toradol added NS 500 ml bolus now, (has good PO intake) check for c.diff not allowed based on order profile as had had miralax this admission. bld cult x 2 check us change abx to cover gram negative and anaerobes replaced bipap stopped all cathartics d/w bedside RN Current bipap settings 12/5 with BUR 16, FiO2 0.4, MV 12L. Surgery Progress Note: Obj - Vital signs Vital signs: Vital Signs - Most Recent Temp Pulse Resp BP Pulse Ox 101.9 F H 117 H 24 H 101/63 96 04/18/19 23:30 04/18/19 13:45 04/18/19 19:11 04/18/19 11:38 04/18/19 19:11 Surgery Progress Note: Results - Labs Result Diagrams: 04/18/19 05:06 04/18/19 05:06 Lab results: Laboratory Results - last 24 hr 04/18/19 04/18/19 11:34 16:48 POC Glucose 81 Serum , Qual Negative
--- NOTE | 2019-04-18 23:44 | PRG ---
DATE OF SERVICE: 04/18/2019 TIME: Seen at approximately 2040 hours. SUBJECTIVE: Ms. Velasquez is awake, alert, asking for more to drink. She has had quite a bit of stool output; per the RN, it is nonbloody. She still has a touch of fever. She is getting Tylenol. She is getting ceftriaxone. I have order a sputum culture. She is currently off the BiPAP saturating around 91% on 2 L oxygen nasal cannula. She is going back on the BiPAP as it has helped her, heart rate has improved. Subjective work of breathing has somewhat improved. She is now in IMCU. Chest tubes remained to have no leak. PLAN: 1. We will continue the current plan. 2. Order sputum culture. 3. Continue ceftriaxone. 4. BiPAP for tonight. 5. Encouraged medication compliance, need to work with sleep-wake cycles, will have her sleep this night. 6. She is currently getting her psych medications for this evening. There is Ativan as needed, however, the bedside RN has not given this. I have discussed the same with her. We will try to withhold this if we can. Redirected the patient multiple times to answer questions. Discussed and coordinated with the bedside RN. Job ID: [id number]
[2019-04-18] MEDS ORDERED: Vancomycin HCl 1 GM in Premix Bag 1 BAG IVPB SCH (23:45)
[2019-04-18] MEDS: Cefepime 2 GM in Sodium Chloride 0.9% 100 ML IVPB SCH (23:59)
[2019-04-19] MEDS: Ketorolac Tromethamine 30 MG/ML VIAL IVP SCH ×3 (00:02→14:11)
[2019-04-19 04:34] LABS: ALT (SGPT) 9 U/L (8-55); AST (SGOT) 19 U/L (5-34); Albumin 2.3 g/dL (3.5-5.0); Alkaline Phosphatase 178 U/L (40-110); BUN (Urea Nitrogen) 14 mg/dL (7.0-18.7); Bilirubin, Total 0.2 mg/dL (0.2-1.2); Calc. Creatinine Clearance 80 mL/min (70-130); Calcium 8.1 mg/dL (7.8-10.44); Estimated GFR-MDRD 87; Globulin 3.7 g/dL (2.4-3.5); Glucose 112 mg/dL (70-105); Magnesium 1.9 mg/dL (1.6-2.6); Phosphorus 4.5 mg/dL (2.3-4.7)
[2019-04-19 04:43] LABS: Anion Gap 17 mmol/L (10-20); Carbon Dioxide 35 mmol/L (22-29); Chloride 84 mmol/L (98-107); Potassium 3.1 mmol/L (3.5-5.1); Sodium 133 mmol/L (136-145)
[2019-04-19 04:44] LABS: Band 13 % (5-11); Eosinophils 1 % (0-10); Hemoglobin 7.6 g/dL (12.0-16.0); Lymphocytes 12 % (21-51); MDiff Complete? YES; Mean Corpuscular HGB CONC 30.9 g/dL (32.0-36.0); Mean Corpuscular Hemoglobin 25.2 pg (27.0-31.0); Mean Corpuscular Volume 81.5 fL (78.0-98.0); Mean Platelet Volume 7.2 fL (7.4-10.4); Neutrophil 74 % (42-75); Platelet Count 396 thou/uL (130-400); Platelet Morphology Comment Appears Adequate; RBC Distribution Width 18.5 % (11.5-14.5); Red Blood Cell (RBC) Count 3.03 mill/uL (4.20-5.40); White Blood Cell (WBC) Count 19.5 thou/uL (4.8-10.8)
[2019-04-19] MEDS: Acetaminophen 325 MG TAB PO SCH ×6 (05:07→20:46)
[2019-04-19] MEDS: metroNIDAZOLE 500 MG in Premix Bag 1 BAG IVPB SCH ×3 (05:53→21:11)
[2019-04-19] MEDS ORDERED: Potassium Chloride 40 MEQ in Premix Bag 1 BAG IVPB SCH (07:00)
[2019-04-19] MEDS: Budesonide 0.5 MG/2 ML NEB INH SCH ×2 (07:23→19:47)
[2019-04-19] MEDS: Mometasone/Formoterol 120 PUFF INHALER INH SCH ×2 (07:29→19:48)
[2019-04-19] MEDS: Potassium Chloride 20 MEQ in Premix Bag 1 BAG IVPB SCH ×3 (08:06→10:59)
[2019-04-19] MEDS: Cefepime 2 GM in Sodium Chloride 0.9% 100 ML IVPB SCH ×2 (08:06→16:59)
[2019-04-19] MEDS: Ferrous Sulfate 325 MG TAB PO SCH ×3 (08:08→17:27)
[2019-04-19] MEDS: Bupropion 150 MG XL TAB PO SCH (08:08)
[2019-04-19] MEDS: Ascorbic Acid 500 mg Chewable Tablet PO SCH ×2 (08:08→20:47)
[2019-04-19] MEDS: Potassium Chloride 20 MEQ TAB PO SCH ×2 (08:09→17:27)
[2019-04-19] MEDS: Gabapentin 100 MG CAP PO SCH ×2 (08:09→20:47)
[2019-04-19] MEDS: Fluticasone Propionate Nasal Spray 16 gm Bottle NASAL SCH ×2 (08:10→20:49)
[2019-04-19] MEDS: Enoxaparin Sodium 40 MG/0.4 ML SYRINGE SC SCH (08:26)
[2019-04-19] MEDS: Lorazepam 2 MG/ML VIAL SLOW IVP PRN ×2 (08:28→17:23)
--- NOTE | 2019-04-19 08:55 | RAD ---
PORTABLE CHEST: HISTORY: Respiratory distress. COMPARISON: Prior day's exam. FINDINGS: Two right chest tubes remain in place. The bullous changes of the right upper lobe are again demonst rated. Small apical pneumothorax is present. Pleural and parenchymal lung changes in the base are u nchanged. IMPRESSION: Essentially stable exam. POS: TPC
[2019-04-19] MEDS ORDERED: Saccharomyces boulardii 250 MG CAP PO SCH (09:00)
[2019-04-19] MEDS: Potassium Chloride 20 MEQ in Sodium Chloride 0.9% 250 ML 250 ML IVPB SCH ×2 (10:58→17:01)
[2019-04-19] MEDS: Vancomycin HCl 750 MG in Sodium Chloride 0.9% 250 ML 250 ML IVPB SCH ×2 (14:10→23:27)
--- NOTE | 2019-04-19 14:25 | PRG ---
DATE OF SERVICE: 04/19/2019 SUBJECTIVE: Mrs. Velasquez is a 38-year-old female, status post fall with right side rib fracture and right pneumothorax. Yesterday, she developed fever, shortness of breath, in which she had been treated with BiPAP and antibiotics for hospitalized pneumonia. This morning, the patient's condition improved. Respiratory distress resolved. The patient is afebrile. The patient reports she has been doing good. Pain is well controlled. Two chest tube on the right side working properly. The patient's urination is adequate. Vital Signs stable. OBJECTIVE: GENERAL: The patient is currently lying down in bed comfortable with no acute respiratory distress. SKIN: [place], subcutaneous emphysema improved. VITAL SIGNS: Temperature 99.6, heart rate 95, respiratory rate 18, O2 saturation 96% on 4 L nasal cannula, and blood pressure is 104/57. LUNGS: Scattered rales bilaterally, had been unchanged. HEART: Regular rate and rhythm. ABDOMEN: Soft, nondistended. EXTREMITIES: Neurovascularly intact x4. Ileostomy working properly, right side chest tube working properly, chest tube in place. IMAGING: Chest x-ray show stable chest x-ray with retained right apical pneumothorax. LABORATORY DATA: Hemoglobin 7.6. Sodium 133, potassium 3.1, creatinine 0.75. Cortisone level is 17.3. ASSESSMENT: 1. Status post ground level fall. 2. Right rib fracture, right pneumothorax with two chest tube placement. 3. Right pleural effusion, improved. 4. Acute hypoxic respiratory distress, improved. 5. Hospitalized pneumoniae, treated. 6. Psychiatric disorder and substance abuse. PLAN: We will continue supportive care. Continue pain control. Continue DVT prophylaxis. We will recheck a hemoglobin tomorrow. Continue antibiotic IV. We will check a vancomycin trial, put the axillary chest tube on water seal and the other chest tube on continuous suction. Recheck chest x-ray tomorrow. The patient was seen and evaluated with Dr. Jacobo on round this morning. Job ID: [id number]
[2019-04-19] MEDS: traZODone HCl 150 MG TAB PO SCH (20:46)
[2019-04-19] MEDS: Saccharomyces boulardii 250 MG CAP PO SCH (20:47)
[2019-04-19] MEDS: OLANZapine 5 MG TAB PO SCH (20:48)
[2019-04-19] MEDS: Nicotine 14 MG PATCH TD SCH (21:11)
[2019-04-20] MEDS: Cefepime 2 GM in Sodium Chloride 0.9% 100 ML IVPB SCH ×3 (00:16→17:56)
[2019-04-20] MEDS: Acetaminophen 325 MG TAB PO SCH ×6 (00:19→21:59)
[2019-04-20] MEDS: Lorazepam 2 MG/ML VIAL SLOW IVP PRN ×3 (00:59→17:56)
[2019-04-20] MEDS: traMADol HCl 50 MG TAB PO PRN (05:36)
[2019-04-20] MEDS: metroNIDAZOLE 500 MG in Premix Bag 1 BAG IVPB SCH ×3 (05:37→22:01)
[2019-04-20 06:13] LABS: Band 10 % (5-11); Elliptocytes SLIGHT = 2-5 cells (100X) (0-1/hpf); Eosinophils 2 % (0-10); Hypochromia SLIGHT = 6-15 cells (100X) (0-5/hpf); MDiff Complete? YES; Mean Corpuscular HGB CONC 30.3 g/dL (32.0-36.0); Mean Corpuscular Volume 82.6 fL (78.0-98.0); Mean Platelet Volume 6.9 fL (7.4-10.4); Monocytes 7 % (0-10); Neutrophil 80 % (42-75); Platelet Count 470 thou/uL (130-400); Platelet Morphology Comment Appears Increased; RBC Distribution Width 18.5 % (11.5-14.5); Red Blood Cell (RBC) Count 3.21 mill/uL (4.20-5.40); White Blood Cell (WBC) Count 17.8 thou/uL (4.8-10.8)
[2019-04-20 06:15] LABS: Anion Gap 13 mmol/L (10-20); BUN (Urea Nitrogen) 8 mg/dL (7.0-18.7); Calc. Creatinine Clearance 91 mL/min (70-130); Calcium 8.1 mg/dL (7.8-10.44); Carbon Dioxide 31 mmol/L (22-29); Chloride 92 mmol/L (98-107); Estimated GFR-MDRD Greater than 90; Glucose 100 mg/dL (70-105); Potassium 3.7 mmol/L (3.5-5.1); Sodium 132 mmol/L (136-145)
[2019-04-20] MEDS: Budesonide 0.5 MG/2 ML NEB INH SCH ×2 (07:38→19:08)
[2019-04-20] MEDS: Mometasone/Formoterol 120 PUFF INHALER INH SCH ×2 (07:39→19:08)
--- NOTE | 2019-04-20 08:22 | RAD ---
XR Chest 1 View Portable History: Chest tube Comparison: Radiograph prior day Findings: Subcutaneous emphysema is slightly improving. The right thoracostomy tubes are similar. Lay ering right effusion is similar. Multiple old left-sided rib fractures. Small left effusion. Trace right apical pneumothorax is simila r. Impression: Relatively similar examination of the chest.
[2019-04-20] MEDS: Fluticasone Propionate Nasal Spray 16 gm Bottle NASAL SCH ×2 (09:41→22:01)
[2019-04-20] MEDS: Enoxaparin Sodium 40 MG/0.4 ML SYRINGE SC SCH (09:42)
[2019-04-20] MEDS: Gabapentin 100 MG CAP PO SCH ×2 (09:42→21:59)
[2019-04-20] MEDS: Potassium Chloride 20 MEQ TAB PO SCH ×2 (09:42→17:57)
[2019-04-20] MEDS: Bupropion 150 MG XL TAB PO SCH (09:42)
[2019-04-20] MEDS: Ferrous Sulfate 325 MG TAB PO SCH ×2 (09:43→17:57)
[2019-04-20] MEDS: Ascorbic Acid 500 mg Chewable Tablet PO SCH ×2 (09:43→21:59)
[2019-04-20] MEDS: Saccharomyces boulardii 250 MG CAP PO SCH ×2 (09:43→22:00)
[2019-04-20] MEDS: Vancomycin HCl 750 MG in Sodium Chloride 0.9% 250 ML 250 ML IVPB SCH ×2 (12:22→23:45)
[2019-04-20 12:55] LABS: Vancomycin, Trough 4.6 ug/mL
--- NOTE | 2019-04-20 17:08 | PRG ---
DATE OF SERVICE: 04/20/2019 SUBJECTIVE: Ms. Velasquez is a 38-year-old female, status post fall with right rib fracture and right pneumothorax. The patient developed hospitalized pneumonia and be treated. Currently, the patient is afebrile. White count is decreased, and she developed no shortness of breath. Her chest tube has been stable, and her chest x-ray is stable. OBJECTIVE: GENERAL: Currently, the patient is lying down in bed with no acute respiratory distress. SKIN: [place] and subcutaneous emphysema, resolved. VITAL SIGNS: Temperature 98.3, heart rate 102, respiratory rate 18, O2 saturation 98% on 4 L on room air, and blood pressure 128/65. CHEST: Crepitus is on the chest is improved. Breath sounds present and clear. HEART: Regular rate and rhythm. ABDOMEN: Soft, nondistended. Ileostomy working properly. EXTREMITIES: Neurovascularly intact x4. NEUROLOGIC: No focal neurology deficits. Two chest tubes on the right side working properly. No air leak. DIAGNOSTIC DATA: Chest x-ray shows related similar examination of the chest from yesterday. ASSESSMENT: 1. Status post ground level fall. 2. Right rib fracture, right pneumothorax with two chest tube placements, right pleural effusion, resolved. 3. Acute hypoxic respiratory distress, improved. 4. Hospitalized pneumonia, treated. 5. Psychiatric disorder and substance abuse, stable. PLAN: Continue supportive care. Continue pain control. Continue DVT prophylaxis. Discussed the case with Dr. Jacobo via phone. Instruct water seal to both chest tubes. Repeat chest x-ray tomorrow and ambulate with assist. Job ID: [id number]
[2019-04-20] MEDS: OLANZapine 5 MG TAB PO SCH (21:59)
[2019-04-20] MEDS: traZODone HCl 150 MG TAB PO SCH (22:00)
[2019-04-20] MEDS: Nicotine 14 MG PATCH TD SCH (22:01)
[2019-04-21] MEDS: Acetaminophen 325 MG TAB PO SCH ×6 (01:27→22:00)
[2019-04-21] MEDS: Lorazepam 2 MG/ML VIAL SLOW IVP PRN ×4 (02:46→22:01)
[2019-04-21 05:29] LABS: Band 4 % (5-11); Eosinophils 3 % (0-10); Hemoglobin 7.5 g/dL (12.0-16.0); Hypochromia SLIGHT = 6-15 cells (100X) (0-5/hpf); Lymphocytes 16 % (21-51); MDiff Complete? YES; Mean Corpuscular HGB CONC 30.5 g/dL (32.0-36.0); Mean Corpuscular Hemoglobin 25.3 pg (27.0-31.0); Mean Corpuscular Volume 82.9 fL (78.0-98.0); Mean Platelet Volume 6.8 fL (7.4-10.4); Monocytes 6 % (0-10); Neutrophil 71 % (42-75); Platelet Count 498 thou/uL (130-400); Platelet Morphology Comment Appears Increased; RBC Distribution Width 18.5 % (11.5-14.5); Red Blood Cell (RBC) Count 2.98 mill/uL (4.20-5.40)
--- NOTE | 2019-04-21 05:33 | PRG ---
DATE OF SERVICE: 04/21/2019 SUBJECTIVE: The patient remains on the surgical floor. She is status post ground level fall, when she sustained right rib fractures and right pneumothorax. Her pneumothorax has required two chest tubes, which both are currently on water-seal. The patient's respiratory cultures came back as MRSA. Her antibiotics had been adjusted. She is tolerating a diet, and her pain is controlled. She has been working with Physical and Occupational Therapy. OBJECTIVE: VITAL SIGNS: Stable. The patient is afebrile. GENERAL: The patient is resting comfortably in bed. She is sleeping. She appears to be in no distress and moving air effortlessly. There does not appear to be any air leaks in her chest tube atriums. ASSESSMENT: 1. Status post ground level fall. 2. Right pneumothorax, treated with two chest tubes. 3. Right rib fractures. 4. Methicillin-resistant Staphylococcus aureus on respiratory culture, antibiotics adjusted to sensitivities. PLAN: Plan will be to continue supportive care. Repeat chest x-ray in the morning and likely discontinue her chest tubes at that time. Encourage physical and occupational therapy, and discuss placement. Job ID: [id number]
[2019-04-21 05:35] LABS: Anion Gap 10 mmol/L (10-20); BUN (Urea Nitrogen) 6 mg/dL (7.0-18.7); Calc. Creatinine Clearance 104 mL/min (70-130); Calcium 8.1 mg/dL (7.8-10.44); Carbon Dioxide 28 mmol/L (22-29); Chloride 96 mmol/L (98-107); Estimated GFR-MDRD Greater than 90; Glucose 77 mg/dL (70-105); Potassium 4.2 mmol/L (3.5-5.1); Sodium 130 mmol/L (136-145)
[2019-04-21] MEDS: Budesonide 0.5 MG/2 ML NEB INH SCH ×2 (07:28→19:18)
[2019-04-21] MEDS: Mometasone/Formoterol 120 PUFF INHALER INH SCH ×2 (07:50→19:19)
--- NOTE | 2019-04-21 08:24 | RAD ---
XR Chest 1 View Portable History: Thoracostomy tube Comparison: Radiograph prior day Findings: Varicosities are similar. Bullous formation in the right upper lobe is similar. Right effus ion and atelectatic changes are similar as well as small left effusion. Ascites emphysema along the right hemithorax is similar. Improving left hemithorax subcutaneous emphysema. Impression: Improving subcutaneous emphysema.
[2019-04-21] MEDS: Fluticasone Propionate Nasal Spray 16 gm Bottle NASAL SCH ×2 (09:11→22:02)
[2019-04-21] MEDS: Saccharomyces boulardii 250 MG CAP PO SCH ×2 (09:11→22:00)
[2019-04-21] MEDS: Enoxaparin Sodium 40 MG/0.4 ML SYRINGE SC SCH (09:11)
[2019-04-21] MEDS: Bupropion 150 MG XL TAB PO SCH (09:11)
[2019-04-21] MEDS: Gabapentin 100 MG CAP PO SCH ×2 (09:12→22:00)
[2019-04-21] MEDS: Sulfameth/Trimethoprim DS 800-160mg TAB PO SCH ×2 (09:12→22:01)
[2019-04-21] MEDS: Ferrous Sulfate 325 MG TAB PO SCH ×2 (09:13→15:10)
[2019-04-21] MEDS: Ascorbic Acid 500 mg Chewable Tablet PO SCH ×2 (09:13→22:00)
[2019-04-21] MEDS: Potassium Chloride 20 MEQ TAB PO SCH ×2 (09:13→15:11)
[2019-04-21] MEDS: Cefepime 2 GM in Sodium Chloride 0.9% 100 ML IVPB SCH (17:07)
--- NOTE | 2019-04-21 18:46 | RAD ---
Chest AP view INDICATION: Chest tube removal COMPARISON: April 21, 2019 at 6:43 AM FINDINGS: Lungs:There is persistent subsegmental volume loss within the lateral aspect of the right lung and ri ght lung base. There is persistent bullous changes involving both upper lobes, right greater than left. Cardiac silhouette:The cardiomediastinal silhouette appears within normal limits. Pulmonary vasculature:Normal Pleural spaces:Small bilateral pleural effusions persist, right greater than left. No pneumothorax is evident. Upper abdomen:No abnormality seen. Osseous structures: No acute osseous abnormality. Additional findings:Chest wall emphysema is stable. Right-sided thoracostomy tubes have been removed. IMPRESSION: Interval removal of right-sided thoracostomy tubes. No residual pneumothorax. Persistent small bilateral pleural effusions with right lung subsegmental volume loss. Stable bullous changes of the upper lobes. Stable right chest wall subcutaneous emphysema.
[2019-04-21] MEDS: OLANZapine 5 MG TAB PO SCH (22:00)
[2019-04-21] MEDS: traZODone HCl 150 MG TAB PO SCH (22:00)
[2019-04-21] MEDS: Nicotine 14 MG PATCH TD SCH ×2 (22:00→22:12)
[2019-04-22] MEDS: Sodium Chloride 0.9% 1,000 ML IV SCH ×2 (00:46→15:51)
[2019-04-22] MEDS: Acetaminophen 325 MG TAB PO SCH ×6 (00:48→19:34)
--- NOTE | 2019-04-22 01:38 | PRG ---
DATE OF SERVICE: 04/21/2019 SUBJECTIVE: The patient is currently on the surgical floor. She is status post ground level fall, in which she sustained right rib fractures and right pneumothorax. Her respiratory cultures came back as MRSA. She had antibiotics adjusted and switched to p.o., though today the Day Team switched her back to some of the IV antibiotics. She also had her chest tubes discontinued, which she had to and reportedly had purulent drainage with removal of the chest tubes. The patient remains afebrile. Nurses report that she has been going outside and smoking. I had discussion with her regarding her smoking, her continuing to decline her breathing treatments and that she will need to follow our instructions so she will be able to be discharged soon. The patient received a unit of packed red blood cells today due to a hemoglobin of 7.5. PHYSICAL EXAMINATION: VITAL SIGNS: Stable. The patient is currently afebrile. She did have max temperature of 100 today. GENERAL: The patient is resting in bed. She has been coughing for most of my visit. She has scattered rhonchi, primarily on the right, but she does have some on the left. HEART: Regular rate and rhythm. ABDOMEN: Soft, nontender with active bowel sounds. EXTREMITIES: Neurovascularly intact. ASSESSMENT: 1. Status post ground level fall. 2. Right pneumothorax, treated with chest tubes, discontinued today. 3. Right rib fractures, stable. 4. Methicillin-resistant Staphylococcus aureus on respiratory cultures, on antibiotics. 5. Acute blood loss anemia, given one unit PRBCs. PLAN: Plan will be to continue supportive care, repeat chest x-ray and labs in the morning. In light of this, potential for empyema, we will make the patient n.p.o. after midnight in case the patient requires an intervention such as a VATS procedure. We will let the Day Team determine this, if she does not need it, again resume her diet first thing in the morning. Job ID: [id number] MTDD
[2019-04-22] MEDS: Cefepime 2 GM in Sodium Chloride 0.9% 100 ML IVPB SCH (04:38)
[2019-04-22 05:39] LABS: Band 1 % (5-11); Eosinophils 2 % (0-10); Hemoglobin 8.8 g/dL (12.0-16.0); Hypochromia SLIGHT = 6-15 cells (100X) (0-5/hpf); Lymphocytes 6 % (21-51); MDiff Complete? YES; Mean Corpuscular HGB CONC 29.4 g/dL (32.0-36.0); Mean Corpuscular Hemoglobin 24.6 pg (27.0-31.0); Mean Corpuscular Volume 83.5 fL (78.0-98.0); Mean Platelet Volume 6.7 fL (7.4-10.4); Monocytes 11 % (0-10); Neutrophil 80 % (42-75); Platelet Count 548 thou/uL (130-400); Platelet Morphology Comment Appears Increased; RBC Distribution Width 18.2 % (11.5-14.5); Red Blood Cell (RBC) Count 3.56 mill/uL (4.20-5.40); White Blood Cell (WBC) Count 14.6 thou/uL (4.8-10.8)
[2019-04-22 05:52] LABS: Anion Gap 12 mmol/L (10-20); BUN (Urea Nitrogen) 5 mg/dL (7.0-18.7); Calc. Creatinine Clearance 102 mL/min (70-130); Calcium 8.1 mg/dL (7.8-10.44); Carbon Dioxide 28 mmol/L (22-29); Chloride 95 mmol/L (98-107); Estimated GFR-MDRD Greater than 90; Glucose 78 mg/dL (70-105); Magnesium 1.7 mg/dL (1.6-2.6); Potassium 3.7 mmol/L (3.5-5.1); Sodium 131 mmol/L (136-145)
[2019-04-22] MEDS ORDERED: Magnesium Sulfate 3 GM in Sodium Chloride 0.9% 100 ML IVPB SCH (06:45)
[2019-04-22] MEDS ORDERED: Magnesium Sulfate 3 GM in Sodium Chloride 0.9% 250 ML 250 ML IVPB SCH (07:00)
[2019-04-22] MEDS: Budesonide 0.5 MG/2 ML NEB INH SCH ×2 (08:14→19:10)
[2019-04-22] MEDS: Mometasone/Formoterol 120 PUFF INHALER INH SCH ×2 (08:15→19:11)
--- NOTE | 2019-04-22 08:34 | RAD ---
EXAM: Two views chest PROVIDED CLINICAL HISTORY: Follow-up evaluation pneumothorax and pleural effusions. COMPARISON: 04/21/2019 FINDINGS: Cardiac silhouette and pulmonary vasculature are within normal limits. There are persistent bullous emphysematous changes in the upper lung zones greater in the region of the right lung apex. Small bilateral pleural effusions again persist greater on the right. There are stable parenchymal changes seen at the lateral right lung base. There are a few lucencies overlying the region of the pleural-based density at the right lung base which could be related to tiny amount of loculated gas w ithin the pleural fluid. Subcutaneous emphysema on the right is again seen slightly improved from prior study remote left-sided rib fractures are present. IMPRESSION: 1. Overall stable size of small bilateral pleural effusions. Few gas densities are seen overlying the lateral right lung base which could be related to tiny amount of gas within the region of pleural fluid. No large pneumothorax is present. 2. Continued slight improvement in subcutaneous emphysema on the right..
[2019-04-22] MEDS: Enoxaparin Sodium 40 MG/0.4 ML SYRINGE SC SCH (08:35)
[2019-04-22] MEDS: Bupropion 150 MG XL TAB PO SCH (08:36)
[2019-04-22] MEDS: Saccharomyces boulardii 250 MG CAP PO SCH ×2 (08:36→19:35)
[2019-04-22] MEDS: Sodium Chloride 1 GM TAB PO SCH ×2 (08:36→22:31)
[2019-04-22] MEDS: Potassium Chloride 20 MEQ TAB PO SCH ×2 (08:38→16:11)
[2019-04-22] MEDS: Sulfameth/Trimethoprim DS 800-160mg TAB PO SCH (08:38)
[2019-04-22] MEDS: Ascorbic Acid 500 mg Chewable Tablet PO SCH ×2 (08:38→19:33)
[2019-04-22] MEDS: Ferrous Sulfate 325 MG TAB PO SCH ×2 (08:38→16:11)
[2019-04-22] MEDS: Gabapentin 100 MG CAP PO SCH ×2 (08:39→19:33)
[2019-04-22] MEDS: Fluticasone Propionate Nasal Spray 16 gm Bottle NASAL SCH ×2 (08:39→19:35)
[2019-04-22] MEDS ORDERED: VANCOMYCIN IVPB PRN (08:49)
[2019-04-22] MEDS: Lorazepam 2 MG/ML VIAL SLOW IVP PRN ×4 (10:08→22:17)
--- NOTE | 2019-04-22 11:07 | PRG ---
DATE OF SERVICE: 04/21/2019 SUBJECTIVE: Ms. Velasquez is a 38-year-old female, status post fall with right rib fracture and right pneumothorax. The patient had 2 chest tubes placed with water seal yesterday. This morning, chest x-ray showed no new pneumothorax or new hemothorax. Currently, the patient is afebrile and no signs of respiratory distress. OBJECTIVE: GENERAL: Currently, the patient is lying in bed comfortable with no acute respiratory distress. VITAL SIGNS: Temperature is 98.4, heart rate 93, respiratory rate is 20, O2 saturation 98 on 3 L, and blood pressure 109/73. CHEST: chest tube in place with redness of the site of both chest tubes. LUNGS: Breath sound is present, clear bilaterally. HEART: Regular rate and rhythm. ABDOMEN: Soft and nondistended. Ostomy is working. EXTREMITIES: Neurovascularly intact x4. No neurologic deficits. WORKUP STUDIES: Chest x-ray shows bullous formation of the right upper lobe is similar, right effusion and atelectasis changes are similar as well as small left effusion, ascites emphysema along the right hemithorax is similar, improved left hemithorax subcutaneous emphysema. Laboratory showed white count 16,000, hemoglobin 7.5, platelets are 498,000. Sodium 130, potassium 4.2, creatinine 0.58. ASSESSMENT: 1. Status post ground level fall. 2. Right rib fracture, right pneumothorax with two chest tube placement, stable. 3. Hospitalized pneumonia. 4. Psychiatric disorder and substance abuse, stable. PLAN: Continue supportive care. Continue pain control. Continue DVT prophylaxis. Discussed case with Dr. Craig. Got instruction to remove both chest tube. Repeat chest x-ray tomorrow. Job ID: [id number]
--- NOTE | 2019-04-22 14:47 | PRG ---
DATE OF SERVICE: 04/22/2019 SUBJECTIVE: Ms. Velasquez is a 38-year-old female, status post fall with right rib fracture and right pneumothorax. The patient had chest tube removal yesterday. The patient tolerated with chest tube removal pretty good. She developed no fever or shortness of breath. Pain is well controlled. She tolerated with her regular diet, and her ileostomy is working well. OBJECTIVE: GENERAL: The patient lying in bed comfortable with no acute respiratory distress. VITAL SIGNS: The patient is afebrile. Temperature 97.4, heart rate 77, respiratory rate 16, O2 saturation 100% on 4 L cannula, and blood pressure _120/80 LUNGS: Breath sounds present. Scattered rales bilaterally. HEART: Regular rate and rhythm. ABDOMEN: Soft and nondistended. Ostomy is working promptly. EXTREMITIES: Neurovascularly intact x4. ASSESSMENT: 1. Status post ground level fall. 2. Right rib fracture and right pneumothorax with the chest tube placement and removal. 3. Hospitalized pneumonia. 4. Psychiatric disorder and substance abuse, stable. PLAN: We will switch to p.o. medication, Zyvox. Prepare for the patient to be discharged tomorrow. Continue pain control. Continue DVT prophylaxis. The patient was seen and evaluated with Dr. Jacobo on round this morning. Job ID: [id number] [facility]
[2019-04-22] MEDS ORDERED: Levofloxacin 750 mg/D5W 500 MG in Premix Bag 1 BAG IVPB SCH (15:00)
[2019-04-22] MEDS: Linezolid 600 MG TAB PO SCH (19:33)
[2019-04-22] MEDS: OLANZapine 5 MG TAB PO SCH (19:33)
[2019-04-22] MEDS: traZODone HCl 150 MG TAB PO SCH (19:34)
[2019-04-22] MEDS: Nicotine 14 MG PATCH TD SCH (21:56)
[2019-04-22] MEDS: Cyclobenzaprine 10 MG TAB PO PRN (21:56)
--- NOTE | 2019-04-22 23:06 | PRG ---
DATE OF SERVICE: 04/22/2019 SUBJECTIVE: The patient remains on surgical floor. She is status post ground level fall in which sustained right-sided rib fractures and right pneumothorax. She had developed persistent pneumothorax and had a 2nd chest tube placed, both have been removed. She is under treatment for pneumonia. The cultures grew out MRSA and she is currently on Zyvox orally. She appears to be tolerating this medication. She has remained afebrile. She is tolerating a diet. She is working with therapy. PHYSICAL EXAMINATION: VITAL SIGNS: Stable. The patient is afebrile. GENERAL: The patient is resting comfortably in bed. She did get upset when I informed her that she would not be discharged tonight that she was most likely going to be discharged tomorrow. We spoke with her father on the phone, who was in agreement with this and was aware of this potential plan. The patient's respirations appeared nonlabored. Her extremities are neurovascularly intact x4. ASSESSMENT/PLAN: 1. Status post ground level fall. 2. Right-sided rib fracture, pneumothorax with chest tube placement and removal. 3. Pneumonia with methicillin-resistant Staphylococcus aureus culture results on appropriate antibiotics. 4. Acute blood loss anemia, resolved. PLAN: Plan will be to continue supportive care. Encourage physical and occupational therapy and possibly discharge the patient within next 24 hours. Job ID: [id number]
[2019-04-23] MEDS: Acetaminophen 325 MG TAB PO SCH ×3 (00:03→08:36)
[2019-04-23] MEDS: traMADol HCl 50 MG TAB PO PRN (02:53)
[2019-04-23] MEDS: Lorazepam 2 MG/ML VIAL SLOW IVP PRN (05:01)
[2019-04-23] MEDS: Cyclobenzaprine 10 MG TAB PO PRN (05:01)
[2019-04-23 05:34] LABS: #Basophils 0.1 thou/uL (0.0-0.2); #Eosinphils 0.3 thou/uL (0.0-0.7); #Monocytes 0.9 thou/uL (0.11-0.59); #Neutrophils 13.1 thou/uL (1.40-6.50); %Basophils 0.5 % (0.0-1.0); %Eosinophils 1.5 % (0.0-10.0); %Lymphocytes 17.2 % (21.0-51.0); %Monocytes 5.3 % (0.0-10.0); %Neutrophils 75.6 % (42.0-75.0); Hemoglobin 8.8 g/dL (12.0-16.0); Mean Corpuscular HGB CONC 29.6 g/dL (32.0-36.0); Mean Corpuscular Hemoglobin 24.5 pg (27.0-31.0); Mean Corpuscular Volume 82.5 fL (78.0-98.0); Mean Platelet Volume 6.4 fL (7.4-10.4); Platelet Count 643 thou/uL (130-400); RBC Distribution Width 18.7 % (11.5-14.5); White Blood Cell (WBC) Count 17.3 thou/uL (4.8-10.8)
[2019-04-23 05:39] LABS: Anion Gap 13 mmol/L (10-20); BUN (Urea Nitrogen) 7 mg/dL (7.0-18.7); Calc. Creatinine Clearance 95 mL/min (70-130); Calcium 8.3 mg/dL (7.8-10.44); Carbon Dioxide 24 mmol/L (22-29); Chloride 98 mmol/L (98-107); Estimated GFR-MDRD Greater than 90; Glucose 84 mg/dL (70-105); Magnesium 2.1 mg/dL (1.6-2.6); Phosphorus 3.5 mg/dL (2.3-4.7); Potassium 4.3 mmol/L (3.5-5.1); Sodium 131 mmol/L (136-145)
[2019-04-23 07:17] LABS: Band 1 % (5-11); Eosinophils 1 % (0-10); Lymphocytes 15 % (21-51); Monocytes 3 % (0-10); Reactive Lymphocytes 1 % (0-10)
[2019-04-23 07:24] LABS: Polychromasia SLIGHT = 2-3 cells (100X) (0-2/hpf)
[2019-04-23 07:25] LABS: Platelet Morphology Comment Appears Increased
[2019-04-23 07:27] LABS: MDiff Complete? YES; Neutrophil 78 % (42-75)
[2019-04-23] MEDS ORDERED: Sodium Phosphate 15 MMOL in Sodium Chloride 0.9% 250 ML 250 ML IVPB SCH (07:45)
[2019-04-23] MEDS: Mometasone/Formoterol 120 PUFF INHALER INH SCH (08:04)
[2019-04-23] MEDS: Sodium Chloride 1 GM TAB PO SCH (08:35)
[2019-04-23] MEDS: Bupropion 150 MG XL TAB PO SCH (08:35)
[2019-04-23] MEDS ORDERED: VANCOMYCIN IVPB PRN (08:35)
[2019-04-23] MEDS: Saccharomyces boulardii 250 MG CAP PO SCH (08:36)
[2019-04-23] MEDS: Potassium Chloride 20 MEQ TAB PO SCH (08:36)
[2019-04-23] MEDS: Linezolid 600 MG TAB PO SCH (08:36)
[2019-04-23] MEDS: Ascorbic Acid 500 mg Chewable Tablet PO SCH (08:36)
[2019-04-23] MEDS: Gabapentin 100 MG CAP PO SCH (08:37)
[2019-04-23] MEDS: Ferrous Sulfate 325 MG TAB PO SCH (08:37)
[2019-04-23] MEDS: Enoxaparin Sodium 40 MG/0.4 ML SYRINGE SC SCH (08:38)
[2019-04-23 08:44] VITALS: BP 103/65; TEMP 98
[2019-04-23] MEDS ORDERED: Vancomycin HCl 1.25 GM in Sodium Chloride 0.9% 250 ML 250 ML IVPB SCH (08:45)
[2019-04-23] MEDS ORDERED: guaiFENesin/DM ER PO SCH ×2 (09:00)
[2019-04-23] MEDS ORDERED: Lorazepam 1 MG TAB PO SCH (11:00)
[2019-04-23] MEDS: Budesonide 0.5 MG/2 ML NEB INH SCH (13:54)
[2019-04-23] MEDS: Fluticasone Propionate Nasal Spray 16 gm Bottle NASAL SCH (14:18)
--- NOTE | 2019-04-23 14:29 | DIS ---
DATE OF ADMISSION: 04/15/2019 DATE OF DISCHARGE: 04/23/2019 ADMISSION DIAGNOSES: Fall, right-sided pneumothorax, and hypokalemia. DISCHARGE DIAGNOSES: Fall, right-sided pneumothorax, and hypokalemia, right-sided methicillin-resistant Staphylococcus aureus pneumonia/empyema. CONSULTING PHYSICIAN: None. PROCEDURES: Right-sided chest tube on April 15, 2019 and April 17, 2019. The patient had two chest tubes placed. HOSPITAL COURSE: The patient is a 38-year-old female, who presented to the emergency department as a transfer from [place] after a fall. The patient was found to have a right-sided pneumothorax. A right-sided chest tube was placed. Two days later, there was still a basilar retained pneumothorax, and a second chest tube was placed. The patient did develop an empyema. Subsequently, both chest tubes were removed, and she was placed on several antibiotics before sensitivities came back. Dressing changes will continue daily. MRSA was sensitive to Bactrim, and the patient was placed on 14 days of Bactrim. The patient's family was present at the time of discharge. She was set up with home health for dressing changes and wound evaluation to her right chest wall. Bactrim prescription and tramadol were given to her at the time of discharge. DISCHARGE DISPOSITION: Home with home health nurse. DISCHARGE CONDITION: Satisfactory. PHYSICAL EXAMINATION: GENERAL: The patient was afebrile, hemodynamically stable with no signs of acute respiratory distress. Thin female, ambulating in hallways with no signs of acute distress. PULMONARY: Equal chest rise and fall. No signs of acute respiratory distress. CARDIAC: Regular rate and rhythm. EXTREMITIES: 2+ pulses in all extremities. No significant swelling noted. Gross motor and sensation intact. DISCHARGE INSTRUCTIONS: The patient was discharged home with home health. Activity as tolerated with a regular diet. Home Health to do wound care to her right chest wall wound at the location of the chest tubes. DISCHARGE MEDICATIONS: Include Bactrim DS for a total of 14 days, tramadol for a total of 20 tablets, ibuprofen, Symbicort, Wellbutrin, ferrous sulfate, Flonase, Zyprexa, omeprazole, Seroquel, Zoloft, trazodone, potassium chloride. FOLLOWUP APPOINTMENTS: The patient is to follow up with Dr. Jacobo in clinic on May 07, 2019 at 2:00 p.m. She will complete a chest x-ray before followup. This is a summary of the patient's hospitalization. For full details, please see her medical record in its entirety. Job ID: [id number]
[2019-04-23] MEDS ORDERED: Vancomycin HCl 750 MG in Sodium Chloride 0.9% 250 ML 250 ML IVPB SCH (17:00)
[2019-04-23] MEDS ORDERED: Sulfameth/Trimethoprim DS 800-160mg TAB PO SCH (21:00)
--- NOTE | 2019-04-24 17:40 | EKG ---
Test Reason : Blood Pressure : / mmHG Vent. Rate : 098 BPM Atrial Rate : 098 BPM P-R Int : 094 ms QRS Dur : 082 ms QT Int : 366 ms P-R-T Axes : -02 060 080 degrees QTc Int : 467 ms Sinus rhythm with short DC Nonspecific T wave abnormality Prolonged QT Abnormal ECG When compared with ECG of 15-APR-2019 15:49, (Unconfirmed) No significant change was found Confirmed by DR. Aly ZAPATA ([id number]) on 04/24/2019 5:40:13 PM Referred By: GABY MEYER Confirmed By:DR. Aly ZAPATA
== END 2019-04-23 11:45 | disposition home health service (06) | DRG 199 ==
LOC: ERS 14:42 → SURG B 16:08 → IMCU/EMU 04-18 15:31 → SURG A 04-19 10:12
PROVIDERS: ADMIT Surgery; ATTEND Surgery
PROC: 0W9930Z Drainage of Right Pleural Cavity with Drainage Device, Percutaneous Approach (ICD-10-PCS; principal; 2019-04-15)
PROC: 0W9930Z Drainage of Right Pleural Cavity with Drainage Device, Percutaneous Approach (ICD-10-PCS; 2019-04-17)
DX: S27.0XXA Traumatic pneumothorax, initial encounter (principal); J15.29 Pneumonia due to other staphylococcus; J86.9 Pyothorax without fistula; J96.01 Acute respiratory failure with hypoxia; S22.41XA Multiple fractures of ribs, right side, initial encounter for closed fracture; J44.0 Chronic obstructive pulmonary disease with (acute) lower respiratory infection; J90 Pleural effusion, not elsewhere classified; E87.1 Hypo-osmolality and hyponatremia; D62 Acute posthemorrhagic anemia; E87.6 Hypokalemia; W19.XXXA Unspecified fall, initial encounter; I10 Essential (primary) hypertension; F31.9 Bipolar disorder, unspecified; F25.9 Schizoaffective disorder, unspecified; E83.42 Hypomagnesemia; F17.210 Nicotine dependence, cigarettes, uncomplicated; D64.9 Anemia, unspecified; F12.10 Cannabis abuse, uncomplicated; F15.10 Other stimulant abuse, uncomplicated; F19.10 Other psychoactive substance abuse, uncomplicated; F11.10 Opioid abuse, uncomplicated; E83.51 Hypocalcemia; F43.10 Post-traumatic stress disorder, unspecified; Z88.0 Allergy status to penicillin; Z88.8 Allergy status to other drugs, medicaments and biological substances
CPT/HCPCS: 32551; 36415; 36416; 36430; 71045; 71046; 80048; 80053; 80202; 80307; 81001; 82533; 82805; 83735; 84100; 84703; 85007; 85025; 85027; 86850; 86900; 86901; 87040; 87070; 87077; 87186; 87205; 93005; 93010; 94640; 94660; 96365; 96375; 99152; G0390; J0690; J0692; J0696; J1650; J1885; J2001; J2060; J2270; J3370; J3475; J3480; J3490; J7050; J7620; J7626; P9016

== ENCOUNTER 2019-05-05 00:21 | Inpatient (IN) | payer OTHER ==
[2019-05-05] MEDS ORDERED: Dextrose 5% in Water 1,000 ML IV PRN (03:26)
[2019-05-05] MEDS ORDERED: Dextrose 50% Abboject 50 ML SYRINGE SLOW IVP PRN (03:26)
[2019-05-05] MEDS ORDERED: traMADol HCl 50 MG TAB PO PRN ×3 (03:26→15:06)
[2019-05-05] MEDS ORDERED: Ondansetron ODT 4 MG TAB PO PRN (03:26)
[2019-05-05] MEDS ORDERED: hydrALAZINE 20 MG/ML VIAL SLOW IVP PRN (03:26)
[2019-05-05] MEDS ORDERED: Ondansetron PF 4 MG/2 ML Vial IVP PRN (03:26)
--- NOTE | 2019-05-05 03:33 | HP ---
REQUESTING PHYSICIAN: Dr. Jenise Tate MD CONSULTATIONS: Cardiovascular surgery, Dr. Evans. HISTORY OF PRESENT ILLNESS: The patient is a 38-year-old female who is known to our service. She was discharged from our facility on 04/23/2019 after being admitted for hemopneumothorax and had developed MRSA empyema. Tonight, she presented to the emergency department in [place], complaining of right-sided chest wall pain and shortness of breath. She underwent evaluation and examination there and was noted to have what appeared to be a larger effusion/empyema there. The patient was also noted to have hypokalemia and hyponatremia. She was subsequently transferred to our facility for admission and evaluation for possible VATS procedure. The patient denies fever, though she is not a very good historian. ALLERGIES: PENICILLIN AND BUSPAR. CURRENT MEDICATIONS: None. PAST MEDICAL HISTORY: Chronic hyponatremia, COPD, bipolar disorder, and rectal prolapse. PAST SURGICAL HISTORY: Right chest tube placement x2 on previous admission this month. The patient also has history of multiple endoscopies, exploratory laparotomy, and end colostomy to treat her rectal prolapse. SOCIAL HISTORY: The patient admits to marijuana use, alcohol use "sometimes" and smokes a pack of cigarettes per day. She also has a previous history of opioid and methamphetamine abuse. REVIEW OF SYSTEMS: A 10-point review of systems is negative as otherwise stated. PHYSICAL EXAMINATION: VITAL SIGNS: Blood pressure 96/57, heart rate 79, respirations 18, oxygen saturation 99% on room air, and temperature is 98.4. GENERAL: The patient is resting comfortably in bed. Her chief complaint currently is the potassium going in her IV hurts and she would like to go outside to smoke. She is alert and oriented. [place] Coma Scale is 15. HEENT: Head is normocephalic and atraumatic. Eyes, extraocular motions intact. PERRLA bilaterally. Ears are atraumatic without discharge. Nose is atraumatic without discharge. Oropharynx is clear. NECK: Nontender. Trachea is midline. No JVD. CHEST: Clear to auscultation with good inspiratory and expiratory effort. She does have diminished breath sounds in the right lower aspect consistent with her empyema. ABDOMEN: Soft and nontender. Her colostomy is in place and there is stool and gas in her colostomy appliance. EXTREMITIES: Neurovascularly intact x4. BACK: Atraumatic and nontender. LABORATORY DATA: White blood cell count 13.8, hemoglobin 9.1, hematocrit 29.0, and platelets 667. Sodium 127, potassium 3.2, chloride 83, CO2 of 31, BUN 4, creatinine 0.70, and glucose 88. RADIOGRAPHIC FINDINGS: AP chest x-ray shows a worsening of the right lower lobe airspace opacity. CT of the chest with contrast shows empyema of posterior and lateral right lung base with adjacent consolidation, which may be related to atelectasis. There is increased density material seen within the empyema, which could be related to a small amount of hemorrhage. Small pericardial effusion, reactive mediastinal and right hilar lymphadenopathy. There are also multiple chronic changes noted. ASSESSMENT AND PLAN: 1. Status post fall resulting in right-sided pneumothorax, requiring chest tubes x2 with a discharge date of 04/23/2019 and suspected methicillin-resistant Staphylococcus aureus empyema at that time. The patient reports completing antibiotics. 2. Persistent, enlarging empyema on right. 3. Hyponatremia, chronic. 4. Hypokalemia, chronic. PLAN: Plan will be to admit the patient to the surgical floor. We will continue her vancomycin as her previous MRSA was susceptible to this. We will do pain control, pulmonary toilet, gastritis, and mechanical VTE prophylaxis and normal saline infusion. We will recheck labs. Per discussion with Dr. Singer, he would like Cardiovascular surgery, and Infectious Disease consulted. Infectious Disease had seen at her previous admission. We will keep her n.p.o. if the decision for a VATS procedure is agreed upon. Dr. Singer was called earlier by the ER for this admission. Job ID: [id number] [facility]
[2019-05-05] MEDS: Sodium Chloride 0.9% 1,000 ML IV SCH ×3 (03:35→18:30)
[2019-05-05] MEDS ORDERED: Vancomycin HCl 1 GM in Premix Bag 1 BAG IVPB SCH (04:00)
[2019-05-05 05:57] LABS: Band 1 % (5-11); Elliptocytes SLIGHT = 2-5 cells (100X) (0-1/hpf); Hemoglobin 8.9 g/dL (12.0-16.0); Hypochromia SLIGHT = 6-15 cells (100X) (0-5/hpf); Lymphocytes 26 % (21-51); MDiff Complete? YES; Mean Corpuscular HGB CONC 30.5 g/dL (32.0-36.0); Mean Corpuscular Hemoglobin 25.2 pg (27.0-31.0); Mean Corpuscular Volume 82.6 fL (78.0-98.0); Mean Platelet Volume 5.9 fL (7.4-10.4); Monocytes 5 % (0-10); Neutrophil 66 % (42-75); Platelet Count 697 thou/uL (130-400); Platelet Morphology Comment Appears Increased; RBC Distribution Width 20.1 % (11.5-14.5); Reactive Lymphocytes 2 % (0-10); Red Blood Cell (RBC) Count 3.54 mill/uL (4.20-5.40); White Blood Cell (WBC) Count 9.8 thou/uL (4.8-10.8)
[2019-05-05 06:04] VITALS: BMI 17.2
[2019-05-05 06:04] LABS: Anion Gap 10 mmol/L (10-20); BUN (Urea Nitrogen) Less than 4 mg/dL (7.0-18.7); Calc. Creatinine Clearance 0 mL/min (70-130); Carbon Dioxide 31 mmol/L (22-29); Chloride 96 mmol/L (98-107); Estimated GFR-MDRD Greater than 90; Glucose 75 mg/dL (70-105); Magnesium 1.9 mg/dL (1.6-2.6); Phosphorus 3.1 mg/dL (2.3-4.7); Potassium 3.5 mmol/L (3.5-5.1); Sodium 133 mmol/L (136-145)
[2019-05-05] MEDS: Acetaminophen 325 MG TAB PO SCH ×2 (06:05→12:36)
[2019-05-05] MEDS: Ibuprofen 600 MG TAB PO SCH ×2 (06:06→16:32)
[2019-05-05] MEDS ORDERED: Ondansetron PF 4 MG/2 ML Vial ONE (09:05)
[2019-05-05] MEDS ORDERED: PROPOFOL 200 MG/20 ML VIAL ONE (09:05)
[2019-05-05] MEDS ORDERED: Vecuronium 10 MG VIAL ONE (09:05)
[2019-05-05] MEDS ORDERED: Lidocaine 1% PF 5 ML VIAL ONE (09:05)
[2019-05-05] MEDS ORDERED: Ketorolac Tromethamine 30 MG/ML VIAL ONE ×2 (09:05→18:22)
[2019-05-05] MEDS ORDERED: Glycopyrrolate 0.2 MG/ML 5 ML SYRINGE ONE (09:05)
[2019-05-05] MEDS ORDERED: PHENYLEPHRINE-NS 100 MCG/ML 10 ML SYRINGE ONE (09:05)
[2019-05-05] MEDS ORDERED: Fentanyl 250 MCG/5 ML VIAL ONE (11:10)
[2019-05-05] MEDS ORDERED: Midazolam HCl 2 mg/2 ml Vial ONE (11:18)
--- NOTE | 2019-05-05 11:19 | PRG ---
DATE OF SERVICE: 05/05/2019 SUBJECTIVE: Ms. Velasquez is a 38-year-old female, coming for evaluation of feeling of shortness of breath. The patient has a history of right-sided pneumothorax and empyema with MRSA on culture. The patient was treated with IV antibiotic and outpatient antibiotic. Cardiovascular, Dr. Evans, saw the patient and decided to take the patient to the OR this morning for thoracostomy for right-sided empyema. The patient reports pain is well controlled. She has no signs of respiratory distress developed. She developed no fever or shortness of breath. She has been n.p.o. at midnight and her urine is adequate. OBJECTIVE: GENERAL: The patient currently lying down in bed comfortable with no acute respiratory distress. VITAL SIGNS: Temperature 98.7, heart rate 95, respiratory rate 14, O2 saturation 96% on room air, and blood pressure 160/100. LUNGS: Scattered rales bilaterally. Right lower, breath sound is decreased. HEART: Regular rate and rhythm. ABDOMINAL: Soft. Nondistended. Ileostomy working properly. EXTREMITIES: Neurovascularly intact x4. NEUROLOGY: No focal neurology deficits. ASSESSMENT: 1. Status post fall with right-sided pneumothorax, resolved. 2. Right-sided empyema. 3. History of ileostomy and history of psychosis, treated. PLAN: The patient is currently n.p.o. The patient will plan to go to the OR with cardiovascular surgeon today for right thoracostomy. Continue supportive care and continue pain control. We will put her on her home medication. Consult with Infectious Disease to have antibiotics choice. Job ID: [id number]
[2019-05-05] MEDS ORDERED: [UNRECOGNIZED DRUG - REMARK] FS SCH (12:00)
[2019-05-05] MEDS ORDERED: Ropivacaine 0.2% HCl/PF 20 ML ONE (14:38)
--- NOTE | 2019-05-05 15:46 | HP ---
HISTORY OF PRESENT ILLNESS: The patient presented to the emergency room with increasing pain, dyspnea. She has history of an empyema. In the emergency room, a CT was performed showing enlarging empyema in the right chest. PHYSICAL EXAMINATION: GENERAL: On examination, she is cachectic, looks much older than stated age. VITAL SIGNS: Temperature 98.7, pulse 95, and blood pressure 160/102. ABDOMEN: Soft, nondistended, and nontender. LABORATORY DATA: White count 9.8, H and H of 8.9 and 29, and platelet count of 697. Electrolytes are fine. ASSESSMENT: Recurrent empyema, right chest. PLAN: Thoracic surgery consultation. Job ID: [id number]
[2019-05-05] MEDS ORDERED: Promethazine HCl 25 MG/ML VIAL SLOW IVP PRN (15:53)
[2019-05-05] MEDS ORDERED: Promethazine HCl 25 MG/ML VIAL IM PRN (15:53)
[2019-05-05] MEDS ORDERED: Ondansetron HCl/PF 4 MG/2 ML Vial IVP PRN (15:53)
[2019-05-05] MEDS ORDERED: Fentanyl 100 MCG/2 ML VIAL ONE ×2 (15:58→16:35)
[2019-05-05] MEDS ORDERED: PROVENTIL INHALER 6.7 G (200 INHALATIONS) INH PRN (16:11)
--- NOTE | 2019-05-05 16:15 | RAD ---
EXAM: CHEST ONE VIEW HISTORY: Post thoracotomy. COMPARISON: 04/21/2019 FINDINGS: Right subclavian central venous catheter is now noted in place with tip overlying the expected locati on of the distal SVC. There are 2 right-sided thoracostomy tubes in place with tip of each thoracostomy tube overlying the right lung apex. There is also a radiopaque catheter seen overlying t he subcutaneous soft tissues at the right lung base. Subcutaneous emphysema is noted. There are parenchymal changes seen within the right middle lung zone and at the lateral right lung base which m ay be related to volume loss. Parenchymal density at the lateral right lung base has improved. Nodular density overlies the left midlung zone most likely related to a nipple shadow. No pulmonary w as nodule seen on recent CT of the thorax. Left lung is otherwise clear. Remote left-sided rib fractures are present. Emphysematous changes are seen at each lung apex. There is a small right apica l pneumothorax visualized. No other interval change. IMPRESSION: 1. Postoperative changes lower right hemithorax with right-sided thoracostomy tubes in place with par enchymal changes in the right midlung zone and lateral right lung base which may related to areas of atelectasis or possibly infiltrates. 2. Small right apical pneumothorax. 3. Additional findings as described above.
--- NOTE | 2019-05-05 16:20 | CON ---
DATE OF CONSULTATION: 05/05/2019 REQUESTING PROVIDER: COCO Lopez. Supervised by Andreas Singer on the Trauma Service. CHIEF COMPLAINT: Right-sided chest pain. HISTORY OF PRESENT ILLNESS: The patient is a 38-year-old white woman with a history of drug abuse that includes methamphetamines. She has a bipolar disorder and a history of heavy smoking and carries a legacy diagnosis of COPD. She has multiple hospitalizations and was fairly recently discharged after she had been hospitalized for a pneumothorax. She tells me that she had a low level fall and about a week later presented to the hospital. In reviewing her x-rays since that time, she appeared to have some apical adherence of the right lung with a relatively straight line of pneumothorax laterally with an air-fluid level at the base. Her pneumothorax was slow to resolve and a second chest tube was placed to hasten that, but the opacity obliterating the right lateral costophrenic angle never truly resolved. During that hospitalization, she grew out methicillin resistant Staph aureus from her sputum and from a "surgical site" which are presumed to be chest tube site. During an encounter in February 2019, she had MRSA grow from the urine culture, and in July 2018, she had a culture of an ostomy site that had mixed hardy that included a more conventional Staphylococcus aureus. The patient says that she developed a productive cough essentially right after she was discharged on the after a little over a week in the hospital. She began developing intermittent fevers as high as 101.6 about a week ago and yesterday she presented to the hospital with complaints of a squeezing type pain in the right lower chest that was worse when she breathed or coughed. PAST MEDICAL HISTORY: Significant for bipolar disorder, COPD, rectal prolapse. She has a fairly chronic history of hyponatremia and has had two incisional herniorrhaphies. HOME MEDICATIONS: Listed as 1. Zoloft 200 mg a day. 2. Seroquel 200 mg b.i.d. and 50 mg at bedtime. 3. Trazodone 300 mg at bedtime. 4. Wellbutrin 150 mg a day. 5. Linaclotide 145 mcg orally a day. 6. Zyprexa 20 mg at bedtime. 7. Omeprazole 40 mg a day. 8. P.r.n. albuterol inhaler. 9. EpiPen p.r.n. 10. Flonase b.i.d. 11. Ferous sulfate. She reports suicidal ideation with buspirone and "anaphylaxis" with penicillin. She smokes a pack of cigarettes a day, has a history of marijuana use, poorly quantified alcohol use and a previous history of opioid and methamphetamine abuse. REVIEW OF SYSTEMS: Positive for a productive cough and fever. PHYSICAL EXAMINATION: GENERAL: She is a dirty and disheveled looking woman who appears closer to 88 years old than her stated age of 38. VITAL SIGNS: Heart rate is in the 80 to 95 range, blood pressure 120 to 160 over 80 to 100. Temperature currently is 98.7, which is the maximum temperature here during this hospitalization. NECK: There is no JVD. RESPIRATORY: She has diminished breath sounds on the right side. ABDOMEN: Soft and nontender. LABORATORY DATA: White count of 13.8 last night and 9.8 this morning. Hemoglobin is 9.1 and 8.9 with an MCV of the low 80s, platelet count is in mid 600 to high 600,000 range. Sodium of 133, potassium 3.5, chloride 96, CO2 of 31, glucose 75, BUN less than 4, creatinine 0.6. Her albumin was 2.6. Her alkaline phosphatase was 185, otherwise her LFTs were normal. IMAGING: Her chest x-rays are described above. The CT scan of her chest shows a loculated fluid collection laterally at the right base with air bubbles. There is an enhancing rind adherent to the lung at that point that measures approximately a centimeter thick. IMPRESSION AND PLAN: I suspect that the patient had some retained hemothorax and has had fluid collection with resultant trapped lung at that base and that fluid collection is now infected. I do not think based upon what appears to be such a thick rind trapping the base that this will be amenable to a thoracoscopic approach even though the size of the fluid collection itself is relatively small. She does not strike me as being too frail to tolerate a thoracotomy, so I would do more conventional open decortication rather than something like a rib resection in empyema tube placement. Since she is already n.p.o., I will plan on proceeding today. Job ID: [id number]
[2019-05-05] MEDS: Vancomycin HCl 1 GM in Premix Bag 1 BAG IVPB SCH (18:34)
[2019-05-05] MEDS: Ketorolac Tromethamine 30 MG/ML VIAL IVP SCH ×2 (18:35→23:45)
[2019-05-05] MEDS ORDERED: traMADol HCl 50 MG TAB ONE (18:49)
[2019-05-05] MEDS: traMADol HCl 50 MG TAB PO PRN (18:52)
[2019-05-05] MEDS: Mometasone/Formoterol 120 PUFF INHALER INH SCH (19:07)
[2019-05-05] MEDS: Gabapentin 300 MG CAP PO SCH (20:12)
[2019-05-05] MEDS: Docusate 100 MG CAP PO SCH (20:13)
--- NOTE | 2019-05-05 21:38 | OP ---
DATE OF PROCEDURE: 05/05/2019 PROCEDURES PERFORMED: Muscle sparing right thoracotomy with total lung decortication and wedge resection of ruptured right lower lobe abscess, On-Q pain pump subpleural catheter placement x2, and right subclavian central line placement. PREOPERATIVE DIAGNOSES: Right empyema and poor peripheral IV access. POSTOPERATIVE DIAGNOSES: Right empyema and poor peripheral IV access. ANESTHESIA: General endotracheal anesthesia. INDICATIONS FOR PROCEDURE: The patient is a 38-year-old bipolar woman with a history of heavy smoking and drug abuse. She was recently discharged after having had chest tubes placed to address right-sided pneumothorax after a low-level fall. She developed productive cough and fever and presented with chest pain and was found to have loculated fluid collection associated with air bubbles and thick rind on the lung. She was now taken to the operating room for decortication. FINDINGS: Pleural symphysis with a thick, shaggy, densely adherent rind covering much of the right lower lobe, principally along the posterolateral aspect and the diaphragmatic surface. When decorticated, it uncovered a ruptured abscess on the surface of the lung laterally in an area that seemed to correspond with the superior segment of the right lower lobe. NARRATIVE REPORT: After informed consent was obtained, the patient was taken to the operating room and placed in the supine position on the operating table. After the induction of general anesthesia, her right upper chest was prepped and draped in sterile fashion and she was placed in Trendelenburg. A right triple-lumen central line kit was used to place right subclavian central line for secure IV access. It required sticks in two places in caudad retraction on her arm in order to get the trach to dilate and the catheter to thread, but once placed, all 3 ports easily aspirated and flushed. The line was secured and dressed. She was then placed in the left lateral decubitus position and the right chest was prepped and draped in sterile fashion. An oblique incision was made paralleling the palpable intercostal spaces a little below the tip of the scapula. The latissimus and serratus were mobilized and the 5th intercostal space was entered. The lung was fairly densely adherent to the parietal pleura and a dissection plane was developed with the surgeon's finger and taken radially from the incision allowing for extension of the incision and ultimately placement of Tuffier retractor. Blunt dissection was used to mobilize the pleural symphysis anteriorly superiorly and immediately posterolaterally toward the diaphragmatic surface. The lung was densely adherent. This required blunt dissection starting at the developed free spaces and working around to the diaphragmatic surface, both anteriorly and posteriorly. In the course of this dissection, the inferior pulmonary vein was identified when the lung was freed. The nearly completely developed fissure between the middle and lower lobes was developed by blunt dissection, taking down the inflammatory adhesions to allow for development of a plane just superficial to the visceral pleura at the edge of the lateral aspect of the lower lobe. Working from relatively free areas, the rind was elevated and dissected away using a combination of sharp and blunt dissection with scissors and a scalpel handle. The rind was particularly thick and densely adherent along the base of the lower lobe, both from the diaphragmatic surface and posterolaterally and ultimately was sufficiently adherent to the tip of the lung, that area was simply divided using a ODILON stapler rather than tearing the lung and causing bleeding. The chest was irrigated and the lung inflated and no remaining entrapped lung was evident on inspection; however, about a 1 cm shaggy walled ruptured abscess cavity could be appreciated on the lateral aspect of the lower lobe in the general region of the superior segment. This was grasped to allow for its excision using a ODILON stapling device. A 36-Faroese chest tubes were placed anteriorly and posteriorly at the apex with additional holes cut in them for better drainage. The chest tubes were secured to the skin with suture. On-Q PainBuster catheters were introduced into the chest from anteriorly using trocars and the strip away sheath. The subpleural plane was developed to allow for tunneling of the catheters superiorly and inferiorly extending from the posterior aspect to the intercostal incision. 5 mL of 0.2% ropivacaine were bolused into each of the two catheters, which were secured to the skin with suture. The ribs were reapproximated with #1 Vicryl [id number] pericostal sutures. The latissimus and serratus were tacked back in their anatomic position with running Vicryl. The subcutaneous tissue was irrigated and a 19-Faroese bulb suction drain was placed just superficial to the latissimus, bringing it out through a separate incision and securing it with suture. The subcu was closed over that in 2 layers of running Vicryl and the skin was closed with 4-0 Vicryl subcuticular suture and Steri-Strips. The wound was dressed. The chest tubes were connected to close suction drainage and the JOSELYN to bulb suction. The patient was awakened and extubated in the operating room, taken to the recovery area in stable condition. Job ID: [id number]
[2019-05-05] MEDS: Cyclobenzaprine 10 MG TAB PO PRN (22:08)
[2019-05-05] MEDS: traZODone HCl 150 MG TAB PO SCH (22:46)
[2019-05-06] MEDS: Sodium Chloride 0.9% 1,000 ML IV SCH ×2 (02:04→14:42)
--- NOTE | 2019-05-06 03:09 | PRG ---
DATE OF SERVICE: 05/06/2019 SUBJECTIVE: The patient is currently on the critical care unit. She was admitted early this morning . She is a patient known to our service. She is status post fall when she sustained right-sided rib fractures and right pneumothorax. She had developed an empyema prior to her discharge. She was subsequently discharged home. She reports that she finished her antibiotics, but presented last night to the emergency department with an enlarging empyema. Today, she underwent a muscle-sparing right thoracotomy with total lung decortication and wedge resection of ruptured right lower lobe abscess. She reportedly tolerated this well and at the time of my visit, she was resting comfortably. The nurses reported no issues at that time. PHYSICAL EXAMINATION: VITAL SIGNS: Stable. The patient is afebrile. GENERAL: The patient is resting comfortably in bed. Nurses report that she is just going to sleep, but they had no issues report. CHEST: Her chest tubes appear to be functioning properly. Her respirations appear nonlabored. She does have an On-Q pump in place to assist with her pain management. ASSESSMENT/PLAN: 1. Status post muscle-sparing right thoracotomy with total lung decortication and wedge resection of ruptured right lower lobe abscess. 2. History of Methicillin-resistant Staphylococcus aureus empyema. PLAN: Will be to continue supportive care, chest tube management per Cardiovascular surgery. Await culture results and continue pain control and begin mobilizing the patient as soon as possible. Job ID: [id number]
[2019-05-06] MEDS: traMADol HCl 50 MG TAB PO PRN (04:00)
[2019-05-06 04:01] LABS: Band 10 % (5-11); Hemoglobin 7.8 g/dL (12.0-16.0); Lymphocytes 11 % (21-51); MDiff Complete? YES; Mean Corpuscular HGB CONC 30.6 g/dL (32.0-36.0); Mean Corpuscular Hemoglobin 25.7 pg (27.0-31.0); Mean Corpuscular Volume 83.9 fL (78.0-98.0); Monocytes 1 % (0-10); Neutrophil 78 % (42-75); Platelet Count 570 thou/uL (130-400); Platelet Morphology Comment Appears Increased; RBC Distribution Width 20.5 % (11.5-14.5); Red Blood Cell (RBC) Count 3.02 mill/uL (4.20-5.40); White Blood Cell (WBC) Count 20.7 thou/uL (4.8-10.8)
[2019-05-06 04:05] LABS: Anion Gap 9 mmol/L (10-20); BUN (Urea Nitrogen) 5 mg/dL (7.0-18.7); Calc. Creatinine Clearance 101 mL/min (70-130); Calcium 7.5 mg/dL (7.8-10.44); Carbon Dioxide 27 mmol/L (22-29); Chloride 102 mmol/L (98-107); Estimated GFR-MDRD Greater than 90; Glucose 85 mg/dL (70-105); Potassium 3.8 mmol/L (3.5-5.1); Sodium 134 mmol/L (136-145)
[2019-05-06] MEDS: Mometasone/Formoterol 120 PUFF INHALER INH SCH ×2 (08:11→18:46)
[2019-05-06] MEDS: Vancomycin HCl 1 GM in Premix Bag 1 BAG IVPB SCH ×2 (08:21→17:47)
[2019-05-06] MEDS: Ketorolac Tromethamine 30 MG/ML VIAL IVP SCH ×4 (08:22→23:09)
[2019-05-06] MEDS: Bupropion 150 MG XL TAB PO SCH (08:23)
[2019-05-06] MEDS: Ferrous Sulfate 325 MG TAB PO SCH (08:23)
[2019-05-06] MEDS: Cyclobenzaprine 10 MG TAB PO PRN (08:23)
[2019-05-06] MEDS: Gabapentin 300 MG CAP PO SCH ×2 (08:23→20:23)
[2019-05-06] MEDS: Docusate 100 MG CAP PO SCH ×2 (08:23→20:11)
--- NOTE | 2019-05-06 08:29 | RAD ---
EXAM: Single view of the chest HISTORY: Status post thoracotomy COMPARISON: 05/05/2019 FINDINGS: Single view of the chest shows a normal sized cardiomediastinal silhouette. The lines and tubes are unchanged in position. No pneumothorax is seen. Increased mixed lung markings are seen in the right lung, unchanged. Air is seen in the right chest wall. The bones are unremarkable. IMPRESSION: Stable exam
[2019-05-06] MEDS ORDERED: HYDROcodone/Acetaminophen 5/325 mg Tablet PO PRN (11:41)
--- NOTE | 2019-05-06 11:48 | CON ---
DATE OF CONSULTATION: 05/06/2019 REASON FOR CONSULTATION: Empyema. HISTORY OF PRESENT ILLNESS: A 38-year-old with a history of schizoaffective disorder and depression as well as prior suicide attempt with drug overdose, prior complications related to rectal prolapse, colostomy, and enterocutaneous fistula, who in April, a few days ago fell down after having apparently lost her balance while inebriated and developed a right-sided pneumothorax. This required placement of chest tubes. She did develop infection of the area with MRSA. She was given oral Bactrim. Chest tubes were removed and she was discharged home. Now she is readmitted because of worsening dyspnea, cough with yellow sputum production, and fever 101.6. Initial blood pressure was 96/65, temperature 98.4, O2 saturation 100% on room air. She did not appear in distress. Breath sounds were described as clear. She had 2 ostomy bags in the anterior abdominal wall with watery stool in the bag. A chest CT demonstrated empyema in the right lung base with adjacent consolidation, reactive mediastinal lymphadenopathy. The patient had a decortication by Dr. Evans. The operative report was reviewed on the , so she had a right thoracotomy with total lung decortication, wedge resection of ruptured right lower lobe abscess. She has a right subclavian central line placed as well during this procedure. The patient now is in the ICU. She has 2 chest tubes, Moon catheter, and right central line in subclavian location. She is awake, oriented, follows commands. Denies headaches. Some back pain when she sits up. Gpyl-[id number]-efclktcr pain in the right side of the chest. Mild dyspnea. No abdominal pain. Complaining about the Moon catheter. No joint symptoms. PAST MEDICAL HISTORY: Schizoaffective disorder, multiple suicidal attempts with drug overdose, usually binge drinking, recent rib fractures following a fall associated with binge drinking, rectal prolapse, which required a colostomy placement. She had developed enterocutaneous fistula following the surgery and has [address], isolated rectal ulcer, asthma, chronic smoking. PAST SURGICAL HISTORY: As above. FAMILY HISTORY: Diabetes type 2, coronary artery disease, depression. SOCIAL HISTORY: Lives with family members. Still smoking. No other drug use other than marijuana. She drinks alcoholic beverages on occasion, usually binge drinking behavior. ALLERGY HISTORY: BuSpar, penicillin with rash. CURRENT MEDICATIONS: 1. Inhaler DuoNeb. 2. Wellbutrin. 3. Flexeril. 4. Feosol. 5. Neurontin. 6. Toradol. 7. Zyprexa. 8. Zofran. 9. Protonix. 10. Seroquel. 11. Zoloft. 12. Ultram. 13. Vancomycin. PHYSICAL EXAMINATION: VITAL SIGNS: Temperature 100, blood pressure 130/80, pulse 110, respirations 24 to 28, O2 saturation 100%. SKIN: Shows 2 ostomies, one is colostomy. The other appears to be an enterocutaneous fistula. She has a right-sided subclavian central line and a Moon catheter and the 2 chest tubes on the right side. HEENT: Some element of temporal wasting. Ocular movements conjugate. Oral cavity with no remaining salamatof teeth. Oral mucosa normal otherwise. NECK: Supple. No jugular venous distention. LUNGS: With diminished breath sounds in the right side. Clear breath sounds on the left. HEART: S1 and S2. Regular rate. ABDOMEN: Soft, not distended or tender. No ascites. No bladder distention. Wasting syndrome in the appendicular structures. EXTREMITIES: Pulses are 1+ in dorsalis pedis. No edema. Plantar responses are flexor. No clonus. NEUROLOGIC: The patient is oriented. Follows commands. LABORATORY DATA: White cell count 9.8 and 20.7, hemoglobin 8.9 and 7.8, MCV 83, platelets 570 with 78% neutrophils. Sodium 133, creatinine 0.6. Negative HIV from 2018. Hepatitis C was not detected, RNA culture quantitative. Microbiology with MRSA from empyema right side, similar organism from surgical site from earlier this month. Last urinalysis is from April 16 with 0 to 3 wbc's. IMAGING: There is also chest x-ray from this morning with unchanged lines and tubes and no pneumothorax. Increased lung markings on the right side. ASSESSMENT: 1. Schizoaffective disorder with prior multiple suicidal attempts with drug overdose. 2. Binge drinking behavior. 3. Recent fall after an episode of binge drinking, which led to rib fractures and pneumothorax. This was managed with a chest tube and the patient developed the infection subsequently as a complication due to methicillin-resistant Staphylococcus aureus penetration of the space and empyema development. 4. Decortication. DISCUSSION: The patient will be continued on IV vancomycin. PICC line placement and treat for protracted period of time. The duration of therapy around 4 to 6 weeks. Monitor CRP, vancomycin trough levels on a weekly basis. Disposition will depend on the setting where she is going to be treated. I believe that she probably will need to be admitted to a skilled unit for that in view of her underlying psychiatric diagnosis and poor social support in the home setting. Job ID: [id number]
[2019-05-06] MEDS ORDERED: Acetaminophen 325 MG TAB PO PRN (11:59)
--- NOTE | 2019-05-06 12:26 | PDOC.EVN ---
Event Note - Event Note Event Note: Asked to assume care from Trauma service- Dr. Jacobo. Consultation note dictated #[id number]
[2019-05-06] MEDS: HYDROcodone/Acetaminophen 5/325 mg Tablet PO PRN ×2 (13:05→20:29)
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
--- NOTE | 2019-05-06 14:35 | CON ---
DATE OF CONSULTATION: 05/06/2019 SERVICE: Pulmonary Medicine. REASON FOR CONSULTATION: ICU patient. HISTORY OF PRESENT ILLNESS: The patient is a 38-year-old white female with past medical history significant for a traumatic hydropneumothorax on the right side. This was first identified on the April 16, 2019. She ended up having a chest tube placed. This failed to resolve her pneumothorax. As such, second chest tube was ultimately required. She was discharged from the hospital on the April 23, 2019. She returned to the Emergency Department with increasing pleural fluid, and was identified as having an empyema. She underwent a thoracotomy and decortication. She is currently postop day #1 from that procedure. She indicates that she has some difficulty breathing whenever taking a deep breath. She was having some fevers and general malaise, and lack of appetite. She was able to eat breakfast and lunch today. She denies any current fevers, chills, nausea, or vomiting currently. She is on appropriate antibiotics. Otherwise, there has been no change to her condition. PAST MEDICAL HISTORY: 1. COPD. 2. Bipolar disorder. 3. Rectal prolapse. PAST SURGICAL HISTORY: 1. Diverting colostomy. 2. Herniorrhaphy of incisional hernia with mesh placement. 3. Repair of incisional hernia. 4. Appendectomy. 5. Thoracostomy tube placement x2. 6. Decortication with thoracotomy on right. FAMILY HISTORY: Noncontributory. SOCIAL HISTORY: Positive for alcohol use, marijuana use, and tobacco abuse. She has a 20 pack-year history of smoking. She has a history of opiate and methamphetamine abuse. She has no exposure to chemicals, dust, asbestos, or tuberculosis otherwise. ALLERGIES: PENICILLIN AND BUSPIRONE. MEDICATIONS: List of her inpatient medications was reviewed. No specific updates were made at this time. REVIEW OF SYSTEMS: General, head, ears, eyes, nose, throat, cardiovascular, respiratory, GI, , musculoskeletal, neurologic, and skin are negative except as mentioned in HPI. PHYSICAL EXAMINATION: VITAL SIGNS: Afebrile, pulse 114, blood pressure 103/63, respirations 26, and saturation 100%, currently on 1 L nasal cannula. GENERAL: The patient is awake and alert, in no apparent distress. LUNGS: Wonderful air entry with no prolonged expiratory phase on the left. There is extensive crackling present on the right. She has subcutaneous emphysema of the chest. HEART: Tachycardic. Regular. ABDOMEN: Soft, nontender, and nondistended. Bowel sounds are positive. MUSCULOSKELETAL: No cyanosis or clubbing. There is no pitting edema. NEUROLOGIC: Grossly nonfocal. LABORATORY DATA: WBC 20.7, hemoglobin 7.8 and gently downtrending. Platelets 570,000. Band count is 10% on top of 78% neutrophils. Basic metabolic profile is completely unremarkable. The bacterial culture includes Staph aureus from the pleural broth. Repeat blood culture x2 are negative. IMAGING: Chest x-ray demonstrates very beautiful re-expansion of the right lung with too large for thoracostomy tube is in good position. So far as I can tell , the side ports are within the thoracic cavity. Extensive subcutaneous emphysema is also present. Right-sided subclavian central venous catheter terminates in good position. ASSESSMENT: 1. Acute hypoxic respiratory failure. 2. Empyema, secondary to Staph aureus, status post decortication, postop day 1. 3. Alcohol abuse. 4. History of opiate and methamphetamine abuse. 5. Schizoaffective disorder. DISCUSSION AND PLAN: The patient is doing fine from respiratory standpoint. At this point, she has a large air leak. She is being transition out to the surgical unit. Pulmonary will continue to follow, intermittently, during this hospital stay. Her antibiotic course will be protracted and once blood cultures are negative, a PICC line needs to be placed. 70 minutes have been devoted to this patient in various activities. I personally reviewed all imaging studies and laboratory data noted within this document. For fifty percent of this time, I was interacting with the patient at the bedside or coordinating care with the care team. For the remainder of the time I was immediately available to the patient in the hospital unit. Job ID: [id number] [facility]
[2019-05-06] MEDS: OLANZapine 5 MG TAB PO SCH (20:23)
[2019-05-06] MEDS: traZODone HCl 150 MG TAB PO SCH (20:29)
[2019-05-07] MEDS: HYDROcodone/Acetaminophen 5/325 mg Tablet PO PRN ×6 (03:09→23:53)
[2019-05-07] MEDS: Vancomycin HCl 1 GM in Premix Bag 1 BAG IVPB SCH ×2 (06:27→18:14)
[2019-05-07] MEDS: Ketorolac Tromethamine 30 MG/ML VIAL IVP SCH ×4 (06:27→23:51)
[2019-05-07 06:35] LABS: #Basophils 0.1 thou/uL (0.0-0.2); #Eosinphils 0.4 thou/uL (0.0-0.7); #Lymphocytes 0.8 thou/uL (1.20-3.40); #Monocytes 0.4 thou/uL (0.11-0.59); #Neutrophils 11.6 thou/uL (1.40-6.50); %Basophils 0.4 % (0.0-1.0); %Eosinophils 3.1 % (0.0-10.0); %Lymphocytes 6.3 % (21.0-51.0); %Monocytes 2.9 % (0.0-10.0); %Neutrophils 87.3 % (42.0-75.0); Hemoglobin 10.2 g/dL (12.0-16.0); Mean Corpuscular HGB CONC 31.8 g/dL (32.0-36.0); Mean Corpuscular Hemoglobin 26.9 pg (27.0-31.0); Mean Corpuscular Volume 84.6 fL (78.0-98.0); Platelet Count 418 thou/uL (130-400); RBC Distribution Width 18.4 % (11.5-14.5); White Blood Cell (WBC) Count 13.3 thou/uL (4.8-10.8)
[2019-05-07] MEDS: Mometasone/Formoterol 120 PUFF INHALER INH SCH ×2 (06:54→19:14)
[2019-05-07 06:56] LABS: Anion Gap 10 mmol/L (10-20); BUN (Urea Nitrogen) 6 mg/dL (7.0-18.7); Calc. Creatinine Clearance 101 mL/min (70-130); Carbon Dioxide 35 mmol/L (22-29); Chloride 97 mmol/L (98-107); Estimated GFR-MDRD Greater than 90; Glucose 87 mg/dL (70-105); Potassium 3.5 mmol/L (3.5-5.1); Sodium 138 mmol/L (136-145)
[2019-05-07] MEDS: Ferrous Sulfate 325 MG TAB PO SCH (07:38)
[2019-05-07] MEDS: Bupropion 150 MG XL TAB PO SCH (07:40)
[2019-05-07] MEDS: Gabapentin 300 MG CAP PO SCH ×2 (07:40→19:44)
[2019-05-07] MEDS: Docusate 100 MG CAP PO SCH ×2 (07:41→19:43)
[2019-05-07] MEDS: Potassium Chloride 20 MEQ TAB PO SCH (07:41)
--- NOTE | 2019-05-07 09:57 | RAD ---
RADIOGRAPH CHEST 1 VIEW: Date: 05/07/2019 Time: 0423 HOURS HISTORY: 38-year-old female status post decortication of right hemithorax. COMPARISON: 05/06/2019, 0349 hours. FINDINGS: Two right-sided chest tubes entering from right base, with distal tips at right apex. Right subclavia n central venous catheter with distal tip at SVC. No widening of cardiomediastinal silhouette. Right-sided subcutaneous emphysema. Extensive reticular, irregular densities throughout the right lung. Left lung remains relatively anum r. Mild blunting of left lateral costophrenic angle. No pneumothorax identified. No interval change overall. IMPRESSION: 1. No interval change. 2. Extensive postprocedural changes throughout the right hemithoracic cavity. 3. Probably a combination of mixed chronic and acute or subacute changes in the right lung. JN [] POS: CET
[2019-05-07] MEDS: Nicotine 21 MG PATCH TOP SCH (11:38)
--- NOTE | 2019-05-07 12:30 | PDOC.HOSPP ---
- Subjective Encounter Date: 05/07/19 Encounter Time: 12:28 Subjective: cough, wants codiene cough med. anxious-wats ativan - Objective Vital Signs & Weight: Vital Signs (12 hours) Temp Pulse Resp BP Pulse Ox 05/07/19 11:18 98.1 F 100 18 124/86 98 05/07/19 07:10 98.5 F 89 14 125/82 99 05/07/19 03:42 97.8 F 89 16 134/86 99 Weight Admit Weight 107 lb Weight 106 lb 15.845 oz Most Recent Monitor Data Heart Rate from ECG 114 NIBP 103/63 NIBP BP-Mean 76 Respiration from ECG 26 SpO2 100 I&O: 05/06/19 05/07/19 05/08/19 06:59 06:59 06:59 Intake Total 2088 2359 Output Total 707 1320 Balance 1381 1039 Result Diagrams: 05/07/19 06:20 05/07/19 06:20 Hospitalist ROS - Medication Medications: Active Medications Generic Name Dose Route Start Last Admin Trade Name Freq PRN Reason Stop Dose Admin Hydrocodone Bitart/Acetaminophen 2 tab 05/06/19 11:41 05/07/19 11:37 In[place] 5/325 PO 2 tab Q4H PRN Administration Severe Pain (7-10) Bupropion HCl 150 mg 05/06/19 09:00 05/07/19 07:40 Wellbutrin Xl PO 150 mg DAILY SERGE Administration Cyclobenzaprine HCl 10 mg 05/05/19 03:26 05/06/19 08:23 Flexeril PO 10 mg TID PRN Administration Muscle Spasm Docusate Sodium 100 mg 05/05/19 21:00 05/07/19 07:41 Colace PO Not Given BID SERGE Ferrous Sulfate 325 mg 05/06/19 08:00 05/07/19 07:38 Feosol PO 325 mg QAM-WM SERGE Administration Gabapentin 300 mg 05/05/19 21:00 05/07/19 07:40 Neurontin PO 300 mg BID SERGE Administration Vancomycin HCl 1 gm/ Device 200 mls @ 200 mls/hr 05/05/19 18:00 05/07/19 06: 27 IVPB 200 mls 0600,1800 SERGE Administration Ketorolac Tromethamine 30 mg 05/05/19 18:00 01/28/20 11:38 Toradol IVP 05/08/19 12:01 30 mg Q6HR SERGE Administration Mometasone Furoate/Formoterol Fumar 2 puff 05/05/19 18:30 05/07/19 06:54 Dulera 200 Mcg/5 Mcg Inhaler INH 2 puff BID-RT SERGE Administration Nicotine 21 mg 05/07/19 11:00 05/07/19 11:38 Nicoderm Patch TOP Not Given Q24HR SERGE Olanzapine 20 mg 05/06/19 21:00 05/06/19 20:23 Zyprexa PO 20 mg HS SERGE Administration Pantoprazole Sodium 40 mg 05/06/19 09:00 05/07/19 07:41 Protonix PO 40 mg DAILY SERGE Administration Potassium Chloride 20 meq 05/07/19 08:00 05/07/19 07:41 K-Dur PO 20 meq QAM-WM SERGE Administration Quetiapine Fumarate 50 mg 05/05/19 21:00 05/06/19 20:23 Seroquel PO 50 mg HS SERGE Administration Quetiapine Fumarate 200 mg 05/06/19 21:00 05/07/19 10:24 Seroquel PO 200 mg BID SERGE Administration Sertraline HCl 200 mg 05/06/19 09:00 05/07/19 07:40 Zoloft PO 200 mg DAILY SERGE Administration Sodium Chloride 10 ml 05/05/19 21:00 05/07/19 07:45 Flush - Normal Saline IVF 10 ml Q12HR SERGE Administration Trazodone HCl 300 mg 05/05/19 21:00 05/06/19 20:29 Desyrel PO 300 mg HS SERGE Administration - Exam General Appearance: awake alert Neck: no JVD Heart: RRR, no murmur Respiratory - other findings: rhonchi, chest tube on right Gastrointestinal: soft, normal bowel sounds Extremities: no edema Hosp A/P (1) MRSA (methicillin resistant staph aureus) culture positive Code(s): Z22.322 - CARRIER OR SUSPECTED CARRIER OF METHICILLIN RESIS STAPH Status: Acute (2) Pyothorax Code(s): J86.9 - PYOTHORAX WITHOUT FISTULA Status: Acute (3) COPD (chronic obstructive pulmonary disease) Status: Chronic (4) Depression Code(s): F32.9 - MAJOR DEPRESSIVE DISORDER, SINGLE EPISODE, UNSPECIFIED Status : Chronic (5) HTN (hypertension) Code(s): I10 - ESSENTIAL (PRIMARY) HYPERTENSION Status: Chronic Qualifiers: Hypertension type: essential hypertension Qualified Code(s): I10 - Essential (primary) hypertension (6) Schizoaffective disorder Code(s): F25.9 - SCHIZOAFFECTIVE DISORDER, UNSPECIFIED Status: Chronic - Plan chest tube per [facility] cont iv vancomycin etc
--- NOTE | 2019-05-07 17:03 | PRG ---
DATE OF SERVICE: 05/07/2019 SUBJECTIVE: The patient is getting ready to go for walk. She is a kind of depressed from being away from her family, feeling better overall. A little bit of chest pain. No dyspnea. No abdominal pain or diarrhea. No genitourinary symptoms. The Moon catheter has been removed. OBJECTIVE: VITAL SIGNS: Essentially normal. Temperature has normalized. CHEST: Tries chest tube in the right side. Peripheral IV access and coarse breath sounds in the right hemithorax with rhonchi. HEART: S1 and S2. Regular rate. ABDOMEN: Soft, not distended or tender. NEURO: Nonfocal. IMAGING DATA: Chest x-ray with postprocedural changes in the right hemithorax. Pathology of lung specimen abscess with extensive surrounding inflammation, pleural tissue with abscess, necrosis, and granulation tissue. LABORATORY DATA: White cell count is down to 13, hemoglobin 10, and platelets 418. Creatinine 0.59. Microbiology with MRSA from the tissue from the 26. ASSESSMENT AND DISCUSSION: Schizoaffective disorder, binge drinking behavior, recent fall with rib fractures, pneumothorax, managed with chest tube. Subsequently, developed infection, treated with oral Bactrim and then recrudescence of the infection and now decortication. The patient to be continued on IV vancomycin. PICC line placement treat from 4 to 6 weeks. Monitor CRP and vancomycin trough levels. An alternate approach would be Zyvox, but that probably would be associated with too much toxicity. The IV therapy would be complicated and she may have to be transferred to a supervised setting. The patient is already depressed as the season that she may not be very willing to be transferred to any other setting other than home. In that case, could try linezolid with close monitoring of her CBC and gastrointestinal intolerance. I still would prefer the IV vancomycin if it can be arranged. Job ID: [id number]
[2019-05-07] MEDS: OLANZapine 5 MG TAB PO SCH (19:44)
[2019-05-07] MEDS: traZODone HCl 150 MG TAB PO SCH (19:44)
[2019-05-07] MEDS: Cyclobenzaprine 10 MG TAB PO PRN (19:44)
[2019-05-08] MEDS: HYDROcodone/Acetaminophen 5/325 mg Tablet PO PRN ×5 (05:46→23:36)
[2019-05-08] MEDS: Vancomycin HCl 1 GM in Premix Bag 1 BAG IVPB SCH ×2 (05:47→18:14)
[2019-05-08] MEDS: Ketorolac Tromethamine 30 MG/ML VIAL IVP SCH ×2 (05:48→12:29)
[2019-05-08] MEDS: Mometasone/Formoterol 120 PUFF INHALER INH SCH ×2 (07:48→18:58)
[2019-05-08] MEDS: Potassium Chloride 20 MEQ TAB PO SCH (08:57)
[2019-05-08] MEDS: Ferrous Sulfate 325 MG TAB PO SCH (08:57)
[2019-05-08] MEDS: Bupropion 150 MG XL TAB PO SCH (08:58)
[2019-05-08] MEDS: Gabapentin 300 MG CAP PO SCH ×2 (08:58→19:48)
[2019-05-08] MEDS: Docusate 100 MG CAP PO SCH ×2 (08:58→19:48)
--- NOTE | 2019-05-08 09:18 | RAD ---
EXAM: Single view of the chest HISTORY: Decortication for pneumothorax COMPARISON: 05/07/2019 FINDINGS: Single view of the chest shows a normal sized cardiomediastinal silhouette. The right ches t tubes and central venous catheter are unchanged in position. Air is seen along the right chest wall which limits evaluation of the right chest. No obvious pneumothorax is appreciated. There may b e a small right pleural effusion. The bones are unremarkable. IMPRESSION: Stable exam
[2019-05-08] MEDS: Nicotine 21 MG PATCH TOP SCH (10:09)
[2019-05-08] MEDS: Cyclobenzaprine 10 MG TAB PO PRN ×2 (10:09→19:53)
--- NOTE | 2019-05-08 11:46 | PQF ---
Date: 05-08-19 ATTN: DR. KJ CAMARILLO Please exercise your independent, professional judgment in responding to the clarification form. Clinical indicators are provided on the bottom of this form for your review Please check appropriate box(s): [ ] Protein Calorie Malnutrition: [ ] Mild [ ] Moderate [ ] Severe [ ] Other Malnutrition (please specify) __ [ ] Cachexia [ ] Other diagnosis [ ] Unable to determine In addition, please specify: Present on Admission (POA): [ ] Yes [ ] No [ ] Unable to determine CLINICAL INDICATORS - SIGNS / SYMPTOMS / LABS / RESULTS AND LOCATION IN MR: BMI: 05-05-19: 17.2 [employer]PER[employer]OR CONSULT 05-06-19: She complained of some trouble chewing as she is missing her teeth, but did not want a chopped texture. She was here earlier this month and was noted to be ~ 108#. ( NOW 106) H&P DR. CAMARILLO 05-06-19: IS CACHECTIC, LOOKS MUCH OLDER THAN STATED AGE. 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 2) Supplement with Ensure Enlive TID. Moderate Malnutrition (in acute illness) Energy Intake: <75% of estimated energy requirement for > 7 days Weight Loss: 1-2%/1 week; 5%/ 1 month; 7.5%/3 months Other: mild body fat loss; mild muscle mass loss; mild fluid accumulation; Severe Malnutrition (in acute illness) Energy Intake: < 50% of estimated energy requirement for > 5 days Weight Loss: >1-2%/1 week; >5%/1 month; >7.5%/3 months Other: moderate body fat loss; moderate muscle mass loss; moderate- severe fluid accumulation; measurably reduced outside b2b sales strength Moderate Malnutrition (in chronic illness) Energy Intake: <75% of estimated energy requirement for >1 month Weight Loss: 5%/1 month; 7.5%/3 months; 10%/6 months; 20%/1 year Other: mild body fat loss; mild muscle mass loss; mild fluid accumulation Severe Malnutrition (in chronic illness) Energy Intake: <75% of estimated energy requirement for >1 month Weight Loss: >5%/1 month; >7.5%/3 months; >10%/6 months; >20%/1 year Other: severe body fat loss; severe muscle mass loss; severe fluid accumulation ; measurably reduced outside b2b sales strength (This form is maintained as a part of the permanent medical record) 2014 [employer]. All Rights Reserved LUIS [email or web address] Office: [phone] [email or web address]
--- NOTE | 2019-05-08 15:20 | PDOC.HOSPP ---
- Subjective Encounter Date: 05/08/19 Encounter Time: 15:12 Subjective: just give me 1 shot of morphine - Objective Vital Signs & Weight: Vital Signs (12 hours) Temp Pulse Resp BP Pulse Ox 05/08/19 11:50 98.2 F 92 18 104/73 96 05/08/19 08:00 98 05/08/19 07:15 97.7 F 83 18 121/81 98 Weight Admit Weight 107 lb Weight 106 lb 15.845 oz Most Recent Monitor Data Heart Rate from ECG 114 NIBP 103/63 NIBP BP-Mean 76 Respiration from ECG 26 SpO2 100 I&O: 05/07/19 05/08/19 05/09/19 06:59 06:59 06:59 Intake Total 2359 990 Output Total 1320 195 Balance 1039 795 Result Diagrams: 05/07/19 06:20 05/07/19 06:20 Hospitalist ROS - Medication Medications: Active Medications Generic Name Dose Route Start Last Admin Trade Name Freq PRN Reason Stop Dose Admin Hydrocodone Bitart/Acetaminophen 2 tab 05/06/19 11:41 05/08/19 15:07 [place] 5/325 PO 2 tab Q4H PRN Administration Severe Pain (7-10) Bupropion HCl 150 mg 05/06/19 09:00 05/08/19 08:58 Wellbutrin Xl PO 150 mg DAILY SERGE Administration Cyclobenzaprine HCl 10 mg 05/05/19 03:26 05/08/19 10:09 Flexeril PO 10 mg TID PRN Administration Muscle Spasm Docusate Sodium 100 mg 05/05/19 21:00 05/08/19 08:58 Colace PO Not Given BID SERGE Ferrous Sulfate 325 mg 05/06/19 08:00 05/08/19 08:57 Feosol PO 325 mg QAM-WM SERGE Administration Gabapentin 300 mg 05/05/19 21:00 05/08/19 08:58 Neurontin PO 300 mg BID SERGE Administration Vancomycin HCl 1 gm/ Device 200 mls @ 200 mls/hr 05/05/19 18:00 05/08/19 05: 47 IVPB 200 mls 0600,1800 SERGE Administration Mometasone Furoate/Formoterol Fumar 2 puff 05/05/19 18:30 05/08/19 07:48 Dulera 200 Mcg/5 Mcg Inhaler INH Not Given BID-RT SERGE Nicotine 21 mg 05/07/19 11:00 05/08/19 10:09 Nicoderm Patch TOP Not Given Q24HR SERGE Olanzapine 20 mg 05/06/19 21:00 05/07/19 19:44 Zyprexa PO 20 mg HS SERGE Administration Pantoprazole Sodium 40 mg 05/06/19 09:00 05/08/19 08:58 Protonix PO 40 mg DAILY SERGE Administration Potassium Chloride 20 meq 05/07/19 08:00 05/08/19 08:57 K-Dur PO 20 meq QAM-WM SERGE Administration Quetiapine Fumarate 50 mg 05/05/19 21:00 05/07/19 19:44 Seroquel PO 50 mg HS SERGE Administration Quetiapine Fumarate 200 mg 05/06/19 21:00 05/08/19 08:57 Seroquel PO 200 mg BID SERGE Administration Sertraline HCl 200 mg 05/06/19 09:00 05/08/19 08:58 Zoloft PO 200 mg DAILY SERGE Administration Sodium Chloride 10 ml 05/05/19 21:00 05/08/19 12:30 Flush - Normal Saline IVF 10 ml Q12HR SERGE Administration Trazodone HCl 300 mg 05/05/19 21:00 05/07/19 19:44 Desyrel PO 300 mg HS SERGE Administration - Exam General Appearance: awake alert Neck: no JVD Heart: RRR, no murmur Respiratory - other findings: coarse bilat BS Gastrointestinal: soft, normal bowel sounds Extremities: no edema Hosp A/P (1) MRSA (methicillin resistant staph aureus) culture positive Code(s): Z22.322 - CARRIER OR SUSPECTED CARRIER OF METHICILLIN RESIS STAPH Status: Acute (2) Pyothorax Code(s): J86.9 - PYOTHORAX WITHOUT FISTULA Status: Acute (3) COPD (chronic obstructive pulmonary disease) Status: Chronic (4) Depression Code(s): F32.9 - MAJOR DEPRESSIVE DISORDER, SINGLE EPISODE, UNSPECIFIED Status : Chronic (5) HTN (hypertension) Code(s): I10 - ESSENTIAL (PRIMARY) HYPERTENSION Status: Chronic Qualifiers: Hypertension type: essential hypertension Qualified Code(s): I10 - Essential (primary) hypertension (6) Schizoaffective disorder Code(s): F25.9 - SCHIZOAFFECTIVE DISORDER, UNSPECIFIED Status: Chronic - Plan chest tube per [facility] cont iv vancomycin etc
[2019-05-08 18:00] LABS: Vancomycin, Trough 17.2 ug/mL
[2019-05-08] MEDS: OLANZapine 5 MG TAB PO SCH (19:49)
[2019-05-08] MEDS: traZODone HCl 150 MG TAB PO SCH (19:50)
[2019-05-09] MEDS: HYDROcodone/Acetaminophen 5/325 mg Tablet PO PRN ×3 (04:26→13:28)
[2019-05-09] MEDS: Cyclobenzaprine 10 MG TAB PO PRN ×2 (04:27→17:54)
[2019-05-09] MEDS: Vancomycin HCl 1 GM in Premix Bag 1 BAG IVPB SCH ×2 (05:49→17:55)
[2019-05-09] MEDS: Mometasone/Formoterol 120 PUFF INHALER INH SCH ×2 (07:11→19:34)
[2019-05-09] MEDS: Gabapentin 300 MG CAP PO SCH ×2 (08:23→19:28)
[2019-05-09] MEDS: Docusate 100 MG CAP PO SCH ×2 (08:23→19:29)
[2019-05-09] MEDS: Potassium Chloride 20 MEQ TAB PO SCH (08:23)
[2019-05-09] MEDS: Bupropion 150 MG XL TAB PO SCH (08:23)
[2019-05-09] MEDS: Ferrous Sulfate 325 MG TAB PO SCH (08:23)
--- NOTE | 2019-05-09 08:43 | RAD ---
Chest AP view INDICATION: History of decortication COMPARISON: Prior exam dated May 08, 2019 8:57 AM FINDINGS: Lungs:Bilateral emphysema is stable. Mild subsegmental volume loss within the right lower lobe persis ts. Cardiac silhouette:The cardiomediastinal silhouette appears within normal limits. Pulmonary vasculature:Normal Pleural spaces:Small bilateral pleural effusions are present. No pneumothorax is demonstrated. Subcut aneous emphysema overlying the right chest wall and right neck base is stable. Right-sided thoracostomy tubes are stable. Upper abdomen:No abnormality seen. Osseous structures: No acute osseous abnormality. Additional findings:Right subclavian central venous catheter is stable. IMPRESSION: Stable exam. No pneumothorax.
[2019-05-09] MEDS: Nicotine 21 MG PATCH TOP SCH (11:00)
--- NOTE | 2019-05-09 14:46 | PDOC.HOSPP ---
- Subjective Encounter Date: 05/09/19 Encounter Time: 14:41 Subjective: no change - Objective Vital Signs & Weight: Vital Signs (12 hours) Temp Pulse Resp BP Pulse Ox 05/09/19 13:15 98.1 F 84 12 134/88 98 05/09/19 08:43 97.8 F 104 H 18 123/80 98 05/09/19 08:20 98 05/09/19 04:31 97.8 F 78 16 113/82 93 L Weight Admit Weight 106 lb 15.84 oz Weight 106 lb 15.84 oz Most Recent Monitor Data Heart Rate from ECG 114 NIBP 103/63 NIBP BP-Mean 76 Respiration from ECG 26 SpO2 100 I&O: 05/08/19 05/09/19 05/10/19 06:59 06:59 06:59 Intake Total 990 Output Total 195 200 Balance 795 -200 Result Diagrams: 05/07/19 06:20 05/07/19 06:20 Hospitalist ROS - Medication Medications: Active Medications Generic Name Dose Route Start Last Admin Trade Name Freq PRN Reason Stop Dose Admin Hydrocodone Bitart/Acetaminophen 2 tab 05/06/19 11:41 05/09/19 13:28 [place] 5/325 PO 2 tab Q4H PRN Administration Severe Pain (7-10) Bupropion HCl 150 mg 05/06/19 09:00 05/09/19 08:23 Wellbutrin Xl PO 150 mg DAILY SERGE Administration Cyclobenzaprine HCl 10 mg 05/05/19 03:26 05/09/19 04:27 Flexeril PO 10 mg TID PRN Administration Muscle Spasm Docusate Sodium 100 mg 05/05/19 21:00 05/09/19 08:23 Colace PO Not Given BID SERGE Ferrous Sulfate 325 mg 05/06/19 08:00 05/09/19 08:23 Feosol PO 325 mg QAM-WM SERGE Administration Gabapentin 300 mg 05/05/19 21:00 05/09/19 08:23 Neurontin PO 300 mg BID SERGE Administration Vancomycin HCl 1 gm/ Device 200 mls @ 200 mls/hr 05/05/19 18:00 05/09/19 05: 49 IVPB 200 mls 0600,1800 SERGE Administration Mometasone Furoate/Formoterol Fumar 2 puff 05/05/19 18:30 05/09/19 07:11 Dulera 200 Mcg/5 Mcg Inhaler INH Not Given BID-RT SERGE Nicotine 21 mg 05/07/19 11:00 05/09/19 11:00 Nicoderm Patch TOP Not Given Q24HR SERGE Olanzapine 20 mg 05/06/19 21:00 05/08/19 19:49 Zyprexa PO 20 mg HS SERGE Administration Pantoprazole Sodium 40 mg 05/06/19 09:00 05/09/19 08:23 Protonix PO 40 mg DAILY SERGE Administration Potassium Chloride 20 meq 05/07/19 08:00 05/09/19 08:23 K-Dur PO 20 meq QAM-WM SERGE Administration Quetiapine Fumarate 50 mg 05/05/19 21:00 05/08/19 19:49 Seroquel PO 50 mg HS SERGE Administration Quetiapine Fumarate 200 mg 05/06/19 21:00 05/09/19 08:23 Seroquel PO 200 mg BID SERGE Administration Sertraline HCl 200 mg 05/06/19 09:00 05/09/19 08:22 Zoloft PO 200 mg DAILY SERGE Administration Sodium Chloride 10 ml 05/05/19 21:00 05/09/19 08:28 Flush - Normal Saline IVF 10 ml Q12HR SERGE Administration Trazodone HCl 300 mg 05/05/19 21:00 05/08/19 19:50 Desyrel PO 300 mg HS SERGE Administration - Exam General Appearance: awake alert Neck: no JVD Heart: RRR, no murmur Respiratory: CTAB Respiratory - other findings: chest tube on R Gastrointestinal: soft, normal bowel sounds Extremities: no edema Hosp A/P (1) MRSA (methicillin resistant staph aureus) culture positive Code(s): Z22.322 - CARRIER OR SUSPECTED CARRIER OF METHICILLIN RESIS STAPH Status: Acute (2) Pyothorax Code(s): J86.9 - PYOTHORAX WITHOUT FISTULA Status: Acute (3) COPD (chronic obstructive pulmonary disease) Status: Chronic (4) Depression Code(s): F32.9 - MAJOR DEPRESSIVE DISORDER, SINGLE EPISODE, UNSPECIFIED Status : Chronic (5) HTN (hypertension) Code(s): I10 - ESSENTIAL (PRIMARY) HYPERTENSION Status: Chronic Qualifiers: Hypertension type: essential hypertension Qualified Code(s): I10 - Essential (primary) hypertension (6) Schizoaffective disorder Code(s): F25.9 - SCHIZOAFFECTIVE DISORDER, UNSPECIFIED Status: Chronic - Plan chest tube per [facility] cont iv vancomycin etc
--- NOTE | 2019-05-09 17:46 | PRG ---
DATE OF SERVICE: 05/09/2019 SERVICE: Pulmonary Medicine. INTERVAL HISTORY: The patient is doing fine from respiratory standpoint. Breathing comfortably. No complaints of chest discomfort. She has been weaned down to room air. She has multiple chronic pain issues. She believes that her epidural is not working, requesting pain medication from me. That being said, she has been able to walk around the entire hallway and hospital without much difficulties. PHYSICAL EXAMINATION: VITAL SIGNS: Afebrile. Pulse 84, blood pressure 133/87, respirations 22, saturation 96%, currently on room air. GENERAL: The patient is awake and alert, in no apparent distress. LUNGS: Decent air entry with no prolonged expiratory phase or wheezing present. HEART: Normal rate, regular. ABDOMEN: Soft, nontender, nondistended. Bowel sounds are positive. MUSCULOSKELETAL: No cyanosis or clubbing. No pitting in the bilateral lower extremities. NEUROLOGIC: Grossly nonfocal. LABORATORY DATA: Culture results are growing MRSA out of the pleural broth. Blood cultures x2 are negative. IMAGING DATA: Chest x-ray demonstrates beautiful re-expansion of the right lung. Right-sided subclavian central venous catheter remains in good position. ASSESSMENT: 1. Acute hypoxic respiratory failure, resolved. 2. Empyema secondary to Staph aureus, status post decortication, postop day #4. 3. History of alcohol abuse. 4. Opiate and methamphetamine abuse. 5. Schizoaffective disorder. DISCUSSION AND PLAN: The patient is recovering beautifully. She has defervesced from inflammatory profile. Antibiotics will be directed by Infectious Disease. At this point, a protracted course of antibiotics are going to be indicated. IV is preferred, but p.o. linezolid may be required if she refuses to go to a care facility. At this point, she has no further requirements for inpatient Pulmonary or Critical Care opinion, and I will sign off. Please call with additional questions or concerns through time. Job ID: [id number] [facility]
[2019-05-09 18:03] LABS: Vancomycin, Trough 17.4 ug/mL
[2019-05-09] MEDS: OLANZapine 5 MG TAB PO SCH (19:28)
[2019-05-09] MEDS: traZODone HCl 150 MG TAB PO SCH (19:29)
[2019-05-10] MEDS: Cyclobenzaprine 10 MG TAB PO PRN ×3 (01:10→18:40)
[2019-05-10] MEDS: HYDROcodone/Acetaminophen 5/325 mg Tablet PO PRN ×5 (01:10→20:52)
[2019-05-10] MEDS: Vancomycin HCl 1 GM in Premix Bag 1 BAG IVPB SCH ×2 (05:13→18:40)
[2019-05-10] MEDS: Mometasone/Formoterol 120 PUFF INHALER INH SCH ×2 (07:28→19:30)
--- NOTE | 2019-05-10 08:09 | RAD ---
SINGLE VIEW OF THE CHEST: COMPARISON: 05/09/2019. HISTORY: Status post right thoracotomy with chest tubes. Decortication for pneumothorax. FINDINGS: A single view of the chest shows a normal-size cardiomediastinal silhouette. The chest tubes and michael tral venous catheter are unchanged in position. No pneumothorax is seen. Opacity in the right lung base may represent a small pleural effusion. Air is seen along the right chest wall. IMPRESSION: Stable exam. POS: CET
[2019-05-10] MEDS: Potassium Chloride 20 MEQ TAB PO SCH (09:34)
[2019-05-10] MEDS: Gabapentin 300 MG CAP PO SCH ×2 (09:34→20:50)
[2019-05-10] MEDS: Bupropion 150 MG XL TAB PO SCH (09:34)
[2019-05-10] MEDS: Ferrous Sulfate 325 MG TAB PO SCH (09:34)
[2019-05-10] MEDS: Docusate 100 MG CAP PO SCH ×2 (09:35→20:50)
[2019-05-10] MEDS: Nicotine 21 MG PATCH TOP SCH (16:27)
--- NOTE | 2019-05-10 19:40 | PDOC.HOSPP ---
- Subjective Encounter Date: 05/10/19 Encounter Time: 13:00 Subjective: patient seen on f/u for mrsa emphyema s/p decortication, chest tubes will be removed today, patient denies fever chills n/v, pain is currently well controlled - Objective Vital Signs & Weight: Vital Signs (12 hours) Temp Pulse Resp BP Pulse Ox 05/10/19 13:14 97.7 F 95 20 111/72 95 05/10/19 07:45 97.7 F 90 16 124/81 97 Weight Admit Weight 106 lb 15.84 oz Weight 106 lb 15.84 oz Most Recent Monitor Data Heart Rate from ECG 114 NIBP 103/63 NIBP BP-Mean 76 Respiration from ECG 26 SpO2 100 I&O: 05/09/19 05/10/19 05/11/19 06:59 06:59 06:59 Intake Total 1060 Output Total 200 100 Balance -200 960 Result Diagrams: 05/07/19 06:20 05/07/19 06:20 Hospitalist ROS - Review of Systems All other systems reviewed; all pertinent +/- noted in HPI/Subj - Medication Medications: Active Medications Generic Name Dose Route Start Last Admin Trade Name Freq PRN Reason Stop Dose Admin Hydrocodone Bitart/Acetaminophen 1 tab 05/06/19 11:41 05/09/19 17:54 [place] 5/325 PO 1 tab Q4H PRN Administration Moderate Pain (4-6) Hydrocodone Bitart/Acetaminophen 2 tab 05/06/19 11:41 05/10/19 16:25 [place] 5/325 PO 2 tab Q4H PRN Administration Severe Pain (7-10) Bupropion HCl 150 mg 05/06/19 09:00 05/10/19 09:34 Wellbutrin Xl PO 150 mg DAILY SERGE Administration Cyclobenzaprine HCl 10 mg 05/05/19 03:26 05/10/19 18:40 Flexeril PO 10 mg TID PRN Administration Muscle Spasm Docusate Sodium 100 mg 05/05/19 21:00 05/10/19 09:35 Colace PO Not Given BID SERGE Ferrous Sulfate 325 mg 05/06/19 08:00 05/10/19 09:34 Feosol PO 325 mg QAM-WM SERGE Administration Gabapentin 300 mg 05/05/19 21:00 05/10/19 09:34 Neurontin PO 300 mg BID SERGE Administration Vancomycin HCl 1 gm/ Device 200 mls @ 200 mls/hr 05/05/19 18:00 05/10/19 18: 40 IVPB 200 mls 0600,1800 SERGE Administration Mometasone Furoate/Formoterol Fumar 2 puff 05/05/19 18:30 05/10/19 19:30 Dulera 200 Mcg/5 Mcg Inhaler INH 2 puff BID-RT SERGE Administration Nicotine 21 mg 05/07/19 11:00 05/10/19 16:27 Nicoderm Patch TOP Not Given Q24HR SERGE Olanzapine 20 mg 05/06/19 21:00 05/09/19 19:28 Zyprexa PO 20 mg HS SERGE Administration Pantoprazole Sodium 40 mg 05/06/19 09:00 05/10/19 09:34 Protonix PO 40 mg DAILY SERGE Administration Potassium Chloride 20 meq 05/07/19 08:00 05/10/19 09:34 K-Dur PO 20 meq QAM-WM SERGE Administration Quetiapine Fumarate 50 mg 05/05/19 21:00 05/09/19 19:28 Seroquel PO 50 mg HS SERGE Administration Quetiapine Fumarate 200 mg 05/06/19 21:00 05/10/19 11:25 Seroquel PO 200 mg BID SERGE Administration Sertraline HCl 200 mg 05/06/19 09:00 05/10/19 09:34 Zoloft PO 200 mg DAILY SERGE Administration Sodium Chloride 10 ml 05/05/19 21:00 05/10/19 16:27 Flush - Normal Saline IVF 10 ml Q12HR SERGE Administration Trazodone HCl 300 mg 05/05/19 21:00 05/09/19 19:29 Desyrel PO 300 mg HS SERGE Administration - Exam General Appearance: awake alert Eye: PERRL, anicteric sclera ENT: normocephalic atraumatic, no oropharyngeal lesions Neck: supple, symmetric, no JVD Heart: RRR, no murmur, no gallops, no rubs Respiratory: CTAB, no wheezes, no rales, no ronchi Gastrointestinal: soft, non-tender, non-distended Extremities: no cyanosis, no clubbing Skin: normal turgor, no lesions Neurological: cranial nerve grossly intact Musculoskeletal: normal tone Psychiatric: normal affect, normal behavior Hosp A/P (1) MRSA (methicillin resistant staph aureus) culture positive Code(s): Z22.322 - CARRIER OR SUSPECTED CARRIER OF METHICILLIN RESIS STAPH Status: Acute (2) Pyothorax Code(s): J86.9 - PYOTHORAX WITHOUT FISTULA Status: Acute (3) Depression Code(s): F32.9 - MAJOR DEPRESSIVE DISORDER, SINGLE EPISODE, UNSPECIFIED Status : Chronic (4) HTN (hypertension) Code(s): I10 - ESSENTIAL (PRIMARY) HYPERTENSION Status: Chronic Qualifiers: Hypertension type: essential hypertension Qualified Code(s): I10 - Essential (primary) hypertension (5) Schizoaffective disorder Code(s): F25.9 - SCHIZOAFFECTIVE DISORDER, UNSPECIFIED Status: Chronic - Plan -ches tubes will be removed today, monitoring 02 sat and respirory distress -continue iv abx -schedule opd iv therapy with cm and id dr andujar -continue treatment for chronic conditions -pain management
[2019-05-10] MEDS ORDERED: ALPRAZolam 0.25 MG TAB PO SCH (20:00)
[2019-05-10] MEDS: OLANZapine 5 MG TAB PO SCH (20:50)
[2019-05-10] MEDS: traZODone HCl 150 MG TAB PO SCH (20:51)
[2019-05-11] MEDS: HYDROcodone/Acetaminophen 5/325 mg Tablet PO PRN ×3 (05:40→20:36)
[2019-05-11] MEDS: Vancomycin HCl 1 GM in Premix Bag 1 BAG IVPB SCH ×2 (05:40→19:04)
[2019-05-11] MEDS: Cyclobenzaprine 10 MG TAB PO PRN ×2 (06:17→20:36)
[2019-05-11 06:42] LABS: #Basophils 0.1 thou/uL (0.0-0.2); #Eosinphils 0.7 thou/uL (0.0-0.7); #Lymphocytes 2.3 thou/uL (1.20-3.40); #Monocytes 0.6 thou/uL (0.11-0.59); #Neutrophils 8.6 thou/uL (1.40-6.50); %Basophils 0.7 % (0.0-1.0); %Lymphocytes 18.7 % (21.0-51.0); %Neutrophils 69.5 % (42.0-75.0); Mean Corpuscular Hemoglobin 27.6 pg (27.0-31.0); Mean Corpuscular Volume 86.1 fL (78.0-98.0); Mean Platelet Volume 6.2 fL (7.4-10.4); Platelet Count 497 thou/uL (130-400); RBC Distribution Width 18.7 % (11.5-14.5); Red Blood Cell (RBC) Count 3.97 mill/uL (4.20-5.40); White Blood Cell (WBC) Count 12.4 thou/uL (4.8-10.8)
[2019-05-11 06:58] LABS: BUN (Urea Nitrogen) 8 mg/dL (7.0-18.7); Calc. Creatinine Clearance 86 mL/min (70-130); Estimated GFR-MDRD Greater than 90
[2019-05-11] MEDS: Potassium Chloride 20 MEQ TAB PO SCH (09:01)
[2019-05-11] MEDS: Gabapentin 300 MG CAP PO SCH ×2 (09:01→20:36)
[2019-05-11] MEDS: Ferrous Sulfate 325 MG TAB PO SCH (09:02)
[2019-05-11] MEDS: Bupropion 150 MG XL TAB PO SCH (09:03)
[2019-05-11] MEDS: Docusate 100 MG CAP PO SCH ×2 (09:03→20:23)
[2019-05-11] MEDS: Nicotine 21 MG PATCH TOP SCH (09:04)
--- NOTE | 2019-05-11 11:51 | RAD ---
RADIOGRAPH CHEST 1 VIEW: DATE: 05/11/2019 TIME: 11:40 AM HISTORY: 38-year-old female status post right pleural decortication. COMPARISON: 05/10/2019 FINDINGS: The 2 right-sided chest tubes have been removed. Right subclavian central venous catheter remains wit h tip overlying SVC. There is interval worsening of aeration at the right lung base, now with dense opacification there, with effacement of right lateral costophrenic angle. No definite pneumothorax identified. Increased pulmonary markings throughout the right lung. Mild interstitial densities in the right mid and lower lung zones have increased. Right-sided subcutaneous emphysema again noted. Left lung clear. No cardiomegaly. IMPRESSION: 1. Interval removal of the 2 right-sided thoracostomy tubes. 2. Interval increase in right pleural effusion with right basilar atelectasis.
[2019-05-11] MEDS: Mometasone/Formoterol 120 PUFF INHALER INH SCH ×2 (12:15→18:57)
--- NOTE | 2019-05-11 17:21 | PDOC.HOSPP ---
- Subjective Encounter Date: 05/11/19 Encounter Time: 17:20 Subjective: f/u for recurrent R empyeme with R pleural effusion s/p thoracostomy with decortication receiving Vancomycin. - Objective Vital Signs & Weight: Vital Signs (12 hours) Temp Pulse Resp BP Pulse Ox 05/11/19 16:15 99.2 F 78 18 106/70 93 L 05/11/19 11:24 97.8 F 100 18 121/80 98 05/11/19 08:57 97.7 F 87 18 122/87 96 05/11/19 08:00 96 Weight Admit Weight 106 lb 15.84 oz Weight 106 lb 15.84 oz Most Recent Monitor Data Heart Rate from ECG 114 NIBP 103/63 NIBP BP-Mean 76 Respiration from ECG 26 SpO2 100 I&O: 05/10/19 05/11/19 05/12/19 06:59 06:59 06:59 Intake Total 1060 1000 Output Total 100 300 Balance 960 700 Result Diagrams: 05/11/19 06:25 05/11/19 06:25 Additional Labs: Microbiology 05/05/19 13:35 Tissue - Miscellaneous Desc..see Notes Bacterial Culture - Final 05/05/19 13:35 Tissue - Miscellaneous Desc..see Notes Anaerobic Culture - Final Methicillin resistant S.aureus 05/05/19 01:42 Venous blood - Right Hand Blood Culture - Final NO GROWTH IN 5 DAYS 05/05/19 01:42 Venous blood - Right Arm Blood Culture - Final NO GROWTH IN 5 DAYS Laboratory Tests 05/05/19 05/06/19 05/07/19 05:30 03:17 06:20 WBC 9.8 20.7 H 13.3 H Hgb 8.9 L 7.8 L 10.2 L Radiology Reviewed by me: Yes (PCXR - removal of CT's x 2, right pleural effusion) Hospitalist ROS - Medication Medications: Active Medications Generic Name Dose Route Start Last Admin Trade Name Freq PRN Reason Stop Dose Admin Hydrocodone Bitart/Acetaminophen 1 tab 05/06/19 11:41 05/09/19 17:54 [place] 5/325 PO 1 tab Q4H PRN Administration Moderate Pain (4-6) Hydrocodone Bitart/Acetaminophen 2 tab 05/06/19 11:41 05/11/19 14:47 [place] 5/325 PO 2 tab Q4H PRN Administration Severe Pain (7-10) Bupropion HCl 150 mg 05/06/19 09:00 05/11/19 09:03 Wellbutrin Xl PO 150 mg DAILY SERGE Administration Cyclobenzaprine HCl 10 mg 05/05/19 03:26 05/11/19 06:17 Flexeril PO 10 mg TID PRN Administration Muscle Spasm Docusate Sodium 100 mg 05/05/19 21:00 05/11/19 09:03 Colace PO Not Given BID SERGE Ferrous Sulfate 325 mg 05/06/19 08:00 05/11/19 09:02 Feosol PO 325 mg QAM-WM SERGE Administration Gabapentin 300 mg 05/05/19 21:00 05/11/19 09:01 Neurontin PO 300 mg BID SERGE Administration Vancomycin HCl 1 gm/ Device 200 mls @ 200 mls/hr 05/05/19 18:00 05/11/19 05: 40 IVPB 200 mls 0600,1800 SERGE Administration Mometasone Furoate/Formoterol Fumar 2 puff 05/05/19 18:30 05/11/19 12:15 Dulera 200 Mcg/5 Mcg Inhaler INH 2 puff BID-RT SERGE Administration Nicotine 21 mg 05/07/19 11:00 05/11/19 09:04 Nicoderm Patch TOP Not Given Q24HR SERGE Olanzapine 20 mg 05/06/19 21:00 05/10/19 20:50 Zyprexa PO 20 mg HS SERGE Administration Pantoprazole Sodium 40 mg 05/06/19 09:00 05/11/19 09:02 Protonix PO 40 mg DAILY SERGE Administration Potassium Chloride 20 meq 05/07/19 08:00 05/11/19 09:01 K-Dur PO 20 meq QAM-WM SERGE Administration Quetiapine Fumarate 50 mg 05/05/19 21:00 05/10/19 20:51 Seroquel PO 50 mg HS SERGE Administration Quetiapine Fumarate 200 mg 05/06/19 21:00 05/11/19 09:00 Seroquel PO 200 mg BID SERGE Administration Sertraline HCl 200 mg 05/06/19 09:00 05/11/19 09:02 Zoloft PO 200 mg DAILY SERGE Administration Sodium Chloride 10 ml 05/05/19 21:00 05/11/19 09:03 Flush - Normal Saline IVF Not Given Q12HR SERGE Trazodone HCl 300 mg 05/05/19 21:00 05/10/19 20:51 Desyrel PO 300 mg HS SERGE Administration - Exam General Appearance: NAD, awake alert Eye: PERRL, anicteric sclera ENT: normocephalic atraumatic, no oropharyngeal lesions Neck: supple, symmetric, no JVD, no thyromegaly Heart: RRR, no gallops, no rubs, normal peripheral pulses Respiratory: rhonchi Respiratory - other findings: coarse sounds R chest Gastrointestinal: soft, non-tender, non-distended, normal bowel sounds, no palpable masses Extremities: no cyanosis, no clubbing, no edema Skin: normal turgor, no lesions Neurological: cranial nerve grossly intact, no new deficit Musculoskeletal: normal tone, normal strength Psychiatric: normal affect, A&O x 3 Hosp A/P (1) Pyothorax Code(s): J86.9 - PYOTHORAX WITHOUT FISTULA Status: Acute Plan: s/p thoracostomy with CT's x 2 and subsequent removal with MRSA spp isolated, continue supportive mgmt, IV Vancomycin (2) MRSA (methicillin resistant staph aureus) culture positive Code(s): Z22.322 - CARRIER OR SUSPECTED CARRIER OF METHICILLIN RESIS STAPH Status: Acute Plan: See above #1 (3) COPD (chronic obstructive pulmonary disease) Status: Chronic Plan: Continue pulmonary supportive mgmt (4) HTN (hypertension) Code(s): I10 - ESSENTIAL (PRIMARY) HYPERTENSION Status: Chronic Qualifiers: Hypertension type: essential hypertension Qualified Code(s): I10 - Essential (primary) hypertension Plan: Stable, continue current BP regimen (5) Schizoaffective disorder Code(s): F25.9 - SCHIZOAFFECTIVE DISORDER, UNSPECIFIED Status: Chronic Plan: Continue Seroquel, Zoloft, Trazodone - Plan continue antibiotics, PT/OT, social worker assistant, out of bed/ambulate, DVT proph w/ SCDs Stable currently Continue Vancomycin IV Local WCT OOB/ambulate CM for SNF options
[2019-05-11] MEDS ORDERED: ALPRAZolam 0.25 MG TAB PO PRN (20:27)
[2019-05-11] MEDS: traZODone HCl 150 MG TAB PO SCH (20:36)
[2019-05-11] MEDS: OLANZapine 5 MG TAB PO SCH (20:36)
[2019-05-12] MEDS: Cyclobenzaprine 10 MG TAB PO PRN ×2 (04:12→15:01)
[2019-05-12] MEDS: HYDROcodone/Acetaminophen 5/325 mg Tablet PO PRN ×4 (04:12→17:28)
[2019-05-12] MEDS: Vancomycin HCl 1 GM in Premix Bag 1 BAG IVPB SCH ×2 (06:19→20:34)
[2019-05-12] MEDS: Mometasone/Formoterol 120 PUFF INHALER INH SCH ×2 (07:01→19:46)
[2019-05-12] MEDS: Potassium Chloride 20 MEQ TAB PO SCH (08:57)
[2019-05-12] MEDS: Bupropion 150 MG XL TAB PO SCH (08:57)
[2019-05-12] MEDS: Ferrous Sulfate 325 MG TAB PO SCH (08:57)
[2019-05-12] MEDS: Gabapentin 300 MG CAP PO SCH ×2 (08:57→20:34)
[2019-05-12] MEDS: Docusate 100 MG CAP PO SCH ×2 (08:57→20:34)
--- NOTE | 2019-05-12 10:31 | PDOC.HOSPP ---
- Subjective Encounter Date: 05/12/19 Encounter Time: 10:30 Subjective: f/u for empyema and CT's x 2 with MRSA isolated on Vancomycin. Remains on RA. Awaiting SNF options. - Objective Vital Signs & Weight: Vital Signs (12 hours) Temp Pulse Resp BP Pulse Ox 05/12/19 09:06 97.5 F L 95 16 131/86 96 Weight Admit Weight 106 lb 15.84 oz Weight 106 lb 15.84 oz Most Recent Monitor Data Heart Rate from ECG 114 NIBP 103/63 NIBP BP-Mean 76 Respiration from ECG 26 SpO2 100 I&O: 05/11/19 05/12/19 05/13/19 06:59 06:59 06:59 Intake Total 1000 900 Output Total 300 400 Balance 700 500 Result Diagrams: 05/11/19 06:25 05/11/19 06:25 Additional Labs: Microbiology 05/05/19 13:35 Tissue - Miscellaneous Desc..see Notes Bacterial Culture - Final 05/05/19 13:35 Tissue - Miscellaneous Desc..see Notes Anaerobic Culture - Final Methicillin resistant S.aureus 05/05/19 01:42 Venous blood - Right Hand Blood Culture - Final NO GROWTH IN 5 DAYS 05/05/19 01:42 Venous blood - Right Arm Blood Culture - Final NO GROWTH IN 5 DAYS Laboratory Tests 05/05/19 05/06/19 05/07/19 05:30 03:17 06:20 WBC 9.8 20.7 H 13.3 H Hgb 8.9 L 7.8 L 10.2 L Hospitalist ROS - Medication Medications: Active Medications Generic Name Dose Route Start Last Admin Trade Name Freq PRN Reason Stop Dose Admin Hydrocodone Bitart/Acetaminophen 1 tab 05/06/19 11:41 05/09/19 17:54 [place] 5/325 PO 1 tab Q4H PRN Administration Moderate Pain (4-6) Hydrocodone Bitart/Acetaminophen 2 tab 05/06/19 11:41 05/12/19 08:58 [place] 5/325 PO 2 tab Q4H PRN Administration Severe Pain (7-10) Alprazolam 0.25 mg 05/11/19 20:27 05/11/19 20:57 Xanax PO 05/12/19 20:28 0.25 mg ONE PRN Administration Anxiety Bupropion HCl 150 mg 05/06/19 09:00 05/12/19 08:57 Wellbutrin Xl PO 150 mg DAILY SERGE Administration Cyclobenzaprine HCl 10 mg 05/05/19 03:26 05/12/19 04:12 Flexeril PO 10 mg TID PRN Administration Muscle Spasm Docusate Sodium 100 mg 05/05/19 21:00 05/12/19 08:57 Colace PO 100 mg BID SERGE Administration Ferrous Sulfate 325 mg 05/06/19 08:00 05/12/19 08:57 Feosol PO 325 mg QAM-WM SERGE Administration Gabapentin 300 mg 05/05/19 21:00 05/12/19 08:57 Neurontin PO 300 mg BID SERGE Administration Vancomycin HCl 1 gm/ Device 200 mls @ 200 mls/hr 05/05/19 18:00 05/12/19 06: 19 IVPB 200 mls 0600,1800 SERGE Administration Mometasone Furoate/Formoterol Fumar 2 puff 05/05/19 18:30 05/12/19 07:01 Dulera 200 Mcg/5 Mcg Inhaler INH 2 puff BID-RT SERGE Administration Nicotine 21 mg 05/07/19 11:00 05/11/19 09:04 Nicoderm Patch TOP Not Given Q24HR SERGE Olanzapine 20 mg 05/06/19 21:00 05/11/19 20:36 Zyprexa PO 20 mg HS SERGE Administration Pantoprazole Sodium 40 mg 05/06/19 09:00 05/12/19 08:57 Protonix PO 40 mg DAILY SERGE Administration Potassium Chloride 20 meq 05/07/19 08:00 05/12/19 08:57 K-Dur PO 20 meq QAM-WM SERGE Administration Quetiapine Fumarate 50 mg 05/05/19 21:00 05/11/19 20:36 Seroquel PO 50 mg HS SERGE Administration Quetiapine Fumarate 200 mg 05/06/19 21:00 05/12/19 08:57 Seroquel PO 200 mg BID SERGE Administration Sertraline HCl 200 mg 05/06/19 09:00 05/12/19 08:57 Zoloft PO 200 mg DAILY SERGE Administration Sodium Chloride 10 ml 05/05/19 21:00 05/12/19 06:43 Flush - Normal Saline IVF Not Given Q12HR SERGE Trazodone HCl 300 mg 05/05/19 21:00 05/11/19 20:36 Desyrel PO 300 mg HS SERGE Administration - Exam General Appearance: NAD, awake alert Eye: PERRL, anicteric sclera ENT: normocephalic atraumatic, no oropharyngeal lesions Neck: supple, symmetric, no JVD, no thyromegaly Heart: RRR, no murmur, no gallops, no rubs, normal peripheral pulses Respiratory: CTAB, no wheezes, no rales, no ronchi Gastrointestinal: soft, non-tender, non-distended, normal bowel sounds, no palpable masses Extremities: no cyanosis, no clubbing, no edema Skin: normal turgor, no lesions Neurological: cranial nerve grossly intact, no new deficit Musculoskeletal: normal tone, normal strength Psychiatric: normal affect, A&O x 3 Hosp A/P (1) Empyema Code(s): J86.9 - PYOTHORAX WITHOUT FISTULA Status: Acute Plan: s/p decortication and CT drainage. Continue Vancomycin (2) MRSA (methicillin resistant staph aureus) culture positive Code(s): Z22.322 - CARRIER OR SUSPECTED CARRIER OF METHICILLIN RESIS STAPH Status: Acute Plan: See above #1, plan for continuation of IV Vancomycin with SNF (3) COPD (chronic obstructive pulmonary disease) Status: Chronic Plan: Continue Duonebs, Dulera, remains on RA (4) Schizoaffective disorder Code(s): F25.9 - SCHIZOAFFECTIVE DISORDER, UNSPECIFIED Status: Chronic Plan: Continue psychotropes, stable, outpt follow up with [facility] - Plan continue antibiotics, PT/OT, social worker palliative care, respiratory therapy, out of bed/ ambulate, DVT proph w/SCDs Stable currently Continue Vancomycin IV likely 6 weeks Local WCT OOB/ambulate CM for SNF options Pain control adequate
[2019-05-12] MEDS: Nicotine 21 MG PATCH TOP SCH (14:12)
[2019-05-12] MEDS: Ondansetron PF 4 MG/2 ML Vial IVP PRN ×2 (15:01→20:36)
[2019-05-12 18:02] LABS: Vancomycin, Trough 17.2 ug/mL
[2019-05-12] MEDS: Non-Formulary Item 1 EACH (Linaclotide [Linzess] 145 MCG) PO SCH (18:28)
[2019-05-12] MEDS ORDERED: ALPRAZolam 0.25 MG TAB PO PRN (19:53)
[2019-05-12] MEDS: traZODone HCl 150 MG TAB PO SCH (20:35)
[2019-05-12] MEDS: OLANZapine 5 MG TAB PO SCH (20:35)
[2019-05-13] MEDS: HYDROcodone/Acetaminophen 5/325 mg Tablet PO PRN ×5 (02:39→23:01)
[2019-05-13] MEDS: Vancomycin HCl 1 GM in Premix Bag 1 BAG IVPB SCH ×2 (06:45→17:25)
[2019-05-13] MEDS: Mometasone/Formoterol 120 PUFF INHALER INH SCH ×2 (07:11→19:44)
[2019-05-13] MEDS: Gabapentin 300 MG CAP PO SCH ×2 (08:39→20:14)
[2019-05-13] MEDS: Bupropion 150 MG XL TAB PO SCH (08:39)
[2019-05-13] MEDS: Potassium Chloride 20 MEQ TAB PO SCH (08:39)
[2019-05-13] MEDS: Ferrous Sulfate 325 MG TAB PO SCH (08:39)
[2019-05-13] MEDS: Docusate 100 MG CAP PO SCH ×2 (08:39→20:13)
[2019-05-13] MEDS: Cyclobenzaprine 10 MG TAB PO PRN (08:39)
[2019-05-13] MEDS: Non-Formulary Item 1 EACH (Linaclotide [Linzess] 145 MCG) PO SCH (09:20)
[2019-05-13] MEDS: Nicotine 21 MG PATCH TOP SCH (10:30)
--- NOTE | 2019-05-13 11:21 | PQF ---
Date: 05-13-19 ATTN: DR. JOHANA ALVARENGA Please exercise your independent, professional judgment in responding to the clarification form. Clinical indicators are provided on the bottom of this form for your review Please check appropriate box(s): [ x ] Protein Calorie Malnutrition: [ ] Mild [ x ] Moderate [ ] Severe [ ] Other Malnutrition (please specify) __ [ ] Cachexia [ ] Other diagnosis [ ] Unable to determine In addition, please specify: Present on Admission (POA): [ x ] Yes [ ] No [ ] Unable to determine CLINICAL INDICATORS - SIGNS / SYMPTOMS / LABS / RESULTS AND LOCATION IN MR: BMI: 05-05-19: 17.2 PACKING CHECKER CONSULT 05-06-19: She complained of some trouble chewing as she is missing her teeth, but did not want a choppe texture. She was here ealier this month and was noted to be ~108#. ( NOW 106) H&P DR. CAMARILLO 05-06-19: IS CACHECTIC, LOOKS MUCH OLDER THAN STATED AGE. RISK FACTORS / RESULTS AND LOCATION IN MR: PACKING CHECKER CONSULT 05-06-19: PMH INCLUDES: chronic hyponatremia, COPD, bipolar disorder, exploratory laparotomy, marijuana TREATMENT / RESULTS AND LOCATION IN MR: PACKING CHECKER CONSULT 05-06-19: 1) Suggest change to Regular Diet. 2) Supplement with Ensure Enlive TID. Moderate Malnutrition (in acute illness) Energy Intake: <75% of estimated energy requirement for > 7 days Weight Loss: 1-2%/1 week; 5%/ 1 month; 7.5%/3 months Other: mild body fat loss; mild muscle mass loss; mild fluid accumulation; Severe Malnutrition (in acute illness) Energy Intake: < 50% of estimated energy requirement for > 5 days Weight Loss: >1-2%/1 week; >5%/1 month; >7.5%/3 months Other: moderate body fat loss; moderate muscle mass loss; moderate- severe fluid accumulation; measurably reduced beauty consultant strength Moderate Malnutrition (in chronic illness) MTDD
[2019-05-13] MEDS: Ondansetron PF 4 MG/2 ML Vial IVP PRN (13:07)
[2019-05-13] MEDS ORDERED: ALPRAZolam 0.25 MG TAB PO SCH (14:45)
--- NOTE | 2019-05-13 15:38 | SPC ---
EXAM: LEFT UPPER EXTREMITY PICC LINE PLACEMENT WITH ULTRASOUND GUIDANCE: HISTORY: MRSA Exposure: 0.5 minutes. 693 mg/sq cm FINDINGS: Successful left upper stomach PICC line placement with ultrasound guidance. A single-lumen 5 [place] c atheter terminates in the right atrium. 44 cm trim length. Catheter does flush and aspirate without difficulty TECHNIQUE: Consent obtained to perform a left PICC line with ultrasound guidance. Left arm was prepped and drape d in a sterile fashion. 1% lidocaine, buffered with sodium bicarbonate used with local anesthesia. Under ultrasound guidance, micropuncture needle was used to cannulate the brachial vein. A 0.018 guid ewire was advanced through the needle to level of the superior vena cava. The wire was advanced into the inferior vena cava to document venous access and pulled back to the right atrium. Tract was dilated. A single-lumen 5 [place] catheter was advanced over the wire. Wire was removed. 44 cm trim length. Single catheter flushes and aspirates without difficulty. No immediate or postprocedural comp lications. IMPRESSION: Successful left upper extremity PICC line placement with ultrasound guidance Transcribed Date/Time: 05/13/2019 4:55 PM
--- NOTE | 2019-05-13 17:30 | PDOC.HOSPP ---
- Subjective Encounter Date: 05/13/19 Encounter Time: 17:25 Subjective: f/u for empyema s/p decortication and CT placement now removed on Vancomycin. S/ p PICC line placement today. Plan for SNF placement and IV Vancomcyin for total of 6 weeks. - Objective Vital Signs & Weight: Vital Signs (12 hours) Temp Pulse Resp BP Pulse Ox 05/13/19 16:11 98.4 F 90 16 117/72 96 05/13/19 11:50 97.9 F 92 18 105/74 97 05/13/19 08:01 98.2 F 86 18 116/67 96 05/13/19 07:11 126 H 18 96 Weight Admit Weight 106 lb 15.84 oz Weight 106 lb 15.84 oz Most Recent Monitor Data Heart Rate from ECG 114 NIBP 103/63 NIBP BP-Mean 76 Respiration from ECG 26 SpO2 100 I&O: 05/12/19 05/13/19 05/14/19 06:59 06:59 06:59 Intake Total 900 Output Total 400 Balance 500 Result Diagrams: 05/11/19 06:25 05/11/19 06:25 Additional Labs: Microbiology 05/05/19 13:35 Tissue - Miscellaneous Desc..see Notes Bacterial Culture - Final 05/05/19 13:35 Tissue - Miscellaneous Desc..see Notes Anaerobic Culture - Final Methicillin resistant S.aureus 05/05/19 01:42 Venous blood - Right Hand Blood Culture - Final NO GROWTH IN 5 DAYS 05/05/19 01:42 Venous blood - Right Arm Blood Culture - Final NO GROWTH IN 5 DAYS Laboratory Tests 05/05/19 05/06/19 05/07/19 05:30 03:17 06:20 WBC 9.8 20.7 H 13.3 H Hgb 8.9 L 7.8 L 10.2 L Hospitalist ROS - Medication Medications: Active Medications Generic Name Dose Route Start Last Admin Trade Name Freq PRN Reason Stop Dose Admin Hydrocodone Bitart/Acetaminophen 1 tab 05/06/19 11:41 05/09/19 17:54 [place] 5/325 PO 1 tab Q4H PRN Administration Moderate Pain (4-6) Hydrocodone Bitart/Acetaminophen 2 tab 05/06/19 11:41 05/13/19 17:25 [place] 5/325 PO 2 tab Q4H PRN Administration Severe Pain (7-10) Bupropion HCl 150 mg 05/06/19 09:00 05/13/19 08:39 Wellbutrin Xl PO 150 mg DAILY SERGE Administration Cyclobenzaprine HCl 10 mg 05/05/19 03:26 05/13/19 08:39 Flexeril PO 10 mg TID PRN Administration Muscle Spasm Docusate Sodium 100 mg 05/05/19 21:00 05/13/19 08:39 Colace PO Not Given BID SERGE Ferrous Sulfate 325 mg 05/06/19 08:00 05/13/19 08:39 Feosol PO 325 mg QAM-WM SERGE Administration Gabapentin 300 mg 05/05/19 21:00 05/13/19 08:39 Neurontin PO 300 mg BID SERGE Administration Vancomycin HCl 1 gm/ Device 200 mls @ 200 mls/hr 05/05/19 18:00 05/13/19 17: 25 IVPB 200 mls 0600,1800 SERGE Administration Mometasone Furoate/Formoterol Fumar 2 puff 05/05/19 18:30 05/13/19 07:11 Dulera 200 Mcg/5 Mcg Inhaler INH 2 puff BID-RT SERGE Administration Nicotine 21 mg 05/07/19 11:00 05/13/19 10:30 Nicoderm Patch TOP Not Given Q24HR SERGE Olanzapine 20 mg 05/06/19 21:00 05/12/19 20:35 Zyprexa PO 20 mg HS SERGE Administration Ondansetron HCl 4 mg 05/05/19 15:06 05/13/19 13:07 Zofran IVP 4 mg Q6H PRN Administration Nausea/Vomiting Pantoprazole Sodium 40 mg 05/06/19 09:00 05/13/19 08:39 Protonix PO 40 mg DAILY SERGE Administration Potassium Chloride 20 meq 05/07/19 08:00 05/13/19 08:39 K-Dur PO 20 meq QAM-WM SERGE Administration Quetiapine Fumarate 50 mg 05/05/19 21:00 05/12/19 20:35 Seroquel PO 50 mg HS SERGE Administration Quetiapine Fumarate 200 mg 05/06/19 21:00 05/13/19 08:39 Seroquel PO 200 mg BID SERGE Administration Sertraline HCl 200 mg 05/06/19 09:00 05/13/19 08:39 Zoloft PO 200 mg DAILY SERGE Administration Sodium Chloride 10 ml 05/05/19 21:00 05/13/19 08:39 Flush - Normal Saline IVF 10 ml Q12HR SERGE Administration Trazodone HCl 300 mg 05/05/19 21:00 05/12/19 20:35 Desyrel PO 300 mg HS SERGE Administration - Exam General Appearance: ill appearing General - other findings: talkative, alert Eye: PERRL, anicteric sclera ENT: normocephalic atraumatic, no oropharyngeal lesions Neck: supple, symmetric, no JVD, no thyromegaly Heart: RRR, no murmur, no gallops, no rubs, normal peripheral pulses Respiratory - other findings: scattered coarse rhonchi bilat Gastrointestinal: soft, non-tender, non-distended, normal bowel sounds Extremities: no cyanosis, no clubbing Extremities - other findings: LUE with PICC line in place Skin: normal turgor, no lesions Neurological: cranial nerve grossly intact, no new deficit Musculoskeletal: normal tone, diffuse muscle atrophy Psychiatric: A&O x 3 Hosp A/P (1) Empyema Code(s): J86.9 - PYOTHORAX WITHOUT FISTULA Status: Acute Plan: s/p CT drainage and decortication, continue Vancomycin (2) MRSA (methicillin resistant staph aureus) culture positive Code(s): Z22.322 - CARRIER OR SUSPECTED CARRIER OF METHICILLIN RESIS STAPH Status: Acute Plan: Vancomycin IV for total 6 weeks (3) COPD (chronic obstructive pulmonary disease) Status: Chronic (4) Schizoaffective disorder Code(s): F25.9 - SCHIZOAFFECTIVE DISORDER, UNSPECIFIED Status: Chronic - Plan continue antibiotics, PT/OT, 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
[2019-05-13] MEDS: ALPRAZolam 0.25 MG TAB PO SCH (20:13)
[2019-05-13] MEDS: traZODone HCl 150 MG TAB PO SCH (20:14)
[2019-05-13] MEDS: OLANZapine 5 MG TAB PO SCH (20:14)
[2019-05-14] MEDS: HYDROcodone/Acetaminophen 5/325 mg Tablet PO PRN ×3 (05:02→15:28)
[2019-05-14] MEDS: Vancomycin HCl 1 GM in Premix Bag 1 BAG IVPB SCH ×2 (05:04→17:18)
[2019-05-14] MEDS: Cyclobenzaprine 10 MG TAB PO PRN ×2 (05:25→11:30)
[2019-05-14 05:58] LABS: Vancomycin, Trough 17.3 ug/mL
[2019-05-14] MEDS: Docusate 100 MG CAP PO SCH (08:30)
[2019-05-14] MEDS: Bupropion 150 MG XL TAB PO SCH (08:34)
[2019-05-14] MEDS: ALPRAZolam 0.25 MG TAB PO SCH (08:35)
[2019-05-14] MEDS: Ferrous Sulfate 325 MG TAB PO SCH (08:35)
[2019-05-14] MEDS: Gabapentin 300 MG CAP PO SCH (08:35)
[2019-05-14] MEDS: Potassium Chloride 20 MEQ TAB PO SCH (08:35)
[2019-05-14] MEDS: Mometasone/Formoterol 120 PUFF INHALER INH SCH (08:51)
[2019-05-14] MEDS: Nicotine 21 MG PATCH TOP SCH (13:02)
[2019-05-14] MEDS: Non-Formulary Item 1 EACH (Linaclotide [Linzess] 145 MCG) PO SCH (13:03)
[2019-05-14 15:31] VITALS: BP 106/69; TEMP 98.6
--- NOTE | 2019-05-15 05:44 | DIS ---
DATE OF ADMISSION: 05/05/2019 DATE OF DISCHARGE: 05/14/2019 DISCHARGE DIAGNOSES: 1. Empyema of the right chest with methicillin-resistant Staphylococcus aureus. 2. Status post decortication with chest tube drainage of #1 resolving. 3. Chronic obstructive pulmonary disease. 4. Schizoaffective disorder. CONSULTATIONS: 1. Dr. Evans, Cardiothoracic Surgery Service. 2. Dr. Markos Cantor, Infectious Disease Service. PERTINENT LABORATORY AND X-RAY FINDINGS: Sodium ranged between 133-138, phosphorus 3.1, and magnesium 1.9. CBC showed a white blood cell count ranged between 9.8-20.7, hemoglobin ranged between 7.8 to 11.0. Vancomycin trough 17.3 on 05/14/2019. Blood cultures x2 dated 05/05/2019 showed no growth at 5 days. Right pleural fluid culture dated 05/05/2019 showed methicillin-resistant Staphylococcus aureus. Portable chest x-ray dated 05/05/2019 showed atelectasis of the right lung field with small apical pneumothorax. Two right-sided thoracostomy tubes in place. Portable chest x-ray dated 05/06/2019 showed unchanged position of lines and tubes. Wedge biopsy of the right lung dated 05/05/2019 showed right empyema. Portable chest x-ray dated 05/11/2019 showed interval removal of two right-sided thoracostomy tubes. Right pleural effusion and right basilar atelectasis. HOSPITAL COURSE: The patient was initially admitted after presenting with increasing right chest pain with associated dyspnea with history of previous empyema. The patient was diagnosed with recurrent empyema of the right chest at which point, Thoracic Surgery Service was consulted. The patient underwent placement of two right-sided chest tubes with decortication and wedge resection of a ruptured right lower lobe abscess. The patient was monitored postoperatively on the surgical russo with chest tube drainage showing overall improvement and resolution with subsequent discontinuation of chest tubes after approximately four days. The patient continued on IV antibiotic therapy after Infectious Disease recommendations. The patient continued on vancomycin 1 g q.12 hours after right pleural fluid culture showed MRSA species. Current recommendations are to continue IV antibiotic therapy to complete a six week course of treatment until 06/17/2019. Overall, the patient remained clinically stable during the hospital course, tolerating regular oral intake and ambulating without assistance or difficulty. I have examined the patient at the time of discharge and discussed followup instructions. The patient verbalizes understanding and agreement and ready for discharge to the [facility] on 05/14/2019. DISCHARGE MEDICATIONS: 1. Albuterol sulfate 2 puffs inhaled q.6 hours p.r.n. 2. Symbicort 160/4.5 two puffs inhaled b.i.d. 3. Flonase 2 sprays in each naris daily. 4. Linzess 145 mcg p.o. daily. 5. Zyprexa 20 mg p.o. at bedtime. 6. Omeprazole 40 mg p.o. daily. 7. Potassium chloride 20 mEq p.o. daily. 8. Seroquel 200 mg p.o. b.i.d. and 50 mg p.o. at bedtime. 9. Zoloft 200 mg p.o. daily. 10. Imitrex 100 mg p.o. q.2 hours p.r.n. headache. 11. Trazodone 300 mg p.o. at bedtime. 12. Xanax 0.25 mg p.o. b.i.d. 13. Wellbutrin XL 150 mg p.o. daily. 14. EpiPen p.r.n. allergic reaction. 15. Ferrous sulfate 325 mg p.o. daily. 16. Ultram 100 mg p.o. q.6 hours p.r.n. 17. Vancomycin 1 g IV q.12 hours until 06/17/2019. CONDITION ON DISCHARGE: Stable. ACTIVITY: Ad-domenic. DIET: Regular. SPECIAL INSTRUCTIONS: Weekly CBC, CRP, and vancomycin trough until completion of IV vancomycin. CODE STATUS: Full. DISPOSITION: Discharged to [facility] on 05/14/2019. TIME SPENT: Total time preparing and coordinating discharge, 36 minutes. Job ID: [id number]
== END 2019-05-14 18:30 | DRG 163 ==
LOC: ERS 00:21 → SURG A 03:23 → INTOOBSV 03:23 → OBSVTOIN 15:06 → CCU 19:51 → SURG A 05-06 12:41
PROVIDERS: ADMIT Surgery; ATTEND Surgery
PROC: 0BBF0ZZ Excision of Right Lower Lung Lobe, Open Approach (ICD-10-PCS; principal; 2019-05-05)
PROC: 0BNM0ZZ Release Bilateral Lungs, Open Approach (ICD-10-PCS; 2019-05-05)
PROC: 02H633Z Insertion of Infusion Device into Right Atrium, Percutaneous Approach (ICD-10-PCS; 2019-05-13)
PROC: B548ZZA Ultrasonography of Superior Vena Cava, Guidance (ICD-10-PCS; 2019-05-13)
DX: J86.9 Pyothorax without fistula (principal); J96.01 Acute respiratory failure with hypoxia; E44.0 Moderate protein-calorie malnutrition; Z68.1 Body mass index [BMI] 19.9 or less, adult; E87.1 Hypo-osmolality and hyponatremia; J94.2 Hemothorax; B95.62 Methicillin resistant Staphylococcus aureus infection as the cause of diseases classified elsewhere; J44.9 Chronic obstructive pulmonary disease, unspecified; F25.9 Schizoaffective disorder, unspecified; Z88.0 Allergy status to penicillin; Z88.8 Allergy status to other drugs, medicaments and biological substances; Z90.49 Acquired absence of other specified parts of digestive tract; E87.6 Hypokalemia; Z83.3 Family history of diabetes mellitus; Z82.49 Family history of ischemic heart disease and other diseases of the circulatory system; F43.10 Post-traumatic stress disorder, unspecified; Z62.810 Personal history of physical and sexual abuse in childhood; F11.10 Opioid abuse, uncomplicated; G89.29 Other chronic pain; F10.10 Alcohol abuse, uncomplicated; F15.10 Other stimulant abuse, uncomplicated; F32.9 Major depressive disorder, single episode, unspecified
CPT/HCPCS: 36415; 36430; 36569; 71045; 80048; 80202; 82565; 83735; 84100; 84520; 85007; 85025; 85027; 86850; 86900; 86901; 87040; 87070; 87077; 87186; 87205; 88305; 88307; 94640; 96360; 96361; C1751; J1642; J1885; J2001; J2250; J2405; J2704; J2795; J3010; J3370; J7620; P9016

== ENCOUNTER 2019-05-17 17:44 | Inpatient (IN) | payer OTHER ==
[~2019-05-17 17:44] MED LIST changes: -ISOVUE-370 76%-LOCM 1 ML ONE; +Sodium Chloride 0.9% 250 ML 250 ML ONE
[2019-05-17 19:35] LABS: #Eosinphils 0.8 thou/uL (0.0-0.7); #Lymphocytes 2.4 thou/uL (1.20-3.40); #Monocytes 0.6 thou/uL (0.11-0.59); #Neutrophils 8.7 thou/uL (1.40-6.50); %Basophils 1.1 % (0.0-1.0); %Lymphocytes 19.3 % (21.0-51.0); %Monocytes 4.5 % (0.0-10.0); %Neutrophils 69.2 % (42.0-75.0); Hemoglobin 9.9 g/dL (12.0-16.0); Mean Corpuscular HGB CONC 32.4 g/dL (32.0-36.0); Mean Corpuscular Hemoglobin 27.5 pg (27.0-31.0); Mean Corpuscular Volume 84.9 fL (78.0-98.0); Mean Platelet Volume 6.3 fL (7.4-10.4); Platelet Count 498 thou/uL (130-400); White Blood Cell (WBC) Count 12.6 thou/uL (4.8-10.8)
[2019-05-17 19:36] LABS: #Basophils 0.1 thou/uL (0.0-0.2)
--- NOTE | 2019-05-17 19:38 | RAD ---
PORTABLE CHEST ONE VIEW: 05/17/19 at 6:49 p.m. HISTORY: MRSA infection. COMPARISON: 05/11/2009. FINDINGS/IMPRESSION: There is a left sided PICC line with tip in the projection of the SVC. A small right pleural effusion seen which may be chronic. No pneumothoraces or pleural effusions are seen. Chronic changes are seen in the right lung. POS: OFF
[2019-05-17 19:56] LABS: ALT (SGPT) 8 U/L (8-55); AST (SGOT) 14 U/L (5-34); Albumin 3.1 g/dL (3.5-5.0); Alkaline Phosphatase 112 U/L (40-110); Anion Gap 11 mmol/L (10-20); BUN (Urea Nitrogen) 6 mg/dL (7.0-18.7); Bilirubin, Total 0.2 mg/dL (0.2-1.2); Calc. Creatinine Clearance 0 mL/min (70-130); Calcium 8.8 mg/dL (7.8-10.44); Carbon Dioxide 36 mmol/L (22-29); Chloride 91 mmol/L (98-107); Estimated GFR-MDRD Greater than 90; Globulin 4.3 g/dL (2.4-3.5); Glucose 89 mg/dL (70-105); Protein, Total 7.4 g/dL (6.0-8.3); Sodium 135 mmol/L (136-145)
[2019-05-17 20:02] LABS: Potassium 2.6 mmol/L (3.5-5.1)
[2019-05-17] MEDS ORDERED: traMADol HCl 50 MG TAB ONE (20:31)
[2019-05-17] MEDS ORDERED: Potassium Chloride 20 MEQ/100 ML PREMIX BAG ONE (20:51)
[2019-05-17] MEDS ORDERED: Magnesium 2 GM/50 ML BAG (IN WATER) ONE (20:51)
[2019-05-17] MEDS ORDERED: Magnesium 2 GM/50 ML 2 GM in Premix Bag 1 BAG IVPB SCH ×2 (21:00→23:59)
[2019-05-17] MEDS ORDERED: D5 1/2 NS w/40 mEq KCL 1,000 ML IV SCH (21:00)
[2019-05-17] MEDS ORDERED: Potassium Chloride 20 MEQ TAB ONE (21:13)
[2019-05-17 21:14] LABS: Vancomycin, Trough 12.7 ug/mL
[2019-05-17] MEDS ORDERED: Acetaminophen 325 MG TAB PO PRN (23:07)
[2019-05-17] MEDS ORDERED: Ondansetron ODT 4 MG TAB SL PRN (23:07)
[2019-05-17] MEDS ORDERED: Ondansetron PF 4 MG/2 ML Vial IVP PRN ×2 (23:07→23:19)
[2019-05-17] MEDS ORDERED: Ondansetron ODT 4 MG TAB PO PRN (23:19)
--- NOTE | 2019-05-17 23:24 | PDOC.HHP ---
Hospitalist HPI - History of Present Illness discomfort at incision site History of Present Illness: Patient recently admitted from 05/05/19 to 05/14/19 with empyema of the right chest, sputum positive for MRSA. She had decortication with chest tube drainage of the empyema that was resolving at time of discharge. Patient has been receiving outpatient IV antibiotics, however having difficulty getting back and forth to her appointments, therefore referred to ED by Dr. Cantor for admission so that she will continue antibiotics. Patient has some discomfort as right posterior chest incision but its tolerable. States she has no new complaints or issues since discharge. She got up to walk downstairs stating shes fine and will be back to her room later. Floor nurses state she frequently wandered throughout the hospital during her last stay and often went outside to smoke. ED Course: Patient had labs done notable for low K+ 2.6 which was replaced in ED. Labs also notable for WCC 12.6, Jgb 9.9, Hct 30.6, Platelet 498. CXR: There is a left sided PICC line with tip in the projection of the SVC. A small right pleural effusion seen which may be chronic. No pneumothoraces or pleural effusions are seen. Chronic changes are seen in the right lung. She was given Magnesium IV, tramadol and started on Vancomycin. Hospitalist ROS - Review of Systems Constitutional: denies: fever, chills, sweats, weakness, malaise, other Eyes: denies: pain, vision change, conjunctivae inflammation, eyelid inflammation, redness, other ENT: denies: ear pain, ear discharge, nose pain, nose discharge, nose congestion , mouth pain, mouth swelling, throat pain, throat swelling, other Respiratory: reports: cough (chronic). denies: dry, shortness of breath, hemoptysis, SOB with excertion, pleuritic pain, sputum, wheezing, other Cardiovascular: reports: chest pain (right posterolateral pain at incision site) Gastrointestinal: denies: nausea, vomiting, abdominal pain, diarrhea, constipation, melena, hematochezia, other Genitourinary: denies: dysuria, frequency, incontinence, hematuria, retention, other Musculoskeletal: denies: neck pain, shoulder pain, arm pain, back pain, hand pain, leg pain, foot pain, other Hospitalist History - Past Medical History Source: patient Other Medical History: Prolapsed rectum COPD Empyema/MRSA Hypocalcemia Hyponatremia Colostomy 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 . - Social History Smoking Status: Current every day smoker Tobacco Type: cigarettes Living Situation: Alone Activity level: independent ambulation - Exam General - other findings: thin, disheveled and frail, older than stated age Gastrointestinal - other findings: slight distention, colostomy and gastric emptying bag Psychiatric: flat affect Psychiatric - other findings: Patient eager to leave her room to go downstairs, deferred physical exam Hospitalist Results - Labs Result Diagrams: 05/17/19 19:24 05/17/19 19:24 Lab results: WBC 12.6 thou/uL (4.8-10.8) H 05/17/19 19:24 Hgb 9.9 g/dL (12.0-16.0) L 05/17/19 19:24 Hct 30.6 % (36.0-47.0) L 05/17/19 19:24 MCV 84.9 fL (78.0-98.0) 05/17/19 19:24 Plt Count 498 thou/uL (130-400) H 05/17/19 19:24 Neutrophils % 69.2 % (42.0-75.0) 05/17/19 19:24 Sodium 135 mmol/L (136-145) L 05/17/19 19:24 Potassium 2.6 mmol/L (3.5-5.1) L* 05/17/19 19:24 Chloride 91 mmol/L (98-107) L 05/17/19 19:24 Carbon Dioxide 36 mmol/L (22-29) H 05/17/19 19:24 BUN 6 mg/dL (7.0-18.7) L 05/17/19 19:24 Creatinine 0.72 mg/dL (0.6-1.1) 05/17/19 19:24 Glucose 89 mg/dL (70-105) 05/17/19 19:24 Calcium 8.8 mg/dL (7.8-10.44) 05/17/19 19:24 Total Bilirubin 0.2 mg/dL (0.2-1.2) 05/17/19 19:24 AST 14 U/L (5-34) 05/17/19 19:24 ALT 8 U/L (8-55) 05/17/19 19:24 Alkaline Phosphatase 112 U/L (40-110) H 05/17/19 19:24 Serum Total Protein 7.4 g/dL (6.0-8.3) 05/17/19 19:24 Albumin 3.1 g/dL (3.5-5.0) L 05/17/19 19:24 Hospitalist H&P A/P - Problem (1) Hypokalemia Code(s): E87.6 - HYPOKALEMIA Status: Acute (2) Empyema Code(s): J86.9 - PYOTHORAX WITHOUT FISTULA Status: Acute (3) MRSA (methicillin resistant staph aureus) culture positive Code(s): Z22.322 - CARRIER OR SUSPECTED CARRIER OF METHICILLIN RESIS STAPH Status: Acute (4) Colostomy in place Code(s): Z93.3 - COLOSTOMY STATUS Status: Chronic (5) COPD (chronic obstructive pulmonary disease) Status: Chronic (6) Schizoaffective disorder Code(s): F25.9 - SCHIZOAFFECTIVE DISORDER, UNSPECIFIED Status: Chronic (7) History of drug abuse Code(s): F19.11 - OTHER PSYCHOACTIVE SUBSTANCE ABUSE, IN REMISSION Status: Chronic - Plan Plan: Patient with psych history and heavy smoker, also history of drug use. Here due to inability to make it to her appointments for IV Antibiotics. Discharged recently after undergoing drainage of right sided empyema. Patients assessment cut short as patient eager to go downstairs. During her exam she proceeded to open her gastric emptying back to release air build up proceeding to forcefully expel gastric contents. Patient then stated she would come back later. Counseled patient on hand washing which she initially refused. Found wandering outside. Patient was in no distress and denied any complaints except for discomfort associated with her chest tube insertion site from previous admission. She allowed RN to take photos and it did not appear erythematous, appears to be healing well. Electrolytes have been replaced. Continue to monitor and replace. Vancomycin restarted. Pharmacy to dose. Consult to Dr. Cantor who is aware of admission. Resume home meds once verified. Dr. Casillas in agreement with above.
[2019-05-18 00:01] VITALS: BMI 15.1
[2019-05-18] MEDS ORDERED: HYDROcodone/Acetaminophen 5/325 mg Tablet PO SCH (00:30)
[2019-05-18 06:45] LABS: #Basophils 0.2 thou/uL (0.0-0.2); #Lymphocytes 2.1 thou/uL (1.20-3.40); #Monocytes 0.6 thou/uL (0.11-0.59); #Neutrophils 6.6 thou/uL (1.40-6.50); %Basophils 1.5 % (0.0-1.0); %Eosinophils 9.4 % (0.0-10.0); %Lymphocytes 20.3 % (21.0-51.0); %Monocytes 5.9 % (0.0-10.0); %Neutrophils 62.9 % (42.0-75.0); Hemoglobin 10.8 g/dL (12.0-16.0); Mean Corpuscular HGB CONC 32.5 g/dL (32.0-36.0); Mean Corpuscular Hemoglobin 27.7 pg (27.0-31.0); Mean Corpuscular Volume 85.3 fL (78.0-98.0); Mean Platelet Volume 6.1 fL (7.4-10.4); Platelet Count 562 thou/uL (130-400); RBC Distribution Width 19.3 % (11.5-14.5); White Blood Cell (WBC) Count 10.4 thou/uL (4.8-10.8)
[2019-05-18 07:05] LABS: Anion Gap 12 mmol/L (10-20); BUN (Urea Nitrogen) 6 mg/dL (7.0-18.7); Calc. Creatinine Clearance 82 mL/min (70-130); Calcium 8.6 mg/dL (7.8-10.44); Carbon Dioxide 30 mmol/L (22-29); Chloride 98 mmol/L (98-107); Estimated GFR-MDRD Greater than 90; Glucose 84 mg/dL (70-105); Potassium 3.6 mmol/L (3.5-5.1); Sodium 136 mmol/L (136-145)
[2019-05-18] MEDS: Vancomycin HCl 1 GM in Premix Bag 1 BAG IVPB SCH ×2 (07:44→21:32)
[2019-05-18] MEDS: Famotidine/PF 20 mg/2ml Vial SLOW IVP SCH ×2 (07:45→21:33)
[2019-05-18] MEDS ORDERED: Vancomycin HCl 1 GM in Premix Bag 1 BAG IVPB SCH (09:00)
[2019-05-18] MEDS ORDERED: PROVENTIL INHALER 6.7 G (200 INHALATIONS) INH PRN (09:34)
[2019-05-18] MEDS ORDERED: ALPRAZolam 0.25 MG TAB PO SCH (09:45)
[2019-05-18] MEDS ORDERED: Bupropion 150 MG XL TAB PO SCH (09:45)
--- NOTE | 2019-05-18 15:04 | CON ---
DATE OF CONSULTATION: HISTORY OF PRESENT ILLNESS: She was recently discharged from the hospital on IV vancomycin through a PICC line. She has a history of schizoaffective disorder, depression, and prior suicide attempt and drug overdose. Complications related to rectal prolapse, colostomy, enterocutaneous fistula, and she was having problems with alcoholism, developed complications in the right lung from a fall requiring chest tube placement. Following that, she developed an MRSA infection, which was initially treated with oral Bactrim with failure of treatment. She was readmitted and at this time she had an empyema, which required decortication, so she was discharged on IV vancomycin, but she lives in close to [place], and was being transported to [place] for twice daily administration of vancomycin, but call me because she could not maintain that schedule anymore and I told her to come back to be readmitted to find out other options for management. She is having some pain in the right side, but not as much as before. No headaches. No sore throat, odynophagia, dysphagia. No vomiting or dyspnea. No abdominal pain or diarrhea. No genitourinary symptoms. 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 PAST SURGICAL HISTORY: As above. FAMILY HISTORY: Type 2 diabetes, coronary artery disease and depression. SOCIAL HISTORY: Lives with family members in [place]. Still smoking. No other drug use. Drinks on occasion, usually with the binge drinking behavior. ALLERGY HISTORY: BuSpar, penicillin. MEDICATIONS: She is currently on the following medications; Proventil HFA, Xanax, Wellbutrin, Pepcid, Feosol, Zyprexa, Zofran, Pneumovax, K-Dur, Seroquel, Zoloft, Desyrel, and vancomycin. PHYSICAL EXAMINATION: VITAL SIGNS: Essentially normal, little bit tachypneic at times. The patient has the area of the thoracotomy with healed incision, very little erythema. No drainage, and where that the chest tube exit sites are healing well. She has a PICC line, it is working properly. No lymphadenopathy. Ocular movements are somewhat dysconjugate. Oral cavity with no [place] teeth remaining in place. No oral lesions noted. NECK: Supple. No jugular vein distention. LUNGS: With better aeration in the right side. No wheezing. HEART: S1 and S2. Regular rate. No S3 or S4. ABDOMEN: Soft, not distended or tender. EXTREMITIES: No joint inflammatory activity. She is quite thin and almost cachectic. Pulses are 1+ in dorsalis pedis. NEUROLOGIC: Nonfocal. LABORATORY DATA: White cell count is 12.6, now 10.4; hemoglobin 9.9; platelets 498 and 562, 69 percent neutrophils. Sodium 135 and 136, creatinine 0.64. Liver profile with normal transaminases and bilirubin. Alkaline phosphatase 112 with albumin 3.1. The last culture positivity is from May 05 with MRSA from tissue culture from the decortication sample. The current chest x-ray from the with PICC line, small right pleural effusion. No other acute changes. ASSESSMENT: Substance abuse, suicidal ideation in the past with attempts, recent fall with pneumothorax, chest tube placement and postop infection with MRSA associated with empyema and then decortication and protracted IV vancomycin. The end date is estimated to be around the end of May. night manager will have to be enlisted to assist with finding an alternate treatment plan in view of her inability to continue going to get her infusions at [facility]. Job ID: [id number]
--- NOTE | 2019-05-18 15:46 | PDOC.HOSPP ---
- Subjective Encounter Date: 05/18/19 Subjective: Says she is in pain at site of the prior decortication site. Also requests that her xanax be increased to TID because she is feeling more anxiety. Nurses report that she is leaving the floor every 30 min to go outside to smoke. - Objective Vital Signs & Weight: Vital Signs (12 hours) Temp Pulse Resp BP Pulse Ox 05/18/19 11:26 98.9 F 81 24 H 105/69 95 05/18/19 08:00 92 L 05/18/19 04:10 98.6 F 72 16 114/74 92 L Weight Admit Weight 93 lb 14.56 oz Weight 93 lb 14.56 oz I&O: 05/17/19 05/18/19 05/19/19 06:59 06:59 06:59 Intake Total 1150 600 Output Total 150 Balance 1000 600 Result Diagrams: 05/18/19 06:23 05/18/19 06:23 Hospitalist ROS - Medication Medications: Active Medications Generic Name Dose Route Start Last Admin Trade Name Zelalemq PRN Reason Stop Dose Admin Famotidine 20 mg 05/18/19 09:00 05/18/19 07:45 Pepcid SLOW IVP 20 mg Q12HR SERGE Administration Vancomycin HCl 1 gm/ Device 200 mls @ 200 mls/hr 05/18/19 09:00 05/18/19 07: 44 IVPB 200 mls Q12HR SERGE Administration Sodium Chloride 10 ml 05/17/19 23:19 05/18/19 07:45 Flush - Normal Saline IVF 10 ml Q12HR PRN Administration Saline Flush - Exam General Appearance: NAD, awake alert Heart: RRR, no murmur, no gallops, no rubs, normal peripheral pulses Respiratory: CTAB, no wheezes, no rales, no ronchi, normal chest expansion, no tachypnea, normal percussion Gastrointestinal: soft, non-tender, non-distended, normal bowel sounds, no palpable masses, no hepatomegaly, no splenomegaly, no bruit Extremities: no cyanosis, no clubbing, no edema Skin - other findings: Several scabbed scars on the right flank, back. Incision looks healthy. Psychiatric: normal affect Hosp A/P (1) History of drug abuse Code(s): F19.11 - OTHER PSYCHOACTIVE SUBSTANCE ABUSE, IN REMISSION Status: Chronic (2) Empyema Code(s): J86.9 - PYOTHORAX WITHOUT FISTULA Status: Acute (3) MRSA (methicillin resistant staph aureus) culture positive Code(s): Z22.322 - CARRIER OR SUSPECTED CARRIER OF METHICILLIN RESIS STAPH Status: Acute (4) COPD (chronic obstructive pulmonary disease) Status: Chronic (5) Colostomy in place Code(s): Z93.3 - COLOSTOMY STATUS Status: Chronic (6) Depression Code(s): F32.9 - MAJOR DEPRESSIVE DISORDER, SINGLE EPISODE, UNSPECIFIED Status : Chronic (7) Schizoaffective disorder Code(s): F25.9 - SCHIZOAFFECTIVE DISORDER, UNSPECIFIED Status: Chronic - Plan Hx of MRSA empyema. Unable to comply with the plan in place for outpatient antibiotics. Referred back to this facility for IV Vanc and assistance with new plan. I will give a little toradol and renew the acetaminophen. Avoiding opioids and additional benzodiazepines as she is routinely leaving the hospital to go outside and I think that would put her at risk. ID following. CM consult.
[2019-05-18] MEDS: Ketorolac Tromethamine 30 MG/ML VIAL IVP PRN ×2 (16:24→21:34)
[2019-05-18] MEDS: traZODone HCl 150 MG TAB PO SCH (21:35)
[2019-05-18] MEDS: Acetaminophen 325 MG TAB PO PRN (21:35)
[2019-05-18] MEDS: ALPRAZolam 0.25 MG TAB PO SCH (21:36)
[2019-05-18] MEDS: OLANZapine 5 MG TAB PO SCH (21:36)
[2019-05-19] MEDS: Ketorolac Tromethamine 30 MG/ML VIAL IVP PRN ×3 (05:59→20:19)
[2019-05-19] MEDS: Acetaminophen 325 MG TAB PO PRN ×3 (06:00→20:19)
[2019-05-19] MEDS: Bupropion 150 MG XL TAB PO SCH (08:09)
[2019-05-19] MEDS: Potassium Chloride 20 MEQ TAB PO SCH (08:09)
[2019-05-19] MEDS: Ferrous Sulfate 325 MG TAB PO SCH (08:10)
[2019-05-19] MEDS: ALPRAZolam 0.25 MG TAB PO SCH ×2 (08:10→20:13)
[2019-05-19] MEDS: Famotidine/PF 20 mg/2ml Vial SLOW IVP SCH ×2 (08:10→20:14)
[2019-05-19 09:19] LABS: Vancomycin, Trough 20.4 ug/mL
[2019-05-19] MEDS: Vancomycin HCl 1 GM in Premix Bag 1 BAG IVPB SCH ×2 (09:30→20:12)
--- NOTE | 2019-05-19 12:37 | PDOC.HOSPP ---
- Subjective Encounter Date: 05/19/19 Encounter Time: 12:35 Subjective: Feels fine. No complaints. - Objective Vital Signs & Weight: Vital Signs (12 hours) Temp Pulse Resp BP Pulse Ox 05/19/19 08:00 100 05/19/19 07:29 97.3 F L 91 18 116/78 100 Weight Admit Weight 93 lb 14.56 oz Weight 93 lb 14.56 oz I&O: 05/18/19 05/19/19 05/20/19 06:59 06:59 06:59 Intake Total 1150 1670 240 Output Total 150 200 Balance 1000 1470 240 Result Diagrams: 05/18/19 06:23 05/18/19 06:23 Hospitalist ROS - Medication Medications: Active Medications Generic Name Dose Route Start Last Admin Trade Name Freq PRN Reason Stop Dose Admin Acetaminophen 650 mg 05/18/19 15:43 05/19/19 06:00 Tylenol PO 650 mg Q6H PRN Administration Mild-Moderate Pain (1-5) Alprazolam 0.25 mg 05/18/19 21:00 05/19/19 08:10 Xanax PO 0.25 mg BID SERGE Administration Bupropion HCl 150 mg 05/19/19 09:00 05/19/19 08:09 Wellbutrin Xl PO 150 mg DAILY SERGE Administration Famotidine 20 mg 05/18/19 09:00 05/19/19 08:10 Pepcid SLOW IVP 20 mg Q12HR SERGE Administration Ferrous Sulfate 325 mg 05/19/19 08:00 05/19/19 08:10 Feosol PO 325 mg QAM-WM SERGE Administration Vancomycin HCl 1 gm/ Device 200 mls @ 200 mls/hr 05/18/19 09:00 05/19/19 09: 30 IVPB 200 mls Q12HR SERGE Administration Ketorolac Tromethamine 15 mg 05/18/19 15:42 05/19/19 05:59 Toradol IVP 05/23/19 15:43 15 mg Q6H PRN Administration Pain Olanzapine 20 mg 05/18/19 21:00 05/18/19 21:36 Zyprexa PO 20 mg HS SERGE Administration Potassium Chloride 20 meq 05/19/19 09:00 05/19/19 08:09 K-Dur PO 20 meq DAILY SERGE Administration Quetiapine Fumarate 50 mg 05/19/19 09:00 02/09/20 08:09 Seroquel PO 50 mg DAILY SERGE Administration Quetiapine Fumarate 200 mg 05/18/19 21:00 05/19/19 08:09 Seroquel PO 200 mg BID SERGE Administration Sertraline HCl 200 mg 05/19/19 09:00 05/19/19 08:09 Zoloft PO 200 mg DAILY SERGE Administration Sodium Chloride 10 ml 05/17/19 23:19 05/18/19 21:37 Flush - Normal Saline IVF 10 ml Q12HR PRN Administration Saline Flush Trazodone HCl 300 mg 05/18/19 21:00 05/18/19 21:35 Desyrel PO 300 mg HS SERGE Administration - Exam General Appearance: NAD, awake alert Heart: RRR, no murmur, no gallops, no rubs, normal peripheral pulses Respiratory: CTAB, no wheezes, no rales, no ronchi, normal chest expansion, no tachypnea, normal percussion Gastrointestinal: soft, non-tender, non-distended, normal bowel sounds, no palpable masses, no hepatomegaly, no splenomegaly, no bruit Psychiatric: normal affect Hosp A/P (1) History of drug abuse Code(s): F19.11 - OTHER PSYCHOACTIVE SUBSTANCE ABUSE, IN REMISSION Status: Chronic (2) Empyema Code(s): J86.9 - PYOTHORAX WITHOUT FISTULA Status: Acute (3) MRSA (methicillin resistant staph aureus) culture positive Code(s): Z22.322 - CARRIER OR SUSPECTED CARRIER OF METHICILLIN RESIS STAPH Status: Acute (4) COPD (chronic obstructive pulmonary disease) Status: Chronic (5) Colostomy in place Code(s): Z93.3 - COLOSTOMY STATUS Status: Chronic (6) Depression Code(s): F32.9 - MAJOR DEPRESSIVE DISORDER, SINGLE EPISODE, UNSPECIFIED Status : Chronic (7) Schizoaffective disorder Code(s): F25.9 - SCHIZOAFFECTIVE DISORDER, UNSPECIFIED Status: Chronic - Plan Hx of MRSA empyema. Unable to comply with the plan in place for outpatient antibiotics. Referred back to this facility for IV Vanc and assistance with new plan. I will give a little toradol and renew the acetaminophen. Avoiding opioids and additional benzodiazepines as she is routinely leaving the hospital to go outside and I think that would put her at risk. ID following. CM consult. She says she cannot go to the hospital for IV abx because it is too hard. Does want to elaborate as to why. Says "I just can't. All I can do is oral." Asked if the problem was mental, physical or emotional, she says "all of the above". Did not want to speak with me anymore.
--- NOTE | 2019-05-19 15:57 | PDOC.EVN ---
Event Note - Event Note Event Note: Notified by nurse that the patient was found in the bathroom having pulled off her steri-strips. Patient was reportedly complaining of pain. The [employer] message included a photo that shows that some skin came off with the steri-strips and there was some acute inflammatory changes halo'd around the area. It appears that the patient may have put some tape on the area to which she said she was allergic causing more erythema. This is concerning for manipulative behavior in an attempt to get pain medications or munchausen syndrome. The photo's from yesterday show the patient's wound looking very good with steri-strips in place. No erythema. Ordering topical bacitracin and po benadryl. She is already covered with Vanc.
[2019-05-19] MEDS: diphenhydrAMINE 25 MG CAP PO PRN (16:14)
[2019-05-19] MEDS: Bacitracin 1 PK TOP SCH (20:13)
[2019-05-19] MEDS: traZODone HCl 150 MG TAB PO SCH (20:14)
[2019-05-19] MEDS: OLANZapine 5 MG TAB PO SCH (20:14)
[2019-05-20] MEDS: Ketorolac Tromethamine 30 MG/ML VIAL IVP PRN ×4 (02:22→22:47)
[2019-05-20] MEDS: Acetaminophen 325 MG TAB PO PRN ×4 (02:23→22:48)
[2019-05-20] MEDS: diphenhydrAMINE 25 MG CAP PO PRN ×2 (02:23→19:52)
[2019-05-20 08:46] LABS: Vancomycin, Trough 22.8 ug/mL
[2019-05-20] MEDS ORDERED: Vancomycin HCl 750 MG in Sodium Chloride 0.9% 250 ML 250 ML IVPB SCH (09:00)
[2019-05-20] MEDS: Potassium Chloride 20 MEQ TAB PO SCH (09:39)
[2019-05-20] MEDS: Bupropion 150 MG XL TAB PO SCH (09:39)
[2019-05-20] MEDS: ALPRAZolam 0.25 MG TAB PO SCH ×2 (09:39→19:52)
[2019-05-20] MEDS: Ferrous Sulfate 325 MG TAB PO SCH (09:39)
[2019-05-20] MEDS: Famotidine/PF 20 mg/2ml Vial SLOW IVP SCH ×2 (09:40→19:53)
[2019-05-20] MEDS: Bacitracin 1 PK TOP SCH ×3 (09:40→19:53)
--- NOTE | 2019-05-20 16:07 | PDOC.HOSPP ---
- Subjective Encounter Date: 05/20/19 Subjective: Says she must be changed to po antibiotics. Says she talked to Dr. Cantor and he told her that was an option. She wants to go home today. Doesn't like her room. - Objective Vital Signs & Weight: Vital Signs (12 hours) Temp Pulse Resp BP Pulse Ox 05/20/19 08:00 98.0 F 94 16 124/84 98 Weight Admit Weight 93 lb 14.56 oz Weight 93 lb 14.56 oz I&O: 05/19/19 05/20/19 05/21/19 06:59 06:59 06:59 Intake Total 1670 1480 Output Total 200 Balance 1470 1480 Result Diagrams: 05/18/19 06:23 05/18/19 06:23 Hospitalist ROS - Medication Medications: Active Medications Generic Name Dose Route Start Last Admin Trade Name Freq PRN Reason Stop Dose Admin Acetaminophen 650 mg 05/18/19 15:43 05/20/19 09:43 Tylenol PO 650 mg Q6H PRN Administration Mild-Moderate Pain (1-5) Alprazolam 0.25 mg 05/18/19 21:00 05/20/19 09:39 Xanax PO 0.25 mg BID SERGE Administration Bacitracin 1 pk 05/19/19 21:00 05/20/19 15:27 Bacitracin TOP 1 pk TID SERGE Administration Bupropion HCl 150 mg 05/19/19 09:00 05/20/19 09:39 Wellbutrin Xl PO 150 mg DAILY SERGE Administration Diphenhydramine HCl 25 mg 05/19/19 15:49 05/20/19 02:23 Benadryl PO 25 mg Q6H PRN Administration Itching & Insomnia Famotidine 20 mg 05/18/19 09:00 05/20/19 09:40 Pepcid SLOW IVP 20 mg Q12HR SERGE Administration Ferrous Sulfate 325 mg 05/19/19 08:00 05/20/19 09:39 Feosol PO 325 mg QAM-WM SERGE Administration Vancomycin HCl 750 mg/ Sodium 250 mls @ 250 mls/hr 05/20/19 09:00 05/20/19 09 :40 Chloride IVPB 250 mls Q12HR SERGE Administration Ketorolac Tromethamine 15 mg 05/18/19 15:42 05/20/19 09:43 Toradol IVP 05/23/19 15:43 15 mg Q6H PRN Administration Pain Olanzapine 20 mg 05/18/19 21:00 05/19/19 20:14 Zyprexa PO 20 mg HS SERGE Administration Potassium Chloride 20 meq 05/19/19 09:00 05/20/19 09:39 K-Dur PO 20 meq DAILY SERGE Administration Quetiapine Fumarate 50 mg 05/19/19 09:00 05/20/19 09:38 Seroquel PO 50 mg DAILY SERGE Administration Quetiapine Fumarate 200 mg 05/18/19 21:00 05/20/19 09:39 Seroquel PO 200 mg BID SERGE Administration Sertraline HCl 200 mg 05/19/19 09:00 05/20/19 09:39 Zoloft PO 200 mg DAILY SERGE Administration Sodium Chloride 10 ml 05/17/19 23:19 05/19/19 20:12 Flush - Normal Saline IVF 10 ml Q12HR PRN Administration Saline Flush Trazodone HCl 300 mg 05/18/19 21:00 05/19/19 20:14 Desyrel PO 300 mg HS SERGE Administration - Exam General Appearance: NAD, awake alert General - other findings: Ambulating all around the medical floor and went outside to smoke. Hosp A/P (1) Empyema Code(s): J86.9 - PYOTHORAX WITHOUT FISTULA Status: Acute (2) MRSA (methicillin resistant staph aureus) culture positive Code(s): Z22.322 - CARRIER OR SUSPECTED CARRIER OF METHICILLIN RESIS STAPH Status: Acute (3) COPD (chronic obstructive pulmonary disease) Status: Chronic (4) Colostomy in place Code(s): Z93.3 - COLOSTOMY STATUS Status: Chronic (5) Depression Code(s): F32.9 - MAJOR DEPRESSIVE DISORDER, SINGLE EPISODE, UNSPECIFIED Status : Chronic (6) Schizoaffective disorder Code(s): F25.9 - SCHIZOAFFECTIVE DISORDER, UNSPECIFIED Status: Chronic (7) History of drug abuse Code(s): F19.11 - OTHER PSYCHOACTIVE SUBSTANCE ABUSE, IN REMISSION Status: Chronic - Plan Hx of MRSA empyema. Unable to comply with the plan in place for outpatient antibiotics. Referred back to this facility for IV Vanc and assistance with new plan. Avoiding opioids and additional benzodiazepines as she is routinely leaving the hospital to go outside and I think that would put her at risk. ID following. CM consult. Discussed with CM. Apparently, Zyvox is an option. Will need prior authorization. Working on getting that through Dr. Cantor. This seems to make the most sense.
--- NOTE | 2019-05-20 17:07 | PRG ---
DATE OF SERVICE: 05/20/2019 SUBJECTIVE: Ms. Velasquez is stable, still somewhat cantankerous, and for the most part does not stay in the room, difficulty with arrangement for the IV therapy continuation, and symptomatically, she is stable. OBJECTIVE: VITAL SIGNS: She has been afebrile. LUNGS: With decreased breath sounds in the right side. HEART: S1 and S2. ABDOMEN: Soft. Not distended. LABORATORY DATA: White cell count is 10.4. ASSESSMENT AND DISCUSSION: Substance abuse; suicidal ideation in the past; fall with pneumothorax; chest tube placement; postoperative infection due to methicillin-resistant Staphylococcus aureus associated with empyema, status post decortication and protracted IV vancomycin, which has been interrupted because of transportation difficulties. The patient will be now transitioned to oral Zyvox until the end of May. Preauthorization has been completed with Medicaid, and we are awaiting on a decision. Most of the issues were related to drug-drug interactions, and she will have to discontinue Zoloft and bupropion. Job ID: [id number]
[2019-05-20] MEDS: OLANZapine 5 MG TAB PO SCH (19:52)
[2019-05-20] MEDS: traZODone HCl 150 MG TAB PO SCH (19:52)
[2019-05-20] MEDS: Linezolid 600 MG TAB PO SCH (19:56)
[2019-05-21] MEDS: Ketorolac Tromethamine 30 MG/ML VIAL IVP PRN ×2 (06:23→12:57)
[2019-05-21] MEDS: Acetaminophen 325 MG TAB PO PRN ×2 (06:24→12:56)
[2019-05-21 07:39] VITALS: BP 128/85; TEMP 99.1
[2019-05-21] MEDS: ALPRAZolam 0.25 MG TAB PO SCH (09:14)
[2019-05-21] MEDS: Bacitracin 1 PK TOP SCH ×2 (09:14→15:21)
[2019-05-21] MEDS: Ferrous Sulfate 325 MG TAB PO SCH (09:14)
[2019-05-21] MEDS: Potassium Chloride 20 MEQ TAB PO SCH (09:14)
[2019-05-21] MEDS: Famotidine/PF 20 mg/2ml Vial SLOW IVP SCH (09:14)
[2019-05-21] MEDS: Linezolid 600 MG TAB PO SCH ×2 (09:38→17:09)
[2019-05-21] MEDS ORDERED: Linezolid 600 MG TAB PO SCH ×2 (16:00→17:15)
--- NOTE | 2019-05-22 10:43 | DIS ---
DATE OF ADMISSION: 05/17/2019 DATE OF DISCHARGE: 05/21/2019 DISCHARGE DIAGNOSES: 1. Empyema, status post thoracotomy with decortication growing Methicillin-resistant Staphylococcus aureus. 2. Chronic obstructive pulmonary disease. 3. Depression. 4. Schizoaffective disorder. 5. History of drug abuse. 6. Chronic obstructive pulmonary disease. HISTORY OF PRESENT ILLNESS: This patient is a 38-year-old female, who has had numerous admissions to this hospital as well as other local facilities going back a number of years. The patient had recently been admitted after a fall with some pneumonia and development of a right-sided empyema, which required open thoracotomy with decortication. This grew MRSA and ultimately the patient was set up to have outpatient IV vancomycin in [place]. However, the patient decided that she was unable to continue with that plan, although she could not be very specific in why, but ultimately called Dr. Cantor and was referred back to the hospital so that we could continue to give her the appropriate medications. In the hospital, the patient did have the IV vancomycin, trying to get case management involved to help figure out a subsequent plan to allow her to finish out her course of treatment. However, the patient ultimately insisted that she would only be able to do this with oral medications. Unfortunately, Zyvox being the primary option, was noted to have some interactions with some of her other medications including her Zoloft and bupropion. Ultimately, however, under the guidance of Dr. Cantor, it was felt that that was the most reasonable plan in order to try to resolve this and the patient was given a prescription for the Zyvox and once we were able to confirm, that she would have some coverage with her insurance in order to be able to obtain it. The patient was felt to be stable for discharge. Throughout her stay, the patient was walking about the hospital and going outside repeatedly throughout the day to smoke. PHYSICAL EXAMINATION: VITAL SIGNS: At the time of discharge, temperature was 99.1, pulse 79, respirations 24, O2 sats 90% on room air, BP 128/85. GENERAL: She was awake and alert. HEART: Regular. LUNGS: Clear. ABDOMEN: Benign. Her right lateral incision wound initially looked very good. However, the patient ripped off her Steri-Strips at one point, peeling off some superficial skin with it causing some irritation. However, there was no evidence of infection. EXTREMITIES: No cyanosis, clubbing, or edema. DISPOSITION: The patient is discharged to home. ACTIVITY: As tolerated. No dietary restrictions. MEDICATIONS: She will have; 1. Zyvox 600 mg b.i.d. She will continue; 1. Zyprexa 20 mg at bedtime. 2. Flonase 2 sprays per nares b.i.d. 3. Albuterol inhaler q.6 hours p.r.n. shortness of breath. 4. EpiPen p.r.n. 5. Seroquel 200 mg b.i.d. 6. Trazodone 300 mg at bedtime. 7. Omeprazole 40 mg daily. 8. Seroquel 50 mg daily. 9. Tylenol p.r.n. 10. Ferrous sulfate 325 daily. 11. Potassium 20 mEq daily. 12. Tramadol 100 mg q.6 hours p.r.n. 13. Imitrex 100 mg q.2 hours p.r.n. no more than 2 per 24 hours. 14. Alprazolam 0.25 mg b.i.d. She is to discontinue the sertraline and the bupropion. FOLLOWUP: She is to follow up with Cici Rouse in 7 days and she can follow up with Dr. Cantor as needed as well. She can return to the hospital any time should she have the need to do so. TIME SPENT: Total time in discharge activities was 37 minutes. Job ID: [id number]
== END 2019-05-21 17:16 | disposition home or self-care (01) | DRG 179 ==
LOC: ERS 17:44 → T4-B 22:58
PROVIDERS: ADMIT Internal Medicine; ATTEND Internal Medicine
DX: J86.9 Pyothorax without fistula (principal); E87.6 Hypokalemia; F31.9 Bipolar disorder, unspecified; F25.9 Schizoaffective disorder, unspecified; F12.10 Cannabis abuse, uncomplicated; F17.210 Nicotine dependence, cigarettes, uncomplicated; F15.10 Other stimulant abuse, uncomplicated; B95.62 Methicillin resistant Staphylococcus aureus infection as the cause of diseases classified elsewhere; J44.9 Chronic obstructive pulmonary disease, unspecified; E83.51 Hypocalcemia; F11.10 Opioid abuse, uncomplicated; Z93.3 Colostomy status; Z90.49 Acquired absence of other specified parts of digestive tract; Z88.0 Allergy status to penicillin; Z88.8 Allergy status to other drugs, medicaments and biological substances
CPT/HCPCS: 36415; 36416; 71045; 80048; 80053; 80202; 83735; 85025; 93005; 96365; 96367; 96368; J1885; J3370; J3475; J3480; J7050; Q0163; S0028